=== PATIENT | female | born 1950 | race African-American/Black ===

== ENCOUNTER 2016-09-21 20:55 | Emergency (ER) | payer OTHER ==
[~2016-09-21] VITALS: Ht 177.8 cm; Wt 92.0 kg
[~2016-09-21 20:55] MED LIST: AMLO5TAB22 PO; ASPI81 PO; COZA100T PO; DETR4CAP OR; GLUCTAB PO; GLYB5TAB3 PO; METO100T PO; NAPR-503 PO; TRIA40P IA; Vit D3 PO
[2016-09-21 20:57] VITALS: BP 197/85; PULSE 91; RESP 16; TEMP 97.9; O2SAT 96
[2016-09-21] MEDS ORDERED: METF500T PO (21:40)
--- NOTE | 2016-09-21 22:03 | PD ---
HPI Chief Complaint: Fall Time Seen by Provider: 22:00 Travel History International Travel<30 days: No Contact w/Intl Traveler<30days: No Traveled to known affect area: No History of Present Illness HPI 65-year-old black female presents to emergency department for a chin laceration. She states that she tripped and fell striking her face. She denies any syncope. No neck or back pain. No numbness, tingling or weakness. No malocclusion. She is up-to-date with immunizations. She states the pain is mild. PFSH Past Medical History Hx Anticoagulant Therapy: Yes (ASA) Arthritis: Yes Blood Disorders: No Depression: Yes Cancer: No Cardiovascular Problems: Yes (HTN) Chest Pain: Yes Diabetes: Yes Patient Takes Glucophage: Yes Gastrointestinal Disorders: No Genitourinary: No Hypertension: Yes Immune Disorder: No Implanted Vascular Access Dvce: No Neurologic: No Reproductive: Yes (HYSTERECTOMY) Respiratory: No Thyroid Disease: No Tetanus Vaccination: < 5 Years Past Surgical History Gynecologic Surgery: Yes (HYSTERECTOMY) Hysterectomy: Yes (1984) Other Surgery: Yes (HYSTERECTOMY 1984) Social History Alcohol Use: Yes (SOCIAL) Tobacco Use: No Substance Use: No Allergies-Medications (Allergen,Severity, Reaction): Coded Allergies: Vasotec (Verified Adverse Reaction, Severe, Cough, 09/21/16) Reported Meds & Prescriptions Reported Meds & Active Scripts Active Reported Metformin (Metformin HCl) 500 Mg Tab 500 Mg PO DAILY With a meal Review of Systems Except as stated in HPI: all other systems reviewed are Neg Physical Exam Narrative GENERAL: Well-developed, well-nourished in no apparent distress. Nontoxic appearing. HEAD: Normocephalic, patient has some tenderness and swelling to the lower lip and chin. There is a 2 cm laceration over the mentum. EYES: Pupils equal round and reactive. Extraocular motions intact. No scleral icterus. No injection or drainage. ENT: Nose clear. Throat without erythema, tonsillar hypertrophy or exudate. Uvula midline. Airway patent. Patient has a tooth puncture to the inner wet vermilion of the lower lip. There is no dental injury. No malocclusion. NECK: Trachea midline. Supple, nontender, moves head freely. No central bony tenderness or spasm. CARDIOVASCULAR: Regular rate and rhythm without murmurs, gallops, or rubs. RESPIRATORY: Clear to auscultation. Breath sounds equal bilaterally. No wheezes , rales, or rhonchi. GASTROINTESTINAL: Abdomen soft, non-tender, nondistended. No hepato-splenomegaly , or palpable masses. No guarding. EXTREMITIES: No clubbing, cyanosis, or edema. No joint tenderness. BACK: Nontender without deformity. No flank tenderness. NEUROLOGICAL: Awake, alert and oriented x 3 .Cranial nerves grossly intact. Motor and sensory grossly within normal limits. Normal speech. Data Data Last Documented VS Vital Signs Date Time Temp Pulse Resp B/P Pulse Ox O2 Delivery O2 Flow Rate FiO2 09/21/16 20:57 97.9 91 16 197/85 96 Room Air MDM Medical Decision Making Medical Screen Exam Complete: Yes Emergency Medical Condition: Yes Medical Record Reviewed: Yes Differential Diagnosis MDM: High Differential diagnoses: Fracture, sprain, strain, dislocation, contusion, neurovascular injury Narrative Course Patient is given Amoxil 500 g by mouth. Her wounds are cleansed and closed with Dermabond. Procedures Procedure Narrative LACERATION LOCATION: [place] LENGTH: 2 cm NUMBER OF STITCHES/ANASTASIYA: Not applicable REPAIR: The area of the laceration was prepped with Betadine and sterilely draped. The wound was copiously irrigated and explored without evidence of foreign body, tendon injury or neurovascular injury. The wound was closed using Dermabond. This was a simple single layer repair. The patient was advised to keep the dressing clean and dry. Patient tolerated the procedure well. Diagnosis Primary Impression: Facial laceration Patient Instructions: General Instructions Additional Instructions: Rest. Ice pack tonight. Tylenol or Advil for pain. Dermabond instructions. Amoxicillin. Follow-up with a primary care doctor or a walk-in clinic in the next 2-3 days for recheck. Sunscreen and mederma for 6 months. Return to the ER for any problems. Med/Other Pt SpecificInfo: Prescription(s) given, Wound Care Disposition: 01 DISCHARGE HOME Condition: Stable Humberto Conrad Sep 21, 2016 22:03
[2016-09-21] MEDS ORDERED: AMOX500C PO (22:04)
[2016-09-21] MEDS ORDERED: AMOXICILLIN (TRIHYDRATE) 500 MG CAP PO ONE (22:15)
== END 2016-09-21 22:28 | disposition home or self-care (01) ==
LOC: NEPB 20:55
DX: S01.81XA Laceration without foreign body of other part of head, initial encounter (principal); W01.0XXA Fall on same level from slipping, tripping and stumbling without subsequent striking against object, initial encounter
CPT/HCPCS: 12011

== ENCOUNTER 2016-12-02 16:01 | Observation (INO) | payer OTHER ==
[2016-12-02] VITALS (8 sets, daily range): BP systolic 168–220; BP diastolic 75–134; PULSE 87–106; RESP 16–20; TEMP 98.3–100.8; O2SAT 95–98
[~2016-12-02] VITALS: Ht 177.8 cm; Wt 86.8 kg
[~2016-12-02 16:01] MED LIST changes: -AMLO5TAB22 PO; +AMOX500C PO; -ASPI81 PO; -COZA100T PO; -DETR4CAP OR; -GLUCTAB PO; -GLYB5TAB3 PO; +METF500T PO; -METO100T PO; -NAPR-503 PO; -TRIA40P IA; -Vit D3 PO
--- NOTE | 2016-12-02 17:05 | PD ---
HPI Chief Complaint: lethargy/history diabetes/hypertensive Time Seen by Provider: 17:05 Travel History International Travel<30 days: No Contact w/Intl Traveler<30days: No Traveled to known affect area: No History of Present Illness HPI 66-year-old Afro-Irish female is brought in by EMS with altered mental status. Patient is very lethargic and slow to answer questions. She denies any specific complaints of headache or pain or recent illness. Patient is supposed be taking losartan and metoprolol as well as metformin which she has not been taking for "many months". Today is the patient's birthday, and she was to meet a friend at the [employer], where she became faint and lowered herself to the ground. EMS was called and she was brought here for evaluation. Patient's blood pressures noted extremely high at 223/105. Patient is allergic to Vasotec. PFSH Past Medical History Hx Anticoagulant Therapy: Yes (ASA) Arthritis: Yes Blood Disorders: No Depression: Yes Cancer: No Cardiovascular Problems: Yes (HTN) Chest Pain: Yes Diabetes: Yes Gastrointestinal Disorders: No Genitourinary: No Hypertension: Yes Immune Disorder: No Implanted Vascular Access Dvce: No Neurologic: No Reproductive: Yes (HYSTERECTOMY) Respiratory: No Thyroid Disease: No Past Surgical History Gynecologic Surgery: Yes (HYSTERECTOMY) Hysterectomy: Yes (1984) Other Surgery: Yes (HYSTERECTOMY 1984) Social History Alcohol Use: Yes (SOCIAL) Tobacco Use: No Substance Use: No Allergies-Medications (Allergen,Severity, Reaction): Coded Allergies: Vasotec (Verified Adverse Reaction, Severe, Cough, 12/02/16) Reported Meds & Prescriptions Reported Meds & Active Scripts Active No Active Prescriptions or Reported Medications Review of Systems ROS Limitations: Clinical Condition, Altered Mental Status General / Constitutional: No: Fever Eyes: No: Visual changes HENT: No: Headaches Cardiovascular: No: Chest Pain or Discomfort Respiratory: No: Shortness of Breath Gastrointestinal: No: Abdominal Pain Genitourinary: No: Dysuria Musculoskeletal: No: Pain Skin: No Rash Neurologic: No: Weakness Psychiatric: No: Depression Endocrine: No: Polydipsia Hematologic/Lymphatic: No: Easy Bruising Physical Exam Exam Limitations: Clinical Condition, Altered Mental Status Narrative GENERAL: Patient is in no acute distress. SKIN: Warm and dry. Mild pallor. Mild decreased turgor. HEAD: Atraumatic. Normocephalic. EYES: Pupils equal and round. No scleral icterus. No injection or drainage. ENT: No nasal bleeding or discharge. Mucous membranes pink and somewhat dry. Pharynx appears normal. Airway is patent. NECK: Trachea midline. No JVD. Neck is supple and nontender. CARDIOVASCULAR: Regular rate and rhythm. No murmurs gallops or rubs. RESPIRATORY: No accessory muscle use. Clear to auscultation. Breath sounds equal bilaterally. GASTROINTESTINAL: Abdomen soft, non-tender, nondistended. MUSCULOSKELETAL: Extremities without clubbing, cyanosis, or edema. No obvious deformities. NEUROLOGICAL: Patient is somewhat lethargic and slow to answer questions. She is appropriate in her answers. No obvious cranial nerve deficits. Motor grossly within normal limits. Five out of 5 muscle strength in the arms and legs. Normal speech. PSYCHIATRIC: Appropriate mood and affect; insight and judgment normal. Data Data Last Documented VS Vital Signs Date Time Temp Pulse Resp B/P Pulse Ox O2 Delivery O2 Flow Rate FiO2 12/02/16 19:09 100.8 94 16 206/89 98 Room Air Orders Electrocardiogram (12/02/16 17:17) Ammonia (12/02/16 17:17) Complete Blood Count With Diff (12/02/16 17:17) Comprehensive Metabolic Panel (12/02/16 17:17) Creatine Kinase (Cpk) (12/02/16 17:17) Prothrombin Time / Inr (Pt) (12/02/16 17:17) Act Partial Throm Time (Ptt) (12/02/16 17:17) Troponin I (12/02/16 17:17) Urinalysis - C+S If Indicated (12/02/16 17:17) Chest, Single Ap (12/02/16 17:17) Ct Brain W/O Iv Contrast(Rout) (12/02/16 17:17) Blood Glucose (12/02/16 17:17) Ecg Monitoring (12/02/16 17:17) Iv Access Insert/Monitor (12/02/16 17:17) Cath For Specimen (12/02/16 17:17) Oximetry (12/02/16 17:17) Sodium Chloride 0.9% Flush (Ns Flush) (12/02/16 17:30) Sodium Chlor 0.9% 1000 Ml Inj (Ns 1000 M (12/02/16 17:17) Drug Screen, Random Urine (12/02/16 17:17) Alcohol (Ethanol) (12/02/16 17:17) Metoprolol Tartrate Inj (Lopressor Inj) (12/02/16 17:30) Urine Culture (12/02/16 17:35) Potassium Chlor 20 Meq Premix (Kcl 20 Me (12/02/16 18:45) Ceftriaxone Inj (Rocephin Inj) (12/02/16 18:45) Admit Order (Ed Use Only) (12/02/16 19:14) Labs Laboratory Tests Test 12/02/16 12/02/16 17:35 17:50 White Blood Count 6.4 TH/MM3 Red Blood Count 3.81 MIL/MM3 Hemoglobin 11.7 GM/DL Hematocrit 33.9 % Mean Corpuscular Volume 89.1 FL Mean Corpuscular Hemoglobin 30.6 PG Mean Corpuscular Hemoglobin 34.4 % Concent Red Cell Distribution Width 12.9 % Platelet Count 153 TH/MM3 Mean Platelet Volume 9.9 FL Neutrophils (%) (Auto) 76.0 % Lymphocytes (%) (Auto) 15.3 % Monocytes (%) (Auto) 8.2 % Eosinophils (%) (Auto) 0.1 % Basophils (%) (Auto) 0.4 % Neutrophils # (Auto) 4.9 TH/MM3 Lymphocytes # (Auto) 1.0 TH/MM3 Monocytes # (Auto) 0.5 TH/MM3 Eosinophils # (Auto) 0.0 TH/MM3 Basophils # (Auto) 0.0 TH/MM3 CBC Comment DIFF FINAL Differential Comment Prothrombin Time 10.9 SEC Prothromb Time International 1.0 RATIO Ratio Activated Partial 25.3 SEC Thromboplast Time Urine Color YELLOW Urine Turbidity CLOUDY Urine pH 5.5 Urine Specific [place] 1.013 Urine Protein 30 mg/dL Urine Glucose (UA) 1000 mg/dL Urine Ketones 10 mg/dL Urine Occult Blood SMALL Urine Nitrite NEG Urine Bilirubin NEG Urine Urobilinogen LESS THAN 2.0 MG/DL Urine Leukocyte Esterase LARGE Urine RBC 57 /hpf Urine WBC /hpf Urine WBC Clumps RARE Urine Squamous Epithelial 18 /hpf Cells Urine Bacteria MANY /hpf Urine Yeast (Budding) FEW Microscopic Urinalysis Comment CATH-CULTURE IND Ammonia 13 MCMOL/L Urine Opiates Screen NEG Urine Barbiturates Screen NEG Urine Amphetamines Screen NEG Urine Benzodiazepines Screen NEG Urine Cocaine Screen NEG Urine Cannabinoids Screen NEG Sodium Level 134 MEQ/L Potassium Level 2.9 MEQ/L Chloride Level 98 MEQ/L Carbon Dioxide Level 20.7 MEQ/L Anion Gap 15 MEQ/L Blood Urea Nitrogen 8 MG/DL Creatinine 1.11 MG/DL Estimat Glomerular Filtration 60 ML/MIN Rate Random Glucose 281 MG/DL Calcium Level 9.2 MG/DL Total Bilirubin 1.0 MG/DL Aspartate Amino Transf 57 U/L (AST/SGOT) Alanine Aminotransferase 54 U/L (ALT/SGPT) Alkaline Phosphatase 57 U/L Total Creatine Kinase 147 U/L Troponin I 0.04 NG/ML Total Protein 7.2 GM/DL Albumin 2.9 GM/DL Ethyl Alcohol Level 18 MG/DL [facility] Medical Decision Making Medical Screen Exam Complete: Yes Emergency Medical Condition: Yes Differential Diagnosis Altered mental status. Electrolyte imbalance. Substance abuse. Dehydration. Hypertension. Untreated type 2 diabetes. Noncompliance. Narrative Course Patient is apparently medically stable although lethargic during exam. Labs ordered including CBC, CMP, cardiac panel, and urinalysis. CT of the head and his chest x-ray is ordered. EKG is ordered. IV access is obtained patient is given 1000 mL normal saline bolus. Patient is discussed with Dr. Sofia, who examined the patient as well. CT scan of the head is negative for acute process per radiologist. Chest x-ray is unremarkable for acute process. CBC is unremarkable. CMP significant for sodium of 134, potassium of 2.9, anion of 1.11, glucose of 281, AST and ALTs slightly elevated at 57 and 54 respectively. Albumin slightly 2.9. Urinalysis shows probable urinary tract infection. Patient discussed with Dr. Sofia recommends admission due to altered mental status, low potassium, and urinary tract infection. Patient is given Rocephin 1000 mg IV, as well as 20 mEq potassium IV. Call was placed to the hospitalist for admission. Patient was discussed with Dr. Wynne, who agrees to admit the patient. Diagnosis Primary Impression: Urinary tract infection Qualified Code: N30.00 - Acute cystitis without hematuria Additional Impressions: Low serum potassium level Delirium due to another medical condition Admitting Information Admitting Physician Requests: Admit Scripts No Active Prescriptions or Reported Meds Condition: Stable Gurvinder Proctor Dec 02, 2016 17:05
[2016-12-02] MEDS ORDERED: SODIUM CHLOR 0.9% 1000 ML INJ 1,000 ML IV SCH (17:17)
[2016-12-02] MEDS ORDERED: SODIUM CHLORIDE 0.9% FLUSH 10 ML FLUSH IVF PRN (17:30)
--- NOTE | 2016-12-02 17:48 | RADRPT ---
EXAM DATE/TIME: 12/02/2016 17:35 [facility] COMPARISON: No previous studies available for comparison. INDICATIONS : Altered mental status with dizziness and weakness. RADIATION DOSE: 51.34 CTDIvol (mGy) MEDICAL HISTORY : Hypertension. Diabetes mellitus type 2. SURGICAL HISTORY : Hysterectomy. ENCOUNTER: Initial ACUITY: 1 day PAIN SCALE: 0/10 LOCATION: cranial TECHNIQUE: Multiple contiguous axial images were obtained of the head. Using automated exposure control and adj ustment of the mA and/or kV according to patient size, radiation dose was kept as low as reasonably a chievable to obtain optimal diagnostic quality images. FINDINGS: CEREBRUM: The ventricles are normal for age. No evidence of midline shift, mass lesion, hemorrhage or acute in farction. No extra-axial fluid collections are seen. POSTERIOR FOSSA: The cerebellum and brainstem are intact. The 4th ventricle is midline. The cerebellopontine angle i s unremarkable. EXTRACRANIAL: The visualized portion of the orbits is intact. SKULL: The calvaria is intact. No evidence of skull fracture. CONCLUSION: 1. No acute intracranial abnormality. Andrey Peters MD on December 02, 2016 at 17:45 Board Certified Radiologist. This report was verified electronically.
[2016-12-02 17:52] LABS: AUTOMATED NEUTROPHIL # 4.9 TH/MM3 (1.8-7.7); BASOPHIL % 0.4 % (0.0-2.0); EOSINOPHIL % 0.1 % (0.0-4.0); HEMATOCRIT 33.9 % (35.0-46.0); HEMO FLAGS DIFF FINAL; LYMPH % 15.3 % (9.0-44.0); MEAN CELL VOLUME 89.1 FL (80.0-100.0); MEAN CORPUSCULAR HEMOGLOBIN 30.6 PG (27.0-34.0); MEAN CORPUSCULAR HGB CONC 34.4 % (32.0-36.0); MONO % 8.2 % (0.0-8.0); PLATELET COUNT 153 TH/MM3 (150-450); RED BLOOD COUNT 3.81 MIL/MM3 (4.00-5.30); RED CELL DISTRIBUTION WIDTH 12.9 % (11.6-17.2); WHITE BLOOD COUNT 6.4 TH/MM3 (4.0-11.0)
[2016-12-02 17:58] LABS: APTT (PATIENT) 25.3 SEC (24.3-30.1); PROTHROMBIN TIME - PATIENT 10.9 SEC (9.8-11.6)
[2016-12-02 18:06] LABS: AMPHETAMINE, URINE NEG (NEG); BARBITURATES, URINE NEG (NEG); COCAINE, URINE NEG (NEG)
[2016-12-02] MEDS: METOPROLOL TARTRATE 5 MG/5 ML VIAL IVS SCH ×3 (18:07→19:14)
[2016-12-02 18:12] LABS: BACTERIA, URINE MANY /hpf; BLOOD, URINE SMALL (NEG); GLUCOSE,URINE 1000 mg/dL (NEG); KETONE, URINE 10 mg/dL (NEG); NITRITE,URINE NEG (NEG); PH, URINE 5.5 (5.0-8.5); SQUAMOUS EPITHELIAL CELL URINE 18 /hpf (0-5); URINE COLOR YELLOW (YELLW/STRAW)
[2016-12-02 18:14] LABS: COMMENT (UR) CATH-CULTURE IND; CULTURE IF INDICATED CATH CULTURE IND
[2016-12-02 18:26] LABS: ALKALINE PHOSPHATASE 57 U/L (45-117); ALT (GPT) 54 U/L (10-53); ANION GAP 15 MEQ/L (5-15); AST (GOT) 57 U/L (15-37); BICARBONATE 20.7 MEQ/L (21.0-32.0); BLOOD UREA NITROGEN 8 MG/DL (7-18); CHLORIDE 98 MEQ/L (98-107); CREATINE KINASE 147 U/L (26-192); GLOMERULAR FILTRATION RATE 60 ML/MIN (>89); SODIUM (NA) 134 MEQ/L (136-145)
--- NOTE | 2016-12-02 18:34 | RADRPT ---
EXAM DATE/TIME: 12/02/2016 18:23 [facility] COMPARISON: No previous studies available for comparison. INDICATIONS : Syncope MEDICAL HISTORY : None. SURGICAL HISTORY : None. ENCOUNTER: Initial ACUITY: 2 days PAIN SCORE: 0/10 LOCATION: chest FINDINGS: A single view of the chest demonstrates the lungs to be symmetrically aerated without evidence of mas s, infiltrate or effusion. The cardiomediastinal contours are unremarkable. Osseous structures are intact. CONCLUSION: 1. No acute findings. Humberto Jensen MD on December 02, 2016 at 18:30 Board Certified Radiologist. This report was verified electronically.
[2016-12-02 18:36] LABS: POTASSIUM 2.9 MEQ/L (3.5-5.1)
--- NOTE | 2016-12-02 18:42 | PD ---
Data Data Last Documented VS Vital Signs Date Time Temp Pulse Resp B/P Pulse Ox O2 Delivery O2 Flow Rate FiO2 12/02/16 18:35 89 20 208/88 95 Room Air 12/02/16 17:02 98.3 Orders Electrocardiogram (12/02/16 17:17) Ammonia (12/02/16 17:17) Complete Blood Count With Diff (12/02/16 17:17) Comprehensive Metabolic Panel (12/02/16 17:17) Creatine Kinase (Cpk) (12/02/16 17:17) Prothrombin Time / Inr (Pt) (12/02/16 17:17) Act Partial Throm Time (Ptt) (12/02/16 17:17) Troponin I (12/02/16 17:17) Urinalysis - C+S If Indicated (12/02/16 17:17) Chest, Single Ap (12/02/16 17:17) Ct Brain W/O Iv Contrast(Rout) (12/02/16 17:17) Blood Glucose (12/02/16 17:17) Ecg Monitoring (12/02/16 17:17) Iv Access Insert/Monitor (12/02/16 17:17) Cath For Specimen (12/02/16 17:17) Oximetry (12/02/16 17:17) Sodium Chloride 0.9% Flush (Ns Flush) (12/02/16 17:30) Sodium Chlor 0.9% 1000 Ml Inj (Ns 1000 M (12/02/16 17:17) Drug Screen, Random Urine (12/02/16 17:17) Alcohol (Ethanol) (12/02/16 17:17) Metoprolol Tartrate Inj (Lopressor Inj) (12/02/16 17:30) Urine Culture (12/02/16 17:35) Potassium Chlor 20 Meq Premix (Kcl 20 Me (12/02/16 18:45) Ceftriaxone Inj (Rocephin Inj) (12/02/16 18:45) Labs Laboratory Tests Test 12/02/16 12/02/16 17:35 17:50 White Blood Count 6.4 TH/MM3 Red Blood Count 3.81 MIL/MM3 Hemoglobin 11.7 GM/DL Hematocrit 33.9 % Mean Corpuscular Volume 89.1 FL Mean Corpuscular Hemoglobin 30.6 PG Mean Corpuscular Hemoglobin 34.4 % Concent Red Cell Distribution Width 12.9 % Platelet Count 153 TH/MM3 Mean Platelet Volume 9.9 FL Neutrophils (%) (Auto) 76.0 % Lymphocytes (%) (Auto) 15.3 % Monocytes (%) (Auto) 8.2 % Eosinophils (%) (Auto) 0.1 % Basophils (%) (Auto) 0.4 % Neutrophils # (Auto) 4.9 TH/MM3 Lymphocytes # (Auto) 1.0 TH/MM3 Monocytes # (Auto) 0.5 TH/MM3 Eosinophils # (Auto) 0.0 TH/MM3 Basophils # (Auto) 0.0 TH/MM3 CBC Comment DIFF FINAL Differential Comment Prothrombin Time 10.9 SEC Prothromb Time International 1.0 RATIO Ratio Activated Partial 25.3 SEC Thromboplast Time Urine Color YELLOW Urine Turbidity CLOUDY Urine pH 5.5 Urine Specific [place] 1.013 Urine Protein 30 mg/dL Urine Glucose (UA) 1000 mg/dL Urine Ketones 10 mg/dL Urine Occult Blood SMALL Urine Nitrite NEG Urine Bilirubin NEG Urine Urobilinogen LESS THAN 2.0 MG/DL Urine Leukocyte Esterase LARGE Urine RBC 57 /hpf Urine WBC /hpf Urine WBC Clumps RARE Urine Squamous Epithelial 18 /hpf Cells Urine Bacteria MANY /hpf Urine Yeast (Budding) FEW Microscopic Urinalysis Comment CATH-CULTURE IND Ammonia 13 MCMOL/L Urine Opiates Screen NEG Urine Barbiturates Screen NEG Urine Amphetamines Screen NEG Urine Benzodiazepines Screen NEG Urine Cocaine Screen NEG Urine Cannabinoids Screen NEG Sodium Level 134 MEQ/L Potassium Level 2.9 MEQ/L Chloride Level 98 MEQ/L Carbon Dioxide Level 20.7 MEQ/L Anion Gap 15 MEQ/L Blood Urea Nitrogen 8 MG/DL Creatinine 1.11 MG/DL Estimat Glomerular Filtration 60 ML/MIN Rate Random Glucose 281 MG/DL Calcium Level 9.2 MG/DL Total Bilirubin 1.0 MG/DL Aspartate Amino Transf 57 U/L (AST/SGOT) Alanine Aminotransferase 54 U/L (ALT/SGPT) Alkaline Phosphatase 57 U/L Total Creatine Kinase 147 U/L Troponin I 0.04 NG/ML Total Protein 7.2 GM/DL Albumin 2.9 GM/DL Ethyl Alcohol Level 18 MG/DL [facility] Supervised Visit with GARRY: Yes Narrative Course The history, exam, and medical decision-making in the associated mid-level provider note were completed with my assistance. I reviewed and agree with the findings presented. I attest that I had a [id number] encounter with the patient on the same day, and personally performed and documented my assessment and findings in the medical record. *My assessment and Findings: This 66-year-old woman who presents to the emergency department after she reports that she fell at her hospital hotel. Her getting conflicting reports from EMS said that she really just Got weak and lowered herself to the ground. Patient appears overtly confused and is unable to provide much additional history. Denies any recent illness or injury. Urinalysis shows significant pyuria. She also has marked hypokalemia. She likely has UTI and delirium. We will plan IV antibiotics and admission for further evaluation. Scripts No Active Prescriptions or Reported Meds Emeterio Sofia MD Dec 02, 2016 18:41
[2016-12-02] MEDS ORDERED: POTASSIUM CHLOR 20 MEQ PREMIX 100 ML IV ONE ×2 (18:45→20:00)
[2016-12-02] MEDS ORDERED: cefTRIAXone INJ 1,000 MG in SODIUM CHLORIDE 0.9% INJ 100 ML IV ONE (18:45)
[2016-12-02] MEDS ORDERED: NALOXONE HCL 0.4 MG/ML AMP IV PRN (20:00)
[2016-12-02] MEDS ORDERED: POTASSIUM CHLORIDE 25 MEQ EFFERVESCENT TAB PO ONE (20:00)
[2016-12-02] MEDS ORDERED: SODIUM CHLORIDE 0.9% FLUSH 10 ML FLUSH IV FLUSH PRN (20:00)
[2016-12-02] MEDS: SODIUM CHLORIDE 0.9% FLUSH 10 ML FLUSH IV FLUSH SCH (21:00)
[2016-12-02] MEDS ORDERED: GLUCAGON 1 MG/ML VIAL OTHER PRN (21:15)
[2016-12-02] MEDS ORDERED: DEXTROSE 50% IN WATER 50 ML VIAL(D50) IV PUSH PRN (21:15)
--- NOTE | 2016-12-02 21:27 | RADRPT ---
EXAM DATE/TIME: 12/02/2016 20:07 [facility] COMPARISON: No previous studies available for comparison. INDICATIONS : Syncope. MEDICAL HISTORY : . Hypertension. Anticoagulant therapy, Aspirin. Arthritis. Diabetes. Depression. Post trau matic stress disorder. Measles. SURGICAL HISTORY : Hysterectomy. ENCOUNTER: Initial ACUITY: 1 day PAIN SCORE: 0/10 LOCATION: Bilateral neck PEAK SYSTOLIC VELOCITIES (cm/sec): ICA/CCA RATIO: Right: 1.6 Left: 1.1 ICA: Right: 164 Left: 132 CCA: Right: 100 Left: 118 ECA: Right: 136 Left: 120 VERTEBRAL: Right: 72 antegrade Left: 72 antegrade Elevated flow velocities and ICA/CCA ratios have been found to correlate with increased degrees of vessel stenosis, calculated as percentage of diameter relative to a normal segment of distal ICA/CCA FINDINGS: Mild to moderate calcified and noncalcified plaque are present in the carotid arteries bilaterally. M ildly elevated velocities in the right ICA and mildly elevated right peak systolic velocity ratio. Ve rtebral artery flow antegrade. CONCLUSION: 1. Mild to moderate plaque formation in both carotid arteries without evidence for hemodynamically si gnificant stenosis. Vertebral artery flow antegrade. Humberto Jensen MD on December 02, 2016 at 21:24 Board Certified Radiologist. This report was verified electronically.
[2016-12-02] MEDS: hydrALAZINE HCL 20 MG/ML VIAL IV PUSH PRN (22:38)
--- NOTE | 2016-12-02 23:59 | HHI.HP ---
HPI Service [facility] Primary Care Physician Ayla Marshall MD Admission Diagnosis Syncope/UTI/Hypertension Diagnoses: (1) Syncope (2) Urinary tract infection (3) Hyperkalemia (4) Acute renal insufficiency (5) Diabetes mellitus type 2 (6) Transaminitis Chief Complaint: dizziness and syncope Travel History International Travel<30 Days: No Contact w/Intl Traveler <30 Da: No Traveled to Known Affected Are: No History of Present Illness Ms. Gallegos is a 66 year-old female with a history of hypertension, type 2 diabetes mellitus, gout, osteoarthritis, and hyperlipidemia who was brought to the emergency room on 12/02/2016 by EMS for altered mental status and syncopal episode. Patients blood pressure was noted to be 220/102 on arrival in the ER. Medication noncompliance as reported. Ethyl alcohol is 18 in ER and urine toxicology is negative. Urinalysis shows small occult blood, large leukocyte estrace, 57 RBCs, many bacteria, few yeast. Potassium is low at 2.9. Hyponatremia noted with sodium of 134. Acute renal insufficiency with BUN normal at 8, creatinine elevated at 1.11, and estimated GFR 60. Hyperglycemia is also noted with glucose 281. Transaminitis with AST elevated at 57 and ALT elevated at 54. States that "people at hotel" made her come to the hospital but she's not entirely sure why. She thinks she may not have answered their questions the way they thought she should. No cp, sob, dizziness, abdominal pain, syncope, no dysuria, hematuria, diarrhea. No CAD, CHF, atrial fibrillation, no COPD/asthma, no liver/kidney probs, clots, seizures,thyroid problems, cancer. Was going to stay at a hotel overnight for her birthday but lives in [place] since 2006 . Review of Systems Except as stated in HPI: all other systems reviewed are Neg Past Family Social History Past Medical History Hypertension Hyperlipidemia Type 2 diabetes mellitus Gout Osteoarthritis . Past Surgical History Hysterectomy Oophorectomy, unilateral Bilateral bunionectomies . Reported Medications Has been off of metformin x 1 month Glyburide 5 mg BID p.o. . Allergies: Coded Allergies: Vasotec (Verified Adverse Reaction, Severe, Cough, 12/02/16) Active Ordered Medications Current Medications Sodium Chloride 2 ml 2 ml UNSCH PRN IVF FLUSH AFTER USING IV ACCESS; Start at 17:30; Stop 12/02/16 at 20:02; Status DC Sodium Chloride (NS 1000 ml Inj) 1,000 ml @ 1,000 mls/hr Q1H IV Last administered on 12/02/16 18:07; Start 12/02/16 at 17:17; Stop 12/02/16 at 18:16 ; Status DC Metoprolol Tartrate 5 mg 5 mg Q5M IVS Last administered on 12/02/16 19:14; Start 12/02/16 at 17:30; Stop 12/02/16 at 17:41; Status DC Potassium Chloride 100 ml @ 50 mls/hr BOLUS ONCE IV Last administered on 12/02 18:45; Start 12/02/16 at 18:45; Stop 12/02/16 at 20:44; Status DC Ceftriaxone Sodium/Sodium Chloride (Rocephin Inj/NS Inj) 100 ml @ 200 mls/hr ONCE ONCE IV Last administered on 12/02/16 18:45; Start 12/02/16 at 18:45; Stop 12/02/16 at 19:14; Status DC Sodium Chloride (NS Flush) 2 ml UNSCH PRN IV FLUSH FLUSH AFTER USING IV ACCESS ; Start 12/02/16 at 20:00 Sodium Chloride (NS Flush) 2 ml BID IV FLUSH ; Start 12/02/16 at 21:00 Naloxone HCl (Narcan Inj) 0.4 mg UNSCH PRN IV SEE LABEL COMMENTS; Start at 20:00 Potassium Bicarb/ Potassium Chloride 50 meq 50 meq ONCE ONCE PO Last administered on 12/02/16 21:18; Start 12/02/16 at 20:00; Stop 12/02/16 at 20:02 ; Status DC Potassium Chloride 100 ml @ 50 mls/hr BOLUS ONCE IV Last administered on 12/02 21:22; Start 12/02/16 at 20:00; Stop 12/02/16 at 21:59; Status DC Ceftriaxone Sodium/Sodium Chloride (Rocephin Inj/NS Inj) 100 ml @ 200 mls/hr Q24H IV ; Start 12/03/16 at 18:00 Dextrose (D50w (Vial) Inj) 25 ml UNSCH PRN IV PUSH HYPOGLYCEMIA-SEE COMMENTS; Start 12/02/16 at 21:15 Glucagon (Glucagon Inj) 1 mg UNSCH PRN OTHER HYPOGLYCEMIA-SEE COMMENTS; Start 12/02/16 at 21:15 Insulin Aspart (NovoLOG SUPPLEMENTAL SCALE) 1 ACHS SLIDING SCALE SQ ; Start at 07:00 Hydralazine HCl (Apresoline Inj) 10 mg Q30M PRN IV PUSH bp>160/90 Last administered on 12/02/16t 22:38; Start 12/02/16 at 22:45 . Family History Family Father with and CVA Mother with cancer of the esophagus Oldest sister with breast cancer mets to liver Daughter with melanoma . Social History Tobacco: Smoked 3 packs per day until December 1991 when she quit Alcohol: Occasional - glasses of wine - two glasses daily Illicit Drugs: denies still drives . Physical Exam Vital Signs Vital Signs Date Time Temp Pulse Resp B/P Pulse Ox O2 Delivery O2 Flow Rate FiO2 12/02/16 23:06 104 18 168/75 97 Room Air 12/02/16 22:38 190/86 12/02/16 21:16 106 20 205/95 96 Room Air 12/02/16 19:30 103 18 180/134 98 Room Air 12/02/16 19:09 100.8 94 16 206/89 98 Room Air 12/02/16 18:48 87 20 189/83 97 Room Air 12/02/16 18:35 89 20 208/88 95 Room Air 12/02/16 17:02 98.3 98 20 220/102 98 Physical Exam GENERAL: This is a well-nourished, well-developed patient, in no apparent distress. She is very sleepy during visit and frequently had to be awakened to answer questions but, when awake, answers questions appropriately SKIN: No rashes, ecchymoses or lesions. Cool and dry. HEAD: Atraumatic. Normocephalic. EYES: No scleral icterus. No injection or drainage. ENT: Nose without bleeding, purulent drainage. NECK: Trachea midline. No JVD or lymphadenopathy. CARDIOVASCULAR: Regular rate and rhythm without murmurs, gallops, or rubs. RESPIRATORY: Clear to auscultation. Breath sounds equal bilaterally. No wheezes , rales, or rhonchi. GASTROINTESTINAL: Abdomen soft, non-tender, nondistended. No guarding. MUSCULOSKELETAL: Extremities without clubbing, cyanosis, or edema. No calf tenderness. NEUROLOGICAL: Awake and alert. Motor and sensory grossly within normal limits. Normal speech. . Laboratory Laboratory Tests Test 12/02/16 12/02/16 17:35 17:50 White Blood Count 6.4 Red Blood Count 3.81 Hemoglobin 11.7 Hematocrit 33.9 Mean Corpuscular Volume 89.1 Mean Corpuscular Hemoglobin 30.6 Mean Corpuscular Hemoglobin 34.4 Concent Red Cell Distribution Width 12.9 Platelet Count 153 Mean Platelet Volume 9.9 Neutrophils (%) (Auto) 76.0 Lymphocytes (%) (Auto) 15.3 Monocytes (%) (Auto) 8.2 Eosinophils (%) (Auto) 0.1 Basophils (%) (Auto) 0.4 Neutrophils # (Auto) 4.9 Lymphocytes # (Auto) 1.0 Monocytes # (Auto) 0.5 Eosinophils # (Auto) 0.0 Basophils # (Auto) 0.0 CBC Comment DIFF FINAL Differential Comment Prothrombin Time 10.9 Prothromb Time International 1.0 Ratio Activated Partial 25.3 Thromboplast Time Urine Color YELLOW Urine Turbidity CLOUDY Urine pH 5.5 Urine Specific Girard 1.013 Urine Protein 30 Urine Glucose (UA) 1000 Urine Ketones 10 Urine Occult Blood SMALL Urine Nitrite NEG Urine Bilirubin NEG Urine Urobilinogen LESS THAN 2.0 Urine Leukocyte Esterase LARGE Urine RBC 57 Urine WBC Urine WBC Clumps RARE Urine Squamous Epithelial 18 Cells Urine Bacteria MANY Urine Yeast (Budding) FEW Microscopic Urinalysis Comment CATH-CULTURE IND Ammonia 13 Urine Opiates Screen NEG Urine Barbiturates Screen NEG Urine Amphetamines Screen NEG Urine Benzodiazepines Screen NEG Urine Cocaine Screen NEG Urine Cannabinoids Screen NEG Sodium Level 134 Potassium Level 2.9 Chloride Level 98 Carbon Dioxide Level 20.7 Anion Gap 15 Blood Urea Nitrogen 8 Creatinine 1.11 Estimat Glomerular Filtration 60 Rate Random Glucose 281 Calcium Level 9.2 Total Bilirubin 1.0 Aspartate Amino Transf 57 (AST/SGOT) Alanine Aminotransferase 54 (ALT/SGPT) Alkaline Phosphatase 57 Total Creatine Kinase 147 Troponin I 0.04 Total Protein 7.2 Albumin 2.9 Ethyl Alcohol Level 18 Date/Time Procedure Status Source Growth 12/02/16 17:35 Urine Culture Received Urine Catheterized Urine Pending Result Diagram: 12/02/16 1735 12/02/16 1750 Imaging Last Impressions Head CT 12/02/161716 Signed Impressions: Service Date/Time: November 17:35 - CONCLUSION: 1. No acute intracranial abnormality. Andrey Peters MD Chest X-Ray 12/02/161716 Signed Impressions: Service Date/Time: November 18:23 - CONCLUSION: 1. No acute findings. Humberto Jensen MD Carotid Artery Ultrasound 12/02/16 0000 Signed Impressions: Service Date/Time: , December 02, 2016 20:07 - CONCLUSION: 1. Mild to moderate plaque formation in both carotid arteries without evidence for hemodynamically significant stenosis. Vertebral artery flow antegrade. Humberto Jensen MD . Assessment and Plan Problem List: (1) Syncope ICD Code: R55 Status: Acute (2) Urinary tract infection ICD Code: N39.0 Status: Acute (3) Encephalopathy ICD Code: G93.40 Status: Acute (4) Hyperkalemia ICD Code: E87.5 Status: Acute (5) Acute renal insufficiency ICD Code: N28.9 Status: Acute (6) Diabetes mellitus type 2 ICD Code: 250.00 Status: Chronic (7) Transaminitis ICD Code: R74.0 Status: Acute Assessment and Plan Ms. Gallegos is a 66 year-old female with a history of hypertension, type 2 diabetes mellitus, gout, osteoarthritis, and hyperlipidemia who was brought to the emergency room on 12/02/2016 by EMS for altered mental status and syncopal episode. In the emergency room, she is found to have a urinary tract infection, mild hyponatremia, hypokalemia, acute renal insufficiency, hyperglycemia, and transaminitis. Syncope - Serial cardiac enzymes and EKGs to rule out ACS - Continuous cardiac telemetry to monitor for arrhythmia - Vital signs and Neurochecks every 4 hours - Check carotid ultrasound to rule out carotid atherosclerosis - Echocardiogram to assess structure and function of heart Urinary tract infection - Urinalysis shows small occult blood, large leukocyte estrace, 57 RBCs, many bacteria, few yeast. - Ceftriaxone 1 g IV every 24 hours Encephalopathy; likely secondary to infection vs metabolic - ammonia level 13 - urine toxicology negative - ETOH 18 on admission but suspect delirium is more related to infection Hyperkalemia - Potassium 2.9 on admission - Potassium replaced - Recheck BMP in a.m. and follow results and potassium level Acute renal insufficiency - BUN normal at 8, creatinine elevated at 1.11, and estimated GFR 60. - Normal saline fluid bolus totaling 1 L in the ER - Recheck BMP in a.m. and follow trends in renal indices - Avoid nephrotoxins Type 2 diabetes mellitus, uncontrolled Hyperglycemia - glucose 281 on admission - check HgA1C - Accu-Cheks before meals and at bedtime with low-dose NovoLog sliding scale coverage - Hypoglycemia treatment protocol ordered - Consult clinical unit educator - restart home glyburide once encephalopathy improves Transaminitis - AST elevated at 57 and ALT elevated at 54. - Ethyl alcohol is 18 in ER - Recheck in a.m. anticipate improvement - if no improvement, consider hepatitis workup DVT prophylaxis - SCDs Written by Mitzy Gallo, acting as scribe for Dr. Wynne on 12/02/16 at 23:57 All or portions of this note were transcribed by scribe [Mitzy Gallo]. I, Dr. Shani Wynne personally performed the history, physical exam, and medical decision making; and confirmed the accuracy of the information in the transcribed note. Authenticated by Dr. Shani Wynne on 12/02/16 at 23:57 Discussed Condition With Patient, ER physician, RN . Problem Qualifiers (1) Urinary tract infection: Qualified Code: N30.00 - Acute cystitis without hematuria Mitzy Gallo Dec 02, 2016 23:59 Shani Wynne MD Dec 03, 2016 09:19
[2016-12-03] VITALS (13 sets, daily range): BP systolic 146–190; BP diastolic 66–86; PULSE 76–115; RESP 16–23; TEMP 97.6–99; O2SAT 97–100
[2016-12-03] MEDS: hydrALAZINE HCL 20 MG/ML VIAL IV PUSH PRN ×4 (01:21→16:44)
[2016-12-03] MEDS: INSULIN ASPART SUPPLEMENTAL SCALE SQ SCH ×5 (07:00→21:00)
[2016-12-03 07:09] LABS: BASOPHIL % 0.6 % (0.0-2.0); HEMATOCRIT 33.2 % (35.0-46.0); HEMO FLAGS DIFF FINAL; LYMPH % 19.8 % (9.0-44.0); LYMPHOCYTE # 1.2 TH/MM3 (1.0-4.8); MEAN CELL VOLUME 89.2 FL (80.0-100.0); MEAN CORPUSCULAR HGB CONC 33.6 % (32.0-36.0); MONO % 14.4 % (0.0-8.0); NEUT % 65.2 % (16.0-70.0); PLATELET COUNT 135 TH/MM3 (150-450); RED BLOOD COUNT 3.72 MIL/MM3 (4.00-5.30); RED CELL DISTRIBUTION WIDTH 13.3 % (11.6-17.2); WHITE BLOOD COUNT 6.2 TH/MM3 (4.0-11.0)
[2016-12-03 07:23] LABS: ALKALINE PHOSPHATASE 48 U/L (45-117); ALT (GPT) 46 U/L (10-53); ANION GAP 15 MEQ/L (5-15); AST (GOT) 59 U/L (15-37); BLOOD UREA NITROGEN 11 MG/DL (7-18); CHLORIDE 102 MEQ/L (98-107); CREATINE KINASE 206 U/L (26-192); GLOMERULAR FILTRATION RATE 71 ML/MIN (>89); SODIUM (NA) 135 MEQ/L (136-145); TOTAL BILIRUBIN ADULT 1.1 MG/DL (0.2-1.0)
[2016-12-03 07:33] LABS: POTASSIUM 4.3 MEQ/L (3.5-5.1)
[2016-12-03 07:58] LABS: CKMB 0.8 NG/ML (0.5-3.6)
[2016-12-03] MEDS ORDERED: METOPROLOL TARTRATE 50 MG TAB PO SCH ×2 (09:00→21:00)
[2016-12-03] MEDS ORDERED: LOSARTAN 25 MG TAB PO SCH (09:00)
[2016-12-03] MEDS: SODIUM CHLORIDE 0.9% FLUSH 10 ML FLUSH IV FLUSH SCH ×2 (10:28→21:00)
[2016-12-03 13:53] LABS: HEMOGLOBIN A1b 1.1 %; HEMOGLOBIN Ao 73.3 %; HEMOGLOBIN F 1.7 %; HEMOGLOBIN LA1C 3.6 %; HEMOGLOBIN P3 5.2 %
[2016-12-03] MEDS ORDERED: METO100T9 PO (16:33)
[2016-12-03] MEDS ORDERED: LOSA25TA PO (16:33)
--- NOTE | 2016-12-03 17:07 | HHI.PR ---
Subjective Remarks Patient in bed says she feels improved. Says she was able to walk to the bath today, no lightheadedness, still feels tired. Denies headache. No change in vision or motor deficit. Speech is normal. No fever or chills. No n/v/d/c. Denies fever or chills. No urinary changes. Objective Vitals Vital Signs Date Time Temp Pulse Resp B/P Pulse Ox O2 Delivery O2 Flow Rate FiO2 12/03/16 12:30 98.2 85 18 172/74 98 12/03/16 12:00 78 20 146/66 99 Room Air 12/03/16 11:00 94 16 151/70 98 Room Air 12/03/16 10:45 Room Air 12/03/16 10:35 99.0 95 23 153/70 98 Room Air 12/03/16 10:00 83 18 151/70 99 Room Air 12/03/16 09:00 86 20 153/68 98 Room Air 12/03/16 08:00 84 20 176/76 99 Room Air 12/03/16 07:00 102 23 177/77 99 Room Air 12/03/16 04:24 94 16 183/77 97 Room Air 12/03/16 01:15 98.9 92 18 187/86 97 Room Air 12/02/16 23:06 104 18 168/75 97 Room Air 12/02/16 22:38 190/86 12/02/16 21:16 106 20 205/95 96 Room Air 12/02/16 19:30 103 18 180/134 98 Room Air 12/02/16 19:09 100.8 94 16 206/89 98 Room Air 12/02/16 18:48 87 20 189/83 97 Room Air 12/02/16 18:35 89 20 208/88 95 Room Air 12/02/16 17:02 98.3 98 20 220/102 98 I/O 12/02/16 12/02/16 12/02/16 12/03/16 12/03/16 12/03/16 07:00 15:00 23:00 07:00 15:00 23:00 Intake Total 240 ml Balance 240 ml Intake Oral 240 ml # Voids 1 # Bowel Movements 1 Result Diagram: 12/03/16 0610 12/03/16 0610 Imaging Last Impressions Head CT 3/23/17 1717 Signed Impressions: Service Date/Time: November 17:35 - CONCLUSION: 1. No acute intracranial abnormality. Andrey Peters MD Chest X-Ray 12/02/161716 Signed Impressions: Service Date/Time: November 18:23 - CONCLUSION: 1. No acute findings. Humberto Jensen MD Carotid Artery Ultrasound 12/02/16 0000 Signed Impressions: Service Date/Time: November 20:07 - CONCLUSION: 1. Mild to moderate plaque formation in both carotid arteries without evidence for hemodynamically significant stenosis. Vertebral artery flow antegrade. Humberto Jensen MD Objective Remarks GENERAL: This is a pleasant 66 yo AA female, well-nourished, well-developed patient, in no apparent distress. SKIN: No rashes, ecchymoses or lesions. Cool and dry. HEAD: Atraumatic. Normocephalic. EYES: No scleral icterus. No injection or drainage. ENT: Nose without bleeding, purulent drainage. NECK: Trachea midline. No JVD or lymphadenopathy. CARDIOVASCULAR: Regular rate and rhythm without murmurs, gallops, or rubs. RESPIRATORY: Clear to auscultation. Breath sounds equal bilaterally. No wheezes , rales, or rhonchi. GASTROINTESTINAL: Abdomen soft, non-tender, nondistended. No guarding. MUSCULOSKELETAL: Extremities without clubbing, cyanosis, or edema. No calf tenderness. NEUROLOGICAL: Awake and alert. Motor and sensory grossly within normal limits. Normal speech. A/P Problem List: (1) Syncope ICD Code: R55 Status: Acute (2) Urinary tract infection ICD Code: N39.0 Status: Acute (3) Hyperkalemia ICD Code: E87.5 Status: Acute (4) Acute renal insufficiency ICD Code: N28.9 Status: Acute (5) Diabetes mellitus type 2 ICD Code: 250.00 Status: Chronic (6) Transaminitis ICD Code: R74.0 Status: Acute Assessment and Plan Ms. Gallegos is a 66 year-old female with a history of hypertension, type 2 diabetes mellitus, gout, osteoarthritis, and hyperlipidemia who was brought to the emergency room on 12/02/2016 by EMS for altered mental status and syncopal episode. In the emergency room, she is found to have a urinary tract infection, mild hyponatremia, hypokalemia, acute renal insufficiency, hyperglycemia, and transaminitis. Malignant HTN with RITA and demand ischemia - >slightly elevated troponin on admission -BM 220/102 on admission - Hydralazine q30 min goal to decrease BP 25% at a time. Goal SBP < 160. - Increase metoprolol to 50 mg po bid. - Cont losartan 50 mg po Patient says she did not get her BP med refilled because she change her PCP recently, she was out of meds for 3 weeks now. She doesn't remember the dosage she is taking but knows she takes metoprolol and losartan to control her BP. Syncope - Serial cardiac enzymes slightly elevated 0.04->0.07->0.0 likely demand ischemia from malignant HTN. EKGs no ischemic changes - Continuous cardiac telemetry to monitor for arrhythmia - Vital signs and Neurochecks every 4 hours - Carotid ultrasound to rule out carotid atherosclerosis reviewed, no significant stenosis - Echocardiogram to assess structure and function of heart , pending Urinary tract infection - Urinalysis shows small occult blood, large leukocyte estrace, 57 RBCs, many bacteria, few yeast. - Urine cultures pending - Cont. Ceftriaxone 1 g IV every 24 hours Encephalopathy; likely secondary to infection vs metabolic - ammonia level 13 - urine toxicology negative - ETOH 18 on admission but suspect delirium is more related to infection Hyperkalemia - Potassium 2.9 on admission - Potassium replaced and back to normal. Moniroe and replace as need. Acute renal insufficiency - BUN normal at 8, creatinine elevated at 1.11, and estimated GFR 60. Kidney indices improving - Normal saline fluid bolus totaling 1 L in the ER - Recheck BMP in a.m. and follow trends in renal indices - Avoid nephrotoxins Type 2 diabetes mellitus, uncontrolled Hyperglycemia - glucose 281 on admission - HgA1C pending - Accu-Cheks before meals and at bedtime with low-dose NovoLog sliding scale coverage - Hypoglycemia treatment protocol ordered - Consult liner replacer - restart home glyburide once encephalopathy improves - On HHD with ADA Transaminitis - AST elevated at 57 and ALT elevated at 54. - Ethyl alcohol is 18 in ER - Recheck in a.m. anticipate improvement - if no improvement, consider hepatitis workup DVT prophylaxis - SCDs Discussed Condition With Patient, nurse Problem Qualifiers (1) Urinary tract infection: Qualified Code: N30.00 - Acute cystitis without hematuria Florecita Calvin MD Dec 03, 2016 17:07
[2016-12-03] MEDS: cefTRIAXone INJ 1,000 MG in SODIUM CHLORIDE 0.9% INJ 100 ML IV SCH (17:35)
[2016-12-03] MEDS: INSULIN DETEMIR 100 UNITS/ML VIAL SQ SCH (21:37)
[2016-12-04] VITALS (7 sets, daily range): BP systolic 116–184; BP diastolic 74–86; PULSE 75–93; RESP 18; TEMP 98.3–99.2; O2SAT 97–98
--- NOTE | 2016-12-04 00:01 | EC ---
Study Study Date:12/03/2016 STUDY CONCLUSIONS SUMMARY - Left ventricle: The cavity size was normal. Wall thickness was increased increased in a pattern of mild to moderate LVH. Systolic function was normal. The estimated ejection fraction was 65%. Wall motion was normal; there were no regional wall motion abnormalities. - Mitral valve: Moderately thickened, mildly calcified leaflets, . - Pulmonary arteries: PA peak pressure: 34mm Hg (S). If LV function is below 40, please consider prescribing an ACEI or ARB or document rationale for non-use. PROCEDURE DATA STUDY STATUS: Elective. Procedure: Transthoracic echocardiography. Image quality was good. Scanning was performed from the parasternal, apical, and subcostal acoustic windows. Study completion: The patient tolerated the procedure well. Transthoracic echocardiography. M-mode, complete 2D, complete spectral Doppler, and color Doppler. Patient status: Inpatient. CARDIAC ANATOMY LEFT VENTRICLE: The cavity size was normal. Wall thickness was increased increased in a pattern of mild to moderate LVH. Systolic function was normal. The estimated ejection fraction was 65%. Wall motion was normal; there were no regional wall motion abnormalities. AORTIC VALVE: Trileaflet; normal thickness leaflets. Doppler: Transvalvular velocity was within the normal range. There was no stenosis. No regurgitation. Peak gradient: 13mm Hg (S). AORTA: Aortic root: The aortic root was normal in size. MITRAL VALVE: Moderately thickened, mildly calcified leaflets, . Doppler: Transvalvular velocity was within the normal range. There was no evidence for stenosis. Trace regurgitation. Peak gradient: 3mm Hg (D). LEFT ATRIUM: The atrium was normal in size. RIGHT VENTRICLE: The cavity size was normal. Wall thickness was normal. PULMONIC VALVE: Doppler: Transvalvular velocity was within the normal range. There was no evidence for stenosis. No regurgitation. TRICUSPID VALVE: Structurally normal valve. Doppler: Transvalvular velocity was within the normal range. Trace regurgitation. PULMONARY ARTERY: The main pulmonary artery was normal-sized. Systolic pressure was within the normal range. RIGHT ATRIUM: The atrium was normal in size. PERICARDIUM: There was no pericardial effusion. SYSTEMIC VEINS: Inferior vena cava: The vessel was normal in size. BASIC MEASUREMENTS ADULT Normal Left ventricle LV internal dimension, ED, chordal level, *40.8 mm 43-52 PLAX LV internal dimension, ES, chordal level, 28.5 mm 23-38 PLAX Fractional shortening, chordal level, PLAX 30 % >29 LV posterior wall thickness, ED 12.1 mm IVS/LVPW ratio, ED 1.15 <1.3 Ventricular septum Septal thickness, ED 13.9 mm Left atrium Anterior-posterior dimension 40 mm Right ventricle RV internal dimension, ED, PLAX 27 mm 19-38 DOPPLER MEASUREMENTS ADULT Normal Main pulmonary artery Pressure, S *34 mm Hg =30 Aortic valve Peak velocity, S 181 cm/s Peak gradient, S 13 mm Hg Mitral valve Peak E-wave velocity 81.6 cm/s Peak A-wave velocity 125 cm/s Peak gradient, D 3 mm Hg Peak E/A ratio 0.7 Tricuspid valve Regurgitant peak velocity 270 cm/s Peak RV-RA gradient, S 29 mm Hg Maximal regurgitant velocity 270 cm/s Systemic veins Estimated CVP 5 mm Hg Right ventricle RV pressure, S *34 mm Hg <30 LEGEND: Mean values are shown as u=mean value. Asterisk (*) whitmore values outside specified normal range. Amended Ines Savage [id number]
[2016-12-04 06:18] LABS: AUTOMATED NEUTROPHIL # 2.8 TH/MM3 (1.8-7.7); BASOPHIL % 0.6 % (0.0-2.0); EOSINOPHIL # 0.1 TH/MM3 (0-0.4); EOSINOPHIL % 1.4 % (0.0-4.0); HEMATOCRIT 29.9 % (35.0-46.0); HEMO FLAGS DIFF FINAL; LYMPH % 29.8 % (9.0-44.0); LYMPHOCYTE # 1.5 TH/MM3 (1.0-4.8); MEAN CELL VOLUME 86.7 FL (80.0-100.0); MEAN CORPUSCULAR HEMOGLOBIN 30.7 PG (27.0-34.0); MEAN CORPUSCULAR HGB CONC 35.4 % (32.0-36.0); MONO % 14.1 % (0.0-8.0); NEUT % 54.1 % (16.0-70.0); PLATELET COUNT 147 TH/MM3 (150-450); RED BLOOD COUNT 3.45 MIL/MM3 (4.00-5.30); RED CELL DISTRIBUTION WIDTH 12.8 % (11.6-17.2); WHITE BLOOD COUNT 5.1 TH/MM3 (4.0-11.0)
[2016-12-04 06:54] LABS: ALKALINE PHOSPHATASE 44 U/L (45-117); ALT (GPT) 48 U/L (10-53); ANION GAP 12 MEQ/L (5-15); AST (GOT) 48 U/L (15-37); BICARBONATE 23.2 MEQ/L (21.0-32.0); BLOOD UREA NITROGEN 10 MG/DL (7-18); CHLORIDE 102 MEQ/L (98-107); GLOMERULAR FILTRATION RATE 85 ML/MIN (>89); SODIUM (NA) 137 MEQ/L (136-145); TOTAL BILIRUBIN ADULT 0.6 MG/DL (0.2-1.0)
[2016-12-04] MEDS: INSULIN ASPART SUPPLEMENTAL SCALE SQ SCH ×4 (07:00→21:00)
[2016-12-04 07:09] LABS: POTASSIUM 2.8 MEQ/L (3.5-5.1)
--- NOTE | 2016-12-04 07:09 | HHI.PR ---
Subjective Remarks No change in vision, headache, n/v/d/c. Normal urination. Feels tired. Doesn't have much appetite and was not eating much , K noted low,. replace. BP into a higher side, increase BP meds . Monitor Objective Vitals Vital Signs Date Time Temp Pulse Resp B/P Pulse Ox O2 Delivery O2 Flow Rate FiO2 12/04/16 04:00 98.3 78 18 173/79 97 12/04/16 00:00 98.9 75 18 172/74 97 12/03/16 20:00 97.6 84 18 190/81 100 12/03/16 20:00 115 12/03/16 17:45 85 12/03/16 16:00 98.1 76 18 190/77 99 12/03/16 12:30 98.2 85 18 172/74 98 12/03/16 12:00 78 20 146/66 99 Room Air 12/03/16 11:00 94 16 151/70 98 Room Air 12/03/16 10:45 Room Air 12/03/16 10:35 99.0 95 23 153/70 98 Room Air 12/03/16 10:00 83 18 151/70 99 Room Air 12/03/16 09:00 86 20 153/68 98 Room Air 12/03/16 08:00 84 20 176/76 99 Room Air I/O 12/03/16 12/03/16 12/03/16 12/04/16 12/04/16 12/04/16 07:00 15:00 23:00 07:00 15:00 23:00 Intake Total 480 ml 480 ml 240 ml Balance 480 ml 480 ml 240 ml Intake Oral 480 ml 480 ml 240 ml # Voids 1 1 1 3 # Bowel Movements 1 0 0 0 Result Diagram: 12/04/16 0539 12/03/16 0610 Imaging Last Impressions Head CT 12/02/161716 Signed Impressions: Service Date/Time: November 17:35 - CONCLUSION: 1. No acute intracranial abnormality. Andrey Peters MD Chest X-Ray 12/02/161716 Signed Impressions: Service Date/Time: November 18:23 - CONCLUSION: 1. No acute findings. Humberto Jensen MD Carotid Artery Ultrasound 12/02/16 0000 Signed Impressions: Service Date/Time: November 20:07 - CONCLUSION: 1. Mild to moderate plaque formation in both carotid arteries without evidence for hemodynamically significant stenosis. Vertebral artery flow antegrade. Humberto Jensen MD Objective Remarks GENERAL: This is a pleasant 66 yo AA female, well-nourished, well-developed patient, in no apparent distress. SKIN: No rashes, ecchymoses or lesions. Cool and dry. HEAD: Atraumatic. Normocephalic. EYES: No scleral icterus. No injection or drainage. ENT: Nose without bleeding, purulent drainage. NECK: Trachea midline. No JVD or lymphadenopathy. CARDIOVASCULAR: Regular rate and rhythm without murmurs, gallops, or rubs. RESPIRATORY: Clear to auscultation. Breath sounds equal bilaterally. No wheezes , rales, or rhonchi. GASTROINTESTINAL: Abdomen soft, non-tender, nondistended. No guarding. MUSCULOSKELETAL: Extremities without clubbing, cyanosis, or edema. No calf tenderness. NEUROLOGICAL: Awake and alert. Motor and sensory grossly within normal limits. Normal speech. A/P Problem List: (1) Syncope ICD Code: R55 Status: Acute (2) Urinary tract infection ICD Code: N39.0 Status: Acute (3) Hyperkalemia ICD Code: E87.5 Status: Acute (4) Acute renal insufficiency ICD Code: N28.9 Status: Acute (5) Diabetes mellitus type 2 ICD Code: 250.00 Status: Chronic (6) Transaminitis ICD Code: R74.0 Status: Acute Assessment and Plan Ms. Gallegos is a 66 year-old female with a history of hypertension, type 2 diabetes mellitus, gout, osteoarthritis, and hyperlipidemia who was brought to the emergency room on 12/02/2016 by EMS for altered mental status and syncopal episode. In the emergency room, she is found to have a urinary tract infection, mild hyponatremia, hypokalemia, acute renal insufficiency, hyperglycemia, and transaminitis. Malignant HTN with RITA and demand ischemia - >slightly elevated troponin on admission -BM 220/102 on admission - Hydralazine q4 min goal to decrease BP 25% at a time. Goal SBP < 160. - Increase metoprolol to 100 mg po bid. Patient thinks she takes 100 mg po bid - Cont losartan 50 mg po Patient says she did not get her BP med refilled because she change her PCP recently, she was out of meds for 3 weeks now. She doesn't remember the dosage she is taking but knows she takes metoprolol and losartan to control her BP. Syncope - Serial cardiac enzymes slightly elevated 0.04->0.07->0.0 likely demand ischemia from malignant HTN. EKGs no ischemic changes - Continuous cardiac telemetry to monitor for arrhythmia - Vital signs and Neurochecks every 4 hours - Carotid ultrasound to rule out carotid atherosclerosis reviewed, no significant stenosis - Echocardiogram to assess structure and function of heart , pending Urinary tract infection - Urinalysis shows small occult blood, large leukocyte estrace, 57 RBCs, many bacteria, few yeast. - Urine cultures pending - Cont. Ceftriaxone 1 g IV every 24 hours Encephalopathy; likely secondary to infection vs metabolic - ammonia level 13 - urine toxicology negative - ETOH 18 on admission but suspect delirium is more related to infection Hypokalemia - Monitor and replace as need. Noted low K today replaced, encourage PO intake Acute renal insufficiency - BUN normal at 8, creatinine elevated at 1.11, and estimated GFR 60. Kidney indices improving - Normal saline fluid bolus totaling 1 L in the ER - Recheck BMP in a.m. and follow trends in renal indices - Avoid nephrotoxins Type 2 diabetes mellitus, uncontrolled Hyperglycemia - glucose 281 on admission - HgA1C elevated at 12.7 - Accu-Cheks before meals and at bedtime with low-dose NovoLog sliding scale coverage - Hypoglycemia treatment protocol ordered - Consult environmental educator - start levemir 5 U BID - On HHD with ADA Transaminitis, improved - AST elevated at 57 and ALT elevated at 54 on admission - Ethyl alcohol is 18 in ER - Monitor DVT prophylaxis - SCDs Discussed Condition With Patient, nurse DC when improved poss tomorrow Problem Qualifiers (1) Urinary tract infection: Qualified Code: N30.00 - Acute cystitis without hematuria Florecita Calvin MD Dec 04, 2016 07:09
[2016-12-04] MEDS ORDERED: POTASSIUM BICARBONATE 25 MEQ EFFERVESCENT TAB PO ONE (07:45)
[2016-12-04] MEDS ORDERED: POTASSIUM CHLORIDE 10 MEQ CONTROLLED RELEASE TAB PO ONE (07:45)
[2016-12-04] MEDS: METOPROLOL TARTRATE 100 MG TAB PO SCH ×2 (08:33→21:42)
[2016-12-04] MEDS: INSULIN DETEMIR 100 UNITS/ML VIAL SQ SCH ×2 (08:33→21:00)
[2016-12-04] MEDS: LOSARTAN 50 MG TAB PO SCH (08:33)
[2016-12-04] MEDS: SODIUM CHLORIDE 0.9% FLUSH 10 ML FLUSH IV FLUSH SCH ×2 (08:40→21:44)
--- NOTE | 2016-12-04 11:01 | EKG ---
Date Performed: 12/03/2016 Time Performed: 06:24:20 PTAGE: 66 years EKG: Sinus rhythm POSSIBLE LEFT ATRIAL ENLARGEMENT POSSIBLE LEFT VENTRICULAR HYPERTROPHY Electrical interferences ABNO RMAL ECG NO PREVIOUS TRACING DOCTOR: Walter Pan Interpretating Date/Time 12/04/2016 10:58:13
--- NOTE | 2016-12-04 11:07 | EKG ---
Date Performed: 12/02/2016 Time Performed: 23:28:56 PTAGE: 66 years EKG: SINUS TACHYCARDIA POSSIBLE LEFT ATRIAL ENLARGEMENT SEPTAL MYOCARDIAL INFARCTION ABNORMAL EC G PREVIOUS TRACING : 12/02/2016 18.02 DOCTOR: Walter Pan Interpretating Date/Time 12/04/2016 11:03:51
--- NOTE | 2016-12-04 11:14 | EKG ---
Date Performed: 12/02/2016 Time Performed: 18:02:07 PTAGE: 66 years EKG: Sinus rhythm POSSIBLE LEFT ATRIAL ENLARGEMENT POSSIBLE LEFT VENTRICULAR HYPERTROPHY ABNORMAL ECG PREVIOUS TRACING : 01/20/2008 22.30 DOCTOR: Walter Pan Interpretating Date/Time 12/04/2016 11:10:16
[2016-12-04] MEDS: cefTRIAXone INJ 1,000 MG in SODIUM CHLORIDE 0.9% INJ 100 ML IV SCH (17:24)
[2016-12-05] VITALS: BP 173/82; PULSE 87; RESP 18; TEMP 97.8; O2SAT 92
[2016-12-05 04:51] VITALS: BP 175/77; PULSE 81; RESP 18; TEMP 98.4; O2SAT 97
[2016-12-05 05:12] LABS: AUTOMATED NEUTROPHIL # 2.2 TH/MM3 (1.8-7.7); BASOPHIL % 0.6 % (0.0-2.0); EOSINOPHIL # 0.1 TH/MM3 (0-0.4); EOSINOPHIL % 2.2 % (0.0-4.0); HEMATOCRIT 29.7 % (35.0-46.0); HEMO FLAGS DIFF FINAL; LYMPHOCYTE # 1.9 TH/MM3 (1.0-4.8); MEAN CELL VOLUME 87.7 FL (80.0-100.0); MEAN CORPUSCULAR HEMOGLOBIN 30.4 PG (27.0-34.0); MEAN CORPUSCULAR HGB CONC 34.7 % (32.0-36.0); MONO % 18.4 % (0.0-8.0); NEUT % 41.8 % (16.0-70.0); PLATELET COUNT 161 TH/MM3 (150-450); RED BLOOD COUNT 3.38 MIL/MM3 (4.00-5.30); RED CELL DISTRIBUTION WIDTH 12.8 % (11.6-17.2); WHITE BLOOD COUNT 5.2 TH/MM3 (4.0-11.0)
[2016-12-05 05:20] LABS: POTASSIUM 3.1 MEQ/L (3.5-5.1)
[2016-12-05] MEDS: INSULIN ASPART SUPPLEMENTAL SCALE SQ SCH ×4 (06:25→21:00)
[2016-12-05 08:00] VITALS: BP 175/81; PULSE 82; PULSE 94; RESP 16; TEMP 98.7; O2SAT 98
[2016-12-05] MEDS: METOPROLOL TARTRATE 100 MG TAB PO SCH ×2 (09:32→21:16)
[2016-12-05] MEDS: LOSARTAN 50 MG TAB PO SCH (09:32)
[2016-12-05] MEDS: INSULIN DETEMIR 100 UNITS/ML VIAL SQ SCH ×2 (09:32→21:16)
[2016-12-05] MEDS: hydrALAZINE HCL 20 MG/ML VIAL IV PUSH PRN ×3 (09:32→17:45)
[2016-12-05] MEDS: SODIUM CHLORIDE 0.9% FLUSH 10 ML FLUSH IV FLUSH SCH ×2 (09:33→21:17)
[2016-12-05] MEDS ORDERED: POTASSIUM CHLORIDE 10 MEQ CONTROLLED RELEASE TAB PO ONE (11:45)
[2016-12-05 12:00] VITALS: BP 164/74; PULSE 76; RESP 16; TEMP 98.5; O2SAT 97
--- NOTE | 2016-12-05 13:25 | HHI.PR ---
Subjective Remarks Patient in nad. Her prior PCP is visiting her. Patient denies having any cp, sob , n/v/d/c. Denies headache. Objective Vitals Vital Signs Date Time Temp Pulse Resp B/P Pulse Ox O2 Delivery O2 Flow Rate FiO2 12/05/16 12:00 97 Room Air 12/05/16 12:00 98.5 76 16 164/74 97 12/05/16 09:05 Room Air 12/05/16 08:00 94 12/05/16 08:00 98 Room Air 12/05/16 08:00 98.7 82 16 175/81 98 12/05/16 04:51 98.4 81 18 175/77 97 12/05/16 00:00 97.8 87 18 173/82 92 12/04/16 21:00 Room Air 12/04/16 20:00 87 12/04/16 20:00 99.2 88 18 184/86 97 12/04/16 16:09 98.7 80 18 120/78 98 I/O 12/04/16 12/04/16 12/04/16 12/05/16 12/05/16 12/05/16 07:00 15:00 23:00 07:00 15:00 23:00 Intake Total 240 ml 482 ml 360 ml 480 ml Balance 240 ml 482 ml 360 ml 480 ml Intake Oral 240 ml 480 ml 360 ml 480 ml IV Total 2 ml # Voids 3 4 2 1 # Bowel Movements 0 2 1 0 Result Diagram: 12/05/16 04212/05/16 0421 Imaging Last Impressions Head CT 12/02/161716 Signed Impressions: Service Date/Time: November 17:35 - CONCLUSION: 1. No acute intracranial abnormality. Andrey Peters MD Chest X-Ray 12/02/161716 Signed Impressions: Service Date/Time: November 18:23 - CONCLUSION: 1. No acute findings. Humberto Jensen MD Carotid Artery Ultrasound 12/02/16 0000 Signed Impressions: Service Date/Time: November 20:07 - CONCLUSION: 1. Mild to moderate plaque formation in both carotid arteries without evidence for hemodynamically significant stenosis. Vertebral artery flow antegrade. Humberto Jensen MD Objective Remarks GENERAL: This is a pleasant 66 yo AA female, well-nourished, well-developed patient, in no apparent distress. SKIN: No rashes, ecchymoses or lesions. Cool and dry. HEAD: Atraumatic. Normocephalic. EYES: No scleral icterus. No injection or drainage. ENT: Nose without bleeding, purulent drainage. NECK: Trachea midline. No JVD or lymphadenopathy. CARDIOVASCULAR: Regular rate and rhythm without murmurs, gallops, or rubs. RESPIRATORY: Clear to auscultation. Breath sounds equal bilaterally. No wheezes , rales, or rhonchi. GASTROINTESTINAL: Abdomen soft, non-tender, nondistended. No guarding. MUSCULOSKELETAL: Extremities without clubbing, cyanosis, or edema. No calf tenderness. NEUROLOGICAL: Awake and alert. Motor and sensory grossly within normal limits. Normal speech. A/P Problem List: (1) Syncope ICD Code: R55 Status: Acute (2) Urinary tract infection ICD Code: N39.0 Status: Acute (3) Hyperkalemia ICD Code: E87.5 Status: Acute (4) Acute renal insufficiency ICD Code: N28.9 Status: Acute (5) Diabetes mellitus type 2 ICD Code: 250.00 Status: Chronic (6) Transaminitis ICD Code: R74.0 Status: Acute Assessment and Plan Ms. Gallegos is a 66 year-old female with a history of hypertension, type 2 diabetes mellitus, gout, osteoarthritis, and hyperlipidemia who was brought to the emergency room on 12/02/2016 by EMS for altered mental status and syncopal episode. In the emergency room, she is found to have a urinary tract infection, mild hyponatremia, hypokalemia, acute renal insufficiency, hyperglycemia, and transaminitis. Malignant HTN with RITA and demand ischemia - >slightly elevated troponin on admission -BM 220/102 on admission - Hydralazine q4 min goal to decrease BP 25% at a time. Goal SBP < 160. - Increase metoprolol to 100 mg po bid. Patient thinks she takes 100 mg po bid - Increase losartan to 100 mg po - Add amlodipine 5 mg po daily. Discussed with the patient's prior PCP Dr Miramontes and reviewed meds Patient says she did not get her BP med refilled because she change her PCP recently, she was out of meds for 3 weeks now. She doesn't remember the dosage she is taking but knows she takes metoprolol and losartan to control her BP. Syncope - Serial cardiac enzymes slightly elevated 0.04->0.07->0.0 likely demand ischemia from malignant HTN. EKGs no ischemic changes - Continuous cardiac telemetry to monitor for arrhythmia - Vital signs and Neurochecks every 4 hours - Carotid ultrasound to rule out carotid atherosclerosis reviewed, no significant stenosis - Echocardiogram to assess structure and function of heart , pending Urinary tract infection - Urinalysis shows small occult blood, large leukocyte estrace, 57 RBCs, many bacteria, few yeast. - Urine cultures pending - Cont. Ceftriaxone 1 g IV every 24 hours Encephalopathy; likely secondary to infection vs metabolic - ammonia level 13 - urine toxicology negative - ETOH 18 on admission but suspect delirium is more related to infection Hypokalemia - Monitor and replace as need. Noted low K today replaced, encourage PO intake Acute renal insufficiency - BUN normal at 8, creatinine elevated at 1.11, and estimated GFR 60. Kidney indices improving - Normal saline fluid bolus totaling 1 L in the ER - Recheck BMP in a.m. and follow trends in renal indices - Avoid nephrotoxins Type 2 diabetes mellitus, uncontrolled Hyperglycemia - glucose 281 on admission - HgA1C elevated at 12.7 - Accu-Cheks before meals and at bedtime with low-dose NovoLog sliding scale coverage - Hypoglycemia treatment protocol ordered - Consult development educator - Increase levemir to 7 U BID - On HHD with ADA - Patient will have insulin at home until A1c improved, she agrees with the plan. Transaminitis, improved - AST elevated at 57 and ALT elevated at 54 on admission - Ethyl alcohol is 18 in ER - Monitor DVT prophylaxis - SCDs Discussed Condition With Patient, nurse, prior PCP Dr Kulwinder LAZO today if SBP< 160 Problem Qualifiers (1) Urinary tract infection: Qualified Code: N30.00 - Acute cystitis without hematuria Florecita Calvin MD Dec 05, 2016 13:25
[2016-12-05] MEDS ORDERED: HYDR25TA35 PO (13:27)
[2016-12-05] MEDS ORDERED: METO-338 PO (13:33)
[2016-12-05] MEDS ORDERED: LOSA100T PO (13:33)
[2016-12-05] MEDS ORDERED: CIPR250T2 PO (13:34)
[2016-12-05] MEDS ORDERED: METF1000 PO (13:35)
--- NOTE | 2016-12-05 13:37 | HHI.DS ---
Discharge Summary Admission Date Dec 02, 2016 at 19:16 Discharge Date: Dec 05, 2016 Admitting Diagnosis Syncope/UTI/Hypertension (1) Syncope ICD Code: R55 Diagnosis: Principal (2) Urinary tract infection ICD Code: N39.0 Diagnosis: Principal (3) Hyperkalemia ICD Code: E87.5 Diagnosis: Secondary (4) Acute renal insufficiency ICD Code: N28.9 Diagnosis: Secondary (5) Diabetes mellitus type 2 ICD Code: 250.00 Diagnosis: Secondary (6) Transaminitis ICD Code: R74.0 Diagnosis: Secondary Procedures none Brief History - From Admission Ms. Gallegos is a 66 year-old female with a history of hypertension, type 2 diabetes mellitus, gout, osteoarthritis, and hyperlipidemia who was brought to the emergency room on 12/02/2016 by EMS for altered mental status and syncopal episode. Patients blood pressure was noted to be 220/102 on arrival in the ER. Medication noncompliance as reported. Ethyl alcohol is 18 in ER and urine toxicology is negative. Urinalysis shows small occult blood, large leukocyte estrace, 57 RBCs, many bacteria, few yeast. Potassium is low at 2.9. Hyponatremia noted with sodium of 134. Acute renal insufficiency with BUN normal at 8, creatinine elevated at 1.11, and estimated GFR 60. Hyperglycemia is also noted with glucose 281. Transaminitis with AST elevated at 57 and ALT elevated at 54. States that "people at hotel" made her come to the hospital but she's not entirely sure why. She thinks she may not have answered their questions the way they thought she should. No cp, sob, dizziness, abdominal pain, syncope, no dysuria, hematuria, diarrhea. No CAD, CHF, atrial fibrillation, no COPD/asthma, no liver/kidney probs, clots, seizures,thyroid problems, cancer. Was going to stay at a hotel overnight for her birthday but lives in [place] since 2006 . CBC/BMP: 12/05/16 0421 12/05/16 0421 Significant Findings Laboratory Tests Test 12/02/16 12/02/16 12/02/16 12/03/16 17:35 17:50 23:20 06:10 Red Blood Count 3.81 MIL/MM3 3.72 MIL/MM3 (4.00-5.30) (4.00-5.30) Hematocrit 33.9 % 33.2 % (35.0-46.0) (35.0-46.0) Neutrophils (%) (Auto) 76.0 % (16.0-70.0) Monocytes (%) (Auto) 8.2 % (0.0-8.0) 14.4 % (0.0-8.0) Urine Turbidity CLOUDY (CLEAR) Urine Protein 30 mg/dL (NEG-TRACE) Urine Glucose (UA) 1000 mg/dL (NEG) Urine Ketones 10 mg/dL (NEG) Urine Occult Blood SMALL (NEG) Urine Leukocyte Esterase LARGE (NEG) Urine RBC 57 /hpf (0-3) Urine WBC Clumps RARE (NONE) Urine Bacteria MANY /hpf (NONE) Urine Yeast (Budding) FEW (NONE) Sodium Level 134 MEQ/L 135 MEQ/L (136-145) (136-145) Potassium Level 2.9 MEQ/L (3.5-5.1) Carbon Dioxide Level 20.7 MEQ/L 18.0 MEQ/L (21.0-32.0) (21.0-32.0) Creatinine 1.11 MG/DL (0.50-1.00) Estimat Glomerular Filtration 60 ML/MIN (>89) 71 ML/MIN (>89) Rate Random Glucose 281 MG/DL 308 MG/DL (74-106) (74-106) Aspartate Amino Transf 57 U/L (15-37) 59 U/L (15-37) (AST/SGOT) Alanine Aminotransferase 54 U/L (10-53) (ALT/SGPT) Albumin 2.9 GM/DL 2.4 GM/DL (3.4-5.0) (3.4-5.0) Ethyl Alcohol Level 18 MG/DL (0-5) Troponin I 0.07 NG/ML (0.02-0.05) Hemoglobin 11.2 GM/DL (11.6-15.3) Platelet Count 135 TH/MM3 (150-450) Hemoglobin A1c 12.7 % (4.3-6.0) Total Bilirubin 1.1 MG/DL (0.2-1.0) Total Creatine Kinase 206 U/L (26-192) Test 12/04/16 12/05/16 05:39 04:21 Red Blood Count 3.45 MIL/MM3 3.38 MIL/MM3 (4.00-5.30) (4.00-5.30) Hemoglobin 10.6 GM/DL 10.3 GM/DL (11.6-15.3) (11.6-15.3) Hematocrit 29.9 % 29.7 % (35.0-46.0) (35.0-46.0) Platelet Count 147 TH/MM3 (150-450) Monocytes (%) (Auto) 14.1 % 18.4 % (0.0-8.0) (0.0-8.0) Potassium Level 2.8 MEQ/L 3.1 MEQ/L (3.5-5.1) (3.5-5.1) Estimat Glomerular Filtration 85 ML/MIN (>89) 77 ML/MIN (>89) Rate Random Glucose 168 MG/DL 228 MG/DL (74-106) (74-106) Aspartate Amino Transf 48 U/L (15-37) (AST/SGOT) Alkaline Phosphatase 44 U/L (45-117) Total Protein 6.0 GM/DL (6.4-8.2) Albumin 2.2 GM/DL (3.4-5.0) Imaging Last Impressions Head CT 12/02/161716 Signed Impressions: Service Date/Time: November 17:35 - CONCLUSION: 1. No acute intracranial abnormality. Andrey Peters MD Chest X-Ray 12/02/161716 Signed Impressions: Service Date/Time: November 18:23 - CONCLUSION: 1. No acute findings. Humberto Jensen MD Carotid Artery Ultrasound 12/02/16 0000 Signed Impressions: Service Date/Time: November 20:07 - CONCLUSION: 1. Mild to moderate plaque formation in both carotid arteries without evidence for hemodynamically significant stenosis. Vertebral artery flow antegrade. Humberto Jensen MD PE at Discharge GENERAL: This is a pleasant 66 yo AA female, well-nourished, well-developed patient, in no apparent distress. SKIN: No rashes, ecchymoses or lesions. Cool and dry. HEAD: Atraumatic. Normocephalic. EYES: No scleral icterus. No injection or drainage. ENT: Nose without bleeding, purulent drainage. NECK: Trachea midline. No JVD or lymphadenopathy. CARDIOVASCULAR: Regular rate and rhythm without murmurs, gallops, or rubs. RESPIRATORY: Clear to auscultation. Breath sounds equal bilaterally. No wheezes , rales, or rhonchi. GASTROINTESTINAL: Abdomen soft, non-tender, nondistended. No guarding. MUSCULOSKELETAL: Extremities without clubbing, cyanosis, or edema. No calf tenderness. NEUROLOGICAL: Awake and alert. Motor and sensory grossly within normal limits. Normal speech. Hospital Course Ms. Gallegos is a 66 year-old female with a history of hypertension, type 2 diabetes mellitus, gout, osteoarthritis, and hyperlipidemia who was brought to the emergency room on 12/02/2016 by EMS for altered mental status and syncopal episode. In the emergency room, she is found to have a urinary tract infection, mild hyponatremia, hypokalemia, acute renal insufficiency, hyperglycemia, and transaminitis. Malignant HTN with RITA and demand ischemia - >slightly elevated troponin on admission -BM 220/102 on admission - Hydralazine q4 min goal to decrease BP 25% at a time. Goal SBP < 160. - Increase metoprolol to 100 mg po bid. Patient thinks she takes 100 mg po bid - Increase losartan to 100 mg po - Add amlodipine 5 mg po daily. Discussed with the patient's prior PCP Dr Miramontes and reviewed meds Patient says she did not get her BP med refilled because she change her PCP recently, she was out of meds for 3 weeks now. She doesn't remember the dosage she is taking but knows she takes metoprolol and losartan to control her BP. Syncope - Serial cardiac enzymes slightly elevated 0.04->0.07->0.0 likely demand ischemia from malignant HTN. EKGs no ischemic changes - Continuous cardiac telemetry to monitor for arrhythmia - Vital signs and Neurochecks every 4 hours - Carotid ultrasound to rule out carotid atherosclerosis reviewed, no significant stenosis - Echocardiogram to assess structure and function of heart , pending Urinary tract infection - Urinalysis shows small occult blood, large leukocyte estrace, 57 RBCs, many bacteria, few yeast. - Urine cultures pending - Cont. Ceftriaxone 1 g IV every 24 hours Encephalopathy; likely secondary to infection vs metabolic - ammonia level 13 - urine toxicology negative - ETOH 18 on admission but suspect delirium is more related to infection Hypokalemia - Monitor and replace as need. Noted low K today replaced, encourage PO intake Acute renal insufficiency - BUN normal at 8, creatinine elevated at 1.11, and estimated GFR 60. Kidney indices improving - Normal saline fluid bolus totaling 1 L in the ER - Recheck BMP in a.m. and follow trends in renal indices - Avoid nephrotoxins Type 2 diabetes mellitus, uncontrolled Hyperglycemia - glucose 281 on admission - HgA1C elevated at 12.7 - Accu-Cheks before meals and at bedtime with low-dose NovoLog sliding scale coverage - Hypoglycemia treatment protocol ordered - Consult senior health educator - Increase levemir to 7 U BID - On HHD with ADA - Patient will have insulin at home until A1c improved, she agrees with the plan. Transaminitis, improved - AST elevated at 57 and ALT elevated at 54 on admission - Ethyl alcohol is 18 in ER - Monitor DVT prophylaxis - SCDs Discussed Condition With Patient, nurse, prior PCP Dr Miramontes Discharged home in good condition , to follow up as OP with PCP . Pt Condition on Discharge: Stable Discharge Disposition: Discharge Home Discharge Time: <= 30 minutes Discharge Instructions DIET: Follow Instructions for: Heart Healthy Diet, Diabetic Diet Activities you can perform: Regular-No Restrictions Follow up Referrals: PCP Follow-up - 3-5 Days New Medications: Amlodipine (Amlodipine) 5 Mg Tab 5 MG PO DAILY Blood Pressure Management #30 Ref 0 TAB Atorvastatin (Atorvastatin) 40 Mg Tab 40 MG PO HS Cholesterol Management #30 Ref 0 TAB Blood Glucose Monitoring W/Device (Glucocom Blood Glucose Mo W/Device) 1 Kit Kit 1 KIT .ROUTE DIRECTED Blood Sugar Management #1 KIT Ciprofloxacin (Ciprofloxacin) 250 Mg Tab 250 MG PO BID Infection #10 Ref 0 TAB Folic Acid (Folate) 1 Mg Tab 1 MG PO DAILY Nutritional Supplement #30 Ref 0 TAB Glucocom Test Strips (Glucocom Test Strips) 1 Demetra Demetra 1 EA .ROUTE DIRECTED Blood Sugar Management #50 BOX Insulin Aspart Inj (Novolog Inj) 1,000 Unit/10 Ml Vial 1-9 UNITS SQ ACHS Max dose at bedtime:( )units; sugars less than 70,(0)units; sugars 150-199,(1) unit; sugars 200-249,(3) units; sugars 250-299,(5) units; sugars 300-349,(7) units; sugars greater than 349,(9) units Blood Sugar Management #10 Ref 0 ML Insulin Detemir Inj (Levemir Inj) 1,000 unit/ 10 ML Vial 7 UNITS SQ BID Do not mix with any other Insulin. Blood Sugar Management #60 Ref 0 VIAL Lancets (Lancets) 1 Mis Mis 1 EA .ROUTE DIRECTED Blood Sugar Management #1 Ref 0 BOX Losartan (Losartan) 100 Mg Tab 100 MG PO DAILY Blood Pressure Management #30 Ref 0 TAB Parenteral Therapy Supplies (Sharpsafety Sharps Contai) 1 Mis Mis 1 EA .ROUTE DIRECTED #1 Ref 0 EA Thiamine (Thiamine) 100 Mg Tab 100 MG PO DAILY Nutritional Supplement #30 Ref 0 TAB Metoprolol Tartrate (Lopressor) 100 Mg Tab 100 MG PO Q12HR Blood Pressure Management #60 TAB Discontinued Medications: Losartan (Losartan) 25 Mg Tab 0 PO DAILY Blood Pressure Management #30 Ref 0 TAB Metoprolol Succinate ER 24 HR (Metoprolol Succinate ER 24 HR) 100 Mg Tab 100 MG PO DAILY #30 Ref 0 TAB Florecita Calvin MD Dec 05, 2016 13:37
[2016-12-05] MEDS ORDERED: ATOR40TA16 PO (13:38)
[2016-12-05] MEDS ORDERED: FOLI1TAB4 PO (13:41)
[2016-12-05] MEDS ORDERED: THIA100T PO (13:41)
[2016-12-05] MEDS ORDERED: LOSARTAN 50 MG TAB PO ONE (13:45)
[2016-12-05] MEDS ORDERED: AMLO5TAB2 PO (15:04)
[2016-12-05] MEDS ORDERED: GLUCKIT15 (15:10)
[2016-12-05] MEDS ORDERED: LEVEMIR SQ (15:10)
[2016-12-05] MEDS ORDERED: BIOM30MI (15:10)
[2016-12-05] MEDS ORDERED: LANCETS1 MI1 (15:10)
[2016-12-05] MEDS ORDERED: NOVOLOGP2 SQ (15:10)
[2016-12-05] MEDS ORDERED: GLUCTES12 (15:10)
[2016-12-05] MEDS ORDERED: amLODIPine BESYLATE 5 MG TAB PO ONE (15:30)
[2016-12-05 17:00] VITALS: BP 191/90; PULSE 85; RESP 18; TEMP 98.5; O2SAT 99
[2016-12-05] MEDS: cefTRIAXone INJ 1,000 MG in SODIUM CHLORIDE 0.9% INJ 100 ML IV SCH (17:45)
[2016-12-05 20:00] VITALS: BP 167/81; PULSE 104; RESP 18; TEMP 98.3; O2SAT 95
[2016-12-05] MEDS: hydrALAZINE HCL 25 MG TAB PO SCH (21:16)
[2016-12-06] VITALS: BP 167/73; PULSE 76; RESP 18; TEMP 99; O2SAT 95
[2016-12-06 04:00] VITALS: BP 154/72; PULSE 83; RESP 18; TEMP 97.9; O2SAT 96
[2016-12-06] MEDS: INSULIN ASPART SUPPLEMENTAL SCALE SQ SCH ×2 (06:14→11:00)
[2016-12-06 08:00] VITALS: BP 158/95; PULSE 84; RESP 20; TEMP 98.3; O2SAT 99
[2016-12-06] MEDS: INSULIN DETEMIR 100 UNITS/ML VIAL SQ SCH (09:00)
[2016-12-06] MEDS ORDERED: amLODIPine BESYLATE 5 MG TAB PO SCH (09:00)
[2016-12-06] MEDS ORDERED: FOLIC ACID 1 MG TAB PO SCH (09:00)
[2016-12-06] MEDS ORDERED: THIAMINE HCL 100 MG TAB PO SCH (09:00)
[2016-12-06] MEDS ORDERED: LOSARTAN 50 MG TAB PO SCH (09:00)
[2016-12-06] MEDS: SODIUM CHLORIDE 0.9% FLUSH 10 ML FLUSH IV FLUSH SCH (09:00)
[2016-12-06] MEDS: METOPROLOL TARTRATE 100 MG TAB PO SCH (09:41)
[2016-12-06] MEDS: hydrALAZINE HCL 25 MG TAB PO SCH (09:42)
[2016-12-06] MEDS ORDERED: HYDR25TA35 PO (10:21)
[2016-12-06] MEDS ORDERED: AMLO10TA2 PO (10:21)
[2016-12-06 12:00] VITALS: BP 172/82; PULSE 76; RESP 20; TEMP 98; O2SAT 97
--- NOTE | 2016-12-06 14:02 | HHI.PR ---
Subjective Remarks In nad. Feels much better today. No n/v/d/c. No change in vision. Denies weakness, lightheadedness. She is self administering insulin. Objective Vitals Vital Signs Date Time Temp Pulse Resp B/P Pulse Ox O2 Delivery O2 Flow Rate FiO2 12/06/16 12:00 98.0 76 20 172/82 97 12/06/16 09:00 96 Room Air 12/06/16 08:00 98.3 84 20 158/95 99 12/06/16 04:00 97.9 83 18 154/72 96 12/06/16 00:00 99.0 76 18 167/73 95 12/06/16 00:00 Room Air 12/05/16 20:00 98.3 104 18 167/81 95 12/05/16 20:00 Room Air 12/05/16 17:00 99 Room Air 12/05/16 17:00 98.5 85 18 191/90 99 I/O 12/05/16 12/05/16 12/05/16 12/06/16 12/06/16 12/06/16 07:00 15:00 23:00 07:00 15:00 23:00 Intake Total 480 ml 244 ml 480 ml 100 ml Output Total 1 ml Balance 480 ml 243 ml 480 ml 100 ml Intake Oral 480 ml 240 ml 480 ml 100 ml IV Total 4 ml Output Urine Total 1 ml # Voids 1 5 2 1 # Bowel Movements 0 0 0 Result Diagram: 12/05/1642012/05/16 0421 Imaging Last Impressions Head CT 12/02/161716 Signed Impressions: Service Date/Time: November 17:35 - CONCLUSION: 1. No acute intracranial abnormality. Andrey Peters MD Chest X-Ray 12/02/161716 Signed Impressions: Service Date/Time: November 18:23 - CONCLUSION: 1. No acute findings. Humberto Jensen MD Carotid Artery Ultrasound 12/02/16 0000 Signed Impressions: Service Date/Time: November 20:07 - CONCLUSION: 1. Mild to moderate plaque formation in both carotid arteries without evidence for hemodynamically significant stenosis. Vertebral artery flow antegrade. Humberto Jensen MD Objective Remarks GENERAL: This is a pleasant 66 yo AA female, well-nourished, well-developed patient, in no apparent distress. SKIN: No rashes, ecchymoses or lesions. Cool and dry. HEAD: Atraumatic. Normocephalic. EYES: No scleral icterus. No injection or drainage. ENT: Nose without bleeding, purulent drainage. NECK: Trachea midline. No JVD or lymphadenopathy. CARDIOVASCULAR: Regular rate and rhythm without murmurs, gallops, or rubs. RESPIRATORY: Clear to auscultation. Breath sounds equal bilaterally. No wheezes , rales, or rhonchi. GASTROINTESTINAL: Abdomen soft, non-tender, nondistended. No guarding. MUSCULOSKELETAL: Extremities without clubbing, cyanosis, or edema. No calf tenderness. NEUROLOGICAL: Awake and alert. Motor and sensory grossly within normal limits. Normal speech. Procedures none A/P Problem List: (1) Syncope ICD Code: R55 Status: Acute (2) Urinary tract infection ICD Code: N39.0 Status: Acute (3) Hyperkalemia ICD Code: E87.5 Status: Acute (4) Acute renal insufficiency ICD Code: N28.9 Status: Acute (5) Diabetes mellitus type 2 ICD Code: 250.00 Status: Chronic (6) Transaminitis ICD Code: R74.0 Status: Acute Assessment and Plan Ms. Gallegos is a 66 year-old female with a history of hypertension, type 2 diabetes mellitus, gout, osteoarthritis, and hyperlipidemia who was brought to the emergency room on 12/02/2016 by EMS for altered mental status and syncopal episode. In the emergency room, she is found to have a urinary tract infection, mild hyponatremia, hypokalemia, acute renal insufficiency, hyperglycemia, and transaminitis. Malignant HTN with RIAT and demand ischemia - >slightly elevated troponin on admission -BM 220/102 on admission - Hydralazine q4 min goal to decrease BP 25% at a time. Goal SBP < 160. - Increase metoprolol to 100 mg po bid. Patient thinks she takes 100 mg po bid - Increase losartan to 100 mg po - Increased amlodipine to 10 mg po daily. - Added hydralazine 25 mg po BID. - BP better controlled. Discussed with the patient's prior PCP Dr Miramontes and reviewed meds Patient says she did not get her BP med refilled because she change her PCP recently, she was out of meds for 3 weeks now. She doesn't remember the dosage she is taking but knows she takes metoprolol and losartan to control her BP. Syncope - Serial cardiac enzymes slightly elevated 0.04->0.07->0.0 likely demand ischemia from malignant HTN. EKGs no ischemic changes - Continuous cardiac telemetry to monitor for arrhythmia - Vital signs and Neurochecks every 4 hours - Carotid ultrasound to rule out carotid atherosclerosis reviewed, no significant stenosis - Echocardiogram to assess structure and function of heart , pending Urinary tract infection - Urinalysis shows small occult blood, large leukocyte estrace, 57 RBCs, many bacteria, few yeast. - Urine cultures pending - Cont. Ceftriaxone 1 g IV every 24 hours Encephalopathy; likely secondary to infection vs metabolic - ammonia level 13 - urine toxicology negative - ETOH 18 on admission but suspect delirium is more related to infection Hypokalemia - Monitor and replace as need. Noted low K today replaced, encourage PO intake Acute renal insufficiency - BUN normal at 8, creatinine elevated at 1.11, and estimated GFR 60. Kidney indices improving - Normal saline fluid bolus totaling 1 L in the ER - Recheck BMP in a.m. 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 Transaminitis, improved - AST elevated at 57 and ALT elevated at 54 on admission - Ethyl alcohol is 18 in ER - Monitor DVT prophylaxis - SCDs Discussed Condition With Patient, nurse, prior PCP Dr Miramontes Plan to DC today Problem Qualifiers (1) Urinary tract infection: Qualified Code: N30.00 - Acute cystitis without hematuria Florecita Calvin MD Dec 06, 2016 14:02
== END 2016-12-06 13:29 | disposition home or self-care (01) ==
LOC: NEPE 16:01 → NEDH 19:16 → N04A 12-03 12:31
PROVIDERS: ADMIT Hospitalist; ATTEND Hospitalist
DX: R55 Syncope and collapse (principal); N39.0 Urinary tract infection, site not specified; N17.9 Acute kidney failure, unspecified; E11.65 Type 2 diabetes mellitus with hyperglycemia; R74.0 Nonspecific elevation of levels of transaminase and lactic acid dehydrogenase [LDH]; E78.5 Hyperlipidemia, unspecified; E87.1 Hypo-osmolality and hyponatremia; G93.40 Encephalopathy, unspecified; F17.200 Nicotine dependence, unspecified, uncomplicated; F32.9 Major depressive disorder, single episode, unspecified; F43.10 Post-traumatic stress disorder, unspecified; I24.8 Other forms of acute ischemic heart disease; E87.6 Hypokalemia; M10.9 Gout, unspecified; M19.90 Unspecified osteoarthritis, unspecified site; I10 Essential (primary) hypertension; Z79.84 Long term (current) use of oral hypoglycemic drugs; Z88.8 Allergy status to other drugs, medicaments and biological substances
CPT/HCPCS: 70450; 71010; 80048; 80053; 80307; 81001; 82140; 82550; 82552; 82948; 83036; 84484; 85025; 85610; 85730; 87077; 87086; 87186; 93005; 93306; 93880; 96361; 96365; 96368; 96375; 96376; 97163; 99285; G0378; G8987; G8988; J0360; J0696; J1815; J3480; J7030

== ENCOUNTER 2017-05-19 23:40 | Inpatient (IN) | payer OTHER, MEDICARE ==
[~2017-05-19] VITALS: Ht 175.3 cm; Wt 86.0 kg
[~2017-05-19 23:40] MED LIST changes: +AMLO10TA2 PO; -AMOX500C PO; +ATOR40TA16 PO; +BIOM30MI; +CIPR250T2 PO; +FOLI1TAB4 PO; +GLUCKIT15; +GLUCTES12; +HYDR25TA35 PO; +LANCETS1 MI1; +LEVEMIR SQ; +LOSA100T PO; -METF500T PO; +METO-338 PO; +NOVOLOGP2 SQ; +THIA100T PO
[2017-05-19 23:53] VITALS: BP 185/87; PULSE 101; RESP 16; TEMP 98.9; O2SAT 96
[2017-05-19] MEDS ORDERED: SODIUM CHLOR 0.9% 1000 ML INJ 1,000 ML IV SCH (23:53)
[2017-05-19] MEDS ORDERED: FOLI400T PO (23:59)
[2017-05-19] MEDS ORDERED: METF500T PO (23:59)
[2017-05-19] MEDS ORDERED: HYDR-3801 PO (23:59)
[2017-05-20] VITALS (10 sets, daily range): BP systolic 173–233; BP diastolic 75–101; PULSE 76–102; RESP 18–20; TEMP 98.5–99.7; O2SAT 93–99
[2017-05-20 00:30] LABS: AUTOMATED NEUTROPHIL # 8.9 TH/MM3 (1.8-7.7); BASOPHIL % 0.4 % (0.0-2.0); EOSINOPHIL % 0.1 % (0.0-4.0); HEMO FLAGS DIFF FINAL; LYMPH % 10.7 % (9.0-44.0); LYMPHOCYTE # 1.2 TH/MM3 (1.0-4.8); MEAN CELL VOLUME 94.3 FL (80.0-100.0); MEAN CORPUSCULAR HEMOGLOBIN 31.7 PG (27.0-34.0); MEAN CORPUSCULAR HGB CONC 33.6 % (32.0-36.0); NEUT % 80.8 % (16.0-70.0); PLATELET COUNT 206 TH/MM3 (150-450); RED BLOOD COUNT 4.03 MIL/MM3 (4.00-5.30); RED CELL DISTRIBUTION WIDTH 13.3 % (11.6-17.2); WHITE BLOOD COUNT 11.1 TH/MM3 (4.0-11.0)
[2017-05-20 00:31] LABS: BACTERIA, URINE RARE /hpf; BLOOD, URINE NEG (NEG); COMMENT (UR) CATH-CULTURE IND; CULTURE IF INDICATED CATH CULTURE IND; GLUCOSE,URINE NEG (NEG); HYALINE CAST, URINE 1 /lpf (RARE); KETONE, URINE 10 mg/dL (NEG); NITRITE,URINE NEG (NEG); PH, URINE 5.5 (5.0-8.5); SQUAMOUS EPITHELIAL CELL URINE <1 /hpf (0-5); URINE COLOR YELLOW (YELLW/STRAW)
--- NOTE | 2017-05-20 00:34 | RADRPT ---
EXAM DATE/TIME: 05/20/2017 00:20 [facility] COMPARISON: CHEST SINGLE AP, December 02, 2016, 18:23. INDICATIONS : Patient found on floor after 2 days possibly from fall. MEDICAL HISTORY : Unobtainable. SURGICAL HISTORY : Unobtainable. ENCOUNTER: Initial ACUITY: 1 day PAIN SCORE: Non-responsive. LOCATION: chest FINDINGS: A single view of the chest demonstrates the lungs to be symmetrically aerated without evidence of mas s, infiltrate or effusion. The cardiomediastinal contours are unremarkable. Osseous structures are intact. CONCLUSION: 1. No acute cardiopulmonary disease. Nolan Krishna MD on May 20, 2017 at 0:32 Board Certified Radiologist. This report was verified electronically.
[2017-05-20 00:35] LABS: PROTHROMBIN TIME - PATIENT 10.7 SEC (9.8-11.6)
[2017-05-20 00:47] LABS: ALT (GPT) 23 U/L (10-53); ANION GAP 14 MEQ/L (5-15); AST (GOT) 19 U/L (15-37); BICARBONATE 22.6 MEQ/L (21.0-32.0); BLOOD UREA NITROGEN 10 MG/DL (7-18); CHLORIDE 90 MEQ/L (98-107); GLOMERULAR FILTRATION RATE 65 ML/MIN (>89); POTASSIUM 3.8 MEQ/L (3.5-5.1); SODIUM (NA) 127 MEQ/L (136-145)
[2017-05-20 00:56] LABS: ALCOHOL LESS THAN 3 MG/DL (0-5)
[2017-05-20 00:57] LABS: ALKALINE PHOSPHATASE 52 U/L (45-117); CREATINE KINASE 154 U/L (26-192)
[2017-05-20 01:00] LABS: ACETAMINOPHEN LESS THAN 2.0 MCG/ML (10.0-30.0)
[2017-05-20] MEDS ORDERED: cefTRIAXone INJ 1,000 MG in SODIUM CHLORIDE 0.9% INJ 100 ML IV ONE (01:00)
--- NOTE | 2017-05-20 01:04 | RADRPT ---
EXAM DATE/TIME: 05/20/2017 00:41 [facility] COMPARISON: CT BRAIN W/O CONTRAST, December 02, 2016, 17:35. INDICATIONS : Trauma, fall. Swelling to left eyebrow. RADIATION DOSE: 38.96 CTDIvol (mGy) MEDICAL HISTORY : None SURGICAL HISTORY : None. ENCOUNTER: Initial ACUITY: 3 days PAIN SCALE: 6/10 LOCATION: cranial TECHNIQUE: Multiple contiguous axial images were obtained of the head. Using automated exposure control and adj ustment of the mA and/or kV according to patient size, radiation dose was kept as low as reasonably a chievable to obtain optimal diagnostic quality images. DICOM format image data is available electro nically for review and comparison. FINDINGS: CEREBRUM: The ventricles are normal for age. No evidence of midline shift, mass lesion, hemorrhage or acute in farction. No extra-axial fluid collections are seen. POSTERIOR FOSSA: The cerebellum and brainstem are intact. The 4th ventricle is midline. The cerebellopontine angle i s unremarkable. EXTRACRANIAL: Small left frontal scalp hematoma extending to the superior periorbital region. The visualized portio n of the orbits is intact. Small amount of fluid in the maxillary sinuses bilaterally. Visualized fac ial bones are grossly intact. SKULL: The calvaria is intact. No evidence of skull fracture. CONCLUSION: 1. Left frontal scalp hematoma extending to the superior periorbital region without evidence for unde rlying calvarial fracture or acute intracranial abnormality. 2. Small amount of fluid in the maxillary sinuses bilaterally without definitive evidence for facial bone fracture in the visualized osseous structures. Nolan Krishna MD on May 20, 2017 at 0:59 Board Certified Radiologist. This report was verified electronically.
--- NOTE | 2017-05-20 01:06 | PD ---
HPI Chief Complaint: Fall Time Seen by Provider: 23:53 Travel History International Travel<30 days: No Contact w/Intl Traveler<30days: No Traveled to known affect area: No History of Present Illness HPI 66-year-old female came to the emergency room brought by EMS after being found down in her house. Patient was on the floor and unable to get out. She had left sided upper and lower extremity weakness. Patient is communicating and said that she fell on Tuesday. The weakness is new for her. She had some facial swelling however patient said that she was not laying on her face the entire time. She did struggle to get up but was unable to. She lives by herself and was unable to get any help either. Vital signs were within acceptable limits. [facility] Past Medical History Narrative Medical List of her past medical, surgical, social and family history is reviewed from the nursing note. Hx Anticoagulant Therapy: Yes (ASA) Arthritis: Yes (knees) Blood Disorders: No Anxiety: No Depression: Yes Cancer: No Cardiovascular Problems: Yes (HTN) Chest Pain: Yes Diabetes: Yes Patient Takes Glucophage: Yes Diminished Hearing: No Gastrointestinal Disorders: Yes Genitourinary: Yes (incontinence) Hypertension: Yes Immune Disorder: No Implanted Vascular Access Dvce: No Musculoskeletal: Yes Neurologic: Yes Reproductive: Yes (HYSTERECTOMY) Respiratory: No Thyroid Disease: No : 3 Para: 3 Miscarriage: 0 : 0 Past Surgical History Gynecologic Surgery: Yes (HYSTERECTOMY) Hysterectomy: Yes (1984) Other Surgery: Yes (HYSTERECTOMY 1984) Social History Alcohol Use: Yes (SOCIAL) Tobacco Use: No Substance Use: No Allergies-Medications (Allergen,Severity, Reaction): Coded Allergies: No Known Allergies (Verified Allergy, Unknown, 05/21/17) Comments List of her allergies reviewed from the nursing note. Reported Meds & Prescriptions Reported Meds & Active Scripts Active Amlodipine (Amlodipine Besylate) 10 Mg Tab 10 Mg PO DAILY Sharpsafety Sharps Contai (Parenteral Therapy Supplies) 1 Mis Mis 1 Ea .ROUTE DIRECTED Glucocom Test Strips (Blood Glucose Test Strips) 1 Demetra Demetra 1 Ea .ROUTE DIRECTED Lancets 1 Mis Mis 1 Ea .ROUTE DIRECTED Glucocom Blood Glucose Mo W/Device (Device) 1 Kit Kit 1 Kit .ROUTE DIRECTED Atorvastatin (Atorvastatin Calcium) 40 Mg Tab 40 Mg PO HS Lopressor (Metoprolol Tartrate) 100 Mg Tab 100 Mg PO Q12HR Reported Metformin (Metformin HCl) 500 Mg Tab 100 Mg PO DAILY With meals Hydralazine (Hydralazine HCl) 100 Mg Tab 25 Mg PO BID Take with meals Folic Acid 0.4 Mg Tab 1 Mg PO DAILY Narrative Medication List of her home medications reviewed from the nursing note. Review of Systems Except as stated in HPI: all other systems reviewed are Neg Physical Exam Narrative GENERAL: Awake, alert, slurred speech, disheveled, poor hygiene with strong urine odor, moderate distress SKIN: Focused skin assessment warm/dry. Facial swelling mostly left periorbital and lower lip HEAD: Atraumatic. Normocephalic. EYES: Pupils equal and round. No scleral icterus. No injection or drainage. ENT: No nasal bleeding or discharge. Mucous membranes pink and moist. NECK: Trachea midline. No JVD. CARDIOVASCULAR: Regular rate and rhythm. No murmur appreciated. RESPIRATORY: No accessory muscle use. Clear to auscultation. Breath sounds equal bilaterally. GASTROINTESTINAL: Abdomen soft, non-tender, nondistended. Hepatic and splenic margins not palpable. MUSCULOSKELETAL: No obvious deformities. No clubbing. No cyanosis. No edema. NEUROLOGICAL: Awake and alert. No obvious cranial nerve deficits. No movement in the left upper extremity and slight movement of the left lower extremity. Motor strength left upper extremity 0 out of 5 and left lower extremity of 1 out of 5. Right upper extremity strand 5 out of 5 in the right lower extremity is 5 out of 5. Slurred speech. PSYCHIATRIC: Appropriate mood and affect; insight and judgment normal. Data Data Last Documented VS Orders Orders Electrocardiogram (05/19/17 23:53) Ammonia (05/19/17 23:53) Complete Blood Count With Diff (05/19/17 23:53) Comprehensive Metabolic Panel (05/19/17 23:53) Creatine Kinase (Cpk) (05/19/17 23:53) Prothrombin Time / Inr (Pt) (05/19/17 23:53) Troponin I (05/19/17 23:53) Thyroid Stimulating Hormone (05/19/17 23:53) Urinalysis - C+S If Indicated (05/19/17 23:53) Lactic Acid Sepsis Protocol (05/19/17 23:53) Arterial Blood Gas (Abg) (05/19/17 23:53) Blood Culture (05/19/17 23:53) Chest, Single Ap (05/19/17 23:53) Ct Brain W/O Iv Contrast(Rout) (05/19/17 23:53) Blood Glucose (05/19/17 23:53) Ecg Monitoring (05/19/17 23:53) Iv Access Insert/Monitor (05/19/17 23:53) Oximetry (05/19/17 23:53) Sodium Chloride 0.9% Flush (Ns Flush) (05/20/17 00:00) Sodium Chlor 0.9% 1000 Ml Inj (Ns 1000 M (05/19/17 23:53) Drug Screen, Random Urine (05/19/17 23:53) Alcohol (Ethanol) (05/19/17 23:53) Tylenol (Acetaminophen) (05/19/17 23:53) Salicylates (Aspirin) (05/19/17 23:53) Urinary Catheter Insert/Apply (05/19/17 23:53) Urine Culture (05/20/17 00:10) Ct Cerv Spine W/O Contrast (05/20/17 ) Ceftriaxone Inj (Rocephin Inj) (05/20/17 01:00) Mri Brain W/O Contrast (05/20/17 ) Mra Brain W/O Contrast (Cow) (05/20/17 ) Admit Order (Ed Use Only) (05/20/17 01:32) Labs Laboratory Tests Test 05/20/17 00:10 05/20/17 00:20 White Blood Count 11.1 TH/MM3 Red Blood Count 4.03 MIL/MM3 Hemoglobin 12.8 GM/DL Hematocrit 38.0 % Mean Corpuscular Volume 94.3 FL Mean Corpuscular Hemoglobin 31.7 PG Mean Corpuscular Hemoglobin Concent 33.6 % Red Cell Distribution Width 13.3 % Platelet Count 206 TH/MM3 Mean Platelet Volume 8.9 FL Neutrophils (%) (Auto) 80.8 % Lymphocytes (%) (Auto) 10.7 % Monocytes (%) (Auto) 8.0 % Eosinophils (%) (Auto) 0.1 % Basophils (%) (Auto) 0.4 % Neutrophils # (Auto) 8.9 TH/MM3 Lymphocytes # (Auto) 1.2 TH/MM3 Monocytes # (Auto) 0.9 TH/MM3 Eosinophils # (Auto) 0.0 TH/MM3 Basophils # (Auto) 0.0 TH/MM3 CBC Comment DIFF FINAL Differential Comment Prothrombin Time 10.7 SEC Prothromb Time International Ratio 1.0 RATIO Urine Color YELLOW Urine Turbidity HAZY Urine pH 5.5 Urine Specific [place] 1.015 Urine Protein TRACE mg/dL Urine Glucose (UA) NEG mg/dL Urine Ketones 10 mg/dL Urine Occult Blood NEG Urine Nitrite NEG Urine Bilirubin SMALL Urine Urobilinogen 2.0 MG/DL Urine Leukocyte Esterase MOD Urine RBC 5 /hpf Urine WBC 12 /hpf Urine Squamous Epithelial Cells <1 /hpf Urine Bacteria RARE /hpf Urine Hyaline Casts 1 /lpf Microscopic Urinalysis Comment CATH-CULTURE IND Blood Urea Nitrogen 10 MG/DL Creatinine 1.03 MG/DL Random Glucose 129 MG/DL Total Protein 6.8 GM/DL Albumin 3.0 GM/DL Calcium Level 9.8 MG/DL Alkaline Phosphatase 52 U/L Aspartate Amino Transf (AST/SGOT) 19 U/L Alanine Aminotransferase (ALT/SGPT) 23 U/L Total Bilirubin 2.0 MG/DL Sodium Level 127 MEQ/L Potassium Level 3.8 MEQ/L Chloride Level 90 MEQ/L Carbon Dioxide Level 22.6 MEQ/L Anion Gap 14 MEQ/L Estimat Glomerular Filtration Rate 65 ML/MIN Hemoglobin A1c 4.8 % Lactic Acid Level 1.3 mmol/L Ammonia 13 MCMOL/L Total Creatine Kinase 154 U/L Troponin I LESS THAN 0.02 NG/ML Thyroid Stimulating Hormone 3rd Gen 3.180 uIU/ML Salicylates Level LESS THAN 1.7 MG/DL Urine Opiates Screen NEG Acetaminophen Level LESS THAN 2.0 MCG/ML Urine Barbiturates Screen NEG Urine Amphetamines Screen NEG Urine Benzodiazepines Screen NEG Urine Cocaine Screen NEG Urine Cannabinoids Screen NEG Ethyl Alcohol Level LESS THAN 3 MG/DL Blood Gas Puncture Site RT RADIAL Blood Gas Patient Temperature 98.6 Blood Gas HCO3 21 mmol/L Blood Gas Base Excess -2.9 mmol/L Blood Gas Oxygen Saturation 95 % Arterial Blood pH 7.45 Arterial Blood Partial Pressure CO2 30 mmHg Arterial Blood Partial Pressure O2 84 mmHG Arterial Blood Oxygen Content 15.8 Vol % Arterial Blood Carboxyhemoglobin 1.4 % Arterial Blood Methemoglobin 0.6 % Blood Gas Hemoglobin 11.7 G/DL Oxygen Delivery Device ROOM AIR Blood Gas Inspired Oxygen 21 % MDM Medical Decision Making Medical Screen Exam Complete: Yes Emergency Medical Condition: Yes Medical Record Reviewed: Yes Interpretation(s) Twelve-lead EKG was reviewed by me. Normal sinus rhythm, normal axis, nonspecific ST-T wave changes, tachycardia. Heart rate of 102 bpm. Differential Diagnosis CVA, intracranial bleed, Nico's paralysis Narrative Course 1:05 AM blood test results of back and within acceptable limit. UA suggestive of UTI. I've ordered 1 g of Rocephin IV. Patient was given 1 L of IV fluid bolus initially. CT scan appears to be negative for any bleed. Awaiting for the official read by the radiologist. Chest x-rays within normal limits. Patient will need to be admitted. Awaiting for the hospitalist to call back. She is out of the window for TPA. I have ordered an MRI and an MRA as well. Procedures EKG Prior to Arrival: No Diagnosis Primary Impression: CVA (cerebral vascular accident) Qualified Codes: I63.9 - Cerebral infarction, unspecified Additional Impressions: Left hemiparesis Facial swelling Fall Qualified Codes: W19.XXXA - Unspecified fall, initial encounter UTI (urinary tract infection) Qualified Codes: N39.0 - Urinary tract infection, site not specified Admitting Information Admitting Physician Requests: it Breanna Rebollar MD May 20, 2017 01:06
--- NOTE | 2017-05-20 01:06 | RADRPT ---
EXAM DATE/TIME: 05/20/2017 00:41 [facility] COMPARISON: No previous studies available for comparison. INDICATIONS : Trauma, fall. RADIATION DOSE: 19.04 CTDIvol (mGy) MEDICAL HISTORY : None SURGICAL HISTORY : None. ENCOUNTER: Initial ACUITY: 3 days PAIN SCALE: 3/10 LOCATION: neck TECHNIQUE: Volumetric scanning of the cervical spine was performed. Multiplanar reconstructions in the sagittal, coronal and oblique axial planes were performed. Using automated exposure control and adjustment o f the mA and/or kV according to patient size, radiation dose was kept as low as reasonably achievable to obtain optimal diagnostic quality images. DICOM format image data is available electronically f or review and comparison. : FINDINGS: Vertebral body heights are maintained. Osseous structures are intact without evidence for acute bony fracture. Dens is intact. Sagittal alignment is maintained. There is a normal C1-2 relationship. Face ts are normally aligned. There is no significant prevertebral soft tissue hematoma. Multilevel degene rative spondylosis of the cervical spine most prominently sprung C3-C6 with disc bulge and primarily anterior osteophyte formation. No significant cervical adenopathy or gross mass. The thyroid appears unremarkable. Visualized lung apices are clear without pneumothorax. CONCLUSION: 1. No acute fracture or dislocation. 2. Multilevel degenerative spondylosis of the cervical spine. Nolan Krishna MD on May 20, 2017 at 1:02 Board Certified Radiologist. This report was verified electronically.
[2017-05-20 01:09] LABS: BLOOD GAS BASE EXCESS -2.9 mmol/L (-2-2); BLOOD GAS CARBOXYHEMOGLOBIN 1.4 % (0-4); BLOOD GAS HCO3 21 mmol/L (22-26); BLOOD GAS METHEMOGLOBIN 0.6 % (0-2); BLOOD GAS O2 HGB SATURATION 95 % (90-100); BLOOD GAS OXYGEN CONTENT 15.8 Vol % (12.0-20.0); BLOOD GAS PCO2 30 mmHg (38-42); BLOOD GAS PO2 84 mmHG (61-120); BLOOD GAS TOTAL HGB 11.7 G/DL (12.0-16.0); CRITICAL VALUE NO; FIO2 21 %; OXYGEN DEVICE ROOM AIR; TEMP CORR TO 98.6
[2017-05-20 01:10] LABS: DRAW SITE RT RADIAL; NUMBER OF ARTERIAL PUNCTURES 1; STAT YES; ULNAR PULSE PRESENT
[2017-05-20] MEDS ORDERED: SODIUM CHLORIDE 0.9% FLUSH 5 ML FLUSH IV FLUSH PRN ×2 (01:45)
--- NOTE | 2017-05-20 03:11 | RADRPT ---
EXAM DATE/TIME: 05/20/2017 02:09 [facility] COMPARISON: No previous studies available for comparison. INDICATIONS : CVA. Facial swelling after fall. Left side weakness. MEDICAL HISTORY : Hypertension. Diabetes. SURGICAL HISTORY : Hysterectomy. ENCOUNTER: Subsequent ACUITY: 1 day PAIN SCORE: 5/10 LOCATION: facial Please note a normal MRA of the brain does not entirely exclude the possibility of a small aneurysm, nor the possibility of distal intracranial vessel disease. TECHNIQUE: 3D time of flight MRA was performed. Source images, multiplanar STS MIP, and 3D volume MIP reconstru ctions were reviewed. FINDINGS: Anterior circulation: Intracranial internal carotid arteries are patent with flow extending to the middle and anterior cere bral arteries. There is no evidence for aneurysm, vessel truncation or stenosis, and no evidence for vascular malformation. Posterior circulation: Codominant patent distal vertebral arteries. Flow extends to the basilar and posterior cerebral arter ies. There is no evidence for aneurysm, vessel truncation or stenosis, and no evidence for vascular m alformation. CONCLUSION: 1. Unremarkable MRA examination of the brain. No evidence for large vessel occlusion or stenosis, as questioned. Nolan Krishna MD on May 20, 2017 at 3:06 Board Certified Radiologist. This report was verified electronically.
--- NOTE | 2017-05-20 03:14 | RADRPT ---
EXAM DATE/TIME: 05/20/2017 02:09 [facility] COMPARISON: No previous studies available for comparison. INDICATIONS : CVA. Facial swelling after fall. Left side weakness. MEDICAL HISTORY : Hypertension. Diabetes. SURGICAL HISTORY : Hysterectomy. ENCOUNTER: Subsequent ACUITY: 1 day PAIN SCORE: 5/10 LOCATION: facial TECHNIQUE: Multiplanar, multisequence MRI of the brain was performed without contrast. FINDINGS: CEREBRUM: Mild diffuse cerebral atrophy. The ventricles are normal for age. No evidence of midline shift, mass lesion, hemorrhage or acute infarction. No extraaxial fluid collections are seen. The pituitary gl and and suprasellar cistern are normal in configuration. WHITE MATTER: Mild periventricular and scattered deep white matter T2 prolongation. POSTERIOR FOSSA: The cerebellum and brainstem are intact. The 4th ventricle is midline. The cerebellopontine angle is unremarkable. The cerebellar tonsils are normal in position. DIFFUSION IMAGING: No focal areas of restricted diffusion are seen. No evidence of acute infarction. EXTRACRANIAL: Orbits are unremarkable. Small amount of fluid in the maxillary sinuses bilaterally. CONCLUSION: 1. Senescent changes with mild small vessel ischemic white matter demyelination. 2. No acute ischemia or acute intracranial abnormality. 3. Bilateral maxillary sinus fluid. Nolan Krishna MD on May 20, 2017 at 3:10 Board Certified Radiologist. This report was verified electronically.
[2017-05-20] MEDS ORDERED: cloNIDine HCL 0.1 MG TAB PO ONE (03:15)
--- NOTE | 2017-05-20 03:32 | HHI.HP ---
[facility] Ayla Marshall MD Admission Diagnosis CVA, UTI Diagnoses: (1) Atypical syncope Chief Complaint: Recurrent falls with suspected recurrent syncopal episode Travel History International Travel<30 Days: No Contact w/Intl Traveler <30 Da: No Traveled to Known Affected Are: No History of Present Illness Written by Mitzy Gallo, acting as scribe for Dr. Wynne on 05/20/17 at 03:28. The patient states that her knees gave out on her and she fell on her face on Tuesday morning - 05/18/17 She was able to get up and go to the bathroom following fall Second fall occurred Tuesday evening. Denies any associated chest pain, dizziness, shortness of breath, or syncope. She denies her legs giving out on her. The patient reports that no one had seen the patient in a couple of days and a wellness check was requested by neighbors and was carried out by the police. The patient was unable to get up following the fall because she could not move her right side due to pain. She also had severe back pain. EMS was able to get her up and walking with her walker. Takes a baby aspirin at home. Past week, denies chest pain, shortness of breath, dizziness, syncope, nausea, vomiting, diarrhea, black or red stool, hematuria, pain or burning with urination, or abdominal pain. Attended a family reunion in [place] in March EF 65% during November 2016 admission for syncope - no significant valve problems noted. Left ventricular hypertrophy was noted. Carotid ultrasound during same admission with mild to moderate plaque formation. . Review of Systems Except as stated in HPI: all other systems reviewed are Neg Past Family Social History Past Medical History Hypertension Hyperlipidemia Type 2 diabetes mellitus Gout Osteoarthritis . Past Surgical History Hysterectomy Oophorectomy, unilateral Bilateral bunionectomies . Reported Medications . Reported Meds & Active Scripts Active Amlodipine (Amlodipine Besylate) 10 Mg Tab 10 Mg PO DAILY Sharpsafety Sharps Contai (Parenteral Therapy Supplies) 1 Mis Mis 1 Ea .ROUTE DIRECTED Glucocom Test Strips (Blood Glucose Test Strips) 1 Demetra Demetra 1 Ea .ROUTE DIRECTED Lancets 1 Mis Mis 1 Ea .ROUTE DIRECTED Glucocom Blood Glucose Mo W/Device (Device) 1 Kit Kit 1 Kit .ROUTE DIRECTED Atorvastatin (Atorvastatin Calcium) 40 Mg Tab 40 Mg PO HS Lopressor (Metoprolol Tartrate) 100 Mg Tab 100 Mg PO Q12HR Reported Metformin (Metformin HCl) 500 Mg Tab 100 Mg PO DAILY With meals Hydralazine (Hydralazine HCl) 100 Mg Tab 25 Mg PO BID Take with meals Folic Acid 0.4 Mg Tab 1 Mg PO DAILY Allergies: Coded Allergies: No Known Allergies (Verified Allergy, Unknown, 05/21/17) Active Ordered Medications Current Medications IV Flush (NS Flush) 2 ml UNSCH PRN IV FLUSH FLUSH AFTER USING IV ACCESS; Start 05/20/17 at 00:00; Stop 05/20/17 at 01:36; Status DC Sodium Chloride 1,000 ml @ 1,000 mls/hr Q1H IV Last administered on 05/20/17 00:17; Start 05/19/17 at 23:53; Stop 05/20/17 at 00:52; Status DC Ceftriaxone Sodium 1000 mg/ Sodium Chloride 100 ml @ 200 mls/hr ONCE ONCE IV Last administered on 05/20/17 01:34; Start 05/20/17 at 01:00; Stop 05/20/17 at 01: 29; Status DC IV Flush (NS Flush) 2 ml BID IV FLUSH ; Start 05/20/17 at 09:00 IV Flush (NS Flush) 2 ml UNSCH PRN IV FLUSH FLUSH AFTER USING IV ACCESS; Start 05/20/17 at 01:45 Clonidine (Catapres) 0.1 mg ONCE ONCE PO ; Start 05/20/17 at 03:15; Stop at 03:17; Status DC . Family History Father with and CVA Mother with cancer of the esophagus Oldest sister with breast cancer mets to liver Daughter with melanoma . Social History Tobacco: Smoked 3 packs per day until December 13, 1991 when she quit Alcohol: Occasional - glasses of wine - two glasses daily Illicit Drugs: denies still drives . Physical Exam Vital Signs Vital Signs Date Time Temp Pulse Resp B/P (MAP) Pulse Ox O2 Delivery O2 Flow Rate FiO2 05/20/17 03:04 98.6 102 18 227/101 (143) 98 9/8/17 03:04 233/97 (142) 05/20/17 02:24 05/20/17 01:45 97 05/20/17 00:12 99 Room Air 05/19/17 23:53 98.9 101 16 185/87 (119) 96 Room Air Physical Exam GENERAL: This is a female patient, in no apparent distress. SKIN: No rashes.. Cool and dry. Left eyelid with significant swelling. Lower lip with laceration and edema. HEAD: Atraumatic. Normocephalic. No temporal or scalp tenderness. EYES: No scleral icterus. No injection or drainage. ENT: Nose without bleeding, purulent drainage or septal hematoma. NECK: Trachea midline. No JVD. CARDIOVASCULAR: Regular rate and rhythm without murmurs, gallops, or rubs. RESPIRATORY: Clear to auscultation. Breath sounds equal bilaterally. No wheezes , rales, or rhonchi. GASTROINTESTINAL: Abdomen soft, non-tender, nondistended. MUSCULOSKELETAL: Extremities without clubbing, cyanosis, or edema. No calf tenderness. NEUROLOGICAL: Awake and alert. Motor and sensory grossly within normal limits. Laboratory Laboratory Tests Test 05/20/17 00:10 05/20/17 00:20 White Blood Count 11.1 Red Blood Count 4.03 Hemoglobin 12.8 Hematocrit 38.0 Mean Corpuscular Volume 94.3 Mean Corpuscular Hemoglobin 31.7 Mean Corpuscular Hemoglobin Concent 33.6 Red Cell Distribution Width 13.3 Platelet Count 206 Mean Platelet Volume 8.9 Neutrophils (%) (Auto) 80.8 Lymphocytes (%) (Auto) 10.7 Monocytes (%) (Auto) 8.0 Eosinophils (%) (Auto) 0.1 Basophils (%) (Auto) 0.4 Neutrophils # (Auto) 8.9 Lymphocytes # (Auto) 1.2 Monocytes # (Auto) 0.9 Eosinophils # (Auto) 0.0 Basophils # (Auto) 0.0 CBC Comment DIFF FINAL Differential Comment Prothrombin Time 10.7 Prothromb Time International Ratio 1.0 Urine Color YELLOW Urine Turbidity HAZY Urine pH 5.5 Urine Specific [place] 1.015 Urine Protein TRACE Urine Glucose (UA) NEG Urine Ketones 10 Urine Occult Blood NEG Urine Nitrite NEG Urine Bilirubin SMALL Urine Urobilinogen 2.0 Urine Leukocyte Esterase MOD Urine RBC 5 Urine WBC 12 Urine Squamous Epithelial Cells <1 Urine Bacteria RARE Urine Hyaline Casts 1 Microscopic Urinalysis Comment CATH-CULTURE IND Blood Urea Nitrogen 10 Creatinine 1.03 Random Glucose 129 Total Protein 6.8 Albumin 3.0 Calcium Level 9.8 Alkaline Phosphatase 52 Aspartate Amino Transf (AST/SGOT) 19 Alanine Aminotransferase (ALT/SGPT) 23 Total Bilirubin 2.0 Sodium Level 127 Potassium Level 3.8 Chloride Level 90 Carbon Dioxide Level 22.6 Anion Gap 14 Estimat Glomerular Filtration Rate 65 Lactic Acid Level 1.3 Ammonia 13 Total Creatine Kinase 154 Troponin I LESS THAN 0.02 Thyroid Stimulating Hormone 3rd Gen 3.180 Salicylates Level LESS THAN 1.7 Urine Opiates Screen NEG Acetaminophen Level LESS THAN 2.0 Urine Barbiturates Screen NEG Urine Amphetamines Screen NEG Urine Benzodiazepines Screen NEG Urine Cocaine Screen NEG Urine Cannabinoids Screen NEG Ethyl Alcohol Level LESS THAN 3 Blood Gas Puncture Site RT RADIAL Blood Gas Patient Temperature 98.6 Blood Gas HCO3 21 Blood Gas Base Excess -2.9 Blood Gas Oxygen Saturation 95 Arterial Blood pH 7.45 Arterial Blood Partial Pressure CO2 30 Arterial Blood Partial Pressure O2 84 Arterial Blood Oxygen Content 15.8 Arterial Blood Carboxyhemoglobin 1.4 Arterial Blood Methemoglobin 0.6 Blood Gas Hemoglobin 11.7 Oxygen Delivery Device ROOM AIR Blood Gas Inspired Oxygen 21 Date/Time Source Procedure Growth Status 05/20/17 00:10 Blood Peripheral Aerobic Blood Culture Pending Received 05/20/17 00:10 Blood Peripheral Anaerobic Blood Culture Pending Received 05/20/17 00:10 Urine Catheterized Urine Urine Culture Pending Received Result Diagram: 05/20/17 0010 05/20/17 0010 Imaging Last Impressions Head Magnetic Resonance Angiography 05/20/17 0000 Signed Impressions: Service Date/Time: Saturday, May 20, 2017 02:09 - CONCLUSION: 1. Unremarkable MRA examination of the brain. No evidence for large vessel occlusion or stenosis, as questioned. Nolan Krishna MD Cervical Spine CT 05/20/17 0000 Signed Impressions: Service Date/Time: Saturday, May 20, 2017 00:41 - CONCLUSION: 1. No acute fracture or dislocation. 2. Multilevel degenerative spondylosis of the cervical spine. Nolan Krishna MD Head CT 05/19/17 [id number] Signed Impressions: Service Date/Time: Saturday, May 20, 2017 00:41 - CONCLUSION: 1. Left frontal scalp hematoma extending to the superior periorbital region without evidence for underlying calvarial fracture or acute intracranial abnormality. 2. Small amount of fluid in the maxillary sinuses bilaterally without definitive evidence for facial bone fracture in the visualized osseous structures. Nolan Krishna MD Chest X-Ray 05/19/17 1600 Signed Impressions: Service Date/Time: Saturday, May 20, 2017 00:20 - CONCLUSION: 1. No acute cardiopulmonary disease. Nolan Krishna MD . Caprini VTE Risk Assessment Caprini VTE Risk Assessment: Mod/High Risk (score >= 2) Caprini Risk Assessment Model Point Value = 1 Point Value = 2 Point Value = 3 Point Value = 5 Age 41-60 Minor surgery BMI > 25 kg/m2 Swollen legs Varicose veins or History of unexplained or recurrent spontaneous Oral contraceptives or hormone replacement Sepsis (< 1 month) Serious lung disease, including pneumonia (< 1 month) Abnormal pulmonary function Acute myocardial infarction Congestive heart failure (< 1 month) History of inflammatory bowel disease Medical patient at bed rest Age 61-74 Arthroscopic surgery Major open surgery (> 45 min) Laparoscopic surgery (> 45 min) Malignancy Confined to bed (> 72 hours) Immobilizing plaster cast Central venous access Age >= 75 History of VTE Family history of VTE Factor V Leiden Prothrombin [id number] Lupus anticoagulant Anticardiolipin antibodies Elevated serum homocysteine Heparin-induced thrombocytopenia Other congenital or acquired thrombophilia Stroke (< 1 month) Elective arthroplasty Hip, pelvis, or leg fracture Acute spinal cord injury (< 1 month) Prophylaxis Regimen Total Risk Factor Score Risk Level Prophylaxis Regimen 0-1 Low Early ambulation 2 Moderate Order ONE of the following: *Sequential Compression Device (SCD) *Heparin 5000 units SQ BID 3-4 Higher Order ONE of the following medications: *Heparin 5000 units SQ TID *Enoxaparin/Lovenox 40 mg SQ daily (WT < 150 kg, CrCl > 30 mL/min) *Enoxaparin/Lovenox 30 mg SQ daily (WT < 150 kg, CrCl > 10-29 mL/min) *Enoxaparin/Lovenox 30 mg SQ BID (WT < 150 kg, CrCl > 30 mL/min) AND/OR *Sequential Compression Device (SCD) 5 or more Highest Order ONE of the following medications: *Heparin 5000 units SQ TID (Preferred with Epidurals) *Enoxaparin/Lovenox 40 mg SQ daily (WT < 150 kg, CrCl > 30 mL/min) *Enoxaparin/Lovenox 30 mg SQ daily (WT < 150 kg, CrCl > 10-29 mL/min) *Enoxaparin/Lovenox 30 mg SQ BID (WT < 150 kg, CrCl > 30 mL/min) AND *Sequential Compression Device (SCD) Assessment and Plan Problem List: (1) Atypical syncope ICD Code: R55 - Syncope and collapse (2) Urinary tract infection ICD Code: N39.0 - Urinary tract infection, site not specified Status: Acute (3) Diabetes mellitus type 2 Status: Chronic (4) Hyponatremia ICD Code: E87.1 - Hypo-osmolality and hyponatremia Assessment and Plan 66 y/o female with recurrent falls (4 over the past year; 3 resulting in ED visits and one prior admission) and suspected recurrent syncope: Suspected recurrent syncopal episode Fall at home x 2 - Senescent changes with mild small vessel ischemic white matter demyelination; no acute ischemia or acute intracranial abnormality. Bilateral maxillary sinus fluid. - Cervical spine CT with no fracture or dislocation. - MRA unremarkable - Head CT shows left frontal scalp hematoma extending to the superior periorbital region without evidence for underlying calvarial Aero fracture or acute intracranial abnormality. - Previous echocardiogram from November 2016 admission were unremarkable; and carotid ultrasound with mild to moderate plaque - repeat studies - Check orthostatic blood pressure readings - Consult cardiology - may need loop recorder - Consult neurology - EEG to evaluate for possible seizure activity UTI - Ceftriaxone 1 gram IV q12 h - u/a c/w infection - follow culture results and adjust therapy as needed Type 2 Diabetes Mellitus - Accu-Cheks before meals and at bedtime with low-dose NovoLog sliding scale coverage - Hypoglycemia protocol - Monitor trends and blood glucose readings and adjust treatments as indicated - 1800 ADA diet Hyponatremia - NS bolus x 1 liter in ED - recheck BMP in a.m. and follow results in Na++ and replace as needed DVT prophylaxis - Lovenox 40 mg subq q24h This note was transcribed by tushar [Mitzy Gallo]. I, Dr. Shani Wynne personally performed the history, physical exam, and medical decision making; and confirmed the accuracy of the information in the transcribed note. Authenticated by Dr. Shani Wynne on 05/20/17 at 03:28. Discussed Condition With ER physician and patient . Physician Certification 2 Midnight Certification Type: Admission for Inpatient Services Order for Inpatient Services The services are ordered in accordance with Medicare regulations or non- Medicare payer requirements, as applicable. In the case of services not specified as inpatient-only, they are appropriately provided as inpatient services in accordance with the 2-midnight benchmark. Estimated LOS (days): 3 days is the estimated time the patient will need to remain in the hospital, assuming treatment plan goals are met and no additional complications. Post-Hospital Plan: Not yet determined Mitzy Gallo May 20, 2017 03:31 Shani Wynne MD May 22, 2017 23:56
[2017-05-20] MEDS ORDERED: GLUCAGON 1 MG/ML VIAL OTHER PRN (04:15)
[2017-05-20] MEDS ORDERED: DEXTROSE 50% IN WATER 50 ML VIAL(D50) IV PRN (04:15)
--- NOTE | 2017-05-20 08:30 | PD.CONS ---
History of Present Illness Service Neurology Consult Requested By medical Reason for Consult stroke Primary Care Physician Ayla Marshall MD History of Present Illness 66 y/o admitted for fall. unable to get up x 2 days. she admits to left sided weakness but unable to give time of onset. takes aspirin 81mg qdaily. bp 185/[address] brain naicp. frontal hematoma. mri brain no acute stroke. c/o mild headache, no cp, no dyspnea. no vision loss. no hx of tia/stroke. EF 65% during November 2016 admission for syncope - no significant valve problems noted. did have severe htn and encephalopathy then. Left ventricular hypertrophy was noted. Carotid ultrasound during same admission with mild to moderate plaque formation. . Review of Systems Except as stated in HPI: all other systems reviewed are Neg Past Family Social History Past Medical History Hypertension Hyperlipidemia Type 2 diabetes mellitus Gout Osteoarthritis . Past Surgical History Hysterectomy Oophorectomy, unilateral Bilateral bunionectomies . Reported Medications . Reported Meds & Active Scripts Active Amlodipine (Amlodipine Besylate) 10 Mg Tab 10 Mg PO DAILY Sharpsafety Sharps Contai (Parenteral Therapy Supplies) 1 Mis Mis 1 Ea .ROUTE DIRECTED Glucocom Test Strips (Blood Glucose Test Strips) 1 Demetra Demetra 1 Ea .ROUTE DIRECTED Lancets 1 Mis Mis 1 Ea .ROUTE DIRECTED Glucocom Blood Glucose Mo W/Device (Device) 1 Kit Kit 1 Kit .ROUTE DIRECTED Atorvastatin (Atorvastatin Calcium) 40 Mg Tab 40 Mg PO HS Lopressor (Metoprolol Tartrate) 100 Mg Tab 100 Mg PO Q12HR Reported Metformin (Metformin HCl) 500 Mg Tab 100 Mg PO DAILY With meals Hydralazine (Hydralazine HCl) 100 Mg Tab 25 Mg PO BID Take with meals Folic Acid 0.4 Mg Tab 1 Mg PO DAILY Allergies: Coded Allergies: enalaprilat (Unverified Adverse Reaction, Severe, Cough, 05/19/17) Active Ordered Medications Current Medications IV Flush (NS Flush) 2 ml UNSCH PRN IV FLUSH FLUSH AFTER USING IV ACCESS; Start 05/20/17 at 00:00; Stop 05/20/17 at 01:36; Status DC Sodium Chloride 1,000 ml @ 1,000 mls/hr Q1H IV Last administered on 05/20/17t 00:17; Start 05/19/17 at 23:53; Stop 05/20/17 at 00:52; Status DC Ceftriaxone Sodium 1000 mg/ Sodium Chloride 100 ml @ 200 mls/hr ONCE ONCE IV Last administered on 05/20/17t 01:34; Start 05/20/17 at 01:00; Stop 05/20/17 at 01: 29; Status DC IV Flush (NS Flush) 2 ml BID IV FLUSH ; Start 05/20/17 at 09:00 IV Flush (NS Flush) 2 ml UNSCH PRN IV FLUSH FLUSH AFTER USING IV ACCESS; Start 05/20/17 at 01:45 Clonidine (Catapres) 0.1 mg ONCE ONCE PO ; Start 05/20/17 at 03:15; Stop at 03:17; Status DC . Family History Father with stroke +cancer in mother,siblings . Social History Tobacco: quit Alcohol: Occasional Illicit Drugs: denies Review of Systems All other ROS: ROS reviewed as documented in chart Past Family Social History Allergies: Coded Allergies: enalaprilat (Unverified Adverse Reaction, Severe, Cough, 05/19/17) Active Ordered Medications Current Medications Medications (Trade) Dose Ordered Sig/Tereza Route Start Time Stop Time Status Last Admin (NS Flush) 2 ml BID IV FLUSH 05/20/17 09:00 (NS Flush) 2 ml UNSCH PRN IV FLUSH 05/20/17 01:45 Ceftriaxone Sodium 1000 mg/ Sodium Chloride 100 ml @ 200 mls/hr Q12H IV 05/20/17 13:00 (Lovenox Inj) 40 mg Q24H SQ 05/20/17 09:00 (D50w (Vial) Inj) 50 ml UNSCH PRN IV 05/20/17 04:15 (Glucagon Inj) 1 mg UNSCH PRN OTHER 05/20/17 04:15 Exam I&O / VS Vital Signs Date Time Temp Pulse Resp B/P (MAP) Pulse Ox O2 Delivery O2 Flow Rate FiO2 05/20/17 05:55 76 05/20/17 04:00 98.5 78 18 173/79 (110) 95 05/20/17 03:04 98.6 102 18 227/101 (143) 98 05/20/17 03:04 233/97 (142) 05/20/17 02:24 05/20/17 01:45 97 05/20/17 00:12 99 Room Air 05/19/17 23:53 98.9 101 16 185/87 (119) 96 Room Air General: Alert and Oriented, No acute distress Neurologic: Alert Psychiatric: Cooperative Exam Comments ox 3, slow speech, follows, left mild orbital swelling, eomi, vff, face sym, left ue 0/5, left le 1-2/5, pin grossly nml yohana, no neglect, msr sym, no clonus , planterflexor Review/Management Diagnosis/Plan: (1) Weakness ICD Codes: R53.1 - Weakness Status: Acute Plan: subacute left hemiparesis with negative mr brain etiology: cervical cord stroke/lesion vs infarct not picked up by mr slower mental processing- check eeg recs check mri cspine/left shoulder ok for therapy eeg follow exam (2) HTN (hypertension) ICD Codes: I10 - Hypertension Status: Acute (3) Hyperlipidemia ICD Codes: E78.5 - Hyperlipidemia Status: Acute (4) Diabetes ICD Codes: E11.9 - Diabetes mellitus Status: Chronic Problem Qualifiers (1) HTN (hypertension): Qualified Codes: I10 - Essential (primary) hypertension (2) Hyperlipidemia: Qualified Codes: E78.5 - Hyperlipidemia, unspecified Jasen Gómez MD May 20, 2017 08:30
[2017-05-20] MEDS: SODIUM CHLORIDE 0.9% FLUSH 5 ML FLUSH IV FLUSH SCH ×2 (09:00→22:31)
[2017-05-20] MEDS ORDERED: ENOXAPARIN SODIUM 40 MG/0.4 ML SYRINGE SQ SCH (09:00)
--- NOTE | 2017-05-20 10:03 | RADRPT ---
EXAM DATE/TIME: 05/20/2017 08:19 [facility] COMPARISON: US CAROTID ARTERIES, December 02, 2016, 20:07. INDICATIONS : Cerebrovascular accident. MEDICAL HISTORY : Hypertension. Arthritis. Incontinence. Diabetes. Anticoagulant therapy, Aspir in. SURGICAL HISTORY : Hysterectomy. ENCOUNTER: Subsequent ACUITY: 1 day PAIN SCORE: 7/10 LOCATION: Bilateral neck PEAK SYSTOLIC VELOCITIES (cm/sec): ICA/CCA RATIO: Right: 0.6 Left: 0.5 ICA: Right: 111 Left: 86 CCA: Right: 183 Left: 159 ECA: Right: 140 Left: 136 VERTEBRAL: Right: 62 antegrade Left: 75 antegrade Elevated flow velocities and ICA/CCA ratios have been found to correlate with increased degrees of vessel stenosis, calculated as percentage of diameter relative to a normal segment of distal ICA/CCA FINDINGS: RIGHT CAROTID: There is mild elevation of velocity and ratios on the right that has progressed minim ally in the interval.. LEFT CAROTID: There is no evidence for a hemodynamically significant carotid stenosis. Minimal inti mal hyperplasia is present with scattered calcific plaque. VERTEBRAL ARTERIES: Flow is antegrade in both vertebral arteries. MISCELLANEOUS: There are no ancillary masses or adenopathy. CONCLUSION: Borderline significant findings on the right. Confirmatory CT angiogram or MR angiogram would be of benefit. Board Certified Radiologist. This report was verified electronically.
--- NOTE | 2017-05-20 11:34 | EKG ---
Date Performed: 05/19/2017 Time Performed: 23:57:35 PTAGE: 66 years EKG: SINUS TACHYCARDIA POSSIBLE LEFT ATRIAL ENLARGEMENT NONSPECIFIC T-WAVE ABNORMALITY ABNORMAL RHYTHM ECG PREVIOUS TRACING : 12/03/2016 06.24 No significant change from previous tracing noted. DOCTOR: Calos Diaz Interpretating Date/Time 05/20/2017 11:32:26
--- NOTE | 2017-05-20 12:31 | RADRPT ---
EXAM DATE/TIME: 05/20/2017 10:30 [facility] COMPARISON: No previous studies available for comparison. INDICATIONS : Pain. Left siede weakness. MEDICAL HISTORY : Diabetes mellitus type 2. Hypertension. SURGICAL HISTORY : Hysterectomy. ENCOUNTER: Initial ACUITY: 2 day PAIN SCORE: 5/10 LOCATION: neck TECHNIQUE: Multiplanar, multisequence MRI examination of the cervical spine was performed. FINDINGS: VERTEBRAE: Marrow signal is very inhomogeneous in nonspecific fashion. ALIGNMENT: No evidence of subluxation. CORD: Minimal abnormal signal is seen in the cervical cord from mid C3 to mid C5 patchy in distribution as sociated with significant cervical spinal stenosis. POST FOSSA: The cerebellar tonsils are normal in position. C2-C3: The thecal sac has a normal configuration. There is no evidence of disc herniation or spinal canal s tenosis. The neural foramina are patent bilaterally. C3-C4: Osteophyte disc complex is present causing significant cord impingement central to right side with mo derate right-sided neuroforaminal encroachment. The cord is deformed at this level with minimal incr eased signal in the cord. C4-C5: Uncinate ridging is present obliterating the anterior thecal space and touching the cord. There is m oderate bilateral neural foramina encroachment worse on the right than the left. Very minimal cord s ignal is evident. C5-C6: Uncinate ridging is present with mild cord impingement and bilateral neural foramen encroachment much worse on the right than the left. C6-C7: Minimal uncinate ridging is present without significant spinal stenosis. There is mild right-sided n eural foramen encroachment. C7-T1: The thecal sac has a normal configuration. There is no evidence of disc herniation or spinal canal s tenosis. The neural foramina are patent bilaterally. CONCLUSION: 1. Significant cord impingement at C3-C4 focal signal in the cord. 2. Moderate cord impingement at C4-C5 and C5-C6. Chidi Peters MD FACR on May 20, 2017 at 12:25 Board Certified Radiologist. This report was verified electronically.
[2017-05-20] MEDS: cefTRIAXone INJ 1,000 MG in SODIUM CHLORIDE 0.9% INJ 100 ML IV SCH (13:00)
--- NOTE | 2017-05-20 13:16 | PD.CONS ---
HPI Consult Requested By Primary Care Physician Ayla Marshall MD History of Present Illness 66 y/o F admitted for s/p fall associated with weakness frontal hematoma, unable to get up x [address] and MRI no acute stroke. Denies chest pain, SOB, palpitations, PND, fever or chills. No previous cardiac history. Unremarkable ECHO on 11/2016 EF 65% with left ventricular hypertrophy. EKG and CE unremarkable. Review of Systems Consitutional: DENIES: Fatigue, Fever, Chills, Weight gain, Weight loss Eyes: DENIES: Amaurosis Fugax, Change in vision HEENT: DENIES: Lightheadedness, Change in hearing Respiratory: DENIES: See HPI, Cough, Snoring, Shortness of breath, Wheezing, Sputum production Cardiovascular: DENIES: See HPI, Chest pain, Palpitations, Syncope, Tachycardia Gastrointestinal: DENIES: Nausea, Vomiting, Change in bowel habits, Reflux, Bloody stools, Melena Genitourinary: DENIES: Urinary incontinence, Difficulty voiding Integumentary: DENIES: Rash Neurologic: DENIES: Tingling or numbness, Memory problems, Poor Balance, Stroke symptoms Musculoskeletal: DENIES: Joint pain, Muscle pain, Limited range of motion, Back pain Psychiatric: DENIES: Anxiety, Depression, Sleep disturbances Hematologic: DENIES: Bruising tendencies, Bleeding tendencies Endocrine: DENIES: Weight gain, Weight loss, Thyroid disease Past Family Social History Allergies: Coded Allergies: No Known Allergies (Verified Allergy, Unknown, 05/21/17) Past Medical History Hypertension Hyperlipidemia Type 2 diabetes mellitus Gout Osteoarthritis Past Surgical History Hysterectomy Oophorectomy, unilateral Bilateral bunionectomies Reported Medications Reported Meds & Active Scripts Active Amlodipine (Amlodipine Besylate) 10 Mg Tab 10 Mg PO DAILY Sharpsafety Sharps Contai (Parenteral Therapy Supplies) 1 Mis Mis 1 Ea .ROUTE DIRECTED Glucocom Test Strips (Blood Glucose Test Strips) 1 Demetra Demetra 1 Ea .ROUTE DIRECTED Lancets 1 Mis Mis 1 Ea .ROUTE DIRECTED Glucocom Blood Glucose Mo W/Device (Device) 1 Kit Kit 1 Kit .ROUTE DIRECTED Atorvastatin (Atorvastatin Calcium) 40 Mg Tab 40 Mg PO HS Lopressor (Metoprolol Tartrate) 100 Mg Tab 100 Mg PO Q12HR Reported Metformin (Metformin HCl) 500 Mg Tab 100 Mg PO DAILY With meals Hydralazine (Hydralazine HCl) 100 Mg Tab 25 Mg PO BID Take with meals Folic Acid 0.4 Mg Tab 1 Mg PO DAILY Active Ordered Medications Current Medications Medications (Trade) Dose Ordered Sig/Tereza Route Start Time Stop Time Status Last Admin (NS Flush) 2 ml BID IV FLUSH 05/20/17 09:00 05/20/17 09:00 (NS Flush) 2 ml UNSCH PRN IV FLUSH 05/20/17 01:45 Ceftriaxone Sodium 1000 mg/ Sodium Chloride 100 ml @ 200 mls/hr Q12H IV 05/20/17 13:00 (Lovenox Inj) 40 mg Q24H SQ 05/20/17 09:00 05/20/17 09:00 (D50w (Vial) Inj) 50 ml UNSCH PRN IV 05/20/17 04:15 (Glucagon Inj) 1 mg UNSCH PRN OTHER 05/20/17 04:15 Family History Father with stroke +cancer in mother,siblings Social History Tobacco: quit Alcohol: Occasional Illicit Drugs: denies Physical Exam Vital Signs Vital Signs Date Time Temp Pulse Resp B/P (MAP) Pulse Ox O2 Delivery O2 Flow Rate FiO2 05/20/17 08:45 99.1 79 18 193/75 (114) 97 05/20/17 05:55 76 05/20/17 04:00 98.5 78 18 173/79 (110) 95 05/20/17 03:04 98.6 102 18 227/101 (143) 98 05/20/17 03:04 233/97 (142) 05/20/17 02:24 05/20/17 01:45 97 05/20/17 00:12 99 Room Air 05/19/17 23:53 98.9 101 16 185/87 (119) 96 Room Air Physical Exam GENERAL: Well-nourished, well-developed patient. SKIN: Warm and dry. HEAD: Normocephalic. EYES: No scleral icterus. No injection or drainage. NECK: Supple, trachea midline. No JVD or lymphadenopathy. CARDIOVASCULAR: Regular rate and rhythm without murmurs, gallops, or rubs. RESPIRATORY: Breath sounds equal bilaterally. No accessory muscle use. GASTROINTESTINAL: Abdomen soft, non-tender, nondistended. EXTREMITIES: No cyanosis, or edema. NEUROLOGICAL: Awake, alert, and oriented x 3. Non-focal. Laboratory Laboratory Tests Test 05/20/17 00:10 05/20/17 00:20 White Blood Count 11.1 Red Blood Count 4.03 Hemoglobin 12.8 Hematocrit 38.0 Mean Corpuscular Volume 94.3 Mean Corpuscular Hemoglobin 31.7 Mean Corpuscular Hemoglobin Concent 33.6 Red Cell Distribution Width 13.3 Platelet Count 206 Mean Platelet Volume 8.9 Neutrophils (%) (Auto) 80.8 Lymphocytes (%) (Auto) 10.7 Monocytes (%) (Auto) 8.0 Eosinophils (%) (Auto) 0.1 Basophils (%) (Auto) 0.4 Neutrophils # (Auto) 8.9 Lymphocytes # (Auto) 1.2 Monocytes # (Auto) 0.9 Eosinophils # (Auto) 0.0 Basophils # (Auto) 0.0 CBC Comment DIFF FINAL Differential Comment Prothrombin Time 10.7 Prothromb Time International Ratio 1.0 Urine Color YELLOW Urine Turbidity HAZY Urine pH 5.5 Urine Specific Wister 1.015 Urine Protein TRACE Urine Glucose (UA) NEG Urine Ketones 10 Urine Occult Blood NEG Urine Nitrite NEG Urine Bilirubin SMALL Urine Urobilinogen 2.0 Urine Leukocyte Esterase MOD Urine RBC 5 Urine WBC 12 Urine Squamous Epithelial Cells <1 Urine Bacteria RARE Urine Hyaline Casts 1 Microscopic Urinalysis Comment CATH-CULTURE IND Blood Urea Nitrogen 10 Creatinine 1.03 Random Glucose 129 Total Protein 6.8 Albumin 3.0 Calcium Level 9.8 Alkaline Phosphatase 52 Aspartate Amino Transf (AST/SGOT) 19 Alanine Aminotransferase (ALT/SGPT) 23 Total Bilirubin 2.0 Sodium Level 127 Potassium Level 3.8 Chloride Level 90 Carbon Dioxide Level 22.6 Anion Gap 14 Estimat Glomerular Filtration Rate 65 Lactic Acid Level 1.3 Ammonia 13 Total Creatine Kinase 154 Troponin I LESS THAN 0.02 Thyroid Stimulating Hormone 3rd Gen 3.180 Salicylates Level LESS THAN 1.7 Urine Opiates Screen NEG Acetaminophen Level LESS THAN 2.0 Urine Barbiturates Screen NEG Urine Amphetamines Screen NEG Urine Benzodiazepines Screen NEG Urine Cocaine Screen NEG Urine Cannabinoids Screen NEG Ethyl Alcohol Level LESS THAN 3 Blood Gas Puncture Site RT RADIAL Blood Gas Patient Temperature 98.6 Blood Gas HCO3 21 Blood Gas Base Excess -2.9 Blood Gas Oxygen Saturation 95 Arterial Blood pH 7.45 Arterial Blood Partial Pressure CO2 30 Arterial Blood Partial Pressure O2 84 Arterial Blood Oxygen Content 15.8 Arterial Blood Carboxyhemoglobin 1.4 Arterial Blood Methemoglobin 0.6 Blood Gas Hemoglobin 11.7 Oxygen Delivery Device ROOM AIR Blood Gas Inspired Oxygen 21 Date/Time Source Procedure Growth Status 05/20/17 00:10 Blood Peripheral Aerobic Blood Culture Pending Received 05/20/17 00:10 Blood Peripheral Anaerobic Blood Culture Pending Received 05/20/17 00:10 Urine Catheterized Urine Urine Culture Pending Received Result Diagram: 05/20/17 0010 05/20/17 0010 Imaging Last Impressions Head Magnetic Resonance Angiography 05/20/17 0000 Signed Impressions: Service Date/Time: Saturday, May 20, 2017 02:09 - CONCLUSION: 1. Unremarkable MRA examination of the brain. No evidence for large vessel occlusion or stenosis, as questioned. Nolan Krishna MD Cervical Spine MRI 05/20/17 0000 Signed Impressions: Service Date/Time: Saturday, May 20, 2017 10:30 - CONCLUSION: 1. Significant cord impingement at C3-C4 focal signal in the cord. 2. Moderate cord impingement at C4-C5 and C5-C6. Chidi Peters MD FACR Cervical Spine CT 05/20/17 0000 Signed Impressions: Service Date/Time: Saturday, May 20, 2017 00:41 - CONCLUSION: 1. No acute fracture or dislocation. 2. Multilevel degenerative spondylosis of the cervical spine. Nolan Krishna MD Carotid Artery Ultrasound 05/20/17 0000 Signed Impressions: Service Date/Time: Saturday, May 20, 2017 08:19 - CONCLUSION: Borderline significant findings on the right. Confirmatory CT angiogram or MR angiogram would be of benefit. Board Certified Radiologist. This report was verified electronically. Brain MRI 05/20/17 Signed Impressions: Service Date/Time: Saturday, May 20, 2017 02:09 - CONCLUSION: 1. Senescent changes with mild small vessel ischemic white matter demyelination. 2. No acute ischemia or acute intracranial abnormality. 3. Bilateral maxillary sinus fluid. Nolan Krishna MD Head CT 05/19/17 [id number] Signed Impressions: Service Date/Time: Saturday, May 20, 2017 00:41 - CONCLUSION: 1. Left frontal scalp hematoma extending to the superior periorbital region without evidence for underlying calvarial fracture or acute intracranial abnormality. 2. Small amount of fluid in the maxillary sinuses bilaterally without definitive evidence for facial bone fracture in the visualized osseous structures. Nolan Krishna MD Chest X-Ray 05/19/17 [id number] Signed Impressions: Service Date/Time: Saturday, May 20, 2017 00:20 - CONCLUSION: 1. No acute cardiopulmonary disease. Nolan Krishna MD Assessment and Plan Problem List: (1) Atypical syncope ICD Codes: R55 - Syncope and collapse Plan: 66 y/o F with syncope of unknown etiology. No CV complaints. No events on telemetry. +UTI being treated. Neurology following. EEG pending. If Neurology work unremarkable then we can pursue cardiac evaluation with MPI/ Lexiscan Stress Test and Holter Recommendations: 1. Cont Neurology evaluation if unremarkable will consider cardiac risk stratification 2. Avoid electrolytes abnormalities Thank you for the opportunity to participate in the care of this patient Will be available on a PRN basis for any questions or concerns. (2) Alcohol abuse, daily use ICD Codes: F10.10 - Nondependent alcohol abuse, continuous drinking behavior Status: Acute (3) Hepatomegaly ICD Codes: R16.0 - Large liver Status: Acute (4) CVA (cerebral vascular accident) ICD Codes: I63.9 - Cerebral infarction, unspecified Status: Acute (5) Hyperlipidemia ICD Codes: E78.5 - Hyperlipidemia Status: Acute (6) Diabetes ICD Codes: E11.9 - Diabetes mellitus Status: Chronic (7) HTN (hypertension) ICD Codes: I10 - Hypertension Status: Acute (8) HISTORY OF TOBACCO USE Status: Resolved Problem Qualifiers (1) CVA (cerebral vascular accident): Qualified Codes: I63.9 - Cerebral infarction, unspecified (2) Hyperlipidemia: Qualified Codes: E78.5 - Hyperlipidemia, unspecified (3) HTN (hypertension): Qualified Codes: I10 - Essential (primary) hypertension Gm Cruz MD May 20, 2017 13:16
--- NOTE | 2017-05-20 14:33 | RADRPT ---
EXAM DATE/TIME: 05/20/2017 10:30 [facility] COMPARISON: No previous studies available for comparison. INDICATIONS : Pain. Weakness left side. MEDICAL HISTORY : Diabetes mellitus type 2. Hypertension. SURGICAL HISTORY : Hysterectomy. ENCOUNTER: Initial ACUITY: 1 day PAIN SCORE: 4/10 LOCATION: Left shoulder TECHNIQUE: Multiplanar, multisequence MRI examination was performed without contrast. FINDINGS: ROTATOR CUFF: The supraspinatus, infraspinatus, subscapularis, and teres minor tendons are intact. LABRUM: Labrum is within normal limits. MARROW/CARTILAGE: Bone marrow signal is homogeneous. Glenohumeral joint articular cartilage is within normal limits. OTHER: Trace fluid is present within the joint. There is no subacromial or subdeltoid fluid. There are mod erate degenerative changes at the AC joint. There is no significant acromial impingement despite the minimal osteophytosis. Minimal nonspecific axillary adenopathy is present. CONCLUSION: Negative for rotator cuff tear. I don't see an etiology for weakness by MRI. Substa ntial cervical spinal stenosis is present. There is significant neuroforaminal encroachment as well. Chidi Peters MD FACR on May 20, 2017 at 14:30 Board Certified Radiologist. This report was verified electronically.
--- NOTE | 2017-05-20 14:47 | MG ---
cc: JIHAN DE LEÓN MD Lab No: [id number] Date: 05/20/17 Age: 66 Sex: F Race: DATE OF 1950 A 66-year-old female with history hypertension, arthritis. 6-8 Hz alpha activity, 20-50 microvolts low amplitude greater in the frontal channels, good anterior to posterior gradient overall. Intermittent continuous myogenic artifact frontal channels left frontal temporal greater than right. Single lead EKG showing sinus rhythm. Reasonable driving with photic stimulation. INTERPRETATION Slow alpha variant. Clinical correlation. Jihan De León MD MG/EO /2:33 PM /2:43 PM MTDD
--- NOTE | 2017-05-20 15:15 | ECHRPT ---
Indication: CVA/TIA CONCLUSIONS Normal left ventricular size. Mild concentric left ventricular hypertrophy. The left ventricular systolic function is low normal with an estimated ejection fraction in the rang e of 50- 55%. The left atrial size is iohm-bu-paxbsjhdfj dilated. The right atrial size is capr-ju-kkoucpijee dilated. No atrial level shunt is demonstrated by color flow Doppler interrogation. Mild thickening of the mitral valve leaflets. Trace mitral valve regurgitation. Aortic valve sclerosis is present. No aortic valve regurgitation. No aortic valve stenosis. There is mild tricuspid valve regurgitation. There is estimated moderate pulmonary hypertension present (range 50-60 mmHg). The pulmonary valve is not well visualized. There is greater than 50% respiratory change in dimension of the inferior vena cava (normal). BP: 137 / 65 HR: 71 Rhythm: Sinus MEASUREMENTS (Male / Female) Normal Values Technical Quality:Fair 2D ECHO LV Diastolic Diameter PLAX 4.3 cm 4.2 - 5.9 / 3.9 - 5.3 cm LV Systolic Diameter PLAX 3.3 cm IVS Diastolic Thickness 1.3 cm 0.6 - 1.0 / 0.6 - 0.9 cm LVPW Diastolic Thickness 1.3 cm 0.6 - 1.0 / 0.6 - 0.9 cm LV Relative Wall Thickness 0.6 LVOT Diameter 2.2 cm Aortic Root Diameter 2.9 cm LA Systolic Diameter LX 2.2 cm 3.0 - 4.0 / 2.7 - 3.8 cm M-MODE AV Cusp Separation MM 2.0 cm DOPPLER AV Peak Velocity 175.0 cm/s AV Peak Gradient 12.3 mmHg AV Mean Gradient 6.0 mmHg AV Velocity Time Integral 31.2 cm LVOT Peak Velocity 84.6 cm/s LVOT Peak Gradient 2.9 mmHg LVOT Velocity Time Integral 15.3 cm LVOT Cardiac Index 2082.2 cm/minm AV Area Cont Eq vti 1.9 cm AV Area Cont Eq pk 1.8 cm LV E' Lateral Velocity 4.2 cm/s LV E' Septal Velocity 3.9 cm/s TR Peak Velocity 334.0 cm/s TR Peak Gradient 44.6 mmHg PV Peak Velocity 79.7 cm/s PV Peak Gradient 2.5 mmHg FINDINGS LEFT VENTRICLE Normal left ventricular size. Mild concentric left ventricular hypertrophy. The left ventricular systolic function is low normal with an estimated ejection fraction in the rang e of 50- 55%. RIGHT VENTRICLE Normal right ventricular size and systolic function. LEFT ATRIUM The left atrial size is rfar-vg-bhrodlylqd dilated. RIGHT ATRIUM The right atrial size is ocvo-mz-ynnpgamngg dilated. ATRIAL SEPTUM No atrial level shunt is demonstrated by color flow Doppler interrogation. AORTA The aortic root and proximal ascending aorta are normal in size on limited imaging. MITRAL VALVE Mild thickening of the mitral valve leaflets. Trace mitral valve regurgitation. AORTIC VALVE Trileaflet aortic valve. Aortic valve sclerosis is present. No aortic valve regurgitation. No aortic valve stenosis. TRICUSPID VALVE Structurally normal tricuspid valve. There is mild tricuspid valve regurgitation. There is estimated moderate pulmonary hypertension present (range 50-60 mmHg). PULMONARY VALVE The pulmonary valve is not well visualized. VESSELS The inferior vena cava is normal in size. There is greater than 50% respiratory change in dimension of the inferior vena cava (normal). PERICARDIUM No pericardial effusion. Gm Cruz MD (Electronically Signed) Final Date:20 May 2017 15:14
[2017-05-20 17:11] LABS: HEMOGLOBIN A1a 1.8 %; HEMOGLOBIN A1b 1.3 %; HEMOGLOBIN Ao 85.7 %; HEMOGLOBIN LA1C 1.9 %; HEMOGLOBIN P3 3.3 %
--- NOTE | 2017-05-20 17:22 | HHI.PR ---
Addendum to Inpatient Note Additional Information Patient seen and examined, she denied headache or blurry vision or chest pain, she had neck pain He has been seen by surgery for evaluation Physical exam: Lungs fair air entry no wheezing Heart sinus regular, positive 3/6 systolic murmur in the left lower sternal border GI abdomen soft nontender nondistended positive bowel sounds Extremity: No cyanosis clubbing or edema Uncontrolled blood pressure: Resume home med, give a dose of Vasotec, discussed with the nurse Jannet Lemos MD May 20, 2017 17:22
[2017-05-20] MEDS ORDERED: hydrALAZINE HCL 25 MG TAB PO ONE (18:00)
[2017-05-20] MEDS: FOLIC ACID 1 MG TAB PO SCH (18:08)
--- NOTE | 2017-05-20 18:41 | PD.CONS ---
History of Present Illness Service Neurosurgery Consult Requested By Dr. Lemos Primary Care Physician Ayla Marshall MD Diagnoses: History of Present Illness 66-year-old female gives a history of progressive gait difficulty for the past year. She states that she was in the hospital in November 2016 and fell at that time. Her medical records indicate an admission for syncope and cardiac evaluation revealed 65% ejection fraction. She indicates that she has been using a cane to ambulate for the past few months. She states that she has fallen a couple of times in the past 2 weeks, the last time on 05/18/2017. Since these falls, she has had significant increased weakness in the left arm and leg. She denies any significant sensory changes. No definite bowel or bladder dysfunction. She has mild to moderate neck pain which is a little worse since her most recent fall. She has no complaint of significant joint pain. She states that when she ambulates, she has poor balance and loss of control of her legs. Since the fall, she has had much more left extremity weakness. Review of Systems Constitutional: DENIES: Weight loss, Dizziness Eyes: DENIES: Blurred vision, Diplopia Respiratory: COMPLAINS OF: Cough, Shortness of breath Cardiovascular: DENIES: Chest pain, Palpitations Gastrointestinal: DENIES: Abdominal pain, Nausea, Vomiting Genitourinary: DENIES: Urinary incontinence Musculoskeletal: COMPLAINS OF: Neck pain, DENIES: Joint pain, Muscle aches, Joint Swelling Hematologic/lymphatic: DENIES: Bruising Neurologic: COMPLAINS OF: Abnormal gait, Localized weakness, Poor Balance, DENIES: Headache Psychiatric: DENIES: Anxiety Past Family Social History Allergies: Coded Allergies: enalaprilat (Unverified Adverse Reaction, Severe, Cough, 05/19/17) Past Medical History Diabetes Hypertension Hyperlipidemia Osteoarthritis Gout Past Surgical History Hysterectomy Bunion removal Oophorectomy Reported Medications Reported Meds & Active Scripts Active Amlodipine (Amlodipine Besylate) 10 Mg Tab 10 Mg PO DAILY Sharpsafety Sharps Contai (Parenteral Therapy Supplies) 1 Mis Mis 1 Ea .ROUTE DIRECTED Glucocom Test Strips (Blood Glucose Test Strips) 1 Demetra Demetra 1 Ea .ROUTE DIRECTED Lancets 1 Mis Mis 1 Ea .ROUTE DIRECTED Glucocom Blood Glucose Mo W/Device (Device) 1 Kit Kit 1 Kit .ROUTE DIRECTED Atorvastatin (Atorvastatin Calcium) 40 Mg Tab 40 Mg PO HS Lopressor (Metoprolol Tartrate) 100 Mg Tab 100 Mg PO Q12HR Reported Metformin (Metformin HCl) 500 Mg Tab 100 Mg PO DAILY With meals Hydralazine (Hydralazine HCl) 100 Mg Tab 25 Mg PO BID Take with meals Folic Acid 0.4 Mg Tab 1 Mg PO DAILY Family History Positive for breast cancer in her sister. Esophageal cancer in her mother. Social History Does not smoke cigarettes. Drinks wine occasionally with meals Physical Exam Vital Signs Vital Signs Date Time Temp Pulse Resp B/P (MAP) Pulse Ox O2 Delivery O2 Flow Rate FiO2 05/20/17 16:42 99.1 80 20 194/84 (120) 98 05/20/17 14:58 93 21 05/20/17 08:45 99.1 79 18 193/75 (114) 97 05/20/17 05:55 76 05/20/17 04:00 98.5 78 18 173/79 (110) 95 05/20/17 03:04 98.6 102 18 227/101 (143) 98 05/20/17 03:04 233/97 (142) 05/20/17 02:24 05/20/17 01:45 97 05/20/17 00:12 99 Room Air 05/19/17 23:53 98.9 101 16 185/87 (119) 96 Room Air Physical Exam GENERAL: This is a well-nourished, well-developed patient, no apparent distress. SKIN: No abrasions, contusion, rash noted. Skin warm and dry. HEAD: Atraumatic. Normocephalic. No temporal or scalp tenderness. EYES: Sclerae are clear and nonicteric ENT: No facial edema or ecchymosis. No periorbital edema. No CSF otorrhea or rhinorrhea. No palpable facial fracture or deformity. NECK: Trachea midline. No cervical spine tenderness. She is wearing a cervical collar CARDIOVASCULAR: Regular rate and rhythm without murmurs, gallops, or rubs. RESPIRATORY: Clear to auscultation. Breath sounds equal bilaterally. No wheezes , rales, or rhonchi. GASTROINTESTINAL: Abdomen soft, non-tender, nondistended. No hepato-splenomegaly , or palpable masses. No guarding. MUSCULOSKELETAL: Extremities without cyanosis, or edema. No joint tenderness, or edema noted. No calf tenderness. Dorsalis pedis pulses 2+ bilateral NEUROLOGICAL: Awake, mildly lethargic Oriented X 3 Speech is slow but clear Moderate slowing of speech and thought processes Conversant and appropriate Follow simple commands well Answers questions appropriately Reasonable judgment and insight Recent and remote memory are intact No evidence of anxiety or depression Pupils are equal and reactive to accommodation. Extra-ocular movements, visual bautista to confrontation, facial sensorimotor, tongue, palate, sternocleidomastoid testing, hearing to finger rub testing, and bilateral shoulder shrug are all intact. Sensation is intact to light touch in all extremities Strength is diminished to mostly 3-4/5 right upper and 4/5 right lower extremity major flexion and extension groups except 3/5 right tibialis anterior , with mostly 1-2 /5 left upper and lower extremity major flexion and extension groups. Haven's absent bilaterally No ankle clonus Plantar responses absent bilateral Fine motor movements markedly impaired in the upper extremities Laboratory Laboratory Tests Test 05/20/17 00:10 05/20/17 00:20 White Blood Count 11.1 Red Blood Count 4.03 Hemoglobin 12.8 Hematocrit 38.0 Mean Corpuscular Volume 94.3 Mean Corpuscular Hemoglobin 31.7 Mean Corpuscular Hemoglobin Concent 33.6 Red Cell Distribution Width 13.3 Platelet Count 206 Mean Platelet Volume 8.9 Neutrophils (%) (Auto) 80.8 Lymphocytes (%) (Auto) 10.7 Monocytes (%) (Auto) 8.0 Eosinophils (%) (Auto) 0.1 Basophils (%) (Auto) 0.4 Neutrophils # (Auto) 8.9 Lymphocytes # (Auto) 1.2 Monocytes # (Auto) 0.9 Eosinophils # (Auto) 0.0 Basophils # (Auto) 0.0 CBC Comment DIFF FINAL Differential Comment Prothrombin Time 10.7 Prothromb Time International Ratio 1.0 Urine Color YELLOW Urine Turbidity HAZY Urine pH 5.5 Urine Specific [place] 1.015 Urine Protein TRACE Urine Glucose (UA) NEG Urine Ketones 10 Urine Occult Blood NEG Urine Nitrite NEG Urine Bilirubin SMALL Urine Urobilinogen 2.0 Urine Leukocyte Esterase MOD Urine RBC 5 Urine WBC 12 Urine Squamous Epithelial Cells <1 Urine Bacteria RARE Urine Hyaline Casts 1 Microscopic Urinalysis Comment CATH-CULTURE IND Blood Urea Nitrogen 10 Creatinine 1.03 Random Glucose 129 Total Protein 6.8 Albumin 3.0 Calcium Level 9.8 Alkaline Phosphatase 52 Aspartate Amino Transf (AST/SGOT) 19 Alanine Aminotransferase (ALT/SGPT) 23 Total Bilirubin 2.0 Sodium Level 127 Potassium Level 3.8 Chloride Level 90 Carbon Dioxide Level 22.6 Anion Gap 14 Estimat Glomerular Filtration Rate 65 Hemoglobin A1c 4.8 Lactic Acid Level 1.3 Ammonia 13 Total Creatine Kinase 154 Troponin I LESS THAN 0.02 Thyroid Stimulating Hormone 3rd Gen 3.180 Salicylates Level LESS THAN 1.7 Urine Opiates Screen NEG Acetaminophen Level LESS THAN 2.0 Urine Barbiturates Screen NEG Urine Amphetamines Screen NEG Urine Benzodiazepines Screen NEG Urine Cocaine Screen NEG Urine Cannabinoids Screen NEG Ethyl Alcohol Level LESS THAN 3 Blood Gas Puncture Site RT RADIAL Blood Gas Patient Temperature 98.6 Blood Gas HCO3 21 Blood Gas Base Excess -2.9 Blood Gas Oxygen Saturation 95 Arterial Blood pH 7.45 Arterial Blood Partial Pressure CO2 30 Arterial Blood Partial Pressure O2 84 Arterial Blood Oxygen Content 15.8 Arterial Blood Carboxyhemoglobin 1.4 Arterial Blood Methemoglobin 0.6 Blood Gas Hemoglobin 11.7 Oxygen Delivery Device ROOM AIR Blood Gas Inspired Oxygen 21 Date/Time Source Procedure Growth Status 05/20/17 00:10 Blood Peripheral Aerobic Blood Culture Pending Received 05/20/17 00:10 Blood Peripheral Anaerobic Blood Culture Pending Received 05/20/17 00:10 Urine Catheterized Urine Urine Culture Pending Received Result Diagram: 05/20/17 0010 05/20/17 0010 Imaging 05/20/17 MRI of the brain and cervical spine images have been reviewed by the undersigned. I reviewed with findings as noted below: Shoulder MRI 05/20/17 0000 Signed Impressions: Service Date/Time: Saturday, May 20, 2017 10:30 - CONCLUSION: Negative for rotator cuff tear. I don't see an etiology for weakness by MRI. Substantial cervical spinal stenosis is present. There is significant neuroforaminal encroachment as well. Chidi Peters MD FACR Head Magnetic Resonance Angiography 05/20/17 0000 Signed Impressions: Service Date/Time: Saturday, May 20, 2017 02:09 - CONCLUSION: 1. Unremarkable MRA examination of the brain. No evidence for large vessel occlusion or stenosis, as questioned. Nolan Krishna MD Cervical Spine MRI 05/20/17 0000 Signed Impressions: Service Date/Time: Saturday, May 20, 2017 10:30 - CONCLUSION: 1. Significant cord impingement at C3-C4 focal signal in the cord. 2. Moderate cord impingement at C4-C5 and C5-C6. Chidi Peters MD FACR Cervical Spine CT 05/20/17 Signed Impressions: Service Date/Time: Saturday, May 20, 2017 00:41 - CONCLUSION: 1. No acute fracture or dislocation. 2. Multilevel degenerative spondylosis of the cervical spine. Nolan Krishna MD Carotid Artery Ultrasound 05/20/17 Signed Impressions: Service Date/Time: Saturday, May 20, 2017 08:19 - CONCLUSION: Borderline significant findings on the right. Confirmatory CT angiogram or MR angiogram would be of benefit. Board Certified Radiologist. This report was verified electronically. Brain MRI 05/20/17 Signed Impressions: Service Date/Time: Saturday, May 20, 2017 02:09 - CONCLUSION: 1. Senescent changes with mild small vessel ischemic white matter demyelination. 2. No acute ischemia or acute intracranial abnormality. 3. Bilateral maxillary sinus fluid. Nolan Krishna MD Head CT 05/19/17 445 Signed Impressions: Service Date/Time: Saturday, May 20, 2017 00:41 - CONCLUSION: 1. Left frontal scalp hematoma extending to the superior periorbital region without evidence for underlying calvarial fracture or acute intracranial abnormality. 2. Small amount of fluid in the maxillary sinuses bilaterally without definitive evidence for facial bone fracture in the visualized osseous structures. Nolan Krishna MD Chest X-Ray 05/19/17 3043 Signed Impressions: Service Date/Time: Saturday, May 20, 2017 00:20 - CONCLUSION: 1. No acute cardiopulmonary disease. Nolan Krishna MD Assessment and Plan Assessment and Plan Impression: 1. 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 2. Diabetes 3. Hypertension 4. Dyslipidemia Recommendations: Findings were discussed at length with the patient. Options of conservative treatment versus surgical intervention for the C3 4 stenosis have been fully discussed along with pros and cons and prognosis of each. I advised her that due to the severity of the spinal cord compression, there may be a better chance of improvement with spinal cord decompression, as well as a decreased chance of recurrent spinal cord contusion or progressive myelopathy in the future. The surgical procedure of C3 4 anterior cervical discectomy interbody fusion, allograft bone, anterior instrumentation has been fully discussed along with risks and possible complications. The patient appears to understand the above. She does not seem committed to make a decision regarding treatment at this time. I encouraged her that possibly she may have her family become involved with the decision making, and advised her that I would be pleased to speak with other family members if she desires. She seems to have moderate slowing of her speech and thought processes at this time . I will discuss the treatment options further with her tomorrow and through the weekend so that she may come to some decision regarding treatment. Ricci Duval MD May 20, 2017 18:41
[2017-05-20] MEDS ORDERED: ATORVASTATIN 40 MG TAB PO SCH (21:00)
[2017-05-20] MEDS: METOPROLOL TARTRATE 100 MG TAB PO SCH (22:30)
[2017-05-20] MEDS: hydrALAZINE HCL 25 MG TAB PO SCH (22:31)
[2017-05-20] MEDS: ENALAPRILAT 1.25 MG/ML VIAL IV PUSH PRN (22:32)
[2017-05-21] VITALS (7 sets, daily range): BP systolic 113–194; BP diastolic 63–91; PULSE 72–90; RESP 15–20; TEMP 96.5–98.5; O2SAT 94–98
[2017-05-21] MEDS: cefTRIAXone INJ 1,000 MG in SODIUM CHLORIDE 0.9% INJ 100 ML IV SCH ×2 (00:12→12:37)
[2017-05-21] MEDS: ENALAPRILAT 1.25 MG/ML VIAL IV PUSH PRN (06:50)
[2017-05-21] MEDS: FOLIC ACID 1 MG TAB PO SCH (09:00)
[2017-05-21] MEDS: SODIUM CHLORIDE 0.9% FLUSH 5 ML FLUSH IV FLUSH SCH ×2 (09:00→21:00)
[2017-05-21] MEDS: hydrALAZINE HCL 25 MG TAB PO SCH ×2 (09:00→21:09)
[2017-05-21] MEDS: METOPROLOL TARTRATE 100 MG TAB PO SCH ×2 (09:00→21:09)
[2017-05-21] MEDS ORDERED: MORPHINE SULFATE 4 MG/ML INJ IV ONE (11:15)
[2017-05-21 11:51] LABS: HDL CHOLESTEROL 98.7 MG/DL (40.0-60.0)
--- NOTE | 2017-05-21 11:52 | HHI.PR ---
Review/Management Diagnosis/Plan: (1) Contusion of cervical cord ICD Codes: S14.109A - Unspecified injury at unspecified level of cervical spinal cord, initial encounter Status: Acute Plan: +left c4 level increased signal suggestive of contusion/infarct advanced cervical stenosis c3,4 recs hard collar decompression per nsx. appreciate Dr. Duval pain control follow exam (2) HTN (hypertension) ICD Codes: I10 - Hypertension Status: Acute (3) Hyperlipidemia ICD Codes: E78.5 - Hyperlipidemia Status: Acute (4) Diabetes ICD Codes: E11.9 - Diabetes mellitus Status: Chronic Subjective Subjective Comments No acute events reported mild headache No chest pain No dyspnea Active Medications Current Medications Medications (Trade) Dose Ordered Sig/Tereza Route Start Time Stop Time Status Last Admin (NS Flush) 2 ml BID IV FLUSH 05/20/17 09:00 05/21/17 09:00 (NS Flush) 2 ml UNSCH PRN IV FLUSH 05/20/17 01:45 Ceftriaxone Sodium 1000 mg/ Sodium Chloride 100 ml @ 200 mls/hr Q12H IV 05/20/17 13:00 05/21/17 00:12 (D50w (Vial) Inj) 50 ml UNSCH PRN IV 05/20/17 04:15 (Glucagon Inj) 1 mg UNSCH PRN OTHER 05/20/17 04:15 (Norvasc) 10 mg DAILY PO 05/20/17 17:15 05/21/17 09:00 (Folate) 1 mg DAILY PO 05/20/17 17:15 05/21/17 09:00 (Apresoline) 25 mg BID PO 05/20/17 21:00 05/21/17 09:00 (Lopressor) 100 mg Q12HR PO 05/20/17 21:00 05/21/17 09:00 (Vasotec Inj) 1.25 mg Q6H PRN IV PUSH 05/20/17 17:30 05/21/17 06:50 Allergies Allergies Coded Allergies No Known Allergies (Verified Allergy, Unknown, 05/21/17) Review of Systems All other ROS: ROS reviewed as documented in chart Exam I&O / VS Vital Signs Date Time Temp Pulse Resp B/P (MAP) Pulse Ox O2 Delivery O2 Flow Rate FiO2 05/21/17 11:14 17 05/21/17 08:00 96.5 78 15 193/84 (120) 95 05/21/17 05:52 90 05/21/17 04:00 188/82 (117) 05/21/17 04:00 97.5 76 18 187/81 (116) 97 05/21/17 00:00 98.4 72 18 181/75 (110) 98 05/20/17 20:00 99.7 96 18 182/79 (113) 95 05/20/17 18:08 98 21 05/20/17 16:42 99.1 80 20 194/84 (120) 98 05/20/17 14:58 93 21 General: Alert and Oriented, No acute distress Neurologic: Alert Psychiatric: Cooperative Exam Comments ox 3, recognizes me from yesterday, follows, left mild orbital swelling, eomi, vff, face sym, left ue 0/5, left le 1-2/5, pin grossly nml yohana, no neglect, msr sym, no clonus, planterflexor Objective Micro and Labs Laboratory Tests Test 05/20/17 19:33 05/21/17 10:11 Erythrocyte Sedimentation Rate 45 Ammonia 22 Total Creatine Kinase 75 C-Reactive Protein 5.90 Vitamin B12 Level 258 Triglycerides Level 81 Cholesterol Level 171 Date/Time Source Procedure Growth Status 05/20/17 00:10 Blood Peripheral Aerobic Blood Culture - Preliminary NO GROWTH IN 1 DAY Resulted 05/20/17 00:10 Blood Peripheral Anaerobic Blood Culture - Preliminary NO GROWTH IN 1 DAY Resulted 05/20/17 00:10 Urine Catheterized Urine Urine Culture - Preliminary Gram Negative [place] Resulted Problem Qualifiers (1) HTN (hypertension): Qualified Codes: I10 - Essential (primary) hypertension (2) Hyperlipidemia: Qualified Codes: E78.5 - Hyperlipidemia, unspecified Jasen Gómez MD May 21, 2017 11:52
--- NOTE | 2017-05-21 16:53 | HHI.PR ---
Subjective Remarks Written by Mimi Echols, acting as scribe for Dr. Lemos on 05/21/17 at 16:10. Follow up C3-4 stenosis, HTN. Patient seen and examined today. Lying in bed comfortably. Pain well controlled, denies at this time. Continued neck collar. Denies recent fever, chills. Denies headache, blurry vision, dizziness, lightheadedness, nausea or vomiting. Elevated BPs. Objective Vitals Vital Signs Date Time Temp Pulse Resp B/P (MAP) Pulse Ox O2 Delivery O2 Flow Rate FiO2 05/21/17 12:00 98.1 86 19 186/91 (122) 95 05/21/17 11:14 17 05/21/17 08:00 96.5 78 15 193/84 (120) 95 05/21/17 05:52 90 05/21/17 04:00 188/82 (117) 05/21/17 04:00 97.5 76 18 187/81 (116) 97 05/21/17 00:00 98.4 72 18 181/75 (110) 98 05/20/17 20:00 99.7 96 18 182/79 (113) 95 05/20/17 18:08 98 21 05/20/17 16:42 99.1 80 20 194/84 (120) 98 I/O 05/20/17 05/20/17 05/20/17 05/21/17 05/21/17 05/21/17 07:00 15:00 23:00 07:00 15:00 23:00 Intake Total 1100 ml Output Total 600 ml 625 ml 1000 ml Balance 500 ml -625 ml -1000 ml Intake IV Total 1100 ml Output Urine Total 600 ml 625 ml 1000 ml Result Diagram: 05/20/17 0010 05/20/17 0010 Imaging Last Impressions Shoulder MRI 05/20/17 0000 Signed Impressions: Service Date/Time: Saturday, May 20, 2017 10:30 - CONCLUSION: Negative for rotator cuff tear. I don't see an etiology for weakness by MRI. Substantial cervical spinal stenosis is present. There is significant neuroforaminal encroachment as well. Chidi Peters MD FACR Head Magnetic Resonance Angiography 05/20/17 0000 Signed Impressions: Service Date/Time: Saturday, May 20, 2017 02:09 - CONCLUSION: 1. Unremarkable MRA examination of the brain. No evidence for large vessel occlusion or stenosis, as questioned. Nolan Krishna MD Cervical Spine MRI 05/20/17 Signed Impressions: Service Date/Time: Saturday, May 20, 2017 10:30 - CONCLUSION: 1. Significant cord impingement at C3-C4 focal signal in the cord. 2. Moderate cord impingement at C4-C5 and C5-C6. Chidi Peters MD FACR Cervical Spine CT 05/20/17 Signed Impressions: Service Date/Time: Saturday, May 20, 2017 00:41 - CONCLUSION: 1. No acute fracture or dislocation. 2. Multilevel degenerative spondylosis of the cervical spine. Nolan Krishna MD Carotid Artery Ultrasound 05/20/17 Signed Impressions: Service Date/Time: Saturday, May 20, 2017 08:19 - CONCLUSION: Borderline significant findings on the right. Confirmatory CT angiogram or MR angiogram would be of benefit. Board Certified Radiologist. This report was verified electronically. Brain MRI 05/20/17 Signed Impressions: Service Date/Time: Saturday, May 20, 2017 02:09 - CONCLUSION: 1. Senescent changes with mild small vessel ischemic white matter demyelination. 2. No acute ischemia or acute intracranial abnormality. 3. Bilateral maxillary sinus fluid. Nolan Krishna MD Head CT 05/19/172 Signed Impressions: Service Date/Time: Saturday, May 20, 2017 00:41 - CONCLUSION: 1. Left frontal scalp hematoma extending to the superior periorbital region without evidence for underlying calvarial fracture or acute intracranial abnormality. 2. Small amount of fluid in the maxillary sinuses bilaterally without definitive evidence for facial bone fracture in the visualized osseous structures. Nolan Krishna MD Chest X-Ray 05/19/17 [id number] Signed Impressions: Service Date/Time: Saturday, May 20, 2017 00:20 - CONCLUSION: 1. No acute cardiopulmonary disease. Nolan Krishna MD Objective Remarks GENERAL: This is a well-nourished, well-developed female patient, sitting up in chair in no apparent distress. Awake and alert, oriented. SKIN: No rashes. Warm and dry. Lower lip abrasions, dry lips. HEAD: Atraumatic. Normocephalic. EYES: No scleral icterus. No injection or drainage. PERRL. EOMS intact. ENT: Nose without bleeding, purulent drainage or septal hematoma. NECK: Trachea midline. No JVD. Neck collar in place. CARDIOVASCULAR: Regular rate and rhythm without murmurs, gallops, or rubs. S1 and S2 present. RESPIRATORY: Clear to auscultation. Breath sounds equal bilaterally. No wheezes , rales, or rhonchi. GASTROINTESTINAL: Abdomen soft, non-tender, nondistended. MUSCULOSKELETAL: Extremities without clubbing, cyanosis, or edema. NEUROLOGICAL: Awake and alert. Sensation intact in all extremities. Right upper and lower extremity 4/5 muscle strength. Left upper and lower 1/5 muscle strength. A/P Problem List: (1) Atypical syncope ICD Code: R55 - Syncope and collapse (2) Urinary tract infection ICD Code: N39.0 - Urinary tract infection, site not specified Status: Acute (3) Diabetes mellitus type 2 Status: Chronic (4) Hyponatremia ICD Code: E87.1 - Hypo-osmolality and hyponatremia Assessment and Plan 66 y/o female with recurrent falls (4 over the past year; 3 resulting in ED visits and one prior admission) and suspected recurrent syncope: Severe C3 4 stenosis Recurrent syncopal episodes - MRI findings suggestive of myelopathy was signal intensity changes, possible acute cord contusion. - Senescent changes with mild small vessel ischemic white matter demyelination; no acute ischemia or acute intracranial abnormality. Bilateral maxillary sinus fluid. - Cervical spine CT with no fracture or dislocation. - MRA unremarkable. - EEG reviewed showing slow alpha variant. -Orthostatic blood pressures checked, no significance. - Previous echocardiogram from November 2016 admission were unremarkable. - Carotid ultrasound reviewed showing borderline significant changes on the right, defer to neurology if follow up needed. - Neurology following patient, recommendations to continue hard collar, pain control and monitor clinically. - Neurosurgery following patient, appreciate input. Dr. Duval - Cardiology following patient, recommendations for MPI/Lexiscan stress test , implantable recorder. UTI - Culture growing gram - remedios, pending micro. Follow. - Continue Ceftriaxone 1 gram IV q12 h Hyponatremia suspect secondary to cerebral salt wasting vs SIADH - Urine os, uric acid and sodium ordered, follow. Depending on results, will restrict fluid intake vs isotonic replacement. - Consulted Nephrology, appreciate input. - Follow BMP in am. Hypertension, chronic: Systolic 180's today. Continue Hydralazine, Amlodipine and Lopressor. Will start Lisinopril 20 mg PO q12hr. DVT prophylaxis: Lovenox Attending Statement This note was transcribed by scribe [Mimi Echols]. I, Dr. Jannet Lemos personally performed the history, physical exam, and medical decision making; and confirmed the accuracy of the information in the transcribed note. Authenticated by Dr. Jannet Lemos on 05/21/17 at 16:24. Mimi Echols May 21, 2017 16:53 Jannet Lemos MD May 21, 2017 17:10
--- NOTE | 2017-05-21 17:47 | PD.CONS ---
HPI Service Nephrology Consult Requested By Dr. Buckner Reason for Consult Hyponatremia Primary Care Physician Ayla Marshall MD History of Present Illness Patient is a 66-year-old female with history of diabetes who states that her legs were weak and she fell on her face on 05/18/17, patient is now having trouble with the left leg she is on neck brace now because of contusion and her sodium was 127 at midnight on 05/20/17 however there is no further testing She has no knowledge of low sodium prior to this admission Review of Systems Constitutional: COMPLAINS OF: Fatigue Neurologic: COMPLAINS OF: Abnormal gait, Poor Balance Psychiatric: COMPLAINS OF: Anxiety Past Family Social History Allergies: Coded Allergies: No Known Allergies (Verified Allergy, Unknown, 05/21/17) Past Medical History Hypertension Hyperlipidemia Type 2 diabetes mellitus Gout Osteoarthritis . Past Surgical History Hysterectomy Oophorectomy, unilateral Bilateral bunionectomies Reported Medications Reported Meds & Active Scripts Active Amlodipine (Amlodipine Besylate) 10 Mg Tab 10 Mg PO DAILY Sharpsafety Sharps Contai (Parenteral Therapy Supplies) 1 Mis Mis 1 Ea .ROUTE DIRECTED Glucocom Test Strips (Blood Glucose Test Strips) 1 Demetra Demetra 1 Ea .ROUTE DIRECTED Lancets 1 Mis Mis 1 Ea .ROUTE DIRECTED Glucocom Blood Glucose Mo W/Device (Device) 1 Kit Kit 1 Kit .ROUTE DIRECTED Atorvastatin (Atorvastatin Calcium) 40 Mg Tab 40 Mg PO HS Lopressor (Metoprolol Tartrate) 100 Mg Tab 100 Mg PO Q12HR Reported Metformin (Metformin HCl) 500 Mg Tab 100 Mg PO DAILY With meals Hydralazine (Hydralazine HCl) 100 Mg Tab 25 Mg PO BID Take with meals Folic Acid 0.4 Mg Tab 1 Mg PO DAILY Active Ordered Medications Current Medications Medications (Trade) Dose Ordered Sig/Tereza Route Start Time Stop Time Status Last Admin (NS Flush) 2 ml BID IV FLUSH 05/20/17 09:00 05/21/17 09:00 (NS Flush) 2 ml UNSCH PRN IV FLUSH 05/20/17 01:45 Ceftriaxone Sodium 1000 mg/ Sodium Chloride 100 ml @ 200 mls/hr Q12H IV 05/20/17 13:00 05/21/17 12:37 (D50w (Vial) Inj) 50 ml UNSCH PRN IV 05/20/17 04:15 (Glucagon Inj) 1 mg UNSCH PRN OTHER 05/20/17 04:15 (Norvasc) 10 mg DAILY PO 05/20/17 17:15 05/21/17 09:00 (Folate) 1 mg DAILY PO 05/20/17 17:15 05/21/17 09:00 (Apresoline) 25 mg BID PO 05/20/17 21:00 05/21/17 09:00 (Lopressor) 100 mg Q12HR PO 05/20/17 21:00 05/21/17 09:00 (Vasotec Inj) 1.25 mg Q6H PRN IV PUSH 05/20/17 17:30 05/21/17 06:50 (Prinivil) 20 mg Q12HR PO 05/21/17 21:00 Family History Noncontributory Social History Denies smoking drinks occasional wine Physical Exam Vital Signs Vital Signs Date Time Temp Pulse Resp B/P (MAP) Pulse Ox O2 Delivery O2 Flow Rate FiO2 05/21/17 16:00 97.7 74 18 170/68 (102) 94 05/21/17 12:00 98.1 86 19 186/91 (122) 95 05/21/17 11:14 17 05/21/17 08:00 96.5 78 15 193/84 (120) 95 05/21/17 05:52 90 05/21/17 04:00 188/82 (117) 05/21/17 04:00 97.5 76 18 187/81 (116) 97 05/21/17 00:00 98.4 72 18 181/75 (110) 98 05/20/17 20:00 99.7 96 18 182/79 (113) 95 05/20/17 18:08 98 21 Physical Exam GENERAL: Well-nourished, well-developed patient. SKIN: Warm and dry. HEAD: Normocephalic. EYES: No scleral icterus. No injection or drainage. NECK: Supple, trachea midline. No JVD or lymphadenopathy. CARDIOVASCULAR: Regular rate and rhythm without murmurs, gallops, or rubs. RESPIRATORY: Breath sounds equal bilaterally. No accessory muscle use. GASTROINTESTINAL: Abdomen soft, non-tender, nondistended. EXTREMITIES: No cyanosis, or edema. NEUROLOGICAL: Awake, alert, and oriented x 3 left leg is weak Laboratory Laboratory Tests Test 05/20/17 19:33 05/21/17 10:11 Erythrocyte Sedimentation Rate 45 Ammonia 22 Total Creatine Kinase 75 C-Reactive Protein 5.90 Vitamin B12 Level 258 Serum Osmolality 279 Uric Acid 9.2 Triglycerides Level 81 Cholesterol Level 171 LDL Cholesterol 56 HDL Cholesterol 98.7 Cholesterol/HDL Ratio 1.73 Date/Time Source Procedure Growth Status 05/20/17 00:10 Blood Peripheral Aerobic Blood Culture - Preliminary NO GROWTH IN 1 DAY Resulted 05/20/17 00:10 Blood Peripheral Anaerobic Blood Culture - Preliminary NO GROWTH IN 1 DAY Resulted 05/20/17 00:10 Urine Catheterized Urine Urine Culture - Preliminary Gram Negative [place] Resulted Result Diagram: 05/20/17 0010 05/20/17 0010 Imaging Last Impressions Shoulder MRI 05/20/17 0000 Signed Impressions: Service Date/Time: Saturday, May 20, 2017 10:30 - CONCLUSION: Negative for rotator cuff tear. I don't see an etiology for weakness by MRI. Substantial cervical spinal stenosis is present. There is significant neuroforaminal encroachment as well. Chidi Peters MD FACR Head Magnetic Resonance Angiography 05/20/17 0000 Signed Impressions: Service Date/Time: Saturday, May 20, 2017 02:09 - CONCLUSION: 1. Unremarkable MRA examination of the brain. No evidence for large vessel occlusion or stenosis, as questioned. Nolan Krishna MD Cervical Spine MRI 05/20/17 0000 Signed Impressions: Service Date/Time: Saturday, May 20, 2017 10:30 - CONCLUSION: 1. Significant cord impingement at C3-C4 focal signal in the cord. 2. Moderate cord impingement at C4-C5 and C5-C6. Chidi Peters MD FACR Cervical Spine CT 05/20/17 0000 Signed Impressions: Service Date/Time: Saturday, May 20, 2017 00:41 - CONCLUSION: 1. No acute fracture or dislocation. 2. Multilevel degenerative spondylosis of the cervical spine. Nolan Krishna MD Carotid Artery Ultrasound 05/20/17 0000 Signed Impressions: Service Date/Time: Saturday, May 20, 2017 08:19 - CONCLUSION: Borderline significant findings on the right. Confirmatory CT angiogram or MR angiogram would be of benefit. Board Certified Radiologist. This report was verified electronically. Brain MRI 05/20/17 0000 Signed Impressions: Service Date/Time: Saturday, May 20, 2017 02:09 - CONCLUSION: 1. Senescent changes with mild small vessel ischemic white matter demyelination. 2. No acute ischemia or acute intracranial abnormality. 3. Bilateral maxillary sinus fluid. Nolan Krishna MD Head CT 05/19/17 [id number] Signed Impressions: Service Date/Time: Saturday, May 20, 2017 00:41 - CONCLUSION: 1. Left frontal scalp hematoma extending to the superior periorbital region without evidence for underlying calvarial fracture or acute intracranial abnormality. 2. Small amount of fluid in the maxillary sinuses bilaterally without definitive evidence for facial bone fracture in the visualized osseous structures. Nolan Krishna MD Chest X-Ray 05/19/17 [id number] Signed Impressions: Service Date/Time: Saturday, May 20, 2017 00:20 - CONCLUSION: 1. No acute cardiopulmonary disease. Nolan Krishna MD Assessment and Plan Problem List: (1) Hyponatremia ICD Codes: E87.1 - Hypo-osmolality and hyponatremia Plan: Going through the records she has enlarged liver and fatty infiltration of normal liver functions this may contribute to hyponatremia I agree with checking urine sodium and osmolality I do not believe is a central nervous system issue like cerebral salt wasting Monitor BMP She may remain chronically hyponatremic due to liver dysfunction as long as her sodium is above 128 to 132 range she may not feel any symptom I will follow periodically (2) Diabetes ICD Codes: E11.9 - Diabetes mellitus Status: Chronic Plan: Continue to monitor (3) Hepatomegaly ICD Codes: R16.0 - Large liver Status: Acute Plan: Ultrasound of abdomen revealed in 2014 Skye Quigley MD May 21, 2017 17:46
[2017-05-21 17:52] LABS: BICARBONATE 22.3 MEQ/L (21.0-32.0); POTASSIUM 3.7 MEQ/L (3.5-5.1)
--- NOTE | 2017-05-21 18:14 | HHI.NSPN ---
History Chief Complaint: neck pain. Left side weak Interval History 66-year-old female gives a history of progressive gait difficulty for the past year. She states that she was in the hospital in November 2016 and fell at that time. Her medical records indicate an admission for syncope and cardiac evaluation revealed 65% ejection fraction. She indicates that she has been using a cane to ambulate for the past few months. She states that she has fallen a couple of times in the past 2 weeks, the last time on 05/18/2017. Since these falls, she has had significant increased weakness in the left arm and leg. She denies any significant sensory changes. No definite bowel or bladder dysfunction. She has mild to moderate neck pain which is a little worse since her most recent fall. She has no complaint of significant joint pain. She states that when she ambulates, she has poor balance and loss of control of her legs. Since the fall, she has had much more left extremity weakness. 05/21/2017: Persistent neck pain. Some discomfort left foot. No change in neurologic exam versus 05/20/17 Exam Results Vital Signs Date Time Temp Pulse Resp B/P (MAP) Pulse Ox O2 Delivery O2 Flow Rate FiO2 05/21/17 16:00 97.7 74 18 170/68 (102) 94 05/20/17 18:08 21 05/20/17 00:12 Room Air Intake and Output 05/21/17 05/21/17 05/21/17 07:59 15:59 23:59 Intake Total 240 ml Output Total 1000 ml 750 ml Balance -1000 ml -510 ml Physical Examination Mild edema and mild to moderate tenderness left knee. Some pain with range of motion. Awake, mildly lethargic Oriented X 3 Speech is slow but clear Moderate slowing of speech and thought processes Conversant and appropriate Follow simple commands well Answers questions appropriately Reasonable judgment and insight Recent and remote memory are intact No evidence of anxiety or depression Pupils are equal and reactive to accommodation. Extra-ocular movements, visual bautista to confrontation, facial sensorimotor, tongue, palate, sternocleidomastoid testing, hearing to finger rub testing, and bilateral shoulder shrug are all intact. Sensation is intact to light touch in all extremities Strength is diminished to mostly 3-4/5 right upper and 4/5 right lower extremity major flexion and extension groups except 3/5 right tibialis anterior , with mostly 1-2 /5 left upper and lower extremity major flexion and extension groups. Haven's absent bilaterally No ankle clonus Plantar responses absent bilateral Fine motor movements markedly impaired in the upper extremities Lab, Micro, Other Results Laboratory Tests Test 05/20/17 19:33 05/21/17 10:11 Erythrocyte Sedimentation Rate 45 mm/hr Ammonia 22 MCMOL/L Total Creatine Kinase 75 U/L C-Reactive Protein 5.90 MG/DL Vitamin B12 Level 258 PG/ML Blood Urea Nitrogen 10 MG/DL Creatinine 0.79 MG/DL Random Glucose 126 MG/DL Calcium Level 9.1 MG/DL Sodium Level 133 MEQ/L Potassium Level 3.7 MEQ/L Chloride Level 97 MEQ/L Carbon Dioxide Level 22.3 MEQ/L Anion Gap 14 MEQ/L Estimat Glomerular Filtration Rate 88 ML/MIN Serum Osmolality 279 MOSM/KG Uric Acid 9.2 MG/DL Triglycerides Level 81 MG/DL Cholesterol Level 171 MG/DL LDL Cholesterol 56 MG/DL HDL Cholesterol 98.7 MG/DL Cholesterol/HDL Ratio 1.73 RATIO Medical Decision Making Impression and Plan Impression: 1. Cervical stenosis 2. Cervical myelopathy 3. Probable cervical spinal cord contusion 4. Hyponatremia 5. Hepatomegaly Plan: Funds discussed with medicine service. Discussed with patient today Continue therapy, mobilized out of bed as tolerated. Cervical collar as necessary for comfort measures only at this point. Discussed treatment options again with the patient. She has significant stenosis and cord compression. It is felt that her harness as her recovery would be improved with surgical decompression of the cervical cord. The procedure was discussed with the patient. She appears in agreement with surgery which is tentatively scheduled for 05/24/2017 pending medical clearance. Ricci Duval MD May 21, 2017 18:14
[2017-05-21] MEDS: LISINOPRIL 20 MG TAB PO SCH (21:09)
[2017-05-22] VITALS (8 sets, daily range): BP systolic 131–197; BP diastolic 70–86; PULSE 69–87; RESP 18–20; TEMP 97.5–99; O2SAT 96–98
[2017-05-22] MEDS: cefTRIAXone INJ 1,000 MG in SODIUM CHLORIDE 0.9% INJ 100 ML IV SCH ×2 (01:50→12:36)
[2017-05-22] MEDS: ENALAPRILAT 1.25 MG/ML VIAL IV PUSH PRN ×2 (06:26→21:22)
[2017-05-22] MEDS: hydrALAZINE HCL 25 MG TAB PO SCH ×4 (08:06→21:38)
[2017-05-22] MEDS: METOPROLOL TARTRATE 100 MG TAB PO SCH ×2 (08:06→21:23)
[2017-05-22] MEDS: LISINOPRIL 20 MG TAB PO SCH (08:06)
[2017-05-22] MEDS: FOLIC ACID 1 MG TAB PO SCH (08:06)
--- NOTE | 2017-05-22 08:41 | RADRPT ---
EXAM DATE/TIME: 05/22/2017 08:25 [facility] COMPARISON: MRI BRAIN W/O CONTRAST, May 20, 2017, 2:09. CT BRAIN W/O CONTRAST, May 20, 2017, 0:41. INDICATIONS : Left upper and lower extremity weakness. RADIATION DOSE: 51.00 CTDIvol (mGy) MEDICAL HISTORY : Hypertension. Diabetes. SURGICAL HISTORY : Hysterectomy. ENCOUNTER: Initial ACUITY: 1 day PAIN SCALE: 8/10 LOCATION: cranial TECHNIQUE: Multiple contiguous axial images were obtained of the head. Using automated exposure control and adj ustment of the mA and/or kV according to patient size, radiation dose was kept as low as reasonably a chievable to obtain optimal diagnostic quality images. DICOM format image data is available electro nically for review and comparison. FINDINGS: CEREBRUM: The ventricles are normal. No evidence of midline shift, mass lesion, hemorrhage or acute infarction . No extra-axial fluid collections are seen. POSTERIOR FOSSA: The cerebellum and brainstem demonstrate no acute finding. The 4th ventricle is midline. The cerebe llopontine angle is unremarkable. EXTRACRANIAL: The visualized portion of the orbits is intact. SKULL: The calvaria is intact. No evidence of skull fracture. CONCLUSION: Stable noncontrast head CT. No acute intracranial abnormality is identified. Jorge Arellano MD on May 22, 2017 at 8:37 Board Certified Radiologist. This report was verified electronically.
[2017-05-22] MEDS: SODIUM CHLORIDE 0.9% FLUSH 5 ML FLUSH IV FLUSH SCH ×2 (09:00→21:26)
[2017-05-22] MEDS ORDERED: MORPHINE SULFATE 4 MG/ML INJ IV PRN (09:15)
--- NOTE | 2017-05-22 09:46 | HHI.PR ---
Review/Management Diagnosis/Plan: (1) Contusion of cervical cord ICD Codes: S14.109A - Unspecified injury at unspecified level of cervical spinal cord, initial encounter Status: Acute Plan: +left c4 level increased signal suggestive of contusion/infarct advanced cervical stenosis c3,4 recs neuro stable. hard collar decompression per nsx. appreciate Dr. Duval pain control- will order norco for moderate pain and mso4 for severe pain follow exam (2) HTN (hypertension) ICD Codes: I10 - Hypertension Status: Acute (3) Hyperlipidemia ICD Codes: E78.5 - Hyperlipidemia Status: Acute (4) Diabetes ICD Codes: E11.9 - Diabetes mellitus Status: Chronic Subjective Subjective Comments No acute events reported +pain, needing pain meds more regularly No headache No chest pain No dyspnea Active Medications Current Medications Medications (Trade) Dose Ordered Sig/Tereza Route Start Time Stop Time Status Last Admin (NS Flush) 2 ml BID IV FLUSH 05/20/17 09:00 05/22/17 09:00 (NS Flush) 2 ml UNSCH PRN IV FLUSH 05/20/17 01:45 Ceftriaxone Sodium 1000 mg/ Sodium Chloride 100 ml @ 200 mls/hr Q12H IV 05/20/17 13:00 05/22/17 01:50 (D50w (Vial) Inj) 50 ml UNSCH PRN IV 05/20/17 04:15 (Glucagon Inj) 1 mg UNSCH PRN OTHER 05/20/17 04:15 (Norvasc) 10 mg DAILY PO 05/20/17 17:15 05/22/17 08:06 (Folate) 1 mg DAILY PO 05/20/17 17:15 05/22/17 08:06 (Apresoline) 25 mg BID PO 05/20/17 21:00 05/22/17 08:06 (Lopressor) 100 mg Q12HR PO 05/20/17 21:00 05/22/17 08:06 (Vasotec Inj) 1.25 mg Q6H PRN IV PUSH 05/20/17 17:30 05/22/17 06:26 (Prinivil) 20 mg Q12HR PO 05/21/17 21:00 05/22/17 08:06 ([place] 7.5-325 Mg) 1 tab Q6H PRN PO 05/22/17 09:15 (Morphine Inj) 3 mg Q6H PRN IV 05/22/17 09:15 05/22/17 09:16 Allergies Allergies Coded Allergies No Known Allergies (Verified Allergy, Unknown, 05/21/17) Review of Systems All other ROS: ROS reviewed as documented in chart Exam I&O / VS Vital Signs Date Time Temp Pulse Resp B/P (MAP) Pulse Ox O2 Delivery O2 Flow Rate FiO2 05/22/17 08:00 98.9 79 20 177/78 (111) 97 05/22/17 05:00 77 05/22/17 04:00 98.2 81 20 194/86 (122) 96 05/22/17 02:22 162/70 (100) 05/22/17 00:00 98.0 75 20 197/79 (118) 96 05/21/17 20:00 98.5 77 20 194/81 (118) 96 05/21/17 16:00 97.7 74 18 170/68 (102) 94 05/21/17 12:00 98.1 86 19 186/91 (122) 95 05/21/17 11:14 17 General: Alert and Oriented, No acute distress Neurologic: Alert Psychiatric: Cooperative Exam Comments ox 3, follows, left mild orbital swelling, eomi, vff, face sym, left ue 0/5, left le 1-2/5, pin grossly nml yohana, no neglect, msr sym, no clonus, planterflexor Objective Micro and Labs Laboratory Tests Test 05/21/17 10:11 05/21/17 20:56 Blood Urea Nitrogen 10 Creatinine 0.79 Random Glucose 126 Calcium Level 9.1 Sodium Level 133 Potassium Level 3.7 Chloride Level 97 Carbon Dioxide Level 22.3 Anion Gap 14 Estimat Glomerular Filtration Rate 88 Serum Osmolality 279 Uric Acid 9.2 Triglycerides Level 81 Cholesterol Level 171 LDL Cholesterol 56 HDL Cholesterol 98.7 Cholesterol/HDL Ratio 1.73 Urine Osmolality 66 Urine Random Sodium 11 Urine Random Uric Acid 7.3 Date/Time Source Procedure Growth Status 05/20/17 00:10 Blood Peripheral Aerobic Blood Culture - Preliminary NO GROWTH IN 1 DAY Resulted 05/20/17 00:10 Blood Peripheral Anaerobic Blood Culture - Preliminary NO GROWTH IN 1 DAY Resulted 05/20/17 00:10 Urine Catheterized Urine Urine Culture - Final Escherichia Coli Complete Problem Qualifiers (1) HTN (hypertension): Qualified Codes: I10 - Essential (primary) hypertension (2) Hyperlipidemia: Qualified Codes: E78.5 - Hyperlipidemia, unspecified Jasen Gómez MD May 22, 2017 09:46
--- NOTE | 2017-05-22 11:38 | HHI.PR ---
Subjective Remarks Written by Mimi Echols, acting as scribe for Dr. Lemos on 05/22/17 at 11:31. Follow up C3-4 stenosis, HTN. Patient seen and examined today. Lying in bed comfortably. Pain is well controlled. Slept well. Denies any new complaints overnight. Afebrile. Tentative plan for surgery 05/24/17 per neurosurgery. Objective Vitals Vital Signs Date Time Temp Pulse Resp B/P (MAP) Pulse Ox O2 Delivery O2 Flow Rate FiO2 05/22/17 08:00 98.9 79 20 177/78 (111) 97 05/22/17 05:00 77 05/22/17 04:00 98.2 81 20 194/86 (122) 96 05/22/17 02:22 162/70 (100) 05/22/17 00:00 98.0 75 20 197/79 (118) 96 05/21/17 20:00 98.5 77 20 194/81 (118) 96 05/21/17 16:00 97.7 74 18 170/68 (102) 94 05/21/17 12:00 98.1 86 19 186/91 (122) 95 I/O 05/21/17 05/21/17 05/21/17 05/22/17 05/22/17 05/22/17 07:00 15:00 23:00 07:00 15:00 23:00 Intake Total 100 ml 240 ml 100 ml Output Total 1000 ml 750 ml Balance -900 ml -510 ml 100 ml Intake Oral 240 ml IV Total 100 ml 100 ml Output Urine Total 1000 ml 750 ml # Bowel Movements 0 Result Diagram: 05/20/17 0010 05/21/17 1011 Imaging Last Impressions Head CT 05/22/17 0600 Signed Impressions: Service Date/Time: Monday, May 22, 2017 08:25 - CONCLUSION: Stable noncontrast head CT. No acute intracranial abnormality is identified. Jorge Arellano MD Shoulder MRI 05/20/17 0000 Signed Impressions: Service Date/Time: Saturday, May 20, 2017 10:30 - CONCLUSION: Negative for rotator cuff tear. I don't see an etiology for weakness by MRI. Substantial cervical spinal stenosis is present. There is significant neuroforaminal encroachment as well. Chidi Peters MD FACR Head Magnetic Resonance Angiography 05/20/17 0000 Signed Impressions: Service Date/Time: Saturday, May 20, 2017 02:09 - CONCLUSION: 1. Unremarkable MRA examination of the brain. No evidence for large vessel occlusion or stenosis, as questioned. Nolan Krishna MD Cervical Spine MRI 05/20/17 0000 Signed Impressions: Service Date/Time: Saturday, May 20, 2017 10:30 - CONCLUSION: 1. Significant cord impingement at C3-C4 focal signal in the cord. 2. Moderate cord impingement at C4-C5 and C5-C6. Chidi Peters MD FACR Cervical Spine CT 05/20/17 0000 Signed Impressions: Service Date/Time: Saturday, May 20, 2017 00:41 - CONCLUSION: 1. No acute fracture or dislocation. 2. Multilevel degenerative spondylosis of the cervical spine. Nolan Krishna MD Carotid Artery Ultrasound 05/20/17 0000 Signed Impressions: Service Date/Time: Saturday, May 20, 2017 08:19 - CONCLUSION: Borderline significant findings on the right. Confirmatory CT angiogram or MR angiogram would be of benefit. Board Certified Radiologist. This report was verified electronically. Brain MRI 05/20/17 0000 Signed Impressions: Service Date/Time: Saturday, May 20, 2017 02:09 - CONCLUSION: 1. Senescent changes with mild small vessel ischemic white matter demyelination. 2. No acute ischemia or acute intracranial abnormality. 3. Bilateral maxillary sinus fluid. Nolan Krishna MD Chest X-Ray 05/19/17 [id number] Signed Impressions: Service Date/Time: Saturday, May 20, 2017 00:20 - CONCLUSION: 1. No acute cardiopulmonary disease. Nolan Krishna MD Objective Remarks GENERAL: This is a well-nourished, well-developed female patient, sitting up in chair in no apparent distress. Awake and alert, oriented. SKIN: No rashes. Warm and dry. Lower lip abrasions, dry lips. HEAD: Atraumatic. Normocephalic. EYES: No scleral icterus. No injection or drainage. PERRL. EOMS intact. ENT: Nose without bleeding, purulent drainage or septal hematoma. NECK: Trachea midline. No JVD. Neck collar in place. CARDIOVASCULAR: Regular rate and rhythm without murmurs, gallops, or rubs. S1 and S2 present. RESPIRATORY: Clear to auscultation. Breath sounds equal bilaterally. No wheezes , rales, or rhonchi. GASTROINTESTINAL: Abdomen soft, non-tender, nondistended. MUSCULOSKELETAL: Extremities without clubbing, cyanosis, or edema. NEUROLOGICAL: Awake and alert. Sensation intact in all extremities. Right upper and lower extremity 4/5 muscle strength. Left upper and lower 1/5 muscle strength. A/P Problem List: (1) Atypical syncope ICD Code: R55 - Syncope and collapse (2) Urinary tract infection ICD Code: N39.0 - Urinary tract infection, site not specified Status: Acute (3) Diabetes mellitus type 2 Status: Chronic (4) Hyponatremia ICD Code: E87.1 - Hypo-osmolality and hyponatremia Assessment and Plan 05/22: Pain is controlled, blood pressure still not optimized, will increase hydralazine, and monitor blood pressure, further control pain A/P: 66 y/o female with recurrent falls (4 over the past year; 3 resulting in ED visits and one prior admission) and suspected recurrent syncope: Severe C3 4 stenosis Recurrent syncopal episodes - MRI findings suggestive of myelopathy was signal intensity changes, possible acute cord contusion. - Senescent changes with mild small vessel ischemic white matter demyelination; no acute ischemia or acute intracranial abnormality. Bilateral maxillary sinus fluid. - Cervical spine CT with no fracture or dislocation. - MRA unremarkable. - EEG reviewed showing slow alpha variant. -Orthostatic blood pressures checked, no significance. - Previous echocardiogram from November 2016 admission were unremarkable. - Carotid ultrasound reviewed showing borderline significant changes on the right, defer to neurology if follow up needed. - Neurology following patient, recommendations to continue hard collar, pain control and monitor clinically. - Neurosurgery following patient, appreciate input. Dr. Duval - Cardiology following patient, recommendations for MPI/Lexiscan stress test , implantable recorder. UTI - Culture growing gram - remedios, E coli present. - Continue Ceftriaxone 1 gram IV q12 h. Hyponatremia suspect secondary to cerebral salt wasting vs SIADH - Urine os, uric acid and sodium ordered, follow. Depending on results, will restrict fluid intake vs isotonic replacement. - Consulted Nephrology, appreciate input. - Awaiting labs this am, pending. Hypertension, chronic: Systolic 170;s today. Continue Hydralazine, Amlodipine and Lopressor. Continue Lisinopril 20 mg PO q12hr. Vasotec IV PRN available. DVT prophylaxis: Lovenox Attending Statement This note was transcribed by scribe [Mimi Echols]. I, Dr. Jannet Lemos personally performed the history, physical exam, and medical decision making; and confirmed the accuracy of the information in the transcribed note. Authenticated by Dr. Jannet Lemos on 05/22/17 at 12:25. Mimi Echols May 22, 2017 11:38 Jannet Lemos MD May 22, 2017 12:21
[2017-05-22 11:47] LABS: BICARBONATE 25.3 MEQ/L (21.0-32.0); POTASSIUM 3.8 MEQ/L (3.5-5.1)
[2017-05-22] MEDS ORDERED: LISINOPRIL 20 MG TAB PO ONE (12:30)
--- NOTE | 2017-05-22 16:16 | HHI.NSPN ---
History Chief Complaint: moderate pain and left upper and lower extremity-chronic Interval History 66-year-old female gives a history of progressive gait difficulty for the past year. She states that she was in the hospital in November 2016 and fell at that time. Her medical records indicate an admission for syncope and cardiac evaluation revealed 65% ejection fraction. She indicates that she has been using a cane to ambulate for the past few months. She states that she has fallen a couple of times in the past 2 weeks, the last time on 05/18/2017. Since these falls, she has had significant increased weakness in the left arm and leg. She denies any significant sensory changes. No definite bowel or bladder dysfunction. She has mild to moderate neck pain which is a little worse since her most recent fall. She has no complaint of significant joint pain. She states that when she ambulates, she has poor balance and loss of control of her legs. Since the fall, she has had much more left extremity weakness. 05/21/2017: Persistent neck pain. Some discomfort left foot. No change in neurologic exam versus 05/20/17 Exam Results Vital Signs Date Time Temp Pulse Resp B/P (MAP) Pulse Ox O2 Delivery O2 Flow Rate FiO2 05/22/17 16:00 99.0 78 18 131/86 (101) 98 05/20/17 18:08 21 05/20/17 00:12 Room Air Intake and Output 05/22/17 05/22/17 05/22/17 07:59 15:59 23:59 Intake Total 100 ml 480 ml Output Total 700 ml Balance 100 ml -220 ml Physical Examination Mild edema and mild to moderate tenderness left knee. Some pain with range of motion. Awake, mildly lethargic Oriented X 3 Speech is slow but clear Moderate slowing of speech and thought processes Conversant and appropriate Follow simple commands well Answers questions appropriately Reasonable judgment and insight Recent and remote memory are intact No evidence of anxiety or depression Pupils are equal and reactive to accommodation. Extra-ocular movements, visual bautista to confrontation, facial sensorimotor, tongue, palate, sternocleidomastoid testing, hearing to finger rub testing, and bilateral shoulder shrug are all intact. Sensation is intact to light touch in all extremities Strength is diminished to mostly 3-4/5 right upper and 4/5 right lower extremity major flexion and extension groups except 3/5 right tibialis anterior , with mostly 1-2 /5 left upper and lower extremity major flexion and extension groups. Haven's absent bilaterally No ankle clonus Plantar responses absent bilateral Fine motor movements markedly impaired in the upper extremities Lab, Micro, Other Results Laboratory Tests Test 05/21/17 20:56 05/22/17 10:40 Urine Osmolality 66 MOSM/KG Urine Random Sodium 11 MEQ/L Urine Random Uric Acid 7.3 MG/DL Blood Urea Nitrogen 10 MG/DL Creatinine 0.69 MG/DL Random Glucose 131 MG/DL Calcium Level 9.8 MG/DL Sodium Level 131 MEQ/L Potassium Level 3.8 MEQ/L Chloride Level 94 MEQ/L Carbon Dioxide Level 25.3 MEQ/L Anion Gap 12 MEQ/L Estimat Glomerular Filtration Rate 103 ML/MIN Medical Decision Making Impression and Plan Impression: 1. Cervical stenosis 2. Cervical myelopathy 3. Probable cervical spinal cord contusion 4. Hyponatremia 5. Hepatomegaly Plan: Continue therapy, mobilized out of bed as tolerated. Cervical collar as necessary for comfort measures only at this point. Discussed treatment options again with the patient today. She has significant stenosis and cord compression. It is felt that her harness as her recovery would be improved with surgical decompression of the cervical cord. The procedure was discussed with the patient. She remains in agreement with surgery which is tentatively scheduled for 05/24/2017 . Lovenox okay for DVT prophylaxis until surgical procedure. Ricci Duval MD May 22, 2017 16:16
[2017-05-23] VITALS (7 sets, daily range): BP systolic 130–171; BP diastolic 64–78; PULSE 66–98; RESP 20; TEMP 95.3–98.8; O2SAT 94–99
[2017-05-23] MEDS: cefTRIAXone INJ 1,000 MG in SODIUM CHLORIDE 0.9% INJ 100 ML IV SCH ×2 (01:23→13:51)
[2017-05-23] MEDS: ACETAMINOPHEN/HYDROcodone 325 MG/7.5 MG TAB PO PRN ×2 (03:28→08:52)
[2017-05-23] MEDS: hydrALAZINE HCL 25 MG TAB PO SCH ×3 (05:54→22:16)
[2017-05-23] MEDS: FOLIC ACID 1 MG TAB PO SCH (08:51)
[2017-05-23] MEDS: METOPROLOL TARTRATE 100 MG TAB PO SCH ×2 (08:51→22:16)
[2017-05-23] MEDS: LISINOPRIL 20 MG TAB PO SCH (08:52)
[2017-05-23] MEDS: SODIUM CHLORIDE 0.9% FLUSH 5 ML FLUSH IV FLUSH SCH ×2 (08:57→21:00)
--- NOTE | 2017-05-23 09:35 | HHI.PR ---
Subjective Remarks Written by Mimi Echols, acting as scribe for Dr. Lemos on 05/23/17 at 09:35. Follow up C3-4 stenosis, HTN. Patient seen and examined today. Patient seen and examined today, sitting up in chair comfortably, cervical collar continued. Pain controlled. Denies any new acute complaints overnight. Denies any recent fever, chills, cough, shortness of breath, ab pain, n/v/d or dysuria. Objective Vitals Vital Signs Date Time Temp Pulse Resp B/P (MAP) Pulse Ox O2 Delivery O2 Flow Rate FiO2 05/23/17 08:08 96.7 98 20 98 154/65 (94) 05/23/17 05:54 14 05/23/17 04:00 98.7 66 20 130/64 (86) 94 05/23/17 00:00 98.8 69 20 160/68 (98) 98 05/22/17 20:00 98.4 87 20 172/76 (108) 98 05/22/17 16:00 99.0 78 18 131/86 (101) 98 05/22/17 12:14 97.5 69 20 170/72 (104) 96 I/O 05/22/17 05/22/17 05/22/17 05/23/17 05/23/17 05/23/17 07:00 15:00 23:00 07:00 15:00 23:00 Intake Total 100 ml 480 ml 100 ml Output Total 700 ml 825 ml 475 ml Balance 100 ml -220 ml -825 ml -375 ml Intake Oral 480 ml IV Total 100 ml 100 ml Output Urine Total 700 ml 825 ml 475 ml Result Diagram: 05/20/17 0010 05/22/17 1040 Imaging Last Impressions Head CT 05/22/17 0600 Signed Impressions: Service Date/Time: Monday, May 22, 2017 08:25 - CONCLUSION: Stable noncontrast head CT. No acute intracranial abnormality is identified. Jorge Arellano MD Shoulder MRI 05/20/17 0000 Signed Impressions: Service Date/Time: Saturday, May 20, 2017 10:30 - CONCLUSION: Negative for rotator cuff tear. I don't see an etiology for weakness by MRI. Substantial cervical spinal stenosis is present. There is significant neuroforaminal encroachment as well. Chidi Peters MD FACR Head Magnetic Resonance Angiography 05/20/17 0000 Signed Impressions: Service Date/Time: Saturday, May 20, 2017 02:09 - CONCLUSION: 1. Unremarkable MRA examination of the brain. No evidence for large vessel occlusion or stenosis, as questioned. Nolan Krishna MD Cervical Spine MRI 05/20/17 0000 Signed Impressions: Service Date/Time: Saturday, May 20, 2017 10:30 - CONCLUSION: 1. Significant cord impingement at C3-C4 focal signal in the cord. 2. Moderate cord impingement at C4-C5 and C5-C6. Chidi Peters MD FACR Cervical Spine CT 05/20/17 Signed Impressions: Service Date/Time: Saturday, May 20, 2017 00:41 - CONCLUSION: 1. No acute fracture or dislocation. 2. Multilevel degenerative spondylosis of the cervical spine. Nolan Krishna MD Carotid Artery Ultrasound 05/20/17 Signed Impressions: Service Date/Time: Saturday, May 20, 2017 08:19 - CONCLUSION: Borderline significant findings on the right. Confirmatory CT angiogram or MR angiogram would be of benefit. Board Certified Radiologist. This report was verified electronically. Brain MRI 05/20/17 0000 Signed Impressions: Service Date/Time: Saturday, May 20, 2017 02:09 - CONCLUSION: 1. Senescent changes with mild small vessel ischemic white matter demyelination. 2. No acute ischemia or acute intracranial abnormality. 3. Bilateral maxillary sinus fluid. Nolan Krishna MD Chest X-Ray 05/19/17 1683 Signed Impressions: Service Date/Time: Saturday, May 20, 2017 00:20 - CONCLUSION: 1. No acute cardiopulmonary disease. Nolan Krishna MD Objective Remarks GENERAL: This is a well-nourished, well-developed female patient, sitting up in chair in no apparent distress. Awake and alert, oriented. SKIN: No rashes. Warm and dry. Lower lip abrasions, dry lips. HEAD: Atraumatic. Normocephalic. EYES: No scleral icterus. No injection or drainage. PERRL. EOMS intact. ENT: Nose without bleeding, purulent drainage or septal hematoma. NECK: Trachea midline. No JVD. Neck collar in place. CARDIOVASCULAR: Regular rate and rhythm without murmurs, gallops, or rubs. S1 and S2 present. RESPIRATORY: Clear to auscultation. Breath sounds equal bilaterally. No wheezes , rales, or rhonchi. GASTROINTESTINAL: Abdomen soft, non-tender, nondistended. MUSCULOSKELETAL: Extremities without clubbing, cyanosis, or edema. NEUROLOGICAL: Awake and alert. Sensation intact in all extremities. Right upper and lower extremity 4/5 muscle strength. Left upper and lower 1/5 muscle strength. A/P Problem List: (1) Atypical syncope ICD Code: R55 - Syncope and collapse (2) Urinary tract infection ICD Code: N39.0 - Urinary tract infection, site not specified Status: Acute (3) Diabetes mellitus type 2 Status: Chronic (4) Hyponatremia ICD Code: E87.1 - Hypo-osmolality and hyponatremia Assessment and Plan 66 y/o female with recurrent falls (4 over the past year; 3 resulting in ED visits and one prior admission) and suspected recurrent syncope: 05/22: Pain is controlled, blood pressure still not optimized, will increase hydralazine, and monitor blood pressure, further control pain 05/23: Spoke to Dr. Duval who has surgery planned for tomorrow 05/24/17. Called Dr. Jensen, cardiology, regarding need for stress test before undergoing surgery. He believes stress test is not necessary prior to surgery and has cleared her for surgery . Patient's pain well-controlled. BP is stable today. Tolerating PO intake. Denies any acute events or complaints. bmp today is P , but pt medically clear for surgery Severe C3 4 stenosis Recurrent syncopal episodes - MRI findings suggestive of myelopathy was signal intensity changes, possible acute cord contusion. - Senescent changes with mild small vessel ischemic white matter demyelination; no acute ischemia or acute intracranial abnormality. Bilateral maxillary sinus fluid. - Cervical spine CT with no fracture or dislocation. - MRA unremarkable. - EEG reviewed showing slow alpha variant. -Orthostatic blood pressures checked, no significance. - Previous echocardiogram from November 2016 admission were unremarkable. - Carotid ultrasound reviewed showing borderline significant changes on the right, defer to neurology if follow up needed. - Neurology following patient, recommendations to continue hard collar, pain control and monitor clinically. - Neurosurgery following patient, appreciate input. Dr. Duval - Cardiology has seen patient with recommendations for implantable loop recorder. Has cleared patient for surgery with no further need for lexiscan. UTI - Culture growing gram - remedios, E coli present. - Continue Ceftriaxone 1 gram IV q12 h. Hyponatremia - Nephrology following patient, appreciate input. Per nephrology, hyponatremia not believed to be a [employer] issue but rather her history of enlarged liver and fatty infiltration of normal liver functions may contribute to her hyponatremia, which will remain a chronic problem for patient with levels between 128-132 being normal for her. Monitor for symptoms. - Na 133-->131--awaiting labs this am. Hypertension, chronic: More controlled overnight. Continue Hydralazine, Amlodipine and Lopressor. Continue Lisinopril 20 mg PO q12hr. Vasotec IV PRN available. DVT prophylaxis: Lovenox Attending Statement This note was transcribed by scribe [Mimi Echols]. I, Dr. Jannet Lemos personally performed the history, physical exam, and medical decision making; and confirmed the accuracy of the information in the transcribed note. Authenticated by Dr. Jannet Lemos on 05/23/17 at 9:47. Mimi Echols May 23, 2017 09:35 Jannet Lemos MD May 23, 2017 10:00
[2017-05-23] MEDS ORDERED: PADIMATE (CHAPSTICK) 4.5 GM TUBE TOPICAL PRN (09:45)
--- NOTE | 2017-05-23 09:59 | HHI.NSPN ---
History Chief Complaint: moderate pain and left upper and lower extremity-chronic Interval History 66-year-old female gives a history of progressive gait difficulty for the past year. She states that she was in the hospital in November 2016 and fell at that time. Her medical records indicate an admission for syncope and cardiac evaluation revealed 65% ejection fraction. She indicates that she has been using a cane to ambulate for the past few months. She states that she has fallen a couple of times in the past 2 weeks, the last time on 05/18/2017. Since these falls, she has had significant increased weakness in the left arm and leg. She denies any significant sensory changes. No definite bowel or bladder dysfunction. She has mild to moderate neck pain which is a little worse since her most recent fall. She has no complaint of significant joint pain. She states that when she ambulates, she has poor balance and loss of control of her legs. Since the fall, she has had much more left extremity weakness. 05/21/2017: Persistent neck pain. Some discomfort left foot. No change in neurologic exam versus 05/20/17 Exam Results Vital Signs Date Time Temp Pulse Resp B/P (MAP) Pulse Ox O2 Delivery O2 Flow Rate FiO2 05/23/17 08:08 96.7 98 20 98 154/65 (94) 05/20/17 18:08 21 05/20/17 00:12 Room Air Intake and Output 05/23/17 05/23/17 05/24/17 08:00 16:00 00:00 Intake Total 100 ml Output Total 475 ml Balance -375 ml Physical Examination Mild edema and mild to moderate tenderness left knee. Some pain with range of motion. Awake, mildly lethargic Oriented X 3 Speech is slow but clear Moderate slowing of speech and thought processes Conversant and appropriate Follow simple commands well Answers questions appropriately Reasonable judgment and insight Recent and remote memory are intact No evidence of anxiety or depression Pupils are equal and reactive to accommodation. Extra-ocular movements, visual bautista to confrontation, facial sensorimotor, tongue, palate, sternocleidomastoid testing, hearing to finger rub testing, and bilateral shoulder shrug are all intact. Sensation is intact to light touch in all extremities Strength is diminished to mostly 3-4/5 right upper and 4/5 right lower extremity major flexion and extension groups except 3/5 right tibialis anterior , with mostly 1-2 /5 left upper and lower extremity major flexion and extension groups. Haven's absent bilaterally No ankle clonus Plantar responses absent bilateral Fine motor movements markedly impaired in the upper extremities Lab, Micro, Other Results Laboratory Tests Test 05/22/17 10:40 Blood Urea Nitrogen 10 MG/DL Creatinine 0.69 MG/DL Random Glucose 131 MG/DL Calcium Level 9.8 MG/DL Sodium Level 131 MEQ/L Potassium Level 3.8 MEQ/L Chloride Level 94 MEQ/L Carbon Dioxide Level 25.3 MEQ/L Anion Gap 12 MEQ/L Estimat Glomerular Filtration Rate 103 ML/MIN Medical Decision Making Impression and Plan Impression: 1. Cervical stenosis severe at C 3-4 level 2. Cervical myelopathy 3. Probable cervical spinal cord contusion 4. Hyponatremia 5. Hepatomegaly Plan: Continue therapy, mobilized out of bed as tolerated. Cervical collar as necessary for comfort measures only at this point. Discussed treatment options again with the patient today. She has significant stenosis and cord compression. It is felt that her prognosis for recovery would be improved with surgical decompression of the cervical cord. The procedure of C3 4 anterior cervical discectomy and interbody fusion with allograft bone and anterior instrumentation was discussed with the patient. Risk and possible complications have been discussed including the risk of anesthesia, organ failure, stroke, , bleeding, infection, nerve damage, pain, weakness, numbness, paralysis, loss of bowel, bladder or sexual function, spinal fluid leak, failure of instrumentation or fusion. All questions have been answered. She appears to understand the above and wishes to proceed with surgery. I called the patients daughter Julia at her request and discussed the patient' s findings and treatment options at length. She appears to understand and appears also in agreement with proceeding with surgery and we will discuss this further with her mother. The plan has been discussed with medicine service today. Cardiac workup remains an progress with chemical stress test pending. She remains in agreement with surgery which is tentatively scheduled for 2016 . Lovenox okay for DVT prophylaxis until surgical procedure. Ricci Duval MD May 23, 2017 09:59
--- NOTE | 2017-05-23 11:38 | PD.CARD.PN ---
Subjective Subjective Remarks no CV complaints Objective Medications Current Medications Medications (Trade) Dose Ordered Sig/Tereza Route Start Time Stop Time Status Last Admin (NS Flush) 2 ml BID IV FLUSH 05/20/17 09:00 05/23/17 08:57 (NS Flush) 2 ml UNSCH PRN IV FLUSH 05/20/17 01:45 Ceftriaxone Sodium 1000 mg/ Sodium Chloride 100 ml @ 200 mls/hr Q12H IV 05/20/17 13:00 05/23/17 01:23 (D50w (Vial) Inj) 50 ml UNSCH PRN IV 05/20/17 04:15 (Glucagon Inj) 1 mg UNSCH PRN OTHER 05/20/17 04:15 (Norvasc) 10 mg DAILY PO 05/20/17 17:15 05/23/17 08:51 (Folate) 1 mg DAILY PO 05/20/17 17:15 05/23/17 08:51 (Lopressor) 100 mg Q12HR PO 05/20/17 21:00 05/23/17 08:51 (Vasotec Inj) 1.25 mg Q6H PRN IV PUSH 05/20/17 17:30 05/22/17 21:22 ([place] 7.5-325 Mg) 1 tab Q6H PRN PO 05/22/17 09:15 05/23/17 08:52 (Morphine Inj) 3 mg Q12HR PRN IV 05/22/17 10:00 (Prinivil) 40 mg DAILY PO 05/23/17 09:00 05/23/17 08:52 (Apresoline) 25 mg Q8H PO 05/22/17 22:00 05/23/17 05:54 (Chapstick) 1 applic UNSCH PRN TOPICAL 05/23/17 09:45 Vital Signs / I&O Vital Signs Date Time Temp Pulse Resp B/P (MAP) Pulse Ox O2 Delivery O2 Flow Rate FiO2 05/23/17 08:08 96.7 98 20 98 154/65 (94) 05/23/17 05:54 14 05/23/17 04:00 98.7 66 20 130/64 (86) 94 05/23/17 00:00 98.8 69 20 160/68 (98) 98 05/22/17 20:00 98.4 87 20 172/76 (108) 98 05/22/17 16:00 99.0 78 18 131/86 (101) 98 05/22/17 12:14 97.5 69 20 170/72 (104) 96 I/O 05/22/17 05/22/17 05/22/17 05/23/17 05/23/17 05/23/17 07:00 15:00 23:00 07:00 15:00 23:00 Intake Total 100 ml 480 ml 100 ml Output Total 700 ml 825 ml 475 ml Balance 100 ml -220 ml -825 ml -375 ml Intake Oral 480 ml IV Total 100 ml 100 ml Output Urine Total 700 ml 825 ml 475 ml Physical Exam GENERAL: Well-nourished, well-developed patient. SKIN: Warm and dry. HEAD: Normocephalic. EYES: No scleral icterus. No injection or drainage. NECK: Supple, trachea midline. No JVD or lymphadenopathy. CARDIOVASCULAR: Regular rate and rhythm without murmurs, gallops, or rubs. RESPIRATORY: Breath sounds equal bilaterally. No accessory muscle use. GASTROINTESTINAL: Abdomen soft, non-tender, nondistended. EXTREMITIES: No cyanosis, or edema. Imaging Last Impressions Head CT 05/22/17 0600 Signed Impressions: Service Date/Time: Monday, May 22, 2017 08:25 - CONCLUSION: Stable noncontrast head CT. No acute intracranial abnormality is identified. Jorge Arellano MD Shoulder MRI 05/20/17 0000 Signed Impressions: Service Date/Time: Saturday, May 20, 2017 10:30 - CONCLUSION: Negative for rotator cuff tear. I don't see an etiology for weakness by MRI. Substantial cervical spinal stenosis is present. There is significant neuroforaminal encroachment as well. Chidi Peters MD FACR Head Magnetic Resonance Angiography 05/20/17 0000 Signed Impressions: Service Date/Time: Saturday, May 20, 2017 02:09 - CONCLUSION: 1. Unremarkable MRA examination of the brain. No evidence for large vessel occlusion or stenosis, as questioned. Nolan Krishna MD Cervical Spine MRI 05/20/17 0000 Signed Impressions: Service Date/Time: Saturday, May 20, 2017 10:30 - CONCLUSION: 1. Significant cord impingement at C3-C4 focal signal in the cord. 2. Moderate cord impingement at C4-C5 and C5-C6. Chidi Peters MD FACR Cervical Spine CT 05/20/17 0000 Signed Impressions: Service Date/Time: Saturday, May 20, 2017 00:41 - CONCLUSION: 1. No acute fracture or dislocation. 2. Multilevel degenerative spondylosis of the cervical spine. Nolan Krishna MD Carotid Artery Ultrasound 05/20/17 0000 Signed Impressions: Service Date/Time: Saturday, May 20, 2017 08:19 - CONCLUSION: Borderline significant findings on the right. Confirmatory CT angiogram or MR angiogram would be of benefit. Board Certified Radiologist. This report was verified electronically. Brain MRI 05/20/17 0000 Signed Impressions: Service Date/Time: Saturday, May 20, 2017 02:09 - CONCLUSION: 1. Senescent changes with mild small vessel ischemic white matter demyelination. 2. No acute ischemia or acute intracranial abnormality. 3. Bilateral maxillary sinus fluid. Nolan Krishna MD Chest X-Ray 05/19/17 1383 Signed Impressions: Service Date/Time: Saturday, May 20, 2017 00:20 - CONCLUSION: 1. No acute cardiopulmonary disease. Nolan Krishna MD Assessment and Plan Problem List: (1) Atypical syncope ICD Codes: R55 - Syncope and collapse Plan: No CV complaints. Significant cord impingement in C3-4. Schedule for surgery this week. No need for further cardiac work up. Continue supportive care. Sign off (2) Alcohol abuse, daily use ICD Codes: F10.10 - Nondependent alcohol abuse, continuous drinking behavior Status: Acute (3) Hepatomegaly ICD Codes: R16.0 - Large liver Status: Acute (4) CVA (cerebral vascular accident) ICD Codes: I63.9 - Cerebral infarction, unspecified Status: Acute (5) Hyperlipidemia ICD Codes: E78.5 - Hyperlipidemia Status: Acute (6) Diabetes ICD Codes: E11.9 - Diabetes mellitus Status: Chronic (7) HTN (hypertension) ICD Codes: I10 - Hypertension Status: Acute (8) HISTORY OF TOBACCO USE Status: Resolved Problem Qualifiers (1) CVA (cerebral vascular accident): Qualified Codes: I63.9 - Cerebral infarction, unspecified (2) Hyperlipidemia: Qualified Codes: E78.5 - Hyperlipidemia, unspecified (3) HTN (hypertension): Qualified Codes: I10 - Essential (primary) hypertension Gm Cruz MD May 23, 2017 11:38
[2017-05-23] MEDS: MORPHINE SULFATE 4 MG/ML INJ IV PRN (13:51)
--- NOTE | 2017-05-23 14:05 | HHI.PR ---
Review/Management Diagnosis/Plan: (1) Contusion of cervical cord ICD Codes: S14.109A - Unspecified injury at unspecified level of cervical spinal cord, initial encounter Status: Acute Plan: +left c4 level increased signal suggestive of contusion/infarct advanced cervical stenosis c3,4 recs some improvement in distal left hand movement hard collar decompression possibly in am pain controlled follow exam (2) HTN (hypertension) ICD Codes: I10 - Hypertension Status: Acute (3) Hyperlipidemia ICD Codes: E78.5 - Hyperlipidemia Status: Acute (4) Diabetes ICD Codes: E11.9 - Diabetes mellitus Status: Chronic Subjective Subjective Comments No acute events reported No headache No chest pain No dyspnea Active Medications Current Medications Medications (Trade) Dose Ordered Sig/Tereza Route Start Time Stop Time Status Last Admin (NS Flush) 2 ml BID IV FLUSH 05/20/17 09:00 05/23/17 08:57 (NS Flush) 2 ml UNSCH PRN IV FLUSH 05/20/17 01:45 Ceftriaxone Sodium 1000 mg/ Sodium Chloride 100 ml @ 200 mls/hr Q12H IV 05/20/17 13:00 05/23/17 13:51 (D50w (Vial) Inj) 50 ml UNSCH PRN IV 05/20/17 04:15 (Glucagon Inj) 1 mg UNSCH PRN OTHER 05/20/17 04:15 (Norvasc) 10 mg DAILY PO 05/20/17 17:15 05/23/17 08:51 (Folate) 1 mg DAILY PO 05/20/17 17:15 05/23/17 08:51 (Lopressor) 100 mg Q12HR PO 05/20/17 21:00 05/23/17 08:51 (Vasotec Inj) 1.25 mg Q6H PRN IV PUSH 05/20/17 17:30 05/22/17 21:22 ([place] 7.5-325 Mg) 1 tab Q6H PRN PO 05/22/17 09:15 05/23/17 08:52 (Morphine Inj) 3 mg Q12HR PRN IV 05/22/17 10:00 05/23/17 13:51 (Prinivil) 40 mg DAILY PO 05/23/17 09:00 05/23/17 08:52 (Apresoline) 25 mg Q8H PO 05/22/17 22:00 05/23/17 13:50 (Chapstick) 1 applic UNSCH PRN TOPICAL 05/23/17 09:45 Allergies Allergies Coded Allergies No Known Allergies (Verified Allergy, Unknown, 05/21/17) Review of Systems All other ROS: ROS reviewed as documented in chart Exam I&O / VS Vital Signs Date Time Temp Pulse Resp B/P (MAP) Pulse Ox O2 Delivery O2 Flow Rate FiO2 05/23/17 12:11 96.1 70 20 153/68 (96) 99 05/23/17 08:08 96.7 98 20 98 154/65 (94) 05/23/17 05:54 14 05/23/17 04:00 98.7 66 20 130/64 (86) 94 05/23/17 00:00 98.8 69 20 160/68 (98) 98 05/22/17 20:00 98.4 87 20 172/76 (108) 98 05/22/17 16:00 99.0 78 18 131/86 (101) 98 General: Alert and Oriented, No acute distress Neurologic: Alert Psychiatric: Cooperative Exam Comments ox 3, follows, left mild orbital swelling, eomi, vff, face sym, left ue 1/5 some distal finger movement, left le 1-2/5 some distal toe movement, pin grossly nml yohana, no neglect, msr sym, no clonus, planterflexor Objective Micro and Labs Date/Time Source Procedure Growth Status 05/20/17 00:10 Blood Peripheral Aerobic Blood Culture - Preliminary NO GROWTH IN 3 DAYS Resulted 05/20/17 00:10 Blood Peripheral Anaerobic Blood Culture - Preliminary NO GROWTH IN 3 DAYS Resulted 05/20/17 00:10 Urine Catheterized Urine Urine Culture - Final Escherichia Coli Complete Problem Qualifiers (1) HTN (hypertension): Qualified Codes: I10 - Essential (primary) hypertension (2) Hyperlipidemia: Qualified Codes: E78.5 - Hyperlipidemia, unspecified Jasen Gómez MD May 23, 2017 14:04
[2017-05-23 14:15] LABS: HEMATOCRIT 35.8 % (35.0-46.0); MEAN CELL VOLUME 93.8 FL (80.0-100.0); MEAN CORPUSCULAR HEMOGLOBIN 32.5 PG (27.0-34.0); MEAN CORPUSCULAR HGB CONC 34.6 % (32.0-36.0); PLATELET COUNT 228 TH/MM3 (150-450); RED BLOOD COUNT 3.82 MIL/MM3 (4.00-5.30); RED CELL DISTRIBUTION WIDTH 12.9 % (11.6-17.2); REVIEW FLAG FINAL; WHITE BLOOD COUNT 11.2 TH/MM3 (4.0-11.0)
[2017-05-23 14:23] LABS: INTERNATIONAL NORMALIZED RATIO 0.9 RATIO; PROTHROMBIN TIME - PATIENT 10.1 SEC (9.8-11.6)
[2017-05-23 14:41] LABS: BICARBONATE 26.5 MEQ/L (21.0-32.0); POTASSIUM 3.6 MEQ/L (3.5-5.1)
[2017-05-24] VITALS (8 sets, daily range): BP systolic 145–186; BP diastolic 67–77; PULSE 70–80; RESP 20; TEMP 98.2–98.5; O2SAT 93–100
[2017-05-24] MEDS: cefTRIAXone INJ 1,000 MG in SODIUM CHLORIDE 0.9% INJ 100 ML IV SCH ×2 (02:40→12:52)
[2017-05-24] MEDS: ACETAMINOPHEN/HYDROcodone 325 MG/7.5 MG TAB PO PRN (03:28)
[2017-05-24] MEDS ORDERED: CHLORHEXIDINE GLUCONATE 2 % 1 PACK (2 CLOTHS) TOPICAL PRN (03:45)
[2017-05-24] MEDS ORDERED: POVIDONE IODINE 5% (ANTISEPSIS KIT) 4 APPLICATIONS EACH NARE PRN (03:45)
[2017-05-24] MEDS ORDERED: INSULIN HUMAN REGULAR 1,000 UNITS/10 ML VIAL SQ PRN (03:45)
[2017-05-24] MEDS ORDERED: LACTATED RINGER'S 1000 ML IV PRN (03:45)
[2017-05-24] MEDS ORDERED: SODIUM CHLORID 0.9% 500 ML IV PRN (03:45)
[2017-05-24] MEDS: hydrALAZINE HCL 25 MG TAB PO SCH ×2 (06:51→12:52)
[2017-05-24] MEDS: METOPROLOL TARTRATE 100 MG TAB PO SCH (08:33)
[2017-05-24] MEDS: FOLIC ACID 1 MG TAB PO SCH (08:33)
[2017-05-24] MEDS: SODIUM CHLORIDE 0.9% FLUSH 5 ML FLUSH IV FLUSH SCH (08:33)
[2017-05-24] MEDS: LISINOPRIL 20 MG TAB PO SCH (08:33)
[2017-05-24] MEDS ORDERED: SUCCINYLCHOLINE CHLORIDE 100 MG/5 ML SYRINGE IV PUSH ONE (10:43)
[2017-05-24] MEDS ORDERED: METOPROLOL TARTRATE 5 MG/5 ML VIAL IV PUSH ONE (10:43)
[2017-05-24] MEDS ORDERED: PROPOFOL 200 MG/20 ML AMP IV ONE (10:43)
[2017-05-24] MEDS ORDERED: ROCURONIUM INJ 50 MG/5 ML SYRINGE IV PUSH ONE (10:43)
--- NOTE | 2017-05-24 12:28 | PD.CONS ---
[facility] Service Rehabilitation Medicine Consult Requested By Dr. Wynne Reason for Consult Comprehensive rehabilitation evaluation. Primary Care Physician Ayla Marshall MD History of Present Illness Jaylene Gallegos is a 66-year-old right-hand dominant female admitted [facility] 05/20/17 with history of fall/syncope 2 who was subsequently unable to stand after the second fall and was noted to have severe right sided and back pain. Head CT showed left frontal scalp hematoma. No acute intracranial abnormality was noted. Patient denies loss of consciousness. CT the cervical spine showed no fracture or dislocation. She was noted to have multilevel degenerative spondylolisthesis. She was treated for urinary tract infection. On 05/20/17 MRI the cervical spine showed significant cord impingement C3-C4 with focal signal in the cord and moderate impingement at C4-C5 and C5-C6. Patient has been evaluated by neurosurgery and C3-C4 ACDF is pending. Review of Systems Constitutional: COMPLAINS OF: Fatigue Eyes: DENIES: Diplopia Ears, nose, mouth, throat: DENIES: Hearing loss Respiratory: DENIES: Shortness of breath Cardiovascular: DENIES: Chest pain Gastrointestinal: DENIES: Abdominal pain, Constipation Genitourinary: COMPLAINS OF: Urinary incontinence Musculoskeletal: COMPLAINS OF: Neck pain (Yung in place cervical collar in place) Integumentary: DENIES: Pruritus Hematologic/lymphatic: DENIES: Bruising Immunologic/allergic: DENIES: Urticaria Neurologic: COMPLAINS OF: Localized weakness, Paresthesias, DENIES: Headache, Speech Problems Psychiatric: DENIES: Confusion Past Family Social History Allergies: Coded Allergies: No Known Allergies (Verified Allergy, Unknown, 05/21/17) Past Medical History Hypertension Hyperlipidemia Type 2 diabetes mellitus Gout Osteoarthritis Past Surgical History Hysterectomy Oophorectomy, unilateral Bilateral bunionectomies Current Medications Current Medications Medications (Trade) Dose Ordered Sig/Tereza Route Start Time Stop Time Status Last Admin (NS Flush) 2 ml BID IV FLUSH 05/20/17 09:00 05/24/17 08:33 (NS Flush) 2 ml UNSCH PRN IV FLUSH 05/20/17 01:45 Ceftriaxone Sodium 1000 mg/ Sodium Chloride 100 ml @ 200 mls/hr Q12H IV 05/20/17 13:00 05/24/17 02:40 (D50w (Vial) Inj) 50 ml UNSCH PRN IV 05/20/17 04:15 (Glucagon Inj) 1 mg UNSCH PRN OTHER 05/20/17 04:15 (Norvasc) 10 mg DAILY PO 05/20/17 17:15 05/24/17 08:33 (Folate) 1 mg DAILY PO 05/20/17 17:15 05/24/17 08:33 (Lopressor) 100 mg Q12HR PO 05/20/17 21:00 05/24/17 08:33 (Vasotec Inj) 1.25 mg Q6H PRN IV PUSH 05/20/17 17:30 05/22/17 21:22 ([place] 7.5-325 Mg) 1 tab Q6H PRN PO 05/22/17 09:15 05/24/17 03:28 (Morphine Inj) 3 mg Q12HR PRN IV 05/22/17 10:00 05/23/17 13:51 (Prinivil) 40 mg DAILY PO 05/23/17 09:00 05/24/17 08:33 (Apresoline) 25 mg Q8H PO 05/22/17 22:00 05/24/17 06:51 (Chapstick) 1 applic UNSCH PRN TOPICAL 05/23/17 09:45 Lactated Ringer's 1,000 ml @ 30 mls/hr Q24H PRN IV 05/24/17 03:45 05/27/17 03:44 Sodium Chloride 500 ml @ 30 mls/hr [id number] PRN IV 05/24/17 03:45 05/27/17 03:44 (Betadine 5% Antisepsis Kit) 1 applic SUSTAINABLE SYSTEMS ANALYST PRN EACH NARE 05/24/17 03:45 05/27/17 03:44 (Chlorhexidine 2% Cloth) 3 pack SUSTAINABLE SYSTEMS ANALYST PRN TOPICAL 05/24/17 03:45 05/27/17 03:44 (NovoLIN R INJ) See Protocol Table ... SUSTAINABLE SYSTEMS ANALYST PRN SQ 05/24/17 03:45 05/27/17 03:44 Family History Mother: , esophageal cancer Father: , stroke Social History Prior to admission patient lived in [place], [place] in a 1 level home with 4 steps to enter. Her sister lives locally. She was ambulating with a cane prior to admission but was independent with all ADLs Exam I&O / VS Vital Signs Date Time Temp Pulse Resp B/P (MAP) Pulse Ox O2 Delivery O2 Flow Rate FiO2 05/24/17 08:00 71 05/24/17 08:00 98.5 76 20 156/70 (98) 97 05/24/17 07:54 93 21 05/24/17 06:51 80 05/24/17 06:00 14 05/24/17 04:00 98.4 74 20 145/67 (93) 97 05/24/17 00:00 98.2 70 20 170/74 (106) 98 05/23/17 22:20 14 05/23/17 20:00 98.1 82 20 171/74 (106) 98 05/23/17 16:17 95.3 73 20 153/78 (103) 97 General: No acute distress, Other (Cervical collar is in place) Respiratory: Lungs CTA, Non-labored respirations, BS equal Gastrointestinal: Positive Bowel Sounds, Non-Distended, Non-Tender Cardiovascular: Normal rate, Normal peripheral perfusion, Regular Rhythm Musculoskeletal: Tenderness (No calf tenderness) Psychiatric: Cooperative, Appropriate mood & affect Orientation: oriented to Self, oriented to Place, oriented to Time, oriented to Situation Neurologic: Cranial Nerves (Intact 2 through 12), Speech (Clear with no word finding difficulties or dysarthria) Motor: Right Upper Extremity (4+/5), Left Upper Extremity (trace finger flexion and elbow flexion; remainder 0), Right Lower Extremity (4+/5), Left Lower Extremity (testing limited due to pain; hip extension 1/5; knee extension 0/5; ankle 0/5) Spasticity None noted Sensory Grossly intact to light touch in both upper and lower extremities DTRs: Normal (1+ throughout) Babinski: Negative Clonus: Negative Assessment and Plan Diagnosis: (1) Contusion of cervical cord ICD Codes: S14.109A - Unspecified injury at unspecified level of cervical spinal cord, initial encounter Status: Acute Qualifiers: Encounter type: initial encounter Qualified Codes: S14.109A - Unspecified injury at unspecified level of cervical spinal cord, initial encounter Assessment 1. Fall/syncope with C3-C4 spinal cord contusion for C3-C4 ACDF per Dr. Duval 2. Left hemiparesis 3. Hypertension 4. Hyperlipidemia 5. Diabetes mellitus type 2 6. Gout 7. Osteoarthritis 8. Urinary tract infection Plan 1. Patient has been receiving physical therapy and is now maximal assistance for bed mobility and supine to sit. Surgical intervention anticipated for today and would restart physical therapy when cleared by neurosurgery 2. Occupational therapy after surgical intervention as cleared by neurosurgery to address independence with ADLs 3. Reposition every 2 hours and monitor skin carefully for pressure areas 4. Postoperative DVT prophylaxis per neurosurgery 5. Anticipate patient will need ongoing inpatient rehabilitation at discharge. Case management assessment is in process. 6. Will follow while hospitalized and at discharge Thank you for this consult Qing Gastelum MD May 24, 2017 12:27
[2017-05-24] MEDS: ENALAPRILAT 1.25 MG/ML VIAL IV PUSH PRN (12:55)
--- NOTE | 2017-05-24 13:00 | HHI.PR ---
Subjective Remarks Patient resting comfortably in bed No chest pain fever or chills or short of breath today Seen by neurology and cardiology she is cleared for cervical decompression today Discussed with neurosurgery Objective Vitals Vital Signs Date Time Temp Pulse Resp B/P (MAP) Pulse Ox O2 Delivery O2 Flow Rate FiO2 05/24/17 12:00 98.2 70 20 186/77 (113) 96 05/24/17 08:00 71 05/24/17 08:00 98.5 76 20 156/70 (98) 97 05/24/17 07:54 93 21 05/24/17 06:51 80 05/24/17 06:00 14 05/24/17 04:00 98.4 74 20 145/67 (93) 97 05/24/17 00:00 98.2 70 20 170/74 (106) 98 05/23/17 22:20 14 05/23/17 20:00 98.1 82 20 171/74 (106) 98 05/23/17 16:17 95.3 73 20 153/78 (103) 97 I/O 05/23/17 05/23/17 05/23/17 05/24/17 05/24/17 05/24/17 07:00 15:00 23:00 07:00 15:00 23:00 Intake Total 100 ml 480 ml 240 ml 100 ml Output Total 475 ml 350 ml 475 ml 300 ml Balance -375 ml 130 ml -235 ml -200 ml Intake Oral 480 ml 240 ml IV Total 100 ml 100 ml Output Urine Total 475 ml 350 ml 475 ml 300 ml Result Diagram: 05/23/17 1351 05/23/17 1351 Objective Remarks - GENERAL: This is a well-nourished, well-developed patient, in no apparent distress. SKIN: No rashes, warm and dry HEAD: Atraumatic. Normocephalic. EYES: Pupils equal round and reactive. Extraocular motions intact. No scleral icterus. ENT: Nose without bleeding, or drainage, Airway patent. NECK: in cervical collar CARDIOVASCULAR: Regular rate and rhythm without murmurs, gallops, or rubs. RESPIRATORY: Fair air entry bilaterally. No wheezes, rales, or rhonchi. GASTROINTESTINAL: Abdomen soft, non-tender, nondistended. Positive bowel sounds MUSCULOSKELETAL: Extremities without clubbing, cyanosis, or edema. Pedal pulses appreciated NEUROLOGICAL: Awake and alert. Moves all extremity. Normal speech.no focal neurological deficit A/P Problem List: (1) Atypical syncope ICD Code: R55 - Syncope and collapse (2) Urinary tract infection ICD Code: N39.0 - Urinary tract infection, site not specified Status: Acute (3) Diabetes mellitus type 2 Status: Chronic (4) Hyponatremia ICD Code: E87.1 - Hypo-osmolality and hyponatremia Assessment and Plan 66 y/o female with recurrent falls (4 over the past year; 3 resulting in ED visits and one prior admission) and suspected recurrent syncope: 05/22: Pain is controlled, blood pressure still not optimized, will increase hydralazine, and monitor blood pressure, further control pain 05/23: Spoke to Dr. Duval who has surgery planned for tomorrow 05/24/17. Called Dr. Jensen, cardiology, regarding need for stress test before undergoing surgery. He believes stress test is not necessary prior to surgery and has cleared her for surgery . Patient's pain well-controlled. BP is stable today. Tolerating PO intake. Denies any acute events or complaints. bmp today is P , but pt medically clear for surgery 05/24: Patient cleared by cardiology, and seen by neurology, medically clear for cervical decompression today Severe C3 4 stenosis Recurrent syncopal episodes - MRI findings suggestive of myelopathy was signal intensity changes, possible acute cord contusion. - Senescent changes with mild small vessel ischemic white matter demyelination; no acute ischemia or acute intracranial abnormality. Bilateral maxillary sinus fluid. - Cervical spine CT with no fracture or dislocation. - MRA unremarkable. - EEG reviewed showing slow alpha variant. -Orthostatic blood pressures checked, no significance. - Previous echocardiogram from November 2016 admission were unremarkable. - Carotid ultrasound reviewed showing borderline significant changes on the right, defer to neurology if follow up needed. - Neurology following patient, recommendations to continue hard collar, pain control and monitor clinically. - Neurosurgery following patient, appreciate input. Dr. Duval - Cardiology has seen patient with recommendations for implantable loop recorder. Has cleared patient for surgery with no further need for lexiscan. UTI - Culture growing gram - remedios, E coli present. - Continue Ceftriaxone 1 gram IV q12 h. Hyponatremia - Nephrology following patient, appreciate input. 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 Monitor for symptoms. - Na 133-->131--awaiting labs this am. Hypertension, chronic: More controlled overnight. Continue Hydralazine, Amlodipine and Lopressor. Continue Lisinopril 20 mg PO q12hr. Vasotec IV PRN available. DVT prophylaxis: Jannet Santiago MD May 24, 2017 13:00
--- NOTE | 2017-05-24 13:46 | HHI.NSPN ---
(Jc Farris) History Chief Complaint: moderate pain and left upper and lower extremity-chronic (Jc Farris) Interval History 05/20: 66-year-old female gives a history of progressive gait difficulty for the past year. She states that she was in the hospital in November 2016 and fell at that time. Her medical records indicate an admission for syncope and cardiac evaluation revealed 65% ejection fraction. She indicates that she has been using a cane to ambulate for the past few months. She states that she has fallen a couple of times in the past 2 weeks, the last time on 05/18/2017. Since these falls, she has had significant increased weakness in the left arm and leg. She denies any significant sensory changes. No definite bowel or bladder dysfunction. She has mild to moderate neck pain which is a little worse since her most recent fall. She has no complaint of significant joint pain. She states that when she ambulates, she has poor balance and loss of control of her legs. Since the fall, she has had much more left extremity weakness. 05/21/2017: Persistent neck pain. Some discomfort left foot. No change in neurologic exam versus 05/20/1705/24: The patient is awake and alert when seen this afternoon. She states that she is doing good. She does have pain to the posterior neck and the weakness to the left side extremities. She has been cleared by Cardiology and Medicine for surgery later this afternoon. (Jc Farris) System Review Comments Constitutional: Patient denies any fever or chills. HEENT: Patient denies any visual or hearing problems. Respiratory: Patient denies any shortness of breath or productive cough. Cardiovascular: Patient denies any chest pain, palpitations or irregular heartbeat. Gastrointestinal: Patient denies any abdominal pain, nausea, vomiting or incontinence of stool. Genitourinary: Patient denies any incontinence of urine. Musculoskeletal: Patient complains of neck pain. She denies any back or extremity pain. Neurologic: Patient complains of left-sided extremity weakness. She denies any headache, dizziness, numbness or tingling. (Jc Farris) Exam Results 05/22/17 05/22/17 05/23/17 05/23/17 05/24/17 05/24/17 06:00 18:00 06:00 18:00 06:00 18:00 Intake Total 100 ml 480 ml 100 ml 480 ml 340 ml Output Total 700 ml 1300 ml 350 ml 675 ml 100 ml Balance 100 ml -220 ml -1200 ml 130 ml -335 ml -100 ml Intake Oral 480 ml 480 ml 240 ml IV Total 100 ml 100 ml 100 ml Output Urine Total 700 ml 1300 ml 350 ml 675 ml 100 ml Vital Signs Date Time Temp Pulse Resp B/P (MAP) Pulse Ox O2 Delivery O2 Flow Rate FiO2 05/24/17 12:00 98.2 70 20 186/77 (113) 96 05/24/17 08:00 71 05/24/17 08:00 98.5 76 20 156/70 (98) 97 05/24/17 07:54 93 21 05/24/17 06:51 80 05/24/17 06:00 14 05/24/17 04:00 98.4 74 20 145/67 (93) 97 05/24/17 00:00 98.2 70 20 170/74 (106) 98 05/23/17 22:20 14 05/23/17 20:00 98.1 82 20 171/74 (106) 98 05/23/17 16:17 95.3 73 20 153/78 (103) 97 05/23/17 12:11 96.1 70 20 153/68 (96) 99 05/23/17 08:08 96.7 98 20 98 154/65 (94) 05/23/17 08:00 69 05/23/17 04:00 98.7 66 20 130/64 (86) 94 05/23/17 00:00 98.8 69 20 160/68 (98) 98 05/22/17 20:00 98.4 87 20 172/76 (108) 98 05/22/17 20:00 75 05/22/17 16:00 99.0 78 18 131/86 (101) 98 05/22/17 12:14 97.5 69 20 170/72 (104) 96 05/22/17 08:00 98.9 79 20 177/78 (111) 97 05/22/17 08:00 84 05/22/17 05:00 77 05/22/17 04:00 98.2 81 20 194/86 (122) 96 05/22/17 02:22 162/70 (100) 05/22/17 00:00 98.0 75 20 197/79 (118) 96 05/21/17 20:00 98.5 77 20 194/81 (118) 96 05/21/17 16:00 97.7 74 18 170/68 (102) 94 (Jc Farris) Physical Examination GENERAL: Patient awake & alert, readily interacts, affect normal, NAD. SKIN: Warm, dry & intact except for lip abrasions. HEENT: Normocephalic, lip abrasions healing w/o evident complication. NECK: [place] cervical collar in place, no JVD, trachea midline. CARDIOVASCULAR: S1S2 w/RRR w/o M/G/R, radial & pedal pulses 2+ cap refill < 2 sec, no pedal edema. RESPIRATORY: CTAB w/o W/R/R, equal excursion, nonlaboured, on RA. GASTROINTESTINAL: Abdomen soft, nontender, bowel sounds not appreciate. MUSCULOSKELETAL: Move right extremities w/o difficulty, decreased movement of left, left knee mildly TTP, no evident deformity or clubbing. NEUROLOGICAL: AAOx3. Speech clear but slow, appropriate. Follows simple command w/o difficulty. Sensation to light touch to all extremities. Strength 3+ to 4/5 RUE and 4/5 RLE except tibialis anterior 3/5, LUE & LLE 1 to 2. (Jc Farris) Medical Decision Making Impression and Plan Impression: 1. Cervical stenosis severe at C 3-4 level 2. Cervical myelopathy 3. Probable cervical spinal cord contusion 4. Hyponatremia 5. Hepatomegaly Patient doing well and is neurologically stable. Cleared by Cardiology and Medicine for surgery today. Plan: Plan to take to the OR this afternoon. Cervical collar as necessary for comfort measures only at this point. (Jc Farris) Attending Statement The exam, history, and the medical decision-making described in the above note were completed with the assistance of the mid-level provider. I reviewed and agree with the findings presented. I attest that I had a [id number] encounter with the patient on the same day, and personally performed and documented my assessment and findings in the medical record. Patient remains awake, mild slowing of speech and thought processes. Upper and lower extremity motor function slowly improving postoperative, now mostly 3-4/5 upper extremities with 2/5 left and 3/5 right lower extremity major flexion and extension groups. Incisions healing well. Continuing therapy Stable for discharge to inpatient rehabilitation-group home from neurosurgery standpoint (Ricci Duval MD) Jc Farris May 24, 2017 13:46 Ricci Duval MD Jun 06, 2017 08:43
[2017-05-24] MEDS ORDERED: THROMBIN (TOPICAL) 5,000 UNIT VIAL ONE (15:44)
[2017-05-24] MEDS ORDERED: LIDOCAINE 0.5%/EPINEPHrine 1:200,000 SOLN 50 ML VIAL ONE (15:44)
[2017-05-24] MEDS ORDERED: GELFOAM SIZE 100 ONE (15:45)
[2017-05-24] MEDS ORDERED: GENTAMICIN SULFATE 80 MG/2 ML VIAL ONE (15:45)
[2017-05-24] MEDS ORDERED: MIDAZOLAM HCL 2 MG/2 ML VIAL ONE (16:29)
[2017-05-24] MEDS ORDERED: FAMOTIDINE 20 MG/2 ML VIAL ONE (16:29)
[2017-05-24] MEDS ORDERED: LIDOCAINE 2%/EPINEPHrine PF 1:200,000 20ML SDV ONE (16:47)
[2017-05-24] MEDS ORDERED: PROPOFOL 500 MG/50 ML INJ 150 ML ONE (17:03)
[2017-05-24] MEDS ORDERED: HYDROmorphone HCL PF 2 MG/ML VIAL ONE (17:03)
[2017-05-24] MEDS ORDERED: ACETAMINOPHEN 1000 MG/100 ML 100 ML IV ONE (17:03)
[2017-05-24] MEDS ORDERED: ceFAZolin 2 GM PREMIX 50 ML ONE (17:31)
--- NOTE | 2017-05-24 19:10 | HHI.PR ---
Review/Management Diagnosis/Plan: (1) Contusion of cervical cord ICD Codes: S14.109A - Unspecified injury at unspecified level of cervical spinal cord, initial encounter Status: Acute Plan: +left c4 level increased signal suggestive of contusion/infarct advanced cervical stenosis c3,4 recs decompression today clearance from cardiology pain controlled follow exam (2) HTN (hypertension) ICD Codes: I10 - Hypertension Status: Acute (3) Hyperlipidemia ICD Codes: E78.5 - Hyperlipidemia Status: Acute (4) Diabetes ICD Codes: E11.9 - Diabetes mellitus Status: Chronic Subjective Subjective Comments No acute events reported No headache No chest pain No dyspnea late entry Active Medications Current Medications Medications (Trade) Dose Ordered Sig/Tereza Route Start Time Stop Time Status Last Admin (NS Flush) 2 ml BID IV FLUSH 05/20/17 09:00 05/24/17 08:33 (NS Flush) 2 ml UNSCH PRN IV FLUSH 05/20/17 01:45 Ceftriaxone Sodium 1000 mg/ Sodium Chloride 100 ml @ 200 mls/hr Q12H IV 05/20/17 13:00 05/24/17 12:52 (D50w (Vial) Inj) 50 ml UNSCH PRN IV 05/20/17 04:15 (Glucagon Inj) 1 mg UNSCH PRN OTHER 05/20/17 04:15 (Norvasc) 10 mg DAILY PO 05/20/17 17:15 05/24/17 08:33 (Folate) 1 mg DAILY PO 05/20/17 17:15 05/24/17 08:33 (Lopressor) 100 mg Q12HR PO 05/20/17 21:00 05/24/17 08:33 (Vasotec Inj) 1.25 mg Q6H PRN IV PUSH 05/20/17 17:30 05/24/17 12:55 ([place] 7.5-325 Mg) 1 tab Q6H PRN PO 05/22/17 09:15 05/24/17 03:28 (Morphine Inj) 3 mg Q12HR PRN IV 05/22/17 10:00 05/23/17 13:51 (Prinivil) 40 mg DAILY PO 05/23/17 09:00 05/24/17 08:33 (Apresoline) 25 mg Q8H PO 05/22/17 22:00 05/24/17 12:52 (Chapstick) 1 applic UNSCH PRN TOPICAL 05/23/17 09:45 Lactated Ringer's 1,000 ml @ 30 mls/hr Q24H PRN IV 05/24/17 03:45 05/27/17 03:44 Sodium Chloride 500 ml @ 30 mls/hr [id number] PRN IV 05/24/17 03:45 05/27/17 03:44 (Betadine 5% Antisepsis Kit) 1 applic STAFF NURSE MIDWIFE PRN EACH NARE 05/24/17 03:45 05/27/17 03:44 (Chlorhexidine 2% Cloth) 3 pack STAFF NURSE MIDWIFE PRN TOPICAL 05/24/17 03:45 05/27/17 03:44 (NovoLIN R INJ) See Protocol Table ... STAFF NURSE MIDWIFE PRN SQ 05/24/17 03:45 05/27/17 03:44 Allergies Allergies Coded Allergies No Known Allergies (Verified Allergy, Unknown, 05/21/17) Review of Systems All other ROS: ROS reviewed as documented in chart Exam I&O / VS Vital Signs Date Time Temp Pulse Resp B/P (MAP) Pulse Ox O2 Delivery O2 Flow Rate FiO2 05/24/17 18:14 96 21 05/24/17 12:00 98.2 70 20 186/77 (113) 96 05/24/17 08:00 71 05/24/17 08:00 98.5 76 20 156/70 (98) 97 05/24/17 07:54 93 21 05/24/17 06:51 80 05/24/17 06:00 14 05/24/17 04:00 98.4 74 20 145/67 (93) 97 05/24/17 00:00 98.2 70 20 170/74 (106) 98 05/23/17 22:20 14 05/23/17 20:00 98.1 82 20 171/74 (106) 98 General: Alert and Oriented, No acute distress Respiratory: Lungs CTA, Non-labored respirations, BS equal Cardiology: Normal rate, Normal peripheral perfusion, Regular Rhythm Musculoskeletal: Tenderness (No calf tenderness) Neurologic: Alert Psychiatric: Cooperative Exam Comments ox 3, follows, eomi, vff, face sym, left ue 1/5 some distal finger movement, left le 1-2/5 some distal toe movement, pin grossly nml yohana, no neglect, msr sym , no clonus, planterflexor Objective Micro and Labs Date/Time Source Procedure Growth Status 05/20/17 00:10 Blood Peripheral Aerobic Blood Culture - Preliminary NO GROWTH IN 4 DAYS Resulted 05/20/17 00:10 Blood Peripheral Anaerobic Blood Culture - Preliminary NO GROWTH IN 4 DAYS Resulted 05/20/17 00:10 Urine Catheterized Urine Urine Culture - Final Escherichia Coli Complete Problem Qualifiers (1) Contusion of cervical cord: Qualified Codes: S14.109A - Unspecified injury at unspecified level of cervical spinal cord, initial encounter (2) HTN (hypertension): Qualified Codes: I10 - Essential (primary) hypertension (3) Hyperlipidemia: Qualified Codes: E78.5 - Hyperlipidemia, unspecified Jasen Gómez MD May 24, 2017 19:10
[2017-05-24] MEDS ORDERED: CHLORHEXIDINE GLUCONATE 0.12% 15 ML CUP ONE (20:15)
[2017-05-24] MEDS ORDERED: DO NOT ADM ANY ANTICOAGULANT DRUGS PRN (20:40)
--- NOTE | 2017-05-24 21:13 | RADRPT ---
EXAM DATE/TIME: 05/24/2017 17:42 [facility] COMPARISON: No previous studies available for comparison. INDICATIONS : Fusion MEDICAL HISTORY : Hypertension. Diabetes mellitus type II. Arthritis. SURGICAL HISTORY : Hysterectomy. ENCOUNTER: Subsequent ACUITY: 4 - 6 days PAIN SCORE: Non-responsive. LOCATION: Cervical spine. FINDINGS: Anterior and lateral views obtained of the cervical spine in the operating room are submitted. There is discectomy and fusion procedure with anterior and interbody instrumentation noted at C3/C4. Alignm ent appears normal. CONCLUSION: Fusion at C3/C4. No acute complication demonstrated. Jorge Carvalho MD on May 24, 2017 at 21:10 Board Certified Radiologist. This report was verified electronically.
[2017-05-24] MEDS: 1/2 NS + KCL 20 MEQ INJ 1,000 ML IV SCH (21:24)
--- NOTE | 2017-05-24 21:24 | PD.OP ---
Operative Report Date of Surgery: May 24, 2017 Preoperative Diagnosis: (1) Cervical disc disease with myelopathy (2) Contusion of cervical cord 1. C3 4 herniated nucleus pulposus 2. Severe cervical stenosis 3. Cervical spinal cord contusion 4. Cervical myelopathy Postoperative Diagnosis: (1) Cervical disc disease with myelopathy (2) Contusion of cervical cord 1. C3 4 herniated nucleus pulposus 2. Severe cervical stenosis 3. Cervical spinal cord contusion 4. Cervical myelopathy Procedure: C 3-4 Anterior cervical discectomy C3-4 Anterior interbody fusion, allograft bone C3-4 Anterior cervical instrumentation Anesthesia: General Surgeon: Ricci Duval Relay Checker(s): Ankush Vogt Operation and Findings: Procedure in detail: The patient was brought into the operating room and positioned in supine position on the 3080 table with the head and neck in neutral position. Yung catheter was placed. Lines were established by Anesthesia. Gen. endotracheal anesthesia was induced without difficulty, taking care not to significantly flex or extend the patient's neck during intubation and positioning. Leads for intraoperative neuro monitoring were placed and a baseline study obtained. All extremities were appropriately padded. The neck and upper chest were shaved with clippers and sterilely prepped and draped. Appropriate timeout procedure was performed with all personnel present and in agreement 1% Xylocaine with epinephrine was used for local infiltration over the incision site which was made transversely at the left C3-4 level and carried sharply down through the platysma muscle. The exposure was continued medial to the sternocleidomastoid muscle and carotid artery, and lateral to the trachea and esophagus. The prevertebral fascia was elevated away from the anterior longitudinal ligament with a Kitner sponge. The longus coli muscle on each side was elevated with the Meeks elevator. The self-retaining retractor was placed with the blades beneath the longus coli muscle on each side. The appropriate levels were confirmed with intraoperative C-arm and preoperative imaging studies. The microscope was brought into place and used for the remainder of the procedure including the closure. The 14 mm distraction pins were used as needed for gentle distraction during the procedure. The procedure was performed at the C3-4 level The anterior osteophyte was resected with the Leksell rongeur. The disc and annulus was incised with a 15 blade knife and discectomy performed with pituitary biopsy forceps and straight and angled curettes. The TPS drill with the 5 mm barrel bur was used to decorticate the endplates and removed the majority of the osteophyte along the anterior spinal canal as well as the right and left uncovertebral joint. The thin ligament dissector was used to free up the posterior annulus and ligament from the vertebral body margin. The remainder of the resection of the posterior annulus and ligament as well as the posterior osteophyte and bilateral uncovertebral joint was performed with the 2 and 3 mm thin footplate Kerrison rongeurs. A component of herniated nucleus pulposus was encountered posterior to the annulus and was lifted away from the thecal sac with the thickened ligament dissector and removed. Significant posterior osteophyte was encountered and extensively removed. The posterior vertebral bodies were undercut with the Kerrison rongeur and the TPS drill with the 4 mm amaury bur as needed to fully decompress the anterior spinal canal. The appropriate size V G2 bone graft was then placed at each level with a good fit of the graft. The blunt nerve hook was used to probe beneath the bone graft to ensure that there was no impingement on the thecal sac or exiting nerve roots. The appropriate size Precision anterior cervical plate was then chosen and the bone screws were placed with the 14 mm fixed screws at the caudal most level and the 14 mm variable screws at the cephalad level of the decompression. The screws were firmly secured and the locking cams engaged. The entire construct was checked with intraoperative C-arm and felt to be satisfactory. The 10 Andorran drain was brought out through a small incision in the left lower neck and secured to the skin with nylon suture and attached to sterile suction. The closure was performed with 3-0 Vicryl running for the platysma and interrupted for the subcutaneous closure, with 4-0 Vicryl running for the subcuticular closure. A dressing of sterile Mastisol, Steri-Strips, and Primapore dressing was placed. The patient was placed into a cervical collar, and taken to recovery room in stable condition. All counts were correct at the end of the case. Estimated blood loss was 50 cc No specimen was sent to pathology. Intraoperative neuro monitoring remained stable during the procedure. Ricci Duval MD May 24, 2017 21:24
[2017-05-24] MEDS ORDERED: SODIUM CHLORIDE 0.9% FLUSH 5 ML FLUSH IVF PRN (21:30)
[2017-05-25] VITALS (14 sets, daily range): BP systolic 161–179; BP diastolic 72–86; PULSE 93–117; RESP 12–22; TEMP 98–98.8; O2SAT 94–100
[2017-05-25] MEDS: cefTRIAXone INJ 1,000 MG in SODIUM CHLORIDE 0.9% INJ 100 ML IV SCH ×2 (01:46→14:10)
[2017-05-25 05:45] LABS: AUTOMATED NEUTROPHIL # 4.9 TH/MM3 (1.8-7.7); BASOPHIL % 0.3 % (0.0-2.0); EOSINOPHIL % 0.3 % (0.0-4.0); HEMATOCRIT 29.7 % (35.0-46.0); HEMO FLAGS DIFF FINAL; LYMPH % 17.1 % (9.0-44.0); LYMPHOCYTE # 1.2 TH/MM3 (1.0-4.8); MEAN CELL VOLUME 93.7 FL (80.0-100.0); MEAN CORPUSCULAR HEMOGLOBIN 32.2 PG (27.0-34.0); MEAN CORPUSCULAR HGB CONC 34.4 % (32.0-36.0); MONO % 11.9 % (0.0-8.0); NEUT % 70.4 % (16.0-70.0); PLATELET COUNT 238 TH/MM3 (150-450); RED BLOOD COUNT 3.17 MIL/MM3 (4.00-5.30); RED CELL DISTRIBUTION WIDTH 12.8 % (11.6-17.2); WHITE BLOOD COUNT 6.9 TH/MM3 (4.0-11.0)
[2017-05-25] MEDS: hydrALAZINE HCL 25 MG TAB PO SCH ×2 (06:08→21:55)
[2017-05-25 06:37] LABS: BICARBONATE 25.4 MEQ/L (21.0-32.0); POTASSIUM 3.3 MEQ/L (3.5-5.1)
--- NOTE | 2017-05-25 08:04 | HHI.PR ---
Review/Management Diagnosis/Plan: (1) Contusion of cervical cord ICD Codes: S14.109A - Unspecified injury at unspecified level of cervical spinal cord, initial encounter Status: Acute Plan: +left c4 level increased signal suggestive of contusion/infarct advanced cervical stenosis c3,4 05/24 s/p cervical decompression recs alittle groggy this am- likely post anesthesia d/w rn follow exam (2) HTN (hypertension) ICD Codes: I10 - Hypertension Status: Acute (3) Hyperlipidemia ICD Codes: E78.5 - Hyperlipidemia Status: Acute (4) Diabetes ICD Codes: E11.9 - Diabetes mellitus Status: Chronic Subjective Subjective Comments No acute events reported No headache No chest pain No dyspnea Active Medications Current Medications Medications (Trade) Dose Ordered Sig/Tereza Route Start Time Stop Time Status Last Admin Ceftriaxone Sodium 1000 mg/ Sodium Chloride 100 ml @ 200 mls/hr Q12H IV 05/20/17 13:00 05/25/17 01:46 (D50w (Vial) Inj) 50 ml UNSCH PRN IV 05/20/17 04:15 (Glucagon Inj) 1 mg UNSCH PRN OTHER 05/20/17 04:15 (Norvasc) 10 mg DAILY PO 05/20/17 17:15 05/24/17 08:33 (Folate) 1 mg DAILY PO 05/20/17 17:15 05/24/17 08:33 (Lopressor) 100 mg Q12HR PO 05/20/17 21:00 05/24/17 08:33 (Vasotec Inj) 1.25 mg Q6H PRN IV PUSH 05/20/17 17:30 05/24/17 12:55 ([place] 7.5-325 Mg) 1 tab Q6H PRN PO 05/22/17 09:15 05/24/17 03:28 (Morphine Inj) 3 mg Q12HR PRN IV 05/22/17 10:00 05/23/17 13:51 (Prinivil) 40 mg DAILY PO 05/23/17 09:00 05/24/17 08:33 (Chapstick) 1 applic UNSCH PRN TOPICAL 05/23/17 09:45 Lactated Ringer's 1,000 ml @ 30 mls/hr Q24H PRN IV 05/24/17 03:45 05/27/17 03:44 Sodium Chloride 500 ml @ 30 mls/hr [id number] PRN IV 05/24/17 03:45 05/27/17 03:44 (Betadine 5% Antisepsis Kit) 1 applic TOUCH UP EDGER PRN EACH NARE 05/24/17 03:45 05/27/17 03:44 (Chlorhexidine 2% Cloth) 3 pack TOUCH UP EDGER PRN TOPICAL 05/24/17 03:45 05/27/17 03:44 (NovoLIN R INJ) See Protocol Table ... TOUCH UP EDGER PRN SQ 05/24/17 03:45 05/27/17 03:44 Miscellaneous Information ALL NURSING DEPARTME... UNSCH PRN .XX 05/24/17 20:40 05/25/17 20:39 (NS Flush) 2 ml UNSCH PRN IVF 05/24/17 21:30 (NS Flush) 2 ml BID IVF 05/25/17 09:00 Potassium Chloride/Sodium Chloride 1,000 ml @ 100 mls/hr Q10H IV 05/24/17 21:24 05/24/17 21:24 (Apresoline) 25 mg Q6HR PO 05/25/17 12:00 Allergies Allergies Coded Allergies No Known Allergies (Verified Allergy, Unknown, 05/21/17) Review of Systems All other ROS: ROS reviewed as documented in chart Exam I&O / VS Vital Signs Date Time Temp Pulse Resp B/P (MAP) Pulse Ox O2 Delivery O2 Flow Rate FiO2 05/25/17 07:42 96 21 05/25/17 06:00 106 05/25/17 04:00 98.4 114 16 176/86 (116) 96 05/25/17 04:00 114 05/25/17 02:00 114 05/25/17 00:00 104 05/25/17 00:00 98.6 104 12 161/72 (101) 100 05/24/17 23:51 100 Nasal Cannula 3.00 05/24/17 23:30 98.7 102 16 147/66 (93) 100 05/24/17 23:15 99 14 160/70 (100) 100 05/24/17 23:00 95 20 139/63 (88) 99 05/24/17 22:45 100 19 144/67 (92) 100 05/24/17 22:30 97 12 152/67 (95) 98 05/24/17 22:15 95 12 152/65 (94) 98 05/24/17 22:00 95 12 153/67 (95) 98 05/24/17 21:45 93 12 144/64 (90) 100 05/24/17 21:30 96 10 142/56 (84) 100 05/24/17 21:15 95 10 131/62 (85) 100 05/24/17 21:00 95 11 133/59 (83) 99 05/24/17 20:45 95 11 138/62 (87) 97 05/24/17 20:41 99.6 96 11 138/62 (87) 97 05/24/17 18:14 96 21 05/24/17 12:00 98.2 70 20 186/77 (113) 96 General: Alert and Oriented, No acute distress Respiratory: Lungs CTA, Non-labored respirations, BS equal Cardiology: Normal rate, Normal peripheral perfusion, Regular Rhythm Musculoskeletal: Tenderness (No calf tenderness) Neurologic: Alert Psychiatric: Cooperative Exam Comments groggy but arousable, follows, dysphonic speech, hard collar in place, eomi, vff, face sym, left 0/5, no neglect, msr sym, no clonus, planterflexor Objective Micro and Labs Laboratory Tests Test 05/25/17 04:45 White Blood Count 6.9 Red Blood Count 3.17 Hemoglobin 10.2 Hematocrit 29.7 Mean Corpuscular Volume 93.7 Mean Corpuscular Hemoglobin 32.2 Mean Corpuscular Hemoglobin Concent 34.4 Red Cell Distribution Width 12.8 Platelet Count 238 Mean Platelet Volume 8.8 Neutrophils (%) (Auto) 70.4 Lymphocytes (%) (Auto) 17.1 Monocytes (%) (Auto) 11.9 Eosinophils (%) (Auto) 0.3 Basophils (%) (Auto) 0.3 Neutrophils # (Auto) 4.9 Lymphocytes # (Auto) 1.2 Monocytes # (Auto) 0.8 Eosinophils # (Auto) 0.0 Basophils # (Auto) 0.0 CBC Comment DIFF FINAL Differential Comment Blood Urea Nitrogen 10 Creatinine 0.63 Random Glucose 148 Calcium Level 9.2 Sodium Level 133 Potassium Level 3.3 Chloride Level 95 Carbon Dioxide Level 25.4 Anion Gap 13 Estimat Glomerular Filtration Rate 115 Date/Time Source Procedure Growth Status 05/20/17 00:10 Blood Peripheral Aerobic Blood Culture - Preliminary NO GROWTH IN 4 DAYS Resulted 05/20/17 00:10 Blood Peripheral Anaerobic Blood Culture - Preliminary NO GROWTH IN 4 DAYS Resulted 05/20/17 00:10 Urine Catheterized Urine Urine Culture - Final Escherichia Coli Complete Problem Qualifiers (1) Contusion of cervical cord: Qualified Codes: S14.109A - Unspecified injury at unspecified level of cervical spinal cord, initial encounter (2) HTN (hypertension): Qualified Codes: I10 - Essential (primary) hypertension (3) Hyperlipidemia: Qualified Codes: E78.5 - Hyperlipidemia, unspecified Jasen Gómez MD May 25, 2017 08:04
[2017-05-25] MEDS: MORPHINE SULFATE 4 MG/ML INJ IV PRN ×2 (08:15→14:17)
[2017-05-25] MEDS: 1/2 NS + KCL 20 MEQ INJ 1,000 ML IV SCH ×2 (08:40→21:36)
--- NOTE | 2017-05-25 08:58 | HHI.NSPN ---
(Jc Farris) History Chief Complaint: No complaints. (Jc Farris) Interval History 05/20: 66-year-old female gives a history of progressive gait difficulty for the past year. She states that she was in the hospital in November 2016 and fell at that time. Her medical records indicate an admission for syncope and cardiac evaluation revealed 65% ejection fraction. She indicates that she has been using a cane to ambulate for the past few months. She states that she has fallen a couple of times in the past 2 weeks, the last time on 05/18/2017. Since these falls, she has had significant increased weakness in the left arm and leg. She denies any significant sensory changes. No definite bowel or bladder dysfunction. She has mild to moderate neck pain which is a little worse since her most recent fall. She has no complaint of significant joint pain. She states that when she ambulates, she has poor balance and loss of control of her legs. Since the fall, she has had much more left extremity weakness. 05/21/2017: Persistent neck pain. Some discomfort left foot. No change in neurologic exam versus 05/20/1705/24: The patient is awake and alert when seen this afternoon. She states that she is doing good. She does have pain to the posterior neck and the weakness to the left side extremities. She has been cleared by Cardiology and Medicine for surgery later this afternoon. 05/25: The patient went for a discectomy with interbody fusion and instrumentation at the C3-4 level yesterday. Post-operatively she was transferred to [facility]. This morning the patient is awake but lethargic. When asked how she is doing she states she is doing good. She had no complaints during the review of systems. Nursing reported that the patient did have difficulty taking oral medication even when crushed and given in applesauce. The patient has also been hypertensive and Nursing reports that the family has previously told them the patient is allergic to Vasotec but it is not recorded as an allergy. Therefore it was not given. She did receive morphine prior to being seen for pain per Nursing. (Jc Farris) System Review Comments Constitutional: Patient denies any fever or chills. HEENT: Patient denies any sore throat, difficulty swallowing or any visual or hearing problems. Respiratory: Patient denies any shortness of breath or productive cough. Cardiovascular: Patient denies any chest pain, palpitations or irregular heartbeat. Gastrointestinal: Patient denies any abdominal pain, nausea, vomiting or incontinence of stool. Genitourinary: Patient denies any incontinence of urine. Musculoskeletal: Patient denies any neck, back or extremity pain. Neurologic: Patient denies any headache, dizziness, numbness, tingling or local weakness. (Jc Farris) Exam Results 05/23/17 05/23/17 05/24/17 05/24/17 05/25/17 05/25/17 06:00 18:00 06:00 18:00 06:00 18:00 Intake Total 100 ml 480 ml 340 ml 2848 ml 950 ml Output Total 1300 ml 350 ml 675 ml 100 ml 1120 ml Balance -1200 ml 130 ml -335 ml -100 ml 1728 ml 950 ml Intake Oral 480 ml 240 ml 30 ml IV Total 100 ml 100 ml 1018 ml 950 ml Other 1800 ml Output Urine Total 1300 ml 350 ml 675 ml 100 ml 1050 ml Stool Total 0 ml Drainage Total 20 ml Estimated Blood Loss 50 ml Vital Signs Date Time Temp Pulse Resp B/P (MAP) Pulse Ox O2 Delivery O2 Flow Rate FiO2 05/25/17 07:42 96 21 05/25/17 06:00 106 05/25/17 04:00 98.4 114 16 176/86 (116) 96 05/25/17 04:00 114 05/25/17 02:00 114 05/25/17 00:00 104 05/25/17 00:00 98.6 104 12 161/72 (101) 100 05/24/17 23:51 100 Nasal Cannula 3.00 05/24/17 23:30 98.7 102 16 147/66 (93) 100 05/24/17 23:15 99 14 160/70 (100) 100 05/24/17 23:00 95 20 139/63 (88) 99 05/24/17 22:45 100 19 144/67 (92) 100 05/24/17 22:30 97 12 152/67 (95) 98 05/24/17 22:15 95 12 152/65 (94) 98 05/24/17 22:00 95 12 153/67 (95) 98 05/24/17 21:45 93 12 144/64 (90) 100 05/24/17 21:30 96 10 142/56 (84) 100 05/24/17 21:15 95 10 131/62 (85) 100 05/24/17 21:00 95 11 133/59 (83) 99 05/24/17 20:45 95 11 138/62 (87) 97 05/24/17 20:41 99.6 96 11 138/62 (87) 97 05/24/17 18:14 96 21 05/24/17 12:00 98.2 70 20 186/77 (113) 96 05/24/17 08:00 71 05/24/17 08:00 98.5 76 20 156/70 (98) 97 05/24/17 07:54 93 21 05/24/17 06:51 80 05/24/17 06:00 14 05/24/17 04:00 98.4 74 20 145/67 (93) 97 05/24/17 00:00 98.2 70 20 170/74 (106) 98 05/23/17 22:20 14 05/23/17 20:00 98.1 82 20 171/74 (106) 98 05/23/17 16:17 95.3 73 20 153/78 (103) 97 05/23/17 12:11 96.1 70 20 153/68 (96) 99 05/23/17 08:08 96.7 98 20 98 154/65 (94) 05/23/17 08:00 69 05/23/17 04:00 98.7 66 20 130/64 (86) 94 05/23/17 00:00 98.8 69 20 160/68 (98) 98 05/22/17 20:00 98.4 87 20 172/76 (108) 98 05/22/17 20:00 75 05/22/17 16:00 99.0 78 18 131/86 (101) 98 05/22/17 12:14 97.5 69 20 170/72 (104) 96 (Jc Farris) Physical Examination GENERAL: Patient lethargic but does interacts, affect flat, NAD. SKIN: Warm, dry & intact except for lip abrasions & left anterior neck surgical incision w/intact dressing. HEENT: Normocephalic, lip abrasions healing w/o evident complication. NECK: Barrow J cervical collar in place, left anterior neck surgical incision w/ intact dressing moderately TTP, midline cervical spine mildly TTP, no JVD, trachea midline. CARDIOVASCULAR: S1S2 w/regular but rapid w/o M/G/R, radial & pedal pulses 2+ cap refill < 2 sec, no pedal edema. SBP noted to be 187 mm Hg when seen. Monitor is sinus tachycardia w/o any evident ectopy. RESPIRATORY: CTAB w/o W/R/R, equal excursion, nonlaboured, on RA. GASTROINTESTINAL: Abdomen soft, nontender, bowel sounds not appreciate. MUSCULOSKELETAL: Move right extremities w/o difficulty, decreased movement of left, left knee mildly TTP, no evident deformity or clubbing. NEUROLOGICAL: AAOx3. Speech clear and slower than yesterday. Follows simple command w/o difficulty. Sensation appears intact to light touch to all extremities. Strength 3 to 3+/5 RUE and 4/5 RLE except tibialis anterior 3/5, LUE & LLE 1 to 1+/5. (Jc Farris) Lab, Micro, Other Results Recent Impressions Cervical Spine X-Ray 05/24/17 0000 Signed Impressions: Service Date/Time: Wednesday, May 24, 2017 17:42 - CONCLUSION: Fusion at C3/C4. No acute complication demonstrated. Jorge Carvahlo MD Laboratory Tests Test 05/22/17 10:40 05/23/17 13:51 05/25/17 04:45 Blood Urea Nitrogen 10 MG/DL 12 MG/DL 10 MG/DL Creatinine 0.69 MG/DL 0.66 MG/DL 0.63 MG/DL Random Glucose 131 MG/DL 160 MG/DL 148 MG/DL Calcium Level 9.8 MG/DL 10.2 MG/DL 9.2 MG/DL Sodium Level 131 MEQ/L 130 MEQ/L 133 MEQ/L Potassium Level 3.8 MEQ/L 3.6 MEQ/L 3.3 MEQ/L Chloride Level 94 MEQ/L 93 MEQ/L 95 MEQ/L Carbon Dioxide Level 25.3 MEQ/L 26.5 MEQ/L 25.4 MEQ/L Anion Gap 12 MEQ/L 11 MEQ/L 13 MEQ/L Estimat Glomerular Filtration Rate 103 ML/MIN 109 ML/MIN 115 ML/MIN White Blood Count 11.2 TH/MM3 6.9 TH/MM3 Red Blood Count 3.82 MIL/MM3 3.17 MIL/MM3 Hemoglobin 12.4 GM/DL 10.2 GM/DL Hematocrit 35.8 % 29.7 % Mean Corpuscular Volume 93.8 FL 93.7 FL Mean Corpuscular Hemoglobin 32.5 PG 32.2 PG Mean Corpuscular Hemoglobin Concent 34.6 % 34.4 % Red Cell Distribution Width 12.9 % 12.8 % Platelet Count 228 TH/MM3 238 TH/MM3 Mean Platelet Volume 9.6 FL 8.8 FL Prothrombin Time 10.1 SEC Prothromb Time International Ratio 0.9 RATIO Neutrophils (%) (Auto) 70.4 % Lymphocytes (%) (Auto) 17.1 % Monocytes (%) (Auto) 11.9 % Eosinophils (%) (Auto) 0.3 % Basophils (%) (Auto) 0.3 % Neutrophils # (Auto) 4.9 TH/MM3 Lymphocytes # (Auto) 1.2 TH/MM3 Monocytes # (Auto) 0.8 TH/MM3 Eosinophils # (Auto) 0.0 TH/MM3 Basophils # (Auto) 0.0 TH/MM3 CBC Comment DIFF FINAL Differential Comment (Jc Farris) Medical Decision Making Impression and Plan Impression: 1. Cervical stenosis severe at C 3-4 level 2. Cervical myelopathy 3. Probable cervical spinal cord contusion 4. Hyponatremia 5. Hepatomegaly Postoperative Diagnosis: (1) Cervical disc disease with myelopathy (2) Contusion of cervical cord Patient doing fair, more lethargic, appears to be slightly weaker post- operatively. Hypertensive. POD #1 () s/p: C 3-4 Anterior cervical discectomy C3-4 Anterior interbody fusion, allograft bone C3-4 Anterior cervical instrumentation Plan: Critical care management per Physician Coding Specialist. Primary management per Hospitalist. Frequent neuro checks. Maintain cervical collar at all times. Hydralazine 20 mg IV q4h PRN SBP > 160 mm Hg. Bedside swallow evaluation. (Jc Farris) Attending Statement I have personally seen and examined the patient on the date of this note. Pertinent documentation and study results have been reviewed by the undersigned. I have personally developed the treatment plan and performed medical decision making. Agree with findings, exam, and treatment plan as noted above. Patient little more lethargic, seems a little weaker in general. Continue therapy Follow-up scans if persistent change in neurologic status. (Ricci Duval MD) Jc Farris May 25, 2017 08:58 Ricci Duval MD Jun 06, 2017 08:44
[2017-05-25] MEDS: SODIUM CHLORIDE 0.9% FLUSH 5 ML FLUSH IVF SCH ×2 (09:00→21:00)
[2017-05-25] MEDS: LISINOPRIL 20 MG TAB PO SCH (09:00)
[2017-05-25] MEDS: FOLIC ACID 1 MG TAB PO SCH (09:00)
[2017-05-25] MEDS: hydrALAZINE HCL 20 MG/ML VIAL IV PUSH PRN ×3 (10:28→18:53)
[2017-05-25] MEDS ORDERED: hydrALAZINE HCL 25 MG TAB PO SCH (12:00)
--- NOTE | 2017-05-25 13:41 | HHI.PR ---
Subjective Subjective Comments Patient resting comfortably in bed. Reports the pain is adequately controlled. Cervical collar in place. Allergies: Coded Allergies: No Known Allergies (Verified Allergy, Unknown, 05/21/17) Review of Systems All other ROS: ROS reviewed as documented in chart Exam I&O / VS 05/25/17 05/25/17 05/26/17 15:00 23:00 07:00 Intake Total 950 ml Balance 950 ml IV Total 950 ml Vital Signs Date Time Temp Pulse Resp B/P (MAP) Pulse Ox O2 Delivery O2 Flow Rate FiO2 05/25/17 12:00 115 05/25/17 12:00 98.8 114 16 174/74 (107) 94 05/25/17 10:00 117 05/25/17 08:00 98.0 108 14 179/77 (111) 95 Manual Cuff/Auscultation 05/25/17 08:00 109 05/25/17 07:42 96 21 05/25/17 07:00 Room Air 05/25/17 06:00 106 05/25/17 04:00 98.4 114 16 176/86 (116) 96 05/25/17 04:00 114 05/25/17 02:00 114 05/25/17 00:00 104 05/25/17 00:00 98.6 104 12 161/72 (101) 100 05/24/17 23:51 100 Nasal Cannula 3.00 05/24/17 23:30 98.7 102 16 147/66 (93) 100 05/24/17 23:15 99 14 160/70 (100) 100 05/24/17 23:00 95 20 139/63 (88) 99 05/24/17 22:45 100 19 144/67 (92) 100 05/24/17 22:30 97 12 152/67 (95) 98 05/24/17 22:15 95 12 152/65 (94) 98 05/24/17 22:00 95 12 153/67 (95) 98 05/24/17 21:45 93 12 144/64 (90) 100 05/24/17 21:30 96 10 142/56 (84) 100 05/24/17 21:15 95 10 131/62 (85) 100 05/24/17 21:00 95 11 133/59 (83) 99 05/24/17 20:45 95 11 138/62 (87) 97 9/12/17 20:41 99.6 96 11 138/62 (87) 97 05/24/17 18:14 96 21 General: No acute distress, Other (Cervical collar in place) Cardiovascular: Normal rate (Tachycardic), Normal peripheral perfusion, Regular Rhythm Musculoskeletal: Swelling (None in distal lower extremities) Psychiatric: Cooperative (Patient appears to be somewhat drowsy but awake) Orientation: oriented to Self, oriented to Situation Motor: Right Upper Extremity (grossly 4/5), Left Upper Extremity (0/5 except for trace laborer wrecking and salvaging), Right Lower Extremity (grossly 4/5), Left Lower Extremity (0/5) Clonus: Negative Objective Micro and Labs Laboratory Tests Test 05/25/17 04:45 White Blood Count 6.9 Red Blood Count 3.17 Hemoglobin 10.2 Hematocrit 29.7 Mean Corpuscular Volume 93.7 Mean Corpuscular Hemoglobin 32.2 Mean Corpuscular Hemoglobin Concent 34.4 Red Cell Distribution Width 12.8 Platelet Count 238 Mean Platelet Volume 8.8 Neutrophils (%) (Auto) 70.4 Lymphocytes (%) (Auto) 17.1 Monocytes (%) (Auto) 11.9 Eosinophils (%) (Auto) 0.3 Basophils (%) (Auto) 0.3 Neutrophils # (Auto) 4.9 Lymphocytes # (Auto) 1.2 Monocytes # (Auto) 0.8 Eosinophils # (Auto) 0.0 Basophils # (Auto) 0.0 CBC Comment DIFF FINAL Differential Comment Blood Urea Nitrogen 10 Creatinine 0.63 Random Glucose 148 Calcium Level 9.2 Sodium Level 133 Potassium Level 3.3 Chloride Level 95 Carbon Dioxide Level 25.4 Anion Gap 13 Estimat Glomerular Filtration Rate 115 Date/Time Source Procedure Growth Status 05/20/17 00:10 Blood Peripheral Aerobic Blood Culture - Final NO GROWTH IN 5 DAYS Complete 05/20/17 00:10 Blood Peripheral Anaerobic Blood Culture - Final NO GROWTH IN 5 DAYS Complete 05/20/17 00:10 Urine Catheterized Urine Urine Culture - Final Escherichia Coli Complete Assessment and Plan Diagnosis: (1) Contusion of cervical cord ICD Codes: S14.109A - Unspecified injury at unspecified level of cervical spinal cord, initial encounter Status: Acute Qualifiers: Encounter type: initial encounter Qualified Codes: S14.109A - Unspecified injury at unspecified level of cervical spinal cord, initial encounter Assessment 1. Fall/syncope with C3-C4 spinal cord contusion for C3-C4 ACDF per Dr. Duval 2. Incomplete quadriparesis 3. Hypertension 4. Hyperlipidemia 5. Diabetes mellitus type 2 6. Gout 7. Osteoarthritis 8. Urinary tract infection Plan 1. PT evaluation is in process. Mobilize as cleared by neurosurgery 2. Occupational therapy following for ADLs and currently dependent 3. Speech therapy swallow evaluation in process and patient currently nothing by mouth 4. Reposition every 2 hours and monitor skin carefully for pressure areas 5. SCDs in place for DVT prophylaxis 6. Anticipate patient will need ongoing inpatient rehabilitation at discharge. Case management assessment is in process. 7. Will follow while hospitalized and at discharge Qing Gastelum MD May 25, 2017 13:41
[2017-05-25] MEDS ORDERED: Vancomycin Consult Pharmacy 1 EA OTHER SCH (18:15)
--- NOTE | 2017-05-25 18:45 | HHI.PR ---
Subjective Remarks Patient resting in bed, she is awake alert, she answer my question with nodding with her face She denied being in pain having, nausea vomiting or short of breath Patient is tachycardic with blood pressures will not control on multiple agent Her blood culture today show 1 tube positive for staph Wereni which was verified yesterday Objective Vitals Vital Signs Date Time Temp Pulse Resp B/P (MAP) Pulse Ox O2 Delivery O2 Flow Rate FiO2 05/25/17 16:00 110 05/25/17 16:00 98.0 112 17 166/72 (103) 95 05/25/17 14:00 113 05/25/17 12:00 115 05/25/17 12:00 98.8 114 16 174/74 (107) 94 05/25/17 10:00 117 05/25/17 08:00 98.0 108 14 179/77 (111) 95 Manual Cuff/Auscultation 05/25/17 08:00 109 05/25/17 07:42 96 21 05/25/17 07:00 Room Air 05/25/17 06:00 106 05/25/17 04:00 98.4 114 16 176/86 (116) 96 05/25/17 04:00 114 05/25/17 02:00 114 05/25/17 00:00 104 05/25/17 00:00 98.6 104 12 161/72 (101) 100 05/24/17 23:51 100 Nasal Cannula 3.00 05/24/17 23:30 98.7 102 16 147/66 (93) 100 05/24/17 23:15 99 14 160/70 (100) 100 05/24/17 23:00 95 20 139/63 (88) 99 05/24/17 22:45 100 19 144/67 (92) 100 05/24/17 22:30 97 12 152/67 (95) 98 05/24/17 22:15 95 12 152/65 (94) 98 05/24/17 22:00 95 12 153/67 (95) 98 05/24/17 21:45 93 12 144/64 (90) 100 05/24/17 21:30 96 10 142/56 (84) 100 05/24/17 21:15 95 10 131/62 (85) 100 05/24/17 21:00 95 11 133/59 (83) 99 05/24/17 20:45 95 11 138/62 (87) 97 05/24/17 20:41 99.6 96 11 138/62 (87) 97 I/O 05/24/17 05/24/17 05/24/17 05/25/17 05/25/17 05/25/17 07:00 15:00 23:00 07:00 15:00 23:00 Intake Total 100 ml 1800 ml 1048 ml 950 ml Output Total 300 ml 400 ml 720 ml Balance -200 ml 1400 ml 328 ml 950 ml Intake Oral 30 ml IV Total 100 ml 1018 ml 950 ml Other 1800 ml Output Urine Total 300 ml 350 ml 700 ml Stool Total 0 ml Drainage Total 20 ml Estimated Blood Loss 50 ml Result Diagram: 05/25/1744405/25/17444 Objective Remarks - GENERAL: This is a well-nourished, well-developed patient, in no apparent distress. SKIN: No rashes, warm and dry HEAD: Atraumatic. Normocephalic. EYES: Pupils equal round and reactive. Extraocular motions intact. No scleral icterus. ENT: Nose without bleeding, or drainage, Airway patent. NECK: in cervical collar CARDIOVASCULAR: Regular rate and rhythm without murmurs, gallops, or rubs. RESPIRATORY: Fair air entry bilaterally. No wheezes, rales, or rhonchi. GASTROINTESTINAL: Abdomen soft, non-tender, nondistended. Positive bowel sounds MUSCULOSKELETAL: Extremities without clubbing, cyanosis, or edema. Pedal pulses appreciated NEUROLOGICAL: Awake and alert. Moves all extremity. Normal speech.no focal neurological deficit A/P Problem List: (1) Atypical syncope ICD Code: R55 - Syncope and collapse (2) Urinary tract infection ICD Code: N39.0 - Urinary tract infection, site not specified Status: Acute (3) Diabetes mellitus type 2 Status: Chronic (4) Hyponatremia ICD Code: E87.1 - Hypo-osmolality and hyponatremia Assessment and Plan 66 y/o female with recurrent falls (4 over the past year; 3 resulting in ED visits and one prior admission) and suspected recurrent syncope: 05/22: Pain is controlled, blood pressure still not optimized, will increase hydralazine, and monitor blood pressure, further control pain 05/23: Spoke to Dr. Duval who has surgery planned for tomorrow 05/24/17. Called Dr. Jensen, cardiology, regarding need for stress test before undergoing surgery. He believes stress test is not necessary prior to surgery and has cleared her for surgery . Patient's pain well-controlled. BP is stable today. Tolerating PO intake. Denies any acute events or complaints. bmp today is P , but pt medically clear for surgery 05/24: Patient cleared by cardiology, and seen by neurology, medically clear for cervical decompression today 05/25: Patient resting in bed status post cervical decompression on 05/24, all pressure still not well controlled, with tachycardia Increase Lopressor 200 mg every 8 hours Increase hydralazine to 50 mg every 8 hours, apply hydralazine iv when necessary +1 tube positive blood culture of Staphy wereni: Result was verified sometime during yesterday> I called ID and discussed the case with , she suggested contamination if no leukocytosis or worsening clinical symptoms including fever, if any of this happen she recommend to start vancomycin, I ordered to repeat blood culture, and placed consult for ID, Dr. Hernandez to see the patient and I placed a call for her through the call center on on her cell phone to further discuss the case. Time spent 60 minutes A/P: Severe C3 4 stenosis Recurrent syncopal episodes Status post cervical decompression on 05/[address] Duval - MRI findings suggestive of myelopathy was signal intensity changes, possible acute cord contusion. - Senescent changes with mild small vessel ischemic white matter demyelination; no acute ischemia or acute intracranial abnormality. Bilateral maxillary sinus fluid. - Cervical spine CT with no fracture or dislocation. - MRA unremarkable. - EEG reviewed showing slow alpha variant. -Orthostatic blood pressures checked, no significance. - Previous echocardiogram from November 2016 admission were unremarkable. - Carotid ultrasound reviewed showing borderline significant changes on the right, defer to neurology if follow up needed. - Neurology following patient, recommendations to continue hard collar, pain control and monitor clinically. - Cardiology has seen patient with recommendations for implantable loop recorder. Has cleared patient for surgery with no further need for lexiscan. UTI - Culture growing gram - remedios, E coli present. - Continue Ceftriaxone 1 gram IV q12 h. Hyponatremia - Nephrology following patient, appreciate input. Per nephrology, hyponatremia not believed to be a [employer] issue but rather her history of enlarged liver and fatty infiltration of normal liver functions may contribute to her hyponatremia, which will remain a chronic problem for patient with levels between 128-132 being normal for her. Monitor for symptoms. -Monitor BMP Hypertension, chronic: More controlled overnight. Continue Hydralazine, Amlodipine and Lopressor. Continue Lisinopril 20 mg PO q12hr. Vasotec IV PRN available. DVT prophylaxis: Jannet Santiago MD May 25, 2017 18:45
[2017-05-25] MEDS ORDERED: VANCOMYCIN INJ 1,500 MG in SODIUM CHLORID 0.9% 500 ML INJ 500 ML IV SCH (20:00)
[2017-05-25] MEDS: ACETAMINOPHEN/HYDROcodone 325 MG/7.5 MG TAB PO PRN (20:36)
[2017-05-25] MEDS: LABETALOL HCL 100 MG/20 ML VIAL IV PUSH PRN (20:37)
--- NOTE | 2017-05-25 20:45 | RADRPT ---
EXAM DATE/TIME: 05/25/2017 19:46 [facility] COMPARISON: MRI CERVICAL SPINE W/O CONTRAST, May 20, 2017, 10:30. INDICATIONS : Myelopathy. Left sided weakness; post fusion yesterday. MEDICAL HISTORY : Hypertension. Diabetes mellitus type 2. SURGICAL HISTORY : Fusion, cervical. Hysterectomy. ENCOUNTER: Subsequent ACUITY: 2 day PAIN SCORE: 5/10 LOCATION: neck. TECHNIQUE: Multiplanar, multisequence MRI examination of the cervical spine was performed. FINDINGS: Since the prior MRI, changes of discectomy and fusion procedure with interbody and anterior instrumen tation noted at C3/C4. There is increased T2 signal material within the posterior aspect of the C3/C4 intervertebral disc space level and effacing the anterior margin of the thecal sac. There is a 17 mm thick prevertebral fluid collection that extends from the tip of the odontoid to the C5/C6 level. Th e prevertebral fluid collection is thickest at the C3/C4 level. There is T2 signal abnormality within the cord at at C3/C4 but I believe not new. Other levels are unchanged CONCLUSION: Interim discectomy and fusion procedure with anterior and interbody instrumentation at C3/C4. Prevert ebral fluid collection extending from the skull base to the level of C5/C6, epicenter at C3/C4. Also an apparent fluid collection within the posterior C3/C4 intervertebral disc space and effacing the an terior margin of the thecal sac. The fluid collections could represent developing abscesses or subacu te hematomas. Findings were discussed with Dr. Duval by phone. Jorge Carvalho MD on May 25, 2017 at 20:33 Board Certified Radiologist. This report was verified electronically.
[2017-05-25] MEDS: METOPROLOL TARTRATE 100 MG TAB PO SCH (21:55)
[2017-05-26] VITALS (16 sets, daily range): BP systolic 163–200; BP diastolic 70–93; PULSE 86–93; RESP 15–24; TEMP 98.6–98.8; O2SAT 94–98
[2017-05-26] MEDS: cefTRIAXone INJ 1,000 MG in SODIUM CHLORIDE 0.9% INJ 100 ML IV SCH ×2 (00:41→13:00)
[2017-05-26 01:52] LABS: AUTOMATED NEUTROPHIL # 5.2 TH/MM3 (1.8-7.7); BASOPHIL % 0.5 % (0.0-2.0); EOSINOPHIL % 0.1 % (0.0-4.0); HEMATOCRIT 28.9 % (35.0-46.0); HEMO FLAGS DIFF FINAL; LYMPH % 15.6 % (9.0-44.0); LYMPHOCYTE # 1.1 TH/MM3 (1.0-4.8); MEAN CELL VOLUME 93.6 FL (80.0-100.0); MEAN CORPUSCULAR HEMOGLOBIN 31.6 PG (27.0-34.0); MEAN CORPUSCULAR HGB CONC 33.7 % (32.0-36.0); MONO % 11.8 % (0.0-8.0); PLATELET COUNT 262 TH/MM3 (150-450); RED BLOOD COUNT 3.09 MIL/MM3 (4.00-5.30); RED CELL DISTRIBUTION WIDTH 13.3 % (11.6-17.2); WHITE BLOOD COUNT 7.2 TH/MM3 (4.0-11.0)
[2017-05-26] MEDS: hydrALAZINE HCL 20 MG/ML VIAL IV PUSH PRN ×3 (02:44→21:27)
[2017-05-26] MEDS: 1/2 NS + KCL 20 MEQ INJ 1,000 ML IV SCH ×3 (02:48→21:28)
[2017-05-26] MEDS: hydrALAZINE HCL 25 MG TAB PO SCH ×3 (05:05→20:05)
[2017-05-26] MEDS: METOPROLOL TARTRATE 100 MG TAB PO SCH (05:05)
[2017-05-26] MEDS: LABETALOL HCL 100 MG/20 ML VIAL IV PUSH PRN ×5 (05:06→22:56)
[2017-05-26] MEDS: LISINOPRIL 20 MG TAB PO SCH (08:52)
[2017-05-26] MEDS: FOLIC ACID 1 MG TAB PO SCH (08:52)
[2017-05-26] MEDS: ACETAMINOPHEN/HYDROcodone 325 MG/7.5 MG TAB PO PRN ×2 (08:53→15:00)
[2017-05-26] MEDS: SODIUM CHLORIDE 0.9% FLUSH 5 ML FLUSH IVF SCH ×2 (08:54→20:06)
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
--- NOTE | 2017-05-26 09:56 | HHI.PR ---
Subjective Remarks No fever overnight Patient answering questions by nodding with her face Denied pain, she was able to move her upper and lower right extremity No short of breath, no signs of systemic infection or bacteremia Objective Vitals Vital Signs Date Time Temp Pulse Resp B/P (MAP) Pulse Ox O2 Delivery O2 Flow Rate FiO2 05/26/17 06:00 90 05/26/17 04:00 98.7 91 15 178/74 (108) 96 05/26/17 04:00 93 05/26/17 02:00 91 05/26/17 00:00 92 05/26/17 00:00 98.8 92 16 163/70 (101) 94 05/25/17 22:00 93 05/25/17 21:36 23 05/25/17 21:06 97 21 05/25/17 20:00 99 05/25/17 20:00 98.7 99 22 178/76 (110) 96 05/25/17 18:00 110 05/25/17 16:00 110 05/25/17 16:00 98.0 112 17 166/72 (103) 95 05/25/17 14:00 113 05/25/17 12:00 115 05/25/17 12:00 98.8 114 16 174/74 (107) 94 05/25/17 10:00 117 I/O 05/25/17 05/25/17 05/25/17 05/26/17 05/26/17 05/26/17 07:00 15:00 23:00 07:00 15:00 23:00 Intake Total 1048 ml 950 ml 60 ml Output Total 720 ml 1410 ml 1235 ml Balance 328 ml 950 ml -1410 ml -1175 ml Intake Oral 30 ml 60 ml IV Total 1018 ml 950 ml Output Urine Total 700 ml 1400 ml 1225 ml Stool Total 0 ml Drainage Total 20 ml 10 ml 10 ml Result Diagram: 05/26/17 0131 05/25/17 0445 Objective Remarks - GENERAL: This is a well-nourished, well-developed patient, in no apparent distress. SKIN: No rashes, warm and dry HEAD: Atraumatic. Normocephalic. EYES: Pupils equal round and reactive. Extraocular motions intact. No scleral icterus. ENT: Nose without bleeding, or drainage, Airway patent. NECK: in cervical collar CARDIOVASCULAR: Regular rate and rhythm without murmurs, gallops, or rubs. RESPIRATORY: Fair air entry bilaterally. No wheezes, rales, or rhonchi. GASTROINTESTINAL: Abdomen soft, non-tender, nondistended. Positive bowel sounds MUSCULOSKELETAL: Extremities without clubbing, cyanosis, or edema. Pedal pulses appreciated NEUROLOGICAL: Awake and alert. Able to move right upper and lower extremity. Normal speech.no focal neurological deficit A/P Problem List: (1) Atypical syncope ICD Code: R55 - Syncope and collapse (2) Urinary tract infection ICD Code: N39.0 - Urinary tract infection, site not specified Status: Acute (3) Diabetes mellitus type 2 Status: Chronic (4) Hyponatremia ICD Code: E87.1 - Hypo-osmolality and hyponatremia Assessment and Plan 66 y/o female with recurrent falls (4 over the past year; 3 resulting in ED visits and one prior admission) and suspected recurrent syncope: 05/22: Pain is controlled, blood pressure still not optimized, will increase hydralazine, and monitor blood pressure, further control pain 05/23: Spoke to Dr. Duval who has surgery planned for tomorrow 05/24/17. Called Dr. Jensen, cardiology, regarding need for stress test before undergoing surgery. He believes stress test is not necessary prior to surgery and has cleared her for surgery . Patient's pain well-controlled. BP is stable today. Tolerating PO intake. Denies any acute events or complaints. bmp today is P , but pt medically clear for surgery 05/24: Patient cleared by cardiology, and seen by neurology, medically clear for cervical decompression today 05/25: Patient resting in bed status post cervical decompression on 05/24, all pressure still not well controlled, with tachycardia Increase Lopressor 200 mg every 8 hours Increase hydralazine to 50 mg every 8 hours, apply hydralazine iv when necessary +1 tube positive blood culture of Staphy wereni: Result was verified sometime during yesterday> I called ID and discussed the case with , she suggested contamination if no leukocytosis or worsening clinical symptoms including fever, if any of this happen she recommend to start vancomycin, I ordered to repeat blood culture, and placed consult for ID, Dr. Hernandez to see the patient and I placed a call for her through the call center on on her cell phone to further discuss the case. Time spent 60 minutes 05/26: Afebrile signs of bacteremia, no WBC, repeated blood culture pending, still only 1 tube for positive staph, this result of blood culture has not been posted prior to clearance of the patient for surgery, and never being called to us. 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 ID consult pending, we held on vancomycin unless signs of bacteremia or infection developed Hypertension still uncontrolled, however patient is not able to take her pills, she was placed on labetalol and hydralazine iv alternate, considering her tachycardia as well I discussed with the nurse extensively A/P: Severe C3 4 stenosis Recurrent syncopal episodes Status post cervical decompression on 05/[address] Duval - MRI findings suggestive of myelopathy was signal intensity changes, possible acute cord contusion. - Senescent changes with mild small vessel ischemic white matter demyelination; no acute ischemia or acute intracranial abnormality. Bilateral maxillary sinus fluid. - Cervical spine CT with no fracture or dislocation. - MRA unremarkable. - EEG reviewed showing slow alpha variant. -Orthostatic blood pressures checked, no significance. - Previous echocardiogram from November 2016 admission were unremarkable. - Carotid ultrasound reviewed showing borderline significant changes on the right, defer to neurology if follow up needed. - Neurology following patient, recommendations to continue hard collar, pain control and monitor clinically. - Cardiology has seen patient with recommendations for implantable loop recorder. Has cleared patient for surgery with no further need for lexiscan. UTI - Culture growing gram - remedios, E coli present. - Continue Ceftriaxone 1 gram IV q12 h. Hyponatremia - Nephrology following patient, appreciate input. 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 Monitor for symptoms. -Monitor BMP Hypertension, chronic: More controlled overnight. Continue Hydralazine, Amlodipine and Lopressor. Continue Lisinopril 20 mg PO q12hr. Vasotec IV PRN available. DVT prophylaxis: Jannet Santiago MD May 26, 2017 09:56
--- NOTE | 2017-05-26 13:47 | PD.ID.CON ---
History of Present Illness Service ID Consult Requested By Dr Lemos Reason for Consult positive blood clx, brenda arriagai Primary Care Physician Ayla Marshall MD Diagnoses: History of Present Illness 66-year-old female with a history of progressive gait difficulty for the past year, poor balance and loss of control of her legs admitted s/p fall Her w/u revealed cervical disc disease with myelopathy, contusion of cervical cord C3 4 herniated nucleus pulposus and severe cervical stenosis On May 24, 2017 she underwent C 3-4 Anterior cervical discectomy, C3-4 Anterior interbody fusion, allograft bone and C3-4 Anterior cervical instrumentation by Dr Duval Pt was afebrile the whole time SHe had blood clx done on admission and one of 4 bottles grew out Staph warneri Urine clx growin E.coli UA was abnormal with pyurina Review of Systems Genitourinary: COMPLAINS OF: Urinary frequency, Urinary incontinence Musculoskeletal: COMPLAINS OF: Muscle aches, Neck pain Neurologic: COMPLAINS OF: Abnormal gait, Localized weakness, Poor Balance Except as stated in HPI: all other systems reviewed are Neg Past Family Social History Allergies: Coded Allergies: No Known Allergies (Verified Allergy, Unknown, 05/21/17) Past Medical History Hypertension Hyperlipidemia Type 2 diabetes mellitus Gout Osteoarthritis Past Surgical History Hysterectomy Oophorectomy, unilateral Bilateral bunionectomies Active Ordered Medications Medications where reviewed in EMR Antibiotics Include: CFTX, vancomycin Family History Mother: , esophageal cancer Father: , stroke Social History No Tobacco. social ETOH. No Illicit Drugs. Physical Exam Vital Signs Vital Signs Date Time Temp Pulse Resp B/P (MAP) Pulse Ox O2 Delivery O2 Flow Rate FiO2 05/26/17 06:00 90 05/26/17 04:00 98.7 91 15 178/74 (108) 96 05/26/17 04:00 93 05/26/17 02:00 91 05/26/17 00:00 92 05/26/17 00:00 98.8 92 16 163/70 (101) 94 05/25/17 22:00 93 05/25/17 21:36 23 05/25/17 21:06 97 21 05/25/17 20:00 99 05/25/17 20:00 98.7 99 22 178/76 (110) 96 05/25/17 18:00 110 05/25/17 16:00 110 05/25/17 16:00 98.0 112 17 166/72 (103) 95 05/25/17 14:00 113 Physical Exam CONSTITUTIONAL/GENERAL: This is an adequately nourished frail elderly patient, in no apparent distress. TUBES/LINES/DRAINS: SKIN: No jaundice, rashes, or lesions. . Skin temperature appropriate. Not diaphoretic. HEAD: Atraumatic. Normocephalic. EYES: Pupils equal and round and reactive. Extraocular motions intact. No scleral icterus. No injection or drainage. Fundi not examined. ENT: Hearing grossly normal. Nose without bleeding or purulent drainage. Throat without visible erythema, exudates, masses, or lesions. NECK: C collar in place NELLI in place with serosang d/c CARDIOVASCULAR: Regular rate and rhythm without murmurs, gallops, or rubs. No JVD. Peripheral pulses symmetric. RESPIRATORY/CHEST: Symmetric, unlabored respirations. Clear to auscultation. Breath sounds equal bilaterally. No wheezes, rales, or rhonchi. GASTROINTESTINAL: Abdomen soft, non-tender, nondistended. No hepato-splenomegaly , or palpable masses. No guarding. Bowel sounds present. GENITOURINARY: Without palpable bladder distension. Yung catheter in place with clear yellow urine MUSCULOSKELETAL: Extremities without clubbing, cyanosis, or edema. No joint tenderness or effusion noted. No calf tenderness. No mottling or clubbing. LYMPHATICS: No palpable cervical or supraclavicular adenopathy. NEUROLOGICAL: Awake and alert. Motor decreased on L UE and LLE . Follows commands. Clear speech . Moves all extremities. PSYCHIATRIC: No obvious anxiety/depression. flat affect Laboratory Laboratory Tests Test 05/26/17 01:31 White Blood Count 7.2 Red Blood Count 3.09 Hemoglobin 9.7 Hematocrit 28.9 Mean Corpuscular Volume 93.6 Mean Corpuscular Hemoglobin 31.6 Mean Corpuscular Hemoglobin Concent 33.7 Red Cell Distribution Width 13.3 Platelet Count 262 Mean Platelet Volume 7.7 Neutrophils (%) (Auto) 72.0 Lymphocytes (%) (Auto) 15.6 Monocytes (%) (Auto) 11.8 Eosinophils (%) (Auto) 0.1 Basophils (%) (Auto) 0.5 Neutrophils # (Auto) 5.2 Lymphocytes # (Auto) 1.1 Monocytes # (Auto) 0.9 Eosinophils # (Auto) 0.0 Basophils # (Auto) 0.0 CBC Comment DIFF FINAL Differential Comment Date/Time Source Procedure Growth Status 05/26/17 01:31 Blood Peripheral Aerobic Blood Culture Pending Received 05/26/17 01:31 Blood Peripheral Anaerobic Blood Culture Pending Received 05/20/17 00:10 Urine Catheterized Urine Urine Culture - Final Escherichia Coli Complete Result Diagram: 05/26/17 0131 05/25/17 0445 Imaging Last Impressions Cervical Spine MRI 05/25/17 0800 Signed Impressions: Service Date/Time: Thursday, May 25, 2017 19:46 - CONCLUSION: Interim discectomy and fusion procedure with anterior and interbody instrumentation at C3/C4. Prevertebral fluid collection extending from the skull base to the level of C5/C6, epicenter at C3/C4. Also an apparent fluid collection within the posterior C3/C4 intervertebral disc space and effacing the anterior margin of the thecal sac. The fluid collections could represent developing abscesses or subacute hematomas. Findings were discussed with Dr. Duval by phone. Jorge Carvalho MD Cervical Spine X-Ray 05/24/17 0000 Signed Impressions: Service Date/Time: Wednesday, May 24, 2017 17:42 - CONCLUSION: Fusion at C3/C4. No acute complication demonstrated. Jorge Carvalho MD Head CT 05/22/17 0600 Signed Impressions: Service Date/Time: Monday, May 22, 2017 08:25 - CONCLUSION: Stable noncontrast head CT. No acute intracranial abnormality is identified. Jorge Arellano MD Shoulder MRI 05/20/17 0000 Signed Impressions: Service Date/Time: Saturday, May 20, 2017 10:30 - CONCLUSION: Negative for rotator cuff tear. I don't see an etiology for weakness by MRI. Substantial cervical spinal stenosis is present. There is significant neuroforaminal encroachment as well. Chidi Peters MD FACR Head Magnetic Resonance Angiography 05/20/17 0000 Signed Impressions: Service Date/Time: Saturday, May 20, 2017 02:09 - CONCLUSION: 1. Unremarkable MRA examination of the brain. No evidence for large vessel occlusion or stenosis, as questioned. Nolan Krishna MD Cervical Spine CT 05/20/17 0000 Signed Impressions: Service Date/Time: Saturday, May 20, 2017 00:41 - CONCLUSION: 1. No acute fracture or dislocation. 2. Multilevel degenerative spondylosis of the cervical spine. Nolan Krishna MD Carotid Artery Ultrasound 05/20/17 0000 Signed Impressions: Service Date/Time: Saturday, May 20, 2017 08:19 - CONCLUSION: Borderline significant findings on the right. Confirmatory CT angiogram or MR angiogram would be of benefit. Board Certified Radiologist. This report was verified electronically. Brain MRI 05/20/17 0000 Signed Impressions: Service Date/Time: Saturday, May 20, 2017 02:09 - CONCLUSION: 1. Senescent changes with mild small vessel ischemic white matter demyelination. 2. No acute ischemia or acute intracranial abnormality. 3. Bilateral maxillary sinus fluid. Nolan Krishna MD Chest X-Ray 05/19/17 2353 Signed Impressions: Service Date/Time: Saturday, May 20, 2017 00:20 - CONCLUSION: 1. No acute cardiopulmonary disease. Nolan Krishna MD Assessment and Plan Assessment and Plan E.coli UTI Low grade Staph warneri bactermia, doubt clinical significance Cervical disc disease with myelopathy, contusion of cervical cord C3 4 herniated nucleus pulposus and severe cervical stenosis sp surgery dc vancomycin fu repeat blood clx untill final If repeat blood clx Positive will need additional w/u to establish source of her bacteremia complete Rocephine 7 days for UTI Sushma Hernandez MD May 26, 2017 13:47
[2017-05-26] MEDS: METOPROLOL TARTRATE 5 MG/5 ML VIAL IV PUSH SCH ×2 (14:00→20:05)
[2017-05-27] VITALS (14 sets, daily range): BP systolic 157–191; BP diastolic 71–84; PULSE 14–93; RESP 13–21; TEMP 97.7–98.5; O2SAT 98–99
[2017-05-27] MEDS: hydrALAZINE HCL 20 MG/ML VIAL IV PUSH PRN ×5 (01:05→21:28)
[2017-05-27] MEDS: METOPROLOL TARTRATE 5 MG/5 ML VIAL IV PUSH SCH ×3 (01:35→13:42)
[2017-05-27] MEDS: LABETALOL HCL 100 MG/20 ML VIAL IV PUSH PRN ×3 (02:14→20:01)
[2017-05-27] MEDS: hydrALAZINE HCL 25 MG TAB PO SCH ×3 (04:38→23:25)
[2017-05-27] MEDS: 1/2 NS + KCL 20 MEQ INJ 1,000 ML IV SCH ×2 (06:51→17:59)
--- NOTE | 2017-05-27 07:47 | HHI.PR ---
Review/Management Diagnosis/Plan: (1) Contusion of cervical cord ICD Codes: S14.109A - Unspecified injury at unspecified level of cervical spinal cord, initial encounter Status: Acute Plan: +left c4 level increased signal suggestive of contusion/infarct advanced cervical stenosis c3,4 05/24 s/p cervical decompression recs doing really well improvement in left sided strength ok for floor and rehab planning from neurology d/w rn (2) HTN (hypertension) ICD Codes: I10 - Hypertension Status: Acute (3) Hyperlipidemia ICD Codes: E78.5 - Hyperlipidemia Status: Acute (4) Diabetes ICD Codes: E11.9 - Diabetes mellitus Status: Chronic Subjective Subjective Comments No acute events reported No headache pain controlled No chest pain No dyspnea Active Medications Current Medications Medications (Trade) Dose Ordered Sig/Tereza Route Start Time Stop Time Status Last Admin (D50w (Vial) Inj) 50 ml UNSCH PRN IV 05/20/17 04:15 (Glucagon Inj) 1 mg UNSCH PRN OTHER 05/20/17 04:15 (Norvasc) 10 mg DAILY PO 05/20/17 17:15 05/26/17 08:52 (Folate) 1 mg DAILY PO 05/20/17 17:15 05/26/17 08:52 (Vasotec Inj) 1.25 mg Q6H PRN IV PUSH 05/20/17 17:30 05/24/17 12:55 (A[place]on 7.5-325 Mg) 1 tab Q6H PRN PO 05/22/17 09:15 05/26/17 15:00 (Morphine Inj) 3 mg Q12HR PRN IV 05/22/17 10:00 05/25/17 14:17 (Prinivil) 40 mg DAILY PO 05/23/17 09:00 05/26/17 08:52 (Chapstick) 1 applic UNSCH PRN TOPICAL 05/23/17 09:45 (NS Flush) 2 ml UNSCH PRN IVF 05/24/17 21:30 (NS Flush) 2 ml BID IVF 05/25/17 09:00 05/26/17 08:54 Potassium Chloride/Sodium Chloride 1,000 ml @ 100 mls/hr Q10H IV 05/24/17 21:24 05/27/17 06:51 (Apresoline Inj) 20 mg Q4H PRN IV PUSH 05/25/17 09:00 05/27/17 04:44 (Apresoline) 50 mg Q8HR PO 05/25/17 22:00 05/26/17 05:05 (Trandate Inj) 10 mg Q4H PRN IV PUSH 05/25/17 19:00 05/27/17 02:14 (Lopressor Inj) 10 mg Q6H IV PUSH 05/26/17 14:00 05/27/17 01:35 Ceftriaxone Sodium 1000 mg/ Sodium Chloride 100 ml @ 200 mls/hr Q24H IV 05/27/17 13:00 Allergies Allergies Coded Allergies No Known Allergies (Verified Allergy, Unknown, 05/21/17) Review of Systems All other ROS: ROS reviewed as documented in chart Exam I&O / VS Vital Signs Date Time Temp Pulse Resp B/P (MAP) Pulse Ox O2 Delivery O2 Flow Rate FiO2 05/27/17 04:00 81 05/27/17 04:00 97.7 81 13 177/76 (109) 98 05/27/17 02:00 80 05/27/17 00:00 84 05/27/17 00:00 98.4 84 17 185/80 (115) 98 05/26/17 23:00 166/74 (104) 05/26/17 22:00 86 05/26/17 21:30 177/79 (111) 05/26/17 21:00 191/81 (117) 05/26/17 20:46 98 21 05/26/17 20:00 92 05/26/17 20:00 98.6 92 24 200/81 (120) 98 05/26/17 18:00 90 05/26/17 16:00 98.7 91 15 165/93 (117) 96 05/26/17 16:00 90 05/26/17 16:00 18 05/26/17 14:00 90 05/26/17 12:00 92 05/26/17 12:00 98.7 91 15 165/93 (117) 96 05/26/17 10:00 90 05/26/17 08:00 92 05/26/17 08:00 98.7 91 15 165/93 (117) 96 General: Alert and Oriented, No acute distress Cardiology: Normal rate (Tachycardic), Normal peripheral perfusion, Regular Rhythm Musculoskeletal: Swelling (None in distal lower extremities) Neurologic: Alert Psychiatric: Cooperative Exam Comments alert, ox 3, calm, pleasant, hard collar in place, eomi, vff, face sym, left hand bus cleaner 3/5, able to slightly raise left ue to gravity, left le 1-2/5, msr sym , no clonus, planterflexor Objective Micro and Labs Date/Time Source Procedure Growth Status 05/26/17 01:31 Blood Peripheral Aerobic Blood Culture Pending Received 05/26/17 01:31 Blood Peripheral Anaerobic Blood Culture Pending Received 05/20/17 00:10 Urine Catheterized Urine Urine Culture - Final Escherichia Coli Complete Problem Qualifiers (1) Contusion of cervical cord: Qualified Codes: S14.109A - Unspecified injury at unspecified level of cervical spinal cord, initial encounter (2) HTN (hypertension): Qualified Codes: I10 - Essential (primary) hypertension (3) Hyperlipidemia: Qualified Codes: E78.5 - Hyperlipidemia, unspecified Jasen Gómez MD May 27, 2017 07:47
[2017-05-27] MEDS: SODIUM CHLORIDE 0.9% FLUSH 5 ML FLUSH IVF SCH ×2 (08:55→20:01)
[2017-05-27] MEDS: LISINOPRIL 20 MG TAB PO SCH (10:07)
[2017-05-27] MEDS: FOLIC ACID 1 MG TAB PO SCH (10:07)
[2017-05-27] MEDS: ACETAMINOPHEN/HYDROcodone 325 MG/7.5 MG TAB PO PRN ×2 (10:55→22:55)
--- NOTE | 2017-05-27 12:23 | HHI.NSPN ---
(Jc Farris) History Chief Complaint: No complaints. (Jc Farris) Interval History 05/20: 66-year-old female gives a history of progressive gait difficulty for the past year. She states that she was in the hospital in November 2016 and fell at that time. Her medical records indicate an admission for syncope and cardiac evaluation revealed 65% ejection fraction. She indicates that she has been using a cane to ambulate for the past few months. She states that she has fallen a couple of times in the past 2 weeks, the last time on 05/18/2017. Since these falls, she has had significant increased weakness in the left arm and leg. She denies any significant sensory changes. No definite bowel or bladder dysfunction. She has mild to moderate neck pain which is a little worse since her most recent fall. She has no complaint of significant joint pain. She states that when she ambulates, she has poor balance and loss of control of her legs. Since the fall, she has had much more left extremity weakness. 05/21/2017: Persistent neck pain. Some discomfort left foot. No change in neurologic exam versus 05/20/1705/24: The patient is awake and alert when seen this afternoon. She states that she is doing good. She does have pain to the posterior neck and the weakness to the left side extremities. She has been cleared by Cardiology and Medicine for surgery later this afternoon. 05/25: The patient went for a discectomy with interbody fusion and instrumentation at the C3-4 level yesterday. Post-operatively she was transferred to [facility]. This morning the patient is awake but lethargic. When asked how she is doing she states she is doing good. She had no complaints during the review of systems. Nursing reported that the patient did have difficulty taking oral medication even when crushed and given in applesauce. The patient has also been hypertensive and Nursing reports that the family has previously told them the patient is allergic to Vasotec but it is not recorded as an allergy. Therefore it was not given. She did receive morphine prior to being seen for pain per Nursing. 05/26: The patient is awake this morning when seen. She is lethargic and does interact. She briefly verbalises and does follow commands. She is hypertensive when seen. Nursing reports that the patient did have difficulty taking her meds crushed in applesauce this morning and had to suction it back out of the patient 's mouth. Speech Therapy did do a swallow eval yesterday and recommended NPO. 05/27: The patient is more awake and interactive this morning. She states that her neck feels "Okay" when asked. She denies any sore throat or difficulty swallowing. (Jc Farris) System Review Comments Constitutional: Patient denies any fever or chills. HEENT: Patient denies any sore throat, difficulty swallowing or any visual or hearing problems. Respiratory: Patient denies any shortness of breath or productive cough. Cardiovascular: Patient denies any chest pain, palpitations or irregular heartbeat. Gastrointestinal: Patient denies any abdominal pain, nausea, vomiting or incontinence of stool. Genitourinary: Patient has Yung catheter in place.. Musculoskeletal: Patient states that her neck feels okay. She denies any back or extremity pain. Neurologic: Patient denies any headache, dizziness, numbness, tingling or local weakness. (Jc Farris) Exam Results 05/25/17 05/25/17 05/26/17 05/26/17 05/27/17 05/27/17 06:00 18:00 06:00 18:00 06:00 18:00 Intake Total 2848 ml 950 ml 60 ml 2800 ml Output Total 1120 ml 1410 ml 1235 ml 2815 ml Balance 1728 ml -460 ml -1175 ml -15 ml Intake Oral 30 ml 60 ml 0 ml IV Total 1018 ml 950 ml 2800 ml Other 1800 ml Output Urine Total 1050 ml 1400 ml 1225 ml 2800 ml Stool Total 0 ml Drainage Total 20 ml 10 ml 10 ml 15 ml Estimated Blood Loss 50 ml # Bowel Movements 0 Vital Signs Date Time Temp Pulse Resp B/P (MAP) Pulse Ox O2 Delivery O2 Flow Rate FiO2 05/27/17 11:47 16 05/27/17 10:00 93 05/27/17 08:01 98 21 05/27/17 08:00 98.2 90 16 191/84 (119) 99 05/27/17 08:00 90 05/27/17 06:00 14 05/27/17 04:00 81 05/27/17 04:00 97.7 81 13 177/76 (109) 98 05/27/17 02:00 80 05/27/17 00:00 84 05/27/17 00:00 98.4 84 17 185/80 (115) 98 05/26/17 23:00 166/74 (104) 05/26/17 22:00 86 05/26/17 21:30 177/79 (111) 05/26/17 21:00 191/81 (117) 05/26/17 20:46 98 21 05/26/17 20:00 92 05/26/17 20:00 98.6 92 24 200/81 (120) 98 05/26/17 18:00 90 05/26/17 16:00 98.7 91 15 165/93 (117) 96 05/26/17 16:00 90 05/26/17 14:00 90 05/26/17 12:00 92 05/26/17 12:00 98.7 91 15 165/93 (117) 96 05/26/17 10:00 90 05/26/17 08:00 92 05/26/17 08:00 98.7 91 15 165/93 (117) 96 05/26/17 06:00 90 05/26/17 04:00 98.7 91 15 178/74 (108) 96 05/26/17 04:00 93 05/26/17 02:00 91 05/26/17 00:00 92 05/26/17 00:00 98.8 92 16 163/70 (101) 94 05/25/17 22:00 93 05/25/17 21:06 97 21 05/25/17 20:00 99 05/25/17 20:00 98.7 99 22 178/76 (110) 96 05/25/17 18:00 110 05/25/17 16:00 110 05/25/17 16:00 98.0 112 17 166/72 (103) 95 05/25/17 14:00 113 05/25/17 12:00 115 05/25/17 12:00 98.8 114 16 174/74 (107) 94 05/25/17 10:00 117 05/25/17 08:00 98.0 108 14 179/77 (111) 95 Manual Cuff/Auscultation 05/25/17 08:00 109 05/25/17 07:42 96 21 05/25/17 07:00 Room Air 05/25/17 06:00 106 05/25/17 04:00 98.4 114 16 176/86 (116) 96 05/25/17 04:00 114 05/25/17 02:00 114 05/25/17 00:00 104 05/25/17 00:00 98.6 104 12 161/72 (101) 100 05/24/17 23:51 100 Nasal Cannula 3.00 05/24/17 23:30 98.7 102 16 147/66 (93) 100 05/24/17 23:15 99 14 160/70 (100) 100 05/24/17 23:00 95 20 139/63 (88) 99 05/24/17 22:45 100 19 144/67 (92) 100 05/24/17 22:30 97 12 152/67 (95) 98 05/24/17 22:15 95 12 152/65 (94) 98 05/24/17 22:00 95 12 153/67 (95) 98 05/24/17 21:45 93 12 144/64 (90) 100 05/24/17 21:30 96 10 142/56 (84) 100 05/24/17 21:15 95 10 131/62 (85) 100 05/24/17 21:00 95 11 133/59 (83) 99 05/24/17 20:45 95 11 138/62 (87) 97 05/24/17 20:41 99.6 96 11 138/62 (87) 97 05/24/17 18:14 96 21 (Jc Farris) Physical Examination GENERAL: Patient is awake and readily interacts. Her affect remains flat. NAD. SKIN: Warm, dry & intact except for lip abrasions & left anterior neck surgical incision w/intact dressing. HEENT: Normocephalic, lip abrasions healing w/o evident complication. NECK: Hoke J cervical collar in place, left anterior neck surgical incision w/ intact dressing NTTP, NELLI drain to bulb suction w/scant sanguinous drainage, midline cervical spine NTTP, no JVD, trachea midline. CARDIOVASCULAR: S1S2 w/RRR w/o M/G/R, radial & pedal pulses 2+ cap refill < 2 sec, no pedal edema. SBP noted to be 183 mm Hg when seen. Monitor is sinus rhythm w/o any evident ectopy. RESPIRATORY: CTAB w/o W/R/R, equal excursion, nonlaboured, on RA. GASTROINTESTINAL: Abdomen soft, nontender, bowel sounds not appreciate. MUSCULOSKELETAL: Move right extremities w/o difficulty, decreased movement of left, no evident deformity or clubbing. NEUROLOGICAL: Alert, oriented to person, place, time. Speech clear but slow. Follows simple command w/o difficulty. Sensation intact to light touch to all extremities. Strength 3+ to 4/5 RUE and 4/5 RLE except tibialis anterior 3/5; LUE & LLE 1 to 1+/5. (Jc Farris) Lab, Micro, Other Results Recent Impressions Cervical Spine MRI 05/25/17 0800 Signed Impressions: Service Date/Time: Thursday, May 25, 2017 19:46 - CONCLUSION: Interim discectomy and fusion procedure with anterior and interbody instrumentation at C3/C4. Prevertebral fluid collection extending from the skull base to the level of C5/C6, epicenter at C3/C4. Also an apparent fluid collection within the posterior C3/C4 intervertebral disc space and effacing the anterior margin of the thecal sac. The fluid collections could represent developing abscesses or subacute hematomas. Findings were discussed with Dr. Duval by phone. Jorge Carvalho MD Laboratory Tests Test 05/25/17 04:45 05/26/17 01:31 White Blood Count 6.9 TH/MM3 7.2 TH/MM3 Red Blood Count 3.17 MIL/MM3 3.09 MIL/MM3 Hemoglobin 10.2 GM/DL 9.7 GM/DL Hematocrit 29.7 % 28.9 % Mean Corpuscular Volume 93.7 FL 93.6 FL Mean Corpuscular Hemoglobin 32.2 PG 31.6 PG Mean Corpuscular Hemoglobin Concent 34.4 % 33.7 % Red Cell Distribution Width 12.8 % 13.3 % Platelet Count 238 TH/MM3 262 TH/MM3 Mean Platelet Volume 8.8 FL 7.7 FL Neutrophils (%) (Auto) 70.4 % 72.0 % Lymphocytes (%) (Auto) 17.1 % 15.6 % Monocytes (%) (Auto) 11.9 % 11.8 % Eosinophils (%) (Auto) 0.3 % 0.1 % Basophils (%) (Auto) 0.3 % 0.5 % Neutrophils # (Auto) 4.9 TH/MM3 5.2 TH/MM3 Lymphocytes # (Auto) 1.2 TH/MM3 1.1 TH/MM3 Monocytes # (Auto) 0.8 TH/MM3 0.9 TH/MM3 Eosinophils # (Auto) 0.0 TH/MM3 0.0 TH/MM3 Basophils # (Auto) 0.0 TH/MM3 0.0 TH/MM3 CBC Comment DIFF FINAL DIFF FINAL Differential Comment Blood Urea Nitrogen 10 MG/DL Creatinine 0.63 MG/DL Random Glucose 148 MG/DL Calcium Level 9.2 MG/DL Sodium Level 133 MEQ/L Potassium Level 3.3 MEQ/L Chloride Level 95 MEQ/L Carbon Dioxide Level 25.4 MEQ/L Anion Gap 13 MEQ/L Estimat Glomerular Filtration Rate 115 ML/MIN (Jc Farris) Medical Decision Making Impression and Plan Impression: 1. Cervical stenosis severe at C 3-4 level 2. Cervical myelopathy 3. Probable cervical spinal cord contusion 4. Hyponatremia 5. Hepatomegaly Postoperative Diagnosis: (1) Cervical disc disease with myelopathy (2) Contusion of cervical cord MRI cervical spine demonstrates discectomy with fusion & instrumentation at C3-4. There is a prevertebral fluid collection from the skull base to the C5-6 level with its epicentre at C3-4. There is also a fluid collection w/i the posterior C3-4 intervertebral disc space effacing the thecal sac. Patient continues to be fair, more awake, neurological exam essentially stable. Hypertensive. ST recommends pureed diet with honey thickened consistency liquids. POD #3 () s/p: C 3-4 Anterior cervical discectomy C3-4 Anterior interbody fusion, allograft bone C3-4 Anterior cervical instrumentation Plan: Critical care management per Finance Mgr. Primary management per Hospitalist. Frequent neuro checks. Maintain cervical collar at all times. Will advance diet per ST recommendations. Will resume PO metoprolol. Will d/c anterior cervical neck NELLI drain. (Jc Farris) Attending Statement I have personally seen and examined the patient on the date of this note. Pertinent documentation and study results have been reviewed by the undersigned. I have personally developed the treatment plan and performed medical decision making. Agree with findings, exam, and treatment plan as noted above. Mental status and extremity sensorimotor function continued to improve over the past couple of days. Discontinue drain Continue therapy (Ricci Duval MD) Jc Farris May 27, 2017 12:23 Ricci Duval MD Jun 06, 2017 08:46
[2017-05-27] MEDS: cefTRIAXone INJ 1,000 MG in SODIUM CHLORIDE 0.9% INJ 100 ML IV SCH (13:42)
--- NOTE | 2017-05-27 16:02 | HHI.PR ---
Subjective Remarks Written by Mimi Echols, acting as scribe for Dr. Lemos on 05/27/17 at 16:01. Follow up cervical discectomy, interbody fusion and UTI, hypertension. Patient seen and examined, lying in bed comfortably in no apparent distress. Cervical collar continued. Denies any new acute complaints. Pain well controlled. BP still elevated, orders to use PRN when available and per parameters. Denies any fever, chills, cough, shortness of breath, ab pain, n/v/d, dysuria. Objective Vitals Vital Signs Date Time Temp Pulse Resp B/P (MAP) Pulse Ox O2 Delivery O2 Flow Rate FiO2 05/27/17 14:00 90 05/27/17 12:00 85 05/27/17 12:00 98.4 85 16 183/81 (115) 98 05/27/17 11:47 16 05/27/17 10:00 93 05/27/17 08:01 98 21 05/27/17 08:00 98.2 90 16 191/84 (119) 99 05/27/17 08:00 90 05/27/17 06:00 14 05/27/17 04:00 81 05/27/17 04:00 97.7 81 13 177/76 (109) 98 05/27/17 02:00 80 05/27/17 00:00 84 05/27/17 00:00 98.4 84 17 185/80 (115) 98 05/26/17 23:00 166/74 (104) 05/26/17 22:00 86 05/26/17 21:30 177/79 (111) 05/26/17 21:00 191/81 (117) 05/26/17 20:46 98 21 05/26/17 20:00 92 05/26/17 20:00 98.6 92 24 200/81 (120) 98 05/26/17 18:00 90 I/O 05/26/17 05/26/17 05/26/17 05/27/17 05/27/17 05/27/17 07:00 15:00 23:00 07:00 15:00 23:00 Intake Total 60 ml 1800 ml 1000 ml Output Total 1235 ml 1010 ml 1805 ml Balance -1175 ml 790 ml -805 ml Intake Oral 60 ml 0 ml 0 ml IV Total 1800 ml 1000 ml Output Urine Total 1225 ml 1000 ml 1800 ml Drainage Total 10 ml 10 ml 5 ml # Bowel Movements 0 0 Result Diagram: 05/26/17 0131 05/25/17 0445 Imaging Last Impressions Cervical Spine MRI 05/25/17 0800 Signed Impressions: Service Date/Time: Thursday, May 25, 2017 19:46 - CONCLUSION: Interim discectomy and fusion procedure with anterior and interbody instrumentation at C3/C4. Prevertebral fluid collection extending from the skull base to the level of C5/C6, epicenter at C3/C4. Also an apparent fluid collection within the posterior C3/C4 intervertebral disc space and effacing the anterior margin of the thecal sac. The fluid collections could represent developing abscesses or subacute hematomas. Findings were discussed with Dr. Duval by phone. Jorge Carvalho MD Cervical Spine X-Ray 05/24/17 0000 Signed Impressions: Service Date/Time: Wednesday, May 24, 2017 17:42 - CONCLUSION: Fusion at C3/C4. No acute complication demonstrated. Jorge Carvalho MD Head CT 05/22/17 0600 Signed Impressions: Service Date/Time: Monday, May 22, 2017 08:25 - CONCLUSION: Stable noncontrast head CT. No acute intracranial abnormality is identified. Jorge Arellano MD Shoulder MRI 05/20/17 0000 Signed Impressions: Service Date/Time: Saturday, May 20, 2017 10:30 - CONCLUSION: Negative for rotator cuff tear. I don't see an etiology for weakness by MRI. Substantial cervical spinal stenosis is present. There is significant neuroforaminal encroachment as well. Chidi Peters MD FACR Head Magnetic Resonance Angiography 05/20/17 0000 Signed Impressions: Service Date/Time: Saturday, May 20, 2017 02:09 - CONCLUSION: 1. Unremarkable MRA examination of the brain. No evidence for large vessel occlusion or stenosis, as questioned. Nolan Krishna MD Cervical Spine CT 05/20/17 0000 Signed Impressions: Service Date/Time: Saturday, May 20, 2017 00:41 - CONCLUSION: 1. No acute fracture or dislocation. 2. Multilevel degenerative spondylosis of the cervical spine. Nolan Krishna MD Carotid Artery Ultrasound 05/20/17 0000 Signed Impressions: Service Date/Time: Saturday, May 20, 2017 08:19 - CONCLUSION: Borderline significant findings on the right. Confirmatory CT angiogram or MR angiogram would be of benefit. Board Certified Radiologist. This report was verified electronically. Brain MRI 05/20/17 0000 Signed Impressions: Service Date/Time: Saturday, May 20, 2017 02:09 - CONCLUSION: 1. Senescent changes with mild small vessel ischemic white matter demyelination. 2. No acute ischemia or acute intracranial abnormality. 3. Bilateral maxillary sinus fluid. Nolan Krishna MD Chest X-Ray 05/19/17 2353 Signed Impressions: Service Date/Time: Saturday, May 20, 2017 00:20 - CONCLUSION: 1. No acute cardiopulmonary disease. Nolan Krishna MD Objective Remarks GENERAL: This is a well-nourished, well-developed patient, in no apparent distress. SKIN: No rashes, warm and dry HEAD: Atraumatic. Normocephalic. EYES: Pupils equal round and reactive. Extraocular motions intact. No scleral icterus. ENT: Nose without bleeding, or drainage, Airway patent. NECK: in cervical collar CARDIOVASCULAR: Regular rate and rhythm without murmurs, gallops, or rubs. RESPIRATORY: Fair air entry bilaterally. No wheezes, rales, or rhonchi. GASTROINTESTINAL: Abdomen soft, non-tender, nondistended. Positive bowel sounds MUSCULOSKELETAL: Extremities without clubbing, cyanosis, or edema. Pedal pulses appreciated NEUROLOGICAL: Awake and alert. Able to move right upper and lower extremity. Normal speech.no focal neurological deficit A/P Problem List: (1) Atypical syncope ICD Code: R55 - Syncope and collapse (2) Urinary tract infection ICD Code: N39.0 - Urinary tract infection, site not specified Status: Acute (3) Diabetes mellitus type 2 Status: Chronic (4) Hyponatremia ICD Code: E87.1 - Hypo-osmolality and hyponatremia Assessment and Plan 66 y/o female with recurrent falls (4 over the past year; 3 resulting in ED visits and one prior admission) and suspected recurrent syncope: 05/27:. Recheck BMP and CBC in am. Follow. Spoke to Dr. Theodore regarding patient status who did not recommend Vanco at this time and BC growth most likely contamination. Last BC drawn 05/26/17 NGTD. Rocephin continued for UTI e. coli in urine. A/P: Severe C3 4 stenosis Recurrent syncopal episodes Status post cervical decompression on 05/[address] Duval - MRI findings suggestive of myelopathy was signal intensity changes, possible acute cord contusion. - Senescent changes with mild small vessel ischemic white matter demyelination; no acute ischemia or acute intracranial abnormality. Bilateral maxillary sinus fluid. - Cervical spine CT with no fracture or dislocation. - MRA unremarkable. - EEG reviewed showing slow alpha variant. -Orthostatic blood pressures checked, no significance. - Previous echocardiogram from November 2016 admission were unremarkable. - Carotid ultrasound reviewed showing borderline significant changes on the right, defer to neurology if follow up needed. - Neurology following patient, recommendations to continue hard collar, pain control and monitor clinically. - Cardiology has seen patient with recommendations for implantable loop recorder. Has cleared patient for surgery with no further need for lexiscan. +09/15 blood culture tube for a Staphylococcus weineri Follow repeat blood culture, consulted ID most likely contamination UTI - Culture growing gram - remedios, E coli present. - Continue Ceftriaxone 1 gram IV q12 h. for total 7 days -Now ID following Hyponatremia - Nephrology following patient, appreciate input. 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 Monitor for symptoms. -Monitor BMP Hypertension, uncontrolled: continue Hydralazine, Amlodipine and Lopressor. Orders to check q2h and use PRN hydralazine , labetalol , per parameters. Neuro ordered for Metoprolol 10 mg IV q6hr scheduled. Continue to monitor closely DVT prophylaxis: Lovenox Attending Statement This note was transcribed by tushar [[email or web address]]. I, Dr. Jannet Lemos personally performed the history, physical exam, and medical decision making; and confirmed the accuracy of the information in the transcribed note. Authenticated by Dr. Jannet Lemos on 05/27/17 at 16:04. Mimi Echols May 27, 2017 16:02 Jannet Lemos MD May 27, 2017 16:04
[2017-05-27] MEDS: METOPROLOL TARTRATE 100 MG TAB PO SCH (20:01)
[2017-05-28] VITALS (13 sets, daily range): BP systolic 156–185; BP diastolic 73–84; PULSE 74–90; RESP 14–25; TEMP 97.9–98.7; O2SAT 96–99
[2017-05-28] MEDS: LABETALOL HCL 100 MG/20 ML VIAL IV PUSH PRN (01:10)
[2017-05-28] MEDS: hydrALAZINE HCL 20 MG/ML VIAL IV PUSH PRN ×3 (04:52→16:05)
[2017-05-28] MEDS: hydrALAZINE HCL 25 MG TAB PO SCH ×3 (06:17→19:53)
[2017-05-28 07:37] LABS: BICARBONATE 25.2 MEQ/L (21.0-32.0); POTASSIUM 3.3 MEQ/L (3.5-5.1)
[2017-05-28] MEDS: METOPROLOL TARTRATE 100 MG TAB PO SCH ×2 (07:56→19:54)
[2017-05-28] MEDS: LISINOPRIL 20 MG TAB PO SCH (07:56)
[2017-05-28] MEDS: FOLIC ACID 1 MG TAB PO SCH (07:56)
[2017-05-28] MEDS: SODIUM CHLORIDE 0.9% FLUSH 5 ML FLUSH IVF SCH ×2 (09:00→19:54)
--- NOTE | 2017-05-28 10:10 | HHI.NSPN ---
(Jose Rader) History Chief Complaint: Left hemiparesis. (Jose Rader) Interval History 05/20: 66-year-old female gives a history of progressive gait difficulty for the past year. She states that she was in the hospital in November 2016 and fell at that time. Her medical records indicate an admission for syncope and cardiac evaluation revealed 65% ejection fraction. She indicates that she has been using a cane to ambulate for the past few months. She states that she has fallen a couple of times in the past 2 weeks, the last time on 05/18/2017. Since these falls, she has had significant increased weakness in the left arm and leg. She denies any significant sensory changes. No definite bowel or bladder dysfunction. She has mild to moderate neck pain which is a little worse since her most recent fall. She has no complaint of significant joint pain. She states that when she ambulates, she has poor balance and loss of control of her legs. Since the fall, she has had much more left extremity weakness. 05/21/2017: Persistent neck pain. Some discomfort left foot. No change in neurologic exam versus 05/20/1705/24: The patient is awake and alert when seen this afternoon. She states that she is doing good. She does have pain to the posterior neck and the weakness to the left side extremities. She has been cleared by Cardiology and Medicine for surgery later this afternoon. 05/25: The patient went for a discectomy with interbody fusion and instrumentation at the C3-4 level yesterday. Post-operatively she was transferred to [facility]. This morning the patient is awake but lethargic. When asked how she is doing she states she is doing good. She had no complaints during the review of systems. Nursing reported that the patient did have difficulty taking oral medication even when crushed and given in applesauce. The patient has also been hypertensive and Nursing reports that the family has previously told them the patient is allergic to Vasotec but it is not recorded as an allergy. Therefore it was not given. She did receive morphine prior to being seen for pain per Nursing. 05/26: The patient is awake this morning when seen. She is lethargic and does interact. She briefly verbalises and does follow commands. She is hypertensive when seen. Nursing reports that the patient did have difficulty taking her meds crushed in applesauce this morning and had to suction it back out of the patient 's mouth. Speech Therapy did do a swallow eval yesterday and recommended NPO. 05/27: The patient is more awake and interactive this morning. She states that her neck feels "Okay" when asked. She denies any sore throat or difficulty swallowing. 05/28: Patient awake and alert. She denies pain. No radiculopathy or paresthesias in the upper extremities. She has left-sided weakness (Jose Rader) Review of Systems General: Negative for: fever, chills, insomnia Respiratory: Negative for: shortness of breath, cough, sputum Cardiovascular: Negative for: chest pain Gastrointestinal: Negative for: nausea, vomitting, diarrhea, constipation ( Jose Rader) Exam Results Vital Signs Date Time Temp Pulse Resp B/P (MAP) Pulse Ox O2 Delivery O2 Flow Rate FiO2 05/28/17 09:41 21 05/28/17 08:00 90 05/28/17 08:00 98.7 18 179/84 (115) 98 05/25/17 07:00 Room Air 05/24/17 23:51 3.00 Intake and Output 05/28/17 05/28/17 05/29/17 08:00 16:00 00:00 Intake Total 326 ml Output Total 800 ml Balance -474 ml (Jose Rader) Physical Examination Respiratory: Clear to auscultation bilaterally Heart: Normal sinus rhythm Abdomen: Soft positive bowel sounds Skin: No cyanosis or erythema incision clean and dry Muscle left hemiparesis moves right side well. Neuro: Patient awake and alert follows commands. Pupils equal. Answers simple questions. (Jose Rader) Lab, Micro, Other Results Last Impressions Cervical Spine MRI 05/25/17 0800 Signed Impressions: Service Date/Time: Thursday, May 25, 2017 19:46 - CONCLUSION: Interim discectomy and fusion procedure with anterior and interbody instrumentation at C3/C4. Prevertebral fluid collection extending from the skull base to the level of C5/C6, epicenter at C3/C4. Also an apparent fluid collection within the posterior C3/C4 intervertebral disc space and effacing the anterior margin of the thecal sac. The fluid collections could represent developing abscesses or subacute hematomas. Findings were discussed with Dr. Duval by phone. Jorge Carvalho MD Cervical Spine X-Ray 05/24/17 0000 Signed Impressions: Service Date/Time: Wednesday, May 24, 2017 17:42 - CONCLUSION: Fusion at C3/C4. No acute complication demonstrated. Jorge Carvalho MD Head CT 05/22/17 0600 Signed Impressions: Service Date/Time: Monday, May 22, 2017 08:25 - CONCLUSION: Stable noncontrast head CT. No acute intracranial abnormality is identified. Jorge Arellano MD Shoulder MRI 05/20/17 0000 Signed Impressions: Service Date/Time: Saturday, May 20, 2017 10:30 - CONCLUSION: Negative for rotator cuff tear. I don't see an etiology for weakness by MRI. Substantial cervical spinal stenosis is present. There is significant neuroforaminal encroachment as well. Chidi Peters MD FACR Head Magnetic Resonance Angiography 05/20/17 Signed Impressions: Service Date/Time: Saturday, May 20, 2017 02:09 - CONCLUSION: 1. Unremarkable MRA examination of the brain. No evidence for large vessel occlusion or stenosis, as questioned. Nolan Krishna MD Cervical Spine CT 05/20/17 0000 Signed Impressions: Service Date/Time: Saturday, May 20, 2017 00:41 - CONCLUSION: 1. No acute fracture or dislocation. 2. Multilevel degenerative spondylosis of the cervical spine. Nolan Krishna MD Carotid Artery Ultrasound 05/20/17 0000 Signed Impressions: Service Date/Time: Saturday, May 20, 2017 08:19 - CONCLUSION: Borderline significant findings on the right. Confirmatory CT angiogram or MR angiogram would be of benefit. Board Certified Radiologist. This report was verified electronically. Brain MRI 05/20/17 0000 Signed Impressions: Service Date/Time: Saturday, May 20, 2017 02:09 - CONCLUSION: 1. Senescent changes with mild small vessel ischemic white matter demyelination. 2. No acute ischemia or acute intracranial abnormality. 3. Bilateral maxillary sinus fluid. Nolan Krishna MD Chest X-Ray 05/19/17 [id number] Signed Impressions: Service Date/Time: Saturday, May 20, 2017 00:20 - CONCLUSION: 1. No acute cardiopulmonary disease. Nolan Krishna MD Laboratory Tests Test 05/28/17 06:20 Blood Urea Nitrogen 5 MG/DL Creatinine 0.50 MG/DL Random Glucose 188 MG/DL Calcium Level 9.5 MG/DL Sodium Level 134 MEQ/L Potassium Level 3.3 MEQ/L Chloride Level 101 MEQ/L Carbon Dioxide Level 25.2 MEQ/L Anion Gap 8 MEQ/L Estimat Glomerular Filtration Rate 150 ML/MIN (Jose Rader) Medical Decision Making Impression and Plan A: Impression: 1. Cervical stenosis severe at C 3-4 level 2. Cervical myelopathy 3. Probable cervical spinal cord contusion 4. Hyponatremia 5. Hepatomegaly Postoperative Diagnosis: (1) Cervical disc disease with myelopathy (2) Contusion of cervical cord MRI cervical spine demonstrates discectomy with fusion & instrumentation at C3-4. There is a prevertebral fluid collection from the skull base to the C5-6 level with its epicentre at C3-4. There is also a fluid collection w/i the posterior C3-4 intervertebral disc space effacing the thecal sac. Plan: Continue with current care. Frequent neuro checks. Maintain cervical collar at all times. Will advance diet per ST recommendations. Continue to get up in chair and rehab efforts. (Jose Rader) Attending Statement The exam, history, and the medical decision-making described in the above note were completed with the assistance of the mid-level provider. I reviewed and agree with the findings presented. I attest that I had a [id number] encounter with the patient on the same day, and personally performed and documented my assessment and findings in the medical record. (Mingo Diaz MD) Jose Rader May 28, 2017 10:10 Mingo Diaz MD May 28, 2017 14:13
[2017-05-28] MEDS: ACETAMINOPHEN/HYDROcodone 325 MG/7.5 MG TAB PO PRN ×2 (10:41→18:05)
[2017-05-28 11:21] LABS: AUTOMATED NEUTROPHIL # 5.1 TH/MM3 (1.8-7.7); BASOPHIL # 0.1 TH/MM3 (0-0.2); BASOPHIL % 1.3 % (0.0-2.0); EOSINOPHIL # 0.1 TH/MM3 (0-0.4); HEMATOCRIT 28.9 % (35.0-46.0); HEMO FLAGS DIFF FINAL; LYMPH % 22.7 % (9.0-44.0); LYMPHOCYTE # 1.8 TH/MM3 (1.0-4.8); MEAN CELL VOLUME 93.3 FL (80.0-100.0); MEAN CORPUSCULAR HEMOGLOBIN 31.3 PG (27.0-34.0); MEAN CORPUSCULAR HGB CONC 33.6 % (32.0-36.0); MONO % 10.2 % (0.0-8.0); NEUT % 64.8 % (16.0-70.0); PLATELET COUNT 340 TH/MM3 (150-450); RED BLOOD COUNT 3.09 MIL/MM3 (4.00-5.30); WHITE BLOOD COUNT 7.8 TH/MM3 (4.0-11.0)
[2017-05-28] MEDS: cefTRIAXone INJ 1,000 MG in SODIUM CHLORIDE 0.9% INJ 100 ML IV SCH (12:57)
--- NOTE | 2017-05-28 15:10 | HHI.PR ---
Subjective Remarks in no acute distress. denies pain. no new complaints. Objective Vitals Vital Signs Date Time Temp Pulse Resp B/P (MAP) Pulse Ox O2 Delivery O2 Flow Rate FiO2 05/28/17 14:00 83 05/28/17 12:00 81 05/28/17 12:00 98.4 81 14 167/75 (105) 96 05/28/17 10:00 78 05/28/17 09:41 21 05/28/17 08:00 90 05/28/17 08:00 98.7 90 18 179/84 (115) 98 05/28/17 06:00 82 05/28/17 04:00 98.7 83 16 171/73 (105) 97 05/28/17 04:00 82 05/28/17 02:00 80 05/28/17 00:00 80 05/28/17 00:00 97.9 80 15 172/75 (107) 98 05/27/17 22:00 76 05/27/17 20:00 88 05/27/17 20:00 98.5 88 21 180/76 (110) 98 05/27/17 18:00 93 05/27/17 16:00 79 05/27/17 16:00 98.2 79 16 167/72 (103) 98 05/27/17 15:55 157/71 (99) I/O 05/27/17 05/27/17 05/27/17 05/28/17 05/28/17 05/28/17 07:00 15:00 23:00 07:00 15:00 23:00 Intake Total 1000 ml 955 ml 326 ml Output Total 1805 ml 1025 ml 800 ml Balance -805 ml -70 ml -474 ml Intake Oral 0 ml IV Total 1000 ml 955 ml 326 ml Output Urine Total 1800 ml 1025 ml 800 ml Drainage Total 5 ml # Bowel Movements 0 0 Result Diagram: 05/28/17 1101 05/28/17 0620 Imaging Last Impressions Cervical Spine MRI 05/25/17 0800 Signed Impressions: Service Date/Time: Thursday, May 25, 2017 19:46 - CONCLUSION: Interim discectomy and fusion procedure with anterior and interbody instrumentation at C3/C4. Prevertebral fluid collection extending from the skull base to the level of C5/C6, epicenter at C3/C4. Also an apparent fluid collection within the posterior C3/C4 intervertebral disc space and effacing the anterior margin of the thecal sac. The fluid collections could represent developing abscesses or subacute hematomas. Findings were discussed with Dr. Duval by phone. Jorge Carvalho MD Cervical Spine X-Ray 05/24/17 0000 Signed Impressions: Service Date/Time: Wednesday, May 24, 2017 17:42 - CONCLUSION: Fusion at C3/C4. No acute complication demonstrated. Jorge Carvalho MD Head CT 05/22/17 0600 Signed Impressions: Service Date/Time: Monday, May 22, 2017 08:25 - CONCLUSION: Stable noncontrast head CT. No acute intracranial abnormality is identified. Jorge Arellano MD Shoulder MRI 05/20/17 0000 Signed Impressions: Service Date/Time: Saturday, May 20, 2017 10:30 - CONCLUSION: Negative for rotator cuff tear. I don't see an etiology for weakness by MRI. Substantial cervical spinal stenosis is present. There is significant neuroforaminal encroachment as well. Chidi Peters MD FACR Head Magnetic Resonance Angiography 05/20/17 0000 Signed Impressions: Service Date/Time: Saturday, May 20, 2017 02:09 - CONCLUSION: 1. Unremarkable MRA examination of the brain. No evidence for large vessel occlusion or stenosis, as questioned. Nolan Krishna MD Cervical Spine CT 05/20/17 0000 Signed Impressions: Service Date/Time: Saturday, May 20, 2017 00:41 - CONCLUSION: 1. No acute fracture or dislocation. 2. Multilevel degenerative spondylosis of the cervical spine. Nolan Krishna MD Carotid Artery Ultrasound 05/20/17 0000 Signed Impressions: Service Date/Time: Saturday, May 20, 2017 08:19 - CONCLUSION: Borderline significant findings on the right. Confirmatory CT angiogram or MR angiogram would be of benefit. Board Certified Radiologist. This report was verified electronically. Brain MRI 05/20/17 0000 Signed Impressions: Service Date/Time: Saturday, May 20, 2017 02:09 - CONCLUSION: 1. Senescent changes with mild small vessel ischemic white matter demyelination. 2. No acute ischemia or acute intracranial abnormality. 3. Bilateral maxillary sinus fluid. Nolan Krishna MD Chest X-Ray 05/19/17 [id number] Signed Impressions: Service Date/Time: Saturday, May 20, 2017 00:20 - CONCLUSION: 1. No acute cardiopulmonary disease. Nolan Krishna MD Objective Remarks GENERAL: This is a well-nourished, well-developed patient, in no apparent distress. Neck; cervical collar in place CARDIOVASCULAR: Regular rate and regular rhythm without murmurs, gallops, or rubs. RESPIRATORY: Clear to auscultation. Breath sounds equal bilaterally. No wheezes , rales, or rhonchi. GASTROINTESTINAL: Abdomen soft, non-tender, nondistended. Normal, active bowel sounds MUSCULOSKELETAL: Extremities without clubbing, cyanosis, or edema. NEURO: Alert & Oriented x4 to person, place, time, situation. Moves all ext x4 Medications and IVs Current Medications IV Flush (NS Flush) 2 ml UNSCH PRN IV FLUSH FLUSH AFTER USING IV ACCESS; Start 05/20/17 at 00:00; Stop 05/20/17 at 01:36; Status DC Sodium Chloride 1,000 ml @ 1,000 mls/hr Q1H IV Last administered on 05/20/17 00:17; Start 05/19/17 at 23:53; Stop 05/20/17 at 00:52; Status DC Ceftriaxone Sodium 1000 mg/ Sodium Chloride 100 ml @ 200 mls/hr ONCE ONCE IV Last administered on 05/20/17 01:34; Start 05/20/17 at 01:00; Stop 05/20/17 at 01: 29; Status DC IV Flush (NS Flush) 2 ml BID IV FLUSH Last administered on 05/24/17 08:33; Start 05/20/17 at 09:00; Stop 05/24/17 at 21:43; Status DC IV Flush (NS Flush) 2 ml UNSCH PRN IV FLUSH FLUSH AFTER USING IV ACCESS; Start 05/20/17 at 01:45; Stop 05/24/17 at 21:43; Status DC Clonidine (Catapres) 0.1 mg ONCE ONCE PO Last administered on 05/20/17 03:41; Start 05/20/17 at 03:15; Stop 05/20/17 at 03:17; Status DC Ceftriaxone Sodium 1000 mg/ Sodium Chloride 100 ml @ 200 mls/hr Q12H IV Last administered on 05/26/17 13:00; Start 05/20/17 at 13:00; Stop 05/26/17 at 20:11 ; Status DC Enoxaparin Sodium (Lovenox Inj) 40 mg Q24H SQ Last administered on 05/20/17 09: 00; Start 05/20/17 at 09:00; Stop 05/20/17 at 14:21; Status DC Dextrose (D50w (Vial) Inj) 50 ml UNSCH PRN IV HYPOGLYCEMIA-SEE COMMENTS; Start 05/20/17 at 04:15 Glucagon (Glucagon Inj) 1 mg UNSCH PRN OTHER HYPOGLYCEMIA-SEE COMMENTS; Start 05/20/17 at 04:15 Amlodipine Besylate (Norvasc) 10 mg DAILY PO Last administered on 05/28/17 07: 56; Start 05/20/17 at 17:15 Atorvastatin Calcium (Lipitor) 40 mg HS PO ; Start 05/20/17 at 21:00; Stop at 21:00; Status DC Folic Acid (Folate) 1 mg DAILY PO Last administered on 05/28/17 07:56; Start 05/20/17 at 17:15 Hydralazine HCl (Apresoline) 25 mg BID PO Last administered on 05/22/17 08:06 ; Start 05/20/17 at 21:00; Stop 05/22/17 at 12:24; Status DC Metoprolol Tartrate (Lopressor) 100 mg Q12HR PO Last administered on 05/24/17 08:33; Start 05/20/17 at 21:00; Stop 05/25/17 at 18:32; Status DC Enalaprilat (Vasotec Inj) 1.25 mg Q6H PRN IV PUSH bp>160/90 Last administered on 05/24/17 12:55; Start 05/20/17 at 17:30; Stop 05/27/17 at 16:11; Status DC Hydralazine HCl (Apresoline) 25 mg NOW ONCE PO Last administered on 05/20/17 18:09; Start 05/20/17 at 18:00; Stop 05/20/17 at 18:01; Status DC Morphine Sulfate (Morphine Inj) 3 mg NOW ONCE IV Last administered on 11:09; Start 05/21/17 at 11:15; Stop 05/21/17 at 11:16; Status DC Lisinopril (Prinivil) 20 mg Q12HR PO Last administered on 05/22/17 08:06; Start 05/21/17 at 21:00; Stop 05/22/17 at 12:24; Status DC Acetaminophen/ Hydrocodone Bitart ([place] 7.5-325 Mg) 1 tab Q6H PRN PO FOR PAIN 5-8 Last administered on 05/28/17 10:41; Start 05/22/17 at 09:15 Morphine Sulfate (Morphine Inj) 3 mg Q6H PRN IV PAIN 8-10 Last administered on 05/22/17 09:16; Start 05/22/17 at 09:15; Stop 05/22/17 at 09:49; Status DC Morphine Sulfate (Morphine Inj) 3 mg Q12HR PRN IV PAIN 8-10 Last administered on 05/25/17 14:17; Start 05/22/17 at 10:00 Hydralazine HCl (Apresoline) 25 mg TID PO Last administered on 05/22/17 17:28 ; Start 05/22/17 at 13:00; Stop 05/22/17 at 20:50; Status DC Lisinopril (Prinivil) 40 mg DAILY PO Last administered on 05/28/17 07:56; Start 05/23/17 at 09:00 Lisinopril (Prinivil) 20 mg ONCE ONCE PO Last administered on 05/22/17 12:36 ; Start 05/22/17 at 12:30; Stop 05/22/17 at 12:31; Status DC Hydralazine HCl (Apresoline) 25 mg Q8H PO Last administered on 05/25/17 06:08 ; Start 05/22/17 at 22:00; Stop 05/25/17 at 07:58; Status DC Padimate O (Chapstick) 1 applic UNSCH PRN TOPICAL dry lips; Start 05/23/17 at 09:45 Lactated Ringer's 1,000 ml @ 30 mls/hr Q24H PRN IV SEE LABEL COMMENTS; Start at 03:45; Stop 05/27/17 at 03:44; Status DC Sodium Chloride 500 ml @ 30 mls/hr [id number] PRN IV SEE LABEL COMMENTS; Start 08/28 at 03:45; Stop 05/27/17 at 03:44; Status DC Povidone Iodine (Betadine 5% Antisepsis Kit) 1 applic CRM ARCHITECT PRN EACH NARE SEE LABEL COMMENTS; Start 05/24/17 at 03:45; Stop 05/27/17 at 03:44; Status DC Chlorhexidine Gluconate (Chlorhexidine 2% Cloth) 3 pack CRM ARCHITECT PRN TOPICAL SEE LABEL COMMENTS; Start 05/24/17 at 03:45; Stop 05/27/17 at 03:44; Status DC Insulin Human Regular (NovoLIN R INJ) See Protocol Table ... CRM ARCHITECT PRN SQ SEE PROTOCOL TABLE; Start 05/24/17 at 03:45; Stop 05/27/17 at 03:44; Status DC Lidocaine/ Epinephrine (Xylocaine-Epi 0.5%-1:200,000 Inj) 50 ml STK-MED ONCE .ROUTE ; Start 05/24/17 at 15:44; Stop 05/24/17 at 15:45; Status DC Thrombin (Thrombin Top Soln) 10,000 units STK-MED ONCE .ROUTE Last administered on 05/24/17 17:42; Start 05/24/17 at 15:44; Stop 05/24/17 at 15:45 ; Status DC Gelatin (Gelfoam 100 Top) 1 foam STK-MED ONCE .ROUTE Last administered on 17:42; Start 05/24/17 at 15:45; Stop 05/24/17 at 15:46; Status DC Gentamicin Sulfate (Gentamicin Inj) 240 mg STK-MED ONCE .ROUTE Last administered on 05/24/17 17:42; Start 05/24/17 at 15:45; Stop 05/24/17 at 15:46 ; Status DC Midazolam HCl (Versed Inj) 2 mg STK-MED ONCE .ROUTE ; Start 05/24/17 at 16:29; Stop 05/24/17 at 16:30; Status DC Famotidine (Pepcid Inj) 20 mg STK-MED ONCE .ROUTE ; Start 05/24/17 at 16:29; Stop 05/24/17 at 16:30; Status DC Lidocaine/ Epinephrine (Xylocaine-Epi Mpf 2%-1:200,000 Inj) 20 ml STK-MED ONCE .ROUTE Last administered on 05/24/17 17:42; Start 05/24/17 at 16:47; Stop 08/28 at 16:48; Status DC Acetaminophen 100 ml @ As Directed STK-MED ONCE IV ; Start 05/24/17 at 17:03; Stop 05/24/17 at 17:06; Status DC Propofol 150 ml @ As Directed STK-MED ONCE .ROUTE ; Start 05/24/17 at 17:03; Stop 05/24/17 at 17:06; Status DC Hydromorphone HCl (Dilaudid Pf Inj) 2 mg STK-MED ONCE .ROUTE ; Start 05/24/17 at 17:03; Stop 05/24/17 at 17:06; Status DC Cefazolin Sodium/ Dextrose 50 ml @ As Directed STK-MED ONCE .ROUTE Last administered on 05/24/17 17:32; Start 05/24/17 at 17:31; Stop 05/24/17 at 17:32 ; Status DC Chlorhexidine Gluconate (Peridex 0.12% Liq) 15 ml STK-MED ONCE .ROUTE Last administered on 05/24/17 20:23; Start 05/24/17 at 20:15; Stop 05/24/17 at 20:16 ; Status DC Miscellaneous Information ALL NURSING DEPARTME... UNSCH PRN .XX SEE LABEL COMMENTS; Start 05/24/17 at 20:40; Stop 05/25/17 at 20:39; Status DC IV Flush (NS Flush) 2 ml UNSCH PRN IVF FLUSH AFTER USING IV ACCESS; Start 05/24 at 21:30 IV Flush (NS Flush) 2 ml BID IVF Last administered on 05/28/17 09:00; Start at 09:00 Potassium Chloride/Sodium Chloride 1,000 ml @ 100 mls/hr Q10H IV Last administered on 05/27/17 17:59; Start 05/24/17 at 21:24 Hydralazine HCl (Apresoline) 25 mg Q6HR PO ; Start 05/25/17 at 12:00; Stop 05/25 at 18:33; Status DC Hydralazine HCl (Apresoline Inj) 20 mg Q4H PRN IV PUSH SYS BP GREATER THAN 160 MMHG Last administered on 05/28/17 11:19; Start 05/25/17 at 09:00 Pharmacy Profile Note 0 ml @ 0 mls/hr UNSCH OTHER ; Start 05/25/17 at 18:15; Stop 05/25/17 at 18:26; Status DC Vancomycin HCl 1500 mg/Sodium Chloride 515 ml @ 250 mls/hr Q12H IV ; Start at 20:00; Stop 05/25/17 at 20:00; Status DC Metoprolol Tartrate (Lopressor) 100 mg Q8HR PO Last administered on 05/26/17 05:05; Start 05/25/17 at 22:00; Stop 05/26/17 at 12:38; Status DC Hydralazine HCl (Apresoline) 50 mg Q8HR PO Last administered on 05/28/17 12:56 ; Start 05/25/17 at 22:00 Labetalol HCl (Trandate Inj) 10 mg Q4H PRN IV PUSH sbp >160 Last administered on 05/28/17 01:10; Start 05/25/17 at 19:00 Metoprolol Tartrate (Lopressor Inj) 10 mg Q6H IV PUSH Last administered on 05/27 13:42; Start 05/26/17 at 14:00; Stop 05/27/17 at 16:12; Status DC Ceftriaxone Sodium 1000 mg/ Sodium Chloride 100 ml @ 200 mls/hr Q24H IV Last administered on 05/28/17 12:57; Start 05/27/17 at 13:00 Metoprolol Tartrate (Lopressor) 100 mg Q12HR PO Last administered on 05/28/17 07:56; Start 05/27/17 at 21:00 A/P Assessment and Plan Status post cervical decompression on 05/[address] Duval - MRI findings suggestive of myelopathy was signal intensity changes, possible acute cord contusion. - Senescent changes with mild small vessel ischemic white matter demyelination; no acute ischemia or acute intracranial abnormality. Bilateral maxillary sinus fluid. - Cervical spine CT with no fracture or dislocation. - MRA unremarkable. - EEG reviewed showing slow alpha variant. -Orthostatic blood pressures checked, no significance. - Previous echocardiogram from November 2016 admission were unremarkable. - Carotid ultrasound reviewed showing borderline significant changes on the right, defer to neurology if follow up needed. - Neurology following patient, recommendations to continue hard collar, pain control and monitor clinically. - Cardiology has seen patient with recommendations for implantable loop recorder. Has cleared patient for surgery with no further need for lexiscan. +1/ blood culture tube for a Staphylococcus weineri Follow repeat blood culture negative so far. consulted ID most likely contamination UTI - Culture growing gram - remedios, E coli present. - Continue Ceftriaxone 1 gram IV q12 h. for total 7 days -Now ID following Hyponatremia - Nephrology following patient, appreciate input. Per nephrology, hyponatremia not believed to be a [employer] issue but rather her history of enlarged liver and fatty infiltration of normal liver functions may contribute to her hyponatremia, which will remain a chronic problem for patient with levels between 128-132 being normal for her. Monitor for symptoms. -Monitor BMP Hypertension: increase hydralazine- continue Amlodipine and Lopressor. Continue to monitor closely. hypokalemia; replace and monitor. DVT prophylaxis: SCD's Luz Marina Langford MD May 28, 2017 15:10
[2017-05-28] MEDS: 1/2 NS + KCL 20 MEQ INJ 1,000 ML IV SCH (15:24)
[2017-05-29] VITALS (13 sets, daily range): BP systolic 163–193; BP diastolic 56–86; PULSE 26–96; RESP 14–23; TEMP 97.7–98.7; O2SAT 97–100
[2017-05-29] MEDS: ACETAMINOPHEN/HYDROcodone 325 MG/7.5 MG TAB PO PRN ×4 (00:40→21:46)
[2017-05-29] MEDS: 1/2 NS + KCL 20 MEQ INJ 1,000 ML IV SCH ×3 (00:40→19:53)
[2017-05-29] MEDS: hydrALAZINE HCL 20 MG/ML VIAL IV PUSH PRN (03:12)
[2017-05-29] MEDS: hydrALAZINE HCL 25 MG TAB PO SCH ×2 (04:21→11:55)
[2017-05-29] MEDS: LABETALOL HCL 100 MG/20 ML VIAL IV PUSH PRN (04:27)
[2017-05-29] MEDS: MORPHINE SULFATE 4 MG/ML INJ IV PRN (06:00)
[2017-05-29] MEDS: METOPROLOL TARTRATE 100 MG TAB PO SCH ×2 (07:29→19:52)
[2017-05-29] MEDS: FOLIC ACID 1 MG TAB PO SCH (07:29)
[2017-05-29] MEDS: SODIUM CHLORIDE 0.9% FLUSH 5 ML FLUSH IVF SCH ×2 (07:29→19:52)
[2017-05-29] MEDS: LISINOPRIL 20 MG TAB PO SCH (07:29)
--- NOTE | 2017-05-29 07:44 | HHI.NSPN ---
(Jose Rader) History Chief Complaint: Left hemiparesis. (Jose Rader) Interval History 05/20: 66-year-old female gives a history of progressive gait difficulty for the past year. She states that she was in the hospital in November 2016 and fell at that time. Her medical records indicate an admission for syncope and cardiac evaluation revealed 65% ejection fraction. She indicates that she has been using a cane to ambulate for the past few months. She states that she has fallen a couple of times in the past 2 weeks, the last time on 05/18/2017. Since these falls, she has had significant increased weakness in the left arm and leg. She denies any significant sensory changes. No definite bowel or bladder dysfunction. She has mild to moderate neck pain which is a little worse since her most recent fall. She has no complaint of significant joint pain. She states that when she ambulates, she has poor balance and loss of control of her legs. Since the fall, she has had much more left extremity weakness. 05/21/2017: Persistent neck pain. Some discomfort left foot. No change in neurologic exam versus 05/20/1705/24: The patient is awake and alert when seen this afternoon. She states that she is doing good. She does have pain to the posterior neck and the weakness to the left side extremities. She has been cleared by Cardiology and Medicine for surgery later this afternoon. 05/25: The patient went for a discectomy with interbody fusion and instrumentation at the C3-4 level yesterday. Post-operatively she was transferred to [facility]. This morning the patient is awake but lethargic. When asked how she is doing she states she is doing good. She had no complaints during the review of systems. Nursing reported that the patient did have difficulty taking oral medication even when crushed and given in applesauce. The patient has also been hypertensive and Nursing reports that the family has previously told them the patient is allergic to Vasotec but it is not recorded as an allergy. Therefore it was not given. She did receive morphine prior to being seen for pain per Nursing. 05/26: The patient is awake this morning when seen. She is lethargic and does interact. She briefly verbalises and does follow commands. She is hypertensive when seen. Nursing reports that the patient did have difficulty taking her meds crushed in applesauce this morning and had to suction it back out of the patient 's mouth. Speech Therapy did do a swallow eval yesterday and recommended NPO. 05/27: The patient is more awake and interactive this morning. She states that her neck feels "Okay" when asked. She denies any sore throat or difficulty swallowing. 05/28: Patient awake and alert. She denies pain. No radiculopathy or paresthesias in the upper extremities. She has left-sided weakness. 05/29: Pt awake and alert. Denies pain. States pressure on right side of head resolved. No radiculopathy in UEs. left sided weakness. (Jose Rader) Review of Systems General: Negative for: fever, chills, insomnia Respiratory: Negative for: shortness of breath, cough, sputum Cardiovascular: Negative for: chest pain Gastrointestinal: Negative for: nausea, vomitting, diarrhea, constipation ( Jose Rader) Exam Results Vital Signs Date Time Temp Pulse Resp B/P (MAP) Pulse Ox O2 Delivery O2 Flow Rate FiO2 05/29/17 06:05 12 05/29/17 06:00 85 05/29/17 04:00 98.1 193/84 (120) 100 05/28/17 09:41 21 05/25/17 07:00 Room Air Intake and Output 05/29/17 05/29/17 05/30/17 08:00 16:00 00:00 Intake Total 1311 ml Output Total 2475 ml Balance -1164 ml (Jose Rader) Physical Examination Respiratory: Clear to auscultation bilaterally Heart: Normal sinus rhythm Abdomen: Soft positive bowel sounds Skin: No cyanosis or erythema incision clean and dry Muscle left hemiparesis moves right side well. Neuro: Patient awake and alert follows commands. Pupils equal. Answers simple questions. (Jose Rader) Lab, Micro, Other Results Last Impressions Cervical Spine MRI 05/25/17 0800 Signed Impressions: Service Date/Time: WedMay 25, 2017 19:46 - CONCLUSION: Interim discectomy and fusion procedure with anterior and interbody instrumentation at C3/C4. Prevertebral fluid collection extending from the skull base to the level of C5/C6, epicenter at C3/C4. Also an apparent fluid collection within the posterior C3/C4 intervertebral disc space and effacing the anterior margin of the thecal sac. The fluid collections could represent developing abscesses or subacute hematomas. Findings were discussed with Dr. Duval by phone. Jorge Carvalho MD Cervical Spine X-Ray 05/24/17 0000 Signed Impressions: Service Date/Time: Wednesday, May 24, 2017 17:42 - CONCLUSION: Fusion at C3/C4. No acute complication demonstrated. Jorge Carvalho MD Head CT 05/22/17 0600 Signed Impressions: Service Date/Time: Monday, May 22, 2017 08:25 - CONCLUSION: Stable noncontrast head CT. No acute intracranial abnormality is identified. Jorge Arellano MD Shoulder MRI 05/20/17 0000 Signed Impressions: Service Date/Time: Saturday, May 20, 2017 10:30 - CONCLUSION: Negative for rotator cuff tear. I don't see an etiology for weakness by MRI. Substantial cervical spinal stenosis is present. There is significant neuroforaminal encroachment as well. Chidi Peters MD FACR Head Magnetic Resonance Angiography 05/20/17 0000 Signed Impressions: Service Date/Time: Saturday, May 20, 2017 02:09 - CONCLUSION: 1. Unremarkable MRA examination of the brain. No evidence for large vessel occlusion or stenosis, as questioned. Nolan Krishna MD Cervical Spine CT 05/20/17 0000 Signed Impressions: Service Date/Time: Saturday, May 20, 2017 00:41 - CONCLUSION: 1. No acute fracture or dislocation. 2. Multilevel degenerative spondylosis of the cervical spine. Nolan Krishna MD Carotid Artery Ultrasound 05/20/17 0000 Signed Impressions: Service Date/Time: Saturday, May 20, 2017 08:19 - CONCLUSION: Borderline significant findings on the right. Confirmatory CT angiogram or MR angiogram would be of benefit. Board Certified Radiologist. This report was verified electronically. Brain MRI 05/20/17 0000 Signed Impressions: Service Date/Time: Saturday, May 20, 2017 02:09 - CONCLUSION: 1. Senescent changes with mild small vessel ischemic white matter demyelination. 2. No acute ischemia or acute intracranial abnormality. 3. Bilateral maxillary sinus fluid. Nolan Krishna MD Chest X-Ray 05/19/17 4554 Signed Impressions: Service Date/Time: Saturday, May 20, 2017 00:20 - CONCLUSION: 1. No acute cardiopulmonary disease. Nolan Krishna MD Laboratory Tests Test 05/28/17 11:01 White Blood Count 7.8 TH/MM3 Red Blood Count 3.09 MIL/MM3 Hemoglobin 9.7 GM/DL Hematocrit 28.9 % Mean Corpuscular Volume 93.3 FL Mean Corpuscular Hemoglobin 31.3 PG Mean Corpuscular Hemoglobin Concent 33.6 % Red Cell Distribution Width 13.0 % Platelet Count 340 TH/MM3 Mean Platelet Volume 7.7 FL Neutrophils (%) (Auto) 64.8 % Lymphocytes (%) (Auto) 22.7 % Monocytes (%) (Auto) 10.2 % Eosinophils (%) (Auto) 1.0 % Basophils (%) (Auto) 1.3 % Neutrophils # (Auto) 5.1 TH/MM3 Lymphocytes # (Auto) 1.8 TH/MM3 Monocytes # (Auto) 0.8 TH/MM3 Eosinophils # (Auto) 0.1 TH/MM3 Basophils # (Auto) 0.1 TH/MM3 CBC Comment DIFF FINAL Differential Comment (Jose Rader) Medical Decision Making Impression and Plan A: Impression: 1. Cervical stenosis severe at C 3-4 level 2. Cervical myelopathy 3. Probable cervical spinal cord contusion 4. Hyponatremia 5. Hepatomegaly Postoperative Diagnosis: (1) Cervical disc disease with myelopathy (2) Contusion of cervical cord MRI cervical spine demonstrates discectomy with fusion & instrumentation at C3-4. There is a prevertebral fluid collection from the skull base to the C5-6 level with its epicentre at C3-4. There is also a fluid collection w/i the posterior C3-4 intervertebral disc space effacing the thecal sac. Plan: Continue with current care. Frequent neuro checks. Maintain cervical collar at all times. Will advance diet per ST recommendations. Continue to get up in chair and rehab efforts. (Jose Rader) Attending Statement The exam, history, and the medical decision-making described in the above note were completed with the assistance of the mid-level provider. I reviewed and agree with the findings presented. I attest that I had a [id number] encounter with the patient on the same day, and personally performed and documented my assessment and findings in the medical record. (Mingo Diaz MD) Jose Rader May 29, 2017 07:44 Mingo Daiz MD May 29, 2017 10:21
[2017-05-29] MEDS: cefTRIAXone INJ 1,000 MG in SODIUM CHLORIDE 0.9% INJ 100 ML IV SCH (11:56)
--- NOTE | 2017-05-29 13:31 | HHI.PR ---
Subjective Remarks in no acute distress. pain is controlled. BP trend noted. d/w the RN at the bedside. Objective Vitals Vital Signs Date Time Temp Pulse Resp B/P (MAP) Pulse Ox O2 Delivery O2 Flow Rate FiO2 05/29/17 10:00 26 05/29/17 08:00 85 05/29/17 08:00 97.7 75 23 166/76 (106) 100 05/29/17 06:05 12 05/29/17 06:00 85 05/29/17 04:00 98.1 96 16 193/84 (120) 100 05/29/17 04:00 78 05/29/17 02:00 78 05/29/17 01:40 15 05/29/17 00:00 78 05/29/17 00:00 98.7 78 15 163/56 (91) 100 05/28/17 22:00 74 05/28/17 20:55 99 05/28/17 20:00 98.3 83 22 156/83 (107) 97 05/28/17 20:00 83 05/28/17 18:00 82 05/28/17 16:00 98.3 90 25 185/84 (117) 97 05/28/17 16:00 90 05/28/17 14:00 83 I/O 05/28/17 05/28/17 05/28/17 05/29/17 05/29/17 05/29/17 07:00 15:00 23:00 07:00 15:00 23:00 Intake Total 326 ml 100 ml 1250 ml 1311 ml Output Total 800 ml 1600 ml 2475 ml Balance -474 ml 100 ml -350 ml -1164 ml Intake Oral 250 ml IV Total 326 ml 100 ml 1000 ml 1311 ml Output Urine Total 800 ml 1600 ml 2475 ml # Bowel Movements 0 0 0 Result Diagram: 05/28/17 1101 05/28/17 0620 Imaging Last Impressions Cervical Spine MRI 05/25/17 08 Signed Impressions: Service Date/Time: Thursday, May 25, 2017 19:46 - CONCLUSION: Interim discectomy and fusion procedure with anterior and interbody instrumentation at C3/C4. Prevertebral fluid collection extending from the skull base to the level of C5/C6, epicenter at C3/C4. Also an apparent fluid collection within the posterior C3/C4 intervertebral disc space and effacing the anterior margin of the thecal sac. The fluid collections could represent developing abscesses or subacute hematomas. Findings were discussed with Dr. Duval by phone. Jorge Carvalho MD Cervical Spine X-Ray 05/24/17 0000 Signed Impressions: Service Date/Time: Wednesday, May 24, 2017 17:42 - CONCLUSION: Fusion at C3/C4. No acute complication demonstrated. Jorge Carvalho MD Head CT 05/22/17 0600 Signed Impressions: Service Date/Time: Monday, May 22, 2017 08:25 - CONCLUSION: Stable noncontrast head CT. No acute intracranial abnormality is identified. Jorge Arellano MD Shoulder MRI 05/20/17 0000 Signed Impressions: Service Date/Time: Saturday, May 20, 2017 10:30 - CONCLUSION: Negative for rotator cuff tear. I don't see an etiology for weakness by MRI. Substantial cervical spinal stenosis is present. There is significant neuroforaminal encroachment as well. Chidi Peters MD FACR Head Magnetic Resonance Angiography 05/20/17 0000 Signed Impressions: Service Date/Time: Saturday, May 20, 2017 02:09 - CONCLUSION: 1. Unremarkable MRA examination of the brain. No evidence for large vessel occlusion or stenosis, as questioned. Nolan Krishna MD Cervical Spine CT 05/20/17 0000 Signed Impressions: Service Date/Time: Saturday, May 20, 2017 00:41 - CONCLUSION: 1. No acute fracture or dislocation. 2. Multilevel degenerative spondylosis of the cervical spine. Nolan Krishna MD Carotid Artery Ultrasound 05/20/17 0000 Signed Impressions: Service Date/Time: Saturday, May 20, 2017 08:19 - CONCLUSION: Borderline significant findings on the right. Confirmatory CT angiogram or MR angiogram would be of benefit. Board Certified Radiologist. This report was verified electronically. Brain MRI 05/20/17 0000 Signed Impressions: Service Date/Time: Saturday, May 20, 2017 02:09 - CONCLUSION: 1. Senescent changes with mild small vessel ischemic white matter demyelination. 2. No acute ischemia or acute intracranial abnormality. 3. Bilateral maxillary sinus fluid. Nolan Krishna MD Chest X-Ray 05/19/17 4120 Signed Impressions: Service Date/Time: Saturday, May 20, 2017 00:20 - CONCLUSION: 1. No acute cardiopulmonary disease. Nolan Krishna MD Objective Remarks GENERAL: This is a well-nourished, well-developed patient, in no apparent distress. Neck; cervical collar in place CARDIOVASCULAR: Regular rate and regular rhythm without murmurs, gallops, or rubs. RESPIRATORY: Clear to auscultation. Breath sounds equal bilaterally. No wheezes , rales, or rhonchi. GASTROINTESTINAL: Abdomen soft, non-tender, nondistended. Normal, active bowel sounds MUSCULOSKELETAL: Extremities without clubbing, cyanosis, or edema. NEURO: Alert & Oriented x4 to person, place, time, situation. Moves all ext x4 Medications and IVs Current Medications IV Flush (NS Flush) 2 ml UNSCH PRN IV FLUSH FLUSH AFTER USING IV ACCESS; Start 05/20/17 at 00:00; Stop 05/20/17 at 01:36; Status DC Sodium Chloride 1,000 ml @ 1,000 mls/hr Q1H IV Last administered on 05/20/17 00:17; Start 05/19/17 at 23:53; Stop 05/20/17 at 00:52; Status DC Ceftriaxone Sodium 1000 mg/ Sodium Chloride 100 ml @ 200 mls/hr ONCE ONCE IV Last administered on 05/20/17 01:34; Start 05/20/17 at 01:00; Stop 05/20/17 at 01: 29; Status DC IV Flush (NS Flush) 2 ml BID IV FLUSH Last administered on 05/24/17 08:33; Start 05/20/17 at 09:00; Stop 05/24/17 at 21:43; Status DC IV Flush (NS Flush) 2 ml UNSCH PRN IV FLUSH FLUSH AFTER USING IV ACCESS; Start 05/20/17 at 01:45; Stop 05/24/17 at 21:43; Status DC Clonidine (Catapres) 0.1 mg ONCE ONCE PO Last administered on 05/20/17 03:41; Start 05/20/17 at 03:15; Stop 05/20/17 at 03:17; Status DC Ceftriaxone Sodium 1000 mg/ Sodium Chloride 100 ml @ 200 mls/hr Q12H IV Last administered on 05/26/17 13:00; Start 05/20/17 at 13:00; Stop 05/26/17 at 20:11 ; Status DC Enoxaparin Sodium (Lovenox Inj) 40 mg Q24H SQ Last administered on 05/20/17 09: 00; Start 05/20/17 at 09:00; Stop 05/20/17 at 14:21; Status DC Dextrose (D50w (Vial) Inj) 50 ml UNSCH PRN IV HYPOGLYCEMIA-SEE COMMENTS; Start 05/20/17 at 04:15 Glucagon (Glucagon Inj) 1 mg UNSCH PRN OTHER HYPOGLYCEMIA-SEE COMMENTS; Start 05/20/17 at 04:15 Amlodipine Besylate (Norvasc) 10 mg DAILY PO Last administered on 05/29/17 07: 29; Start 05/20/17 at 17:15 Atorvastatin Calcium (Lipitor) 40 mg HS PO ; Start 05/20/17 at 21:00; Stop at 21:00; Status DC Folic Acid (Folate) 1 mg DAILY PO Last administered on 05/29/17 07:29; Start 05/20/17 at 17:15 Hydralazine HCl (Apresoline) 25 mg BID PO Last administered on 05/22/17 08:06 ; Start 05/20/17 at 21:00; Stop 05/22/17 at 12:24; Status DC Metoprolol Tartrate (Lopressor) 100 mg Q12HR PO Last administered on 05/24/17 08:33; Start 05/20/17 at 21:00; Stop 05/25/17 at 18:32; Status DC Enalaprilat (Vasotec Inj) 1.25 mg Q6H PRN IV PUSH bp>160/90 Last administered on 05/24/17 12:55; Start 05/20/17 at 17:30; Stop 05/27/17 at 16:11; Status DC Hydralazine HCl (Apresoline) 25 mg NOW ONCE PO Last administered on 05/20/17 18:09; Start 05/20/17 at 18:00; Stop 05/20/17 at 18:01; Status DC Morphine Sulfate (Morphine Inj) 3 mg NOW ONCE IV Last administered on 11:09; Start 05/21/17 at 11:15; Stop 05/21/17 at 11:16; Status DC Lisinopril (Prinivil) 20 mg Q12HR PO Last administered on 05/22/17 08:06; Start 05/21/17 at 21:00; Stop 05/22/17 at 12:24; Status DC Acetaminophen/ Hydrocodone Bitart (Thurman 7.5-325 Mg) 1 tab Q6H PRN PO FOR PAIN 5-8 Last administered on 05/29/17 00:40; Start 05/22/17 at 09:15 Morphine Sulfate (Morphine Inj) 3 mg Q6H PRN IV PAIN 8-10 Last administered on 05/22/17 09:16; Start 05/22/17 at 09:15; Stop 05/22/17 at 09:49; Status DC Morphine Sulfate (Morphine Inj) 3 mg Q12HR PRN IV PAIN 8-10 Last administered on 05/29/17 06:00; Start 05/22/17 at 10:00 Hydralazine HCl (Apresoline) 25 mg TID PO Last administered on 05/22/17 17:28 ; Start 05/22/17 at 13:00; Stop 05/22/17 at 20:50; Status DC Lisinopril (Prinivil) 40 mg DAILY PO Last administered on 05/29/17 07:29; Start 05/23/17 at 09:00 Lisinopril (Prinivil) 20 mg ONCE ONCE PO Last administered on 05/22/17 12:36 ; Start 05/22/17 at 12:30; Stop 05/22/17 at 12:31; Status DC Hydralazine HCl (Apresoline) 25 mg Q8H PO Last administered on 05/25/17 06:08 ; Start 05/22/17 at 22:00; Stop 05/25/17 at 07:58; Status DC Padimate O (Chapstick) 1 applic UNSCH PRN TOPICAL dry lips; Start 05/23/17 at 09:45 Lactated Ringer's 1,000 ml @ 30 mls/hr Q24H PRN IV SEE LABEL COMMENTS; Start at 03:45; Stop 05/27/17 at 03:44; Status DC Sodium Chloride 500 ml @ 30 mls/hr [id number] PRN IV SEE LABEL COMMENTS; Start 08/28 at 03:45; Stop 05/27/17 at 03:44; Status DC Povidone Iodine (Betadine 5% Antisepsis Kit) 1 applic SILICA DRY PRESS HELPER PRN EACH NARE SEE LABEL COMMENTS; Start 05/24/17 at 03:45; Stop 05/27/17 at 03:44; Status DC Chlorhexidine Gluconate (Chlorhexidine 2% Cloth) 3 pack SILICA DRY PRESS HELPER PRN TOPICAL SEE LABEL COMMENTS; Start 05/24/17 at 03:45; Stop 05/27/17 at 03:44; Status DC Insulin Human Regular (NovoLIN R INJ) See Protocol Table ... SILICA DRY PRESS HELPER PRN SQ SEE PROTOCOL TABLE; Start 05/24/17 at 03:45; Stop 05/27/17 at 03:44; Status DC Lidocaine/ Epinephrine (Xylocaine-Epi 0.5%-1:200,000 Inj) 50 ml STK-MED ONCE .ROUTE ; Start 05/24/17 at 15:44; Stop 05/24/17 at 15:45; Status DC Thrombin (Thrombin Top Soln) 10,000 units STK-MED ONCE .ROUTE Last administered on 05/24/17 17:42; Start 05/24/17 at 15:44; Stop 05/24/17 at 15:45 ; Status DC Gelatin (Gelfoam 100 Top) 1 foam STK-MED ONCE .ROUTE Last administered on 17:42; Start 05/24/17 at 15:45; Stop 05/24/17 at 15:46; Status DC Gentamicin Sulfate (Gentamicin Inj) 240 mg STK-MED ONCE .ROUTE Last administered on 05/24/17 17:42; Start 05/24/17 at 15:45; Stop 05/24/17 at 15:46 ; Status DC Midazolam HCl (Versed Inj) 2 mg STK-MED ONCE .ROUTE ; Start 05/24/17 at 16:29; Stop 05/24/17 at 16:30; Status DC Famotidine (Pepcid Inj) 20 mg STK-MED ONCE .ROUTE ; Start 05/24/17 at 16:29; Stop 05/24/17 at 16:30; Status DC Lidocaine/ Epinephrine (Xylocaine-Epi Mpf 2%-1:200,000 Inj) 20 ml STK-MED ONCE .ROUTE Last administered on 05/24/17 17:42; Start 05/24/17 at 16:47; Stop 08/28 at 16:48; Status DC Acetaminophen 100 ml @ As Directed STK-MED ONCE IV ; Start 05/24/17 at 17:03; Stop 05/24/17 at 17:06; Status DC Propofol 150 ml @ As Directed STK-MED ONCE .ROUTE ; Start 05/24/17 at 17:03; Stop 05/24/17 at 17:06; Status DC Hydromorphone HCl (Dilaudid Pf Inj) 2 mg STK-MED ONCE .ROUTE ; Start 05/24/17 at 17:03; Stop 05/24/17 at 17:06; Status DC Cefazolin Sodium/ Dextrose 50 ml @ As Directed STK-MED ONCE .ROUTE Last administered on 05/24/17 17:32; Start 05/24/17 at 17:31; Stop 05/24/17 at 17:32 ; Status DC Chlorhexidine Gluconate (Peridex 0.12% Liq) 15 ml STK-MED ONCE .ROUTE Last administered on 05/24/17 20:23; Start 05/24/17 at 20:15; Stop 05/24/17 at 20:16 ; Status DC Miscellaneous Information ALL NURSING DEPARTME... UNSCH PRN .XX SEE LABEL COMMENTS; Start 05/24/17 at 20:40; Stop 05/25/17 at 20:39; Status DC IV Flush (NS Flush) 2 ml UNSCH PRN IVF FLUSH AFTER USING IV ACCESS; Start 05/24 at 21:30 IV Flush (NS Flush) 2 ml BID IVF Last administered on 05/29/17 07:29; Start at 09:00 Potassium Chloride/Sodium Chloride 1,000 ml @ 100 mls/hr Q10H IV Last administered on 05/29/17 00:40; Start 05/24/17 at 21:24 Hydralazine HCl (Apresoline) 25 mg Q6HR PO ; Start 05/25/17 at 12:00; Stop 05/25 at 18:33; Status DC Hydralazine HCl (Apresoline Inj) 20 mg Q4H PRN IV PUSH SYS BP GREATER THAN 160 MMHG Last administered on 05/29/17 03:12; Start 05/25/17 at 09:00 Pharmacy Profile Note 0 ml @ 0 mls/hr UNSCH OTHER ; Start 05/25/17 at 18:15; Stop 05/25/17 at 18:26; Status DC Vancomycin HCl 1500 mg/Sodium Chloride 515 ml @ 250 mls/hr Q12H IV ; Start at 20:00; Stop 05/25/17 at 20:00; Status DC Metoprolol Tartrate (Lopressor) 100 mg Q8HR PO Last administered on 05/26/17 05:05; Start 05/25/17 at 22:00; Stop 05/26/17 at 12:38; Status DC Hydralazine HCl (Apresoline) 50 mg Q8HR PO Last administered on 05/28/17 12:56 ; Start 05/25/17 at 22:00; Stop 05/28/17 at 15:12; Status DC Labetalol HCl (Trandate Inj) 10 mg Q4H PRN IV PUSH sbp >160 Last administered on 05/29/17 04:27; Start 05/25/17 at 19:00 Metoprolol Tartrate (Lopressor Inj) 10 mg Q6H IV PUSH Last administered on 05/27 13:42; Start 05/26/17 at 14:00; Stop 05/27/17 at 16:12; Status DC Ceftriaxone Sodium 1000 mg/ Sodium Chloride 100 ml @ 200 mls/hr Q24H IV Last administered on 05/29/17 11:56; Start 05/27/17 at 13:00 Metoprolol Tartrate (Lopressor) 100 mg Q12HR PO Last administered on 05/29/17 07:29; Start 05/27/17 at 21:00 Hydralazine HCl (Apresoline) 75 mg Q8H PO Last administered on 05/29/17 11:55 ; Start 05/28/17 at 21:00 A/P Assessment and Plan Status post cervical decompression on 05/[address] Duval - MRI findings suggestive of myelopathy was signal intensity changes, possible acute cord contusion. - Senescent changes with mild small vessel ischemic white matter demyelination; no acute ischemia or acute intracranial abnormality. Bilateral maxillary sinus fluid. - Cervical spine CT with no fracture or dislocation. - MRA unremarkable. - EEG reviewed showing slow alpha variant. -Orthostatic blood pressures checked, no significance. - Previous echocardiogram from November 2016 admission were unremarkable. - Carotid ultrasound reviewed showing borderline significant changes on the right, defer to neurology if follow up needed. - Neurology following patient, recommendations to continue hard collar, pain control and monitor clinically. - Cardiology has seen patient with recommendations for implantable loop recorder. Has cleared patient for surgery with no further need for lexiscan. +09/15 blood culture tube for a Staphylococcus weineri Follow repeat blood culture negative so far. consulted ID most likely contamination UTI - Culture growing gram - remedios, E coli present. - Continue Ceftriaxone 1 gram IV q12 h. for total 7 days -Now ID following Hyponatremia - Nephrology following patient, appreciate input. Per nephrology, hyponatremia not believed to be a STRESS ANALYST issue but rather her history of enlarged liver and fatty infiltration of normal liver functions may contribute to her hyponatremia, which will remain a chronic problem for patient with levels between 128-132 being normal for her. Monitor for symptoms. -Monitor BMP Hypertension: increase hydralazine- continue Amlodipine and Lopressor. will add clonidine prn- Continue to monitor closely. hypokalemia; replace and monitor. DVT prophylaxis: SCD's Luz Marina Langford MD May 29, 2017 13:31
[2017-05-29] MEDS: cloNIDine HCL 0.1 MG TAB PO PRN (14:31)
[2017-05-29] MEDS: hydrALAZINE HCL 100 MG TAB PO SCH (19:52)
[2017-05-29] MEDS ORDERED: MAGNESIUM HYDROXIDE SUSP 30 ML CUP PO PRN (22:30)
[2017-05-30] VITALS (7 sets, daily range): BP systolic 148–190; BP diastolic 61–82; PULSE 70–86; RESP 17–18; TEMP 97.2–98.2; O2SAT 96–99
[2017-05-30] MEDS: hydrALAZINE HCL 100 MG TAB PO SCH ×3 (05:52→20:00)
[2017-05-30] MEDS: 1/2 NS + KCL 20 MEQ INJ 1,000 ML IV SCH ×3 (05:53→22:38)
[2017-05-30] MEDS: SODIUM CHLORIDE 0.9% FLUSH 5 ML FLUSH IVF SCH ×2 (09:00→20:00)
[2017-05-30] MEDS: METOPROLOL TARTRATE 100 MG TAB PO SCH ×2 (09:27→20:00)
[2017-05-30] MEDS: DOCUSATE SODIUM 100 MG CAP PO SCH ×2 (09:28→20:00)
[2017-05-30] MEDS: FOLIC ACID 1 MG TAB PO SCH (09:28)
[2017-05-30] MEDS: LISINOPRIL 20 MG TAB PO SCH (09:31)
[2017-05-30] MEDS: ACETAMINOPHEN/HYDROcodone 325 MG/7.5 MG TAB PO PRN ×3 (09:34→21:37)
[2017-05-30] MEDS: cefTRIAXone INJ 1,000 MG in SODIUM CHLORIDE 0.9% INJ 100 ML IV SCH (11:59)
--- NOTE | 2017-05-30 12:14 | HHI.PR ---
Subjective Remarks in no acute distress. has some pain to the neck and back. BP trend noted. d/w the RN. Objective Vitals Vital Signs Date Time Temp Pulse Resp B/P (MAP) Pulse Ox O2 Delivery O2 Flow Rate FiO2 05/30/17 10:34 18 05/30/17 08:00 98.0 79 18 190/82 (118) 98 05/30/17 04:17 98.2 74 17 179/73 (108) 99 05/30/17 00:59 97.7 70 17 164/73 (103) 96 05/29/17 22:00 65 05/29/17 20:40 97 05/29/17 20:00 78 05/29/17 20:00 98.4 78 18 187/86 (119) 98 05/29/17 18:00 67 05/29/17 16:00 81 05/29/17 16:00 98.2 81 14 174/79 (110) 99 05/29/17 14:00 78 I/O 05/29/17 05/29/17 05/29/17 05/30/17 05/30/17 05/30/17 07:00 15:00 23:00 07:00 15:00 23:00 Intake Total 1311 ml 120 ml Output Total 2475 ml 1800 ml 2300 ml Balance -1164 ml -1800 ml -2180 ml Intake Oral 120 ml IV Total 1311 ml Output Urine Total 2475 ml 1800 ml 2300 ml # Bowel Movements 0 0 Result Diagram: 05/28/17 1101 05/28/17 0620 Imaging Last Impressions Cervical Spine MRI 05/25/17 0800 Signed Impressions: Service Date/Time: Thursday, May 25, 2017 19:46 - CONCLUSION: Interim discectomy and fusion procedure with anterior and interbody instrumentation at C3/C4. Prevertebral fluid collection extending from the skull base to the level of C5/C6, epicenter at C3/C4. Also an apparent fluid collection within the posterior C3/C4 intervertebral disc space and effacing the anterior margin of the thecal sac. The fluid collections could represent developing abscesses or subacute hematomas. Findings were discussed with Dr. Duval by phone. Jorge Carvalho MD Cervical Spine X-Ray 05/24/17 0000 Signed Impressions: Service Date/Time: Wednesday, May 24, 2017 17:42 - CONCLUSION: Fusion at C3/C4. No acute complication demonstrated. Jorge Carvalho MD Head CT 05/22/17 0600 Signed Impressions: Service Date/Time: Monday, May 22, 2017 08:25 - CONCLUSION: Stable noncontrast head CT. No acute intracranial abnormality is identified. Jorge Arellano MD Shoulder MRI 05/20/17 0000 Signed Impressions: Service Date/Time: Saturday, May 20, 2017 10:30 - CONCLUSION: Negative for rotator cuff tear. I don't see an etiology for weakness by MRI. Substantial cervical spinal stenosis is present. There is significant neuroforaminal encroachment as well. Chidi Peters MD FACR Head Magnetic Resonance Angiography 05/20/17 0000 Signed Impressions: Service Date/Time: Saturday, May 20, 2017 02:09 - CONCLUSION: 1. Unremarkable MRA examination of the brain. No evidence for large vessel occlusion or stenosis, as questioned. Nolan Krishna MD Cervical Spine CT 05/20/17 0000 Signed Impressions: Service Date/Time: Saturday, May 20, 2017 00:41 - CONCLUSION: 1. No acute fracture or dislocation. 2. Multilevel degenerative spondylosis of the cervical spine. Nolan Krishna MD Carotid Artery Ultrasound 05/20/17 0000 Signed Impressions: Service Date/Time: Saturday, May 20, 2017 08:19 - CONCLUSION: Borderline significant findings on the right. Confirmatory CT angiogram or MR angiogram would be of benefit. Board Certified Radiologist. This report was verified electronically. Brain MRI 05/20/17 0000 Signed Impressions: Service Date/Time: Saturday, May 20, 2017 02:09 - CONCLUSION: 1. Senescent changes with mild small vessel ischemic white matter demyelination. 2. No acute ischemia or acute intracranial abnormality. 3. Bilateral maxillary sinus fluid. Nolan Krishna MD Chest X-Ray 05/19/17 6778 Signed Impressions: Service Date/Time: Saturday, May 20, 2017 00:20 - CONCLUSION: 1. No acute cardiopulmonary disease. Nolan Krishna MD Objective Remarks GENERAL: This is a well-nourished, well-developed patient, in no apparent distress. Neck; cervical collar in place CARDIOVASCULAR: Regular rate and regular rhythm without murmurs, gallops, or rubs. RESPIRATORY: Clear to auscultation. Breath sounds equal bilaterally. No wheezes , rales, or rhonchi. GASTROINTESTINAL: Abdomen soft, non-tender, nondistended. Normal, active bowel sounds MUSCULOSKELETAL: Extremities without clubbing, cyanosis, or edema. NEURO: Alert & Oriented x4 to person, place, time, situation. Moves all ext x4 Medications and IVs Current Medications IV Flush (NS Flush) 2 ml UNSCH PRN IV FLUSH FLUSH AFTER USING IV ACCESS; Start 05/20/17 at 00:00; Stop 05/20/17 at 01:36; Status DC Sodium Chloride 1,000 ml @ 1,000 mls/hr Q1H IV Last administered on 05/20/17 00:17; Start 05/19/17 at 23:53; Stop 05/20/17 at 00:52; Status DC Ceftriaxone Sodium 1000 mg/ Sodium Chloride 100 ml @ 200 mls/hr ONCE ONCE IV Last administered on 05/20/17 01:34; Start 05/20/17 at 01:00; Stop 05/20/17 at 01: 29; Status DC IV Flush (NS Flush) 2 ml BID IV FLUSH Last administered on 05/24/17 08:33; Start 05/20/17 at 09:00; Stop 05/24/17 at 21:43; Status DC IV Flush (NS Flush) 2 ml UNSCH PRN IV FLUSH FLUSH AFTER USING IV ACCESS; Start 05/20/17 at 01:45; Stop 05/24/17 at 21:43; Status DC Clonidine (Catapres) 0.1 mg ONCE ONCE PO Last administered on 05/20/17 03:41; Start 05/20/17 at 03:15; Stop 05/20/17 at 03:17; Status DC Ceftriaxone Sodium 1000 mg/ Sodium Chloride 100 ml @ 200 mls/hr Q12H IV Last administered on 05/26/17 13:00; Start 05/20/17 at 13:00; Stop 05/26/17 at 20:11 ; Status DC Enoxaparin Sodium (Lovenox Inj) 40 mg Q24H SQ Last administered on 05/20/17 09: 00; Start 05/20/17 at 09:00; Stop 05/20/17 at 14:21; Status DC Dextrose (D50w (Vial) Inj) 50 ml UNSCH PRN IV HYPOGLYCEMIA-SEE COMMENTS; Start 05/20/17 at 04:15 Glucagon (Glucagon Inj) 1 mg UNSCH PRN OTHER HYPOGLYCEMIA-SEE COMMENTS; Start 05/20/17 at 04:15 Amlodipine Besylate (Norvasc) 10 mg DAILY PO Last administered on 05/30/17 09: 28; Start 05/20/17 at 17:15 Atorvastatin Calcium (Lipitor) 40 mg HS PO ; Start 05/20/17 at 21:00; Stop at 21:00; Status DC Folic Acid (Folate) 1 mg DAILY PO Last administered on 05/30/17 09:28; Start 05/20/17 at 17:15 Hydralazine HCl (Apresoline) 25 mg BID PO Last administered on 05/22/17 08:06 ; Start 05/20/17 at 21:00; Stop 05/22/17 at 12:24; Status DC Metoprolol Tartrate (Lopressor) 100 mg Q12HR PO Last administered on 05/24/17 08:33; Start 05/20/17 at 21:00; Stop 05/25/17 at 18:32; Status DC Enalaprilat (Vasotec Inj) 1.25 mg Q6H PRN IV PUSH bp>160/90 Last administered on 05/24/17 12:55; Start 05/20/17 at 17:30; Stop 05/27/17 at 16:11; Status DC Hydralazine HCl (Apresoline) 25 mg NOW ONCE PO Last administered on 05/20/17 18:09; Start 05/20/17 at 18:00; Stop 05/20/17 at 18:01; Status DC Morphine Sulfate (Morphine Inj) 3 mg NOW ONCE IV Last administered on 11:09; Start 05/21/17 at 11:15; Stop 05/21/17 at 11:16; Status DC Lisinopril (Prinivil) 20 mg Q12HR PO Last administered on 05/22/17 08:06; Start 05/21/17 at 21:00; Stop 05/22/17 at 12:24; Status DC Acetaminophen/ Hydrocodone Bitart ([place] 7.5-325 Mg) 1 tab Q6H PRN PO FOR PAIN 5-8 Last administered on 05/30/17 09:34; Start 05/22/17 at 09:15 Morphine Sulfate (Morphine Inj) 3 mg Q6H PRN IV PAIN 8-10 Last administered on 05/22/17 09:16; Start 05/22/17 at 09:15; Stop 05/22/17 at 09:49; Status DC Morphine Sulfate (Morphine Inj) 3 mg Q12HR PRN IV PAIN 8-10 Last administered on 05/29/17 06:00; Start 05/22/17 at 10:00 Hydralazine HCl (Apresoline) 25 mg TID PO Last administered on 05/22/17 17:28 ; Start 05/22/17 at 13:00; Stop 05/22/17 at 20:50; Status DC Lisinopril (Prinivil) 40 mg DAILY PO Last administered on 05/30/17 09:31; Start 05/23/17 at 09:00 Lisinopril (Prinivil) 20 mg ONCE ONCE PO Last administered on 05/22/17 12:36 ; Start 05/22/17 at 12:30; Stop 05/22/17 at 12:31; Status DC Hydralazine HCl (Apresoline) 25 mg Q8H PO Last administered on 05/25/17 06:08 ; Start 05/22/17 at 22:00; Stop 05/25/17 at 07:58; Status DC Padimate O ([place]) 1 applic UNSCH PRN TOPICAL dry lips; Start 05/23/17 at 09:45 Lactated Ringer's 1,000 ml @ 30 mls/hr Q24H PRN IV SEE LABEL COMMENTS; Start at 03:45; Stop 05/27/17 at 03:44; Status DC Sodium Chloride 500 ml @ 30 mls/hr [id number] PRN IV SEE LABEL COMMENTS; Start 08/28 at 03:45; Stop 05/27/17 at 03:44; Status DC Povidone Iodine (Betadine 5% Antisepsis Kit) 1 applic CONTRACT PARALEGAL PRN EACH NARE SEE LABEL COMMENTS; Start 05/24/17 at 03:45; Stop 05/27/17 at 03:44; Status DC Chlorhexidine Gluconate (Chlorhexidine 2% Cloth) 3 pack CONTRACT PARALEGAL PRN TOPICAL SEE LABEL COMMENTS; Start 05/24/17 at 03:45; Stop 05/27/17 at 03:44; Status DC Insulin Human Regular (NovoLIN R INJ) See Protocol Table ... CONTRACT PARALEGAL PRN SQ SEE PROTOCOL TABLE; Start 05/24/17 at 03:45; Stop 05/27/17 at 03:44; Status DC Lidocaine/ Epinephrine (Xylocaine-Epi 0.5%-1:200,000 Inj) 50 ml STK-MED ONCE .ROUTE ; Start 05/24/17 at 15:44; Stop 05/24/17 at 15:45; Status DC Thrombin (Thrombin Top Soln) 10,000 units STK-MED ONCE .ROUTE Last administered on 05/24/17 17:42; Start 05/24/17 at 15:44; Stop 05/24/17 at 15:45 ; Status DC Gelatin (Gelfoam 100 Top) 1 foam STK-MED ONCE .ROUTE Last administered on 17:42; Start 05/24/17 at 15:45; Stop 05/24/17 at 15:46; Status DC Gentamicin Sulfate (Gentamicin Inj) 240 mg STK-MED ONCE .ROUTE Last administered on 05/24/17 17:42; Start 05/24/17 at 15:45; Stop 05/24/17 at 15:46 ; Status DC Midazolam HCl (Versed Inj) 2 mg STK-MED ONCE .ROUTE ; Start 05/24/17 at 16:29; Stop 05/24/17 at 16:30; Status DC Famotidine (Pepcid Inj) 20 mg STK-MED ONCE .ROUTE ; Start 05/24/17 at 16:29; Stop 05/24/17 at 16:30; Status DC Lidocaine/ Epinephrine (Xylocaine-Epi Mpf 2%-1:200,000 Inj) 20 ml STK-MED ONCE .ROUTE Last administered on 05/24/17 17:42; Start 05/24/17 at 16:47; Stop 08/28 at 16:48; Status DC Acetaminophen 100 ml @ As Directed STK-MED ONCE IV ; Start 05/24/17 at 17:03; Stop 05/24/17 at 17:06; Status DC Propofol 150 ml @ As Directed STK-MED ONCE .ROUTE ; Start 05/24/17 at 17:03; Stop 05/24/17 at 17:06; Status DC Hydromorphone HCl (Dilaudid Pf Inj) 2 mg STK-MED ONCE .ROUTE ; Start 05/24/17 at 17:03; Stop 05/24/17 at 17:06; Status DC Cefazolin Sodium/ Dextrose 50 ml @ As Directed STK-MED ONCE .ROUTE Last administered on 05/24/17 17:32; Start 05/24/17 at 17:31; Stop 05/24/17 at 17:32 ; Status DC Chlorhexidine Gluconate (Peridex 0.12% Liq) 15 ml STK-MED ONCE .ROUTE Last administered on 05/24/17 20:23; Start 05/24/17 at 20:15; Stop 05/24/17 at 20:16 ; Status DC Miscellaneous Information ALL NURSING DEPARTME... UNSCH PRN .XX SEE LABEL COMMENTS; Start 05/24/17 at 20:40; Stop 05/25/17 at 20:39; Status DC IV Flush (NS Flush) 2 ml UNSCH PRN IVF FLUSH AFTER USING IV ACCESS; Start 05/24 at 21:30 IV Flush (NS Flush) 2 ml BID IVF Last administered on 05/29/17 07:29; Start at 09:00 Potassium Chloride/Sodium Chloride 1,000 ml @ 100 mls/hr Q10H IV Last administered on 05/30/17 05:53; Start 05/24/17 at 21:24 Hydralazine HCl (Apresoline) 25 mg Q6HR PO ; Start 05/25/17 at 12:00; Stop 05/25 at 18:33; Status DC Hydralazine HCl (Apresoline Inj) 20 mg Q4H PRN IV PUSH SYS BP GREATER THAN 160 MMHG Last administered on 05/29/17 03:12; Start 05/25/17 at 09:00 Pharmacy Profile Note 0 ml @ 0 mls/hr UNSCH OTHER ; Start 05/25/17 at 18:15; Stop 05/25/17 at 18:26; Status DC Vancomycin HCl 1500 mg/Sodium Chloride 515 ml @ 250 mls/hr Q12H IV ; Start at 20:00; Stop 05/25/17 at 20:00; Status DC Metoprolol Tartrate (Lopressor) 100 mg Q8HR PO Last administered on 05/26/17 05:05; Start 05/25/17 at 22:00; Stop 05/26/17 at 12:38; Status DC Hydralazine HCl (Apresoline) 50 mg Q8HR PO Last administered on 05/28/17 12:56 ; Start 05/25/17 at 22:00; Stop 05/28/17 at 15:12; Status DC Labetalol HCl (Trandate Inj) 10 mg Q4H PRN IV PUSH sbp >160 Last administered on 05/29/17 04:27; Start 05/25/17 at 19:00 Metoprolol Tartrate (Lopressor Inj) 10 mg Q6H IV PUSH Last administered on 05/27 13:42; Start 05/26/17 at 14:00; Stop 05/27/17 at 16:12; Status DC Ceftriaxone Sodium 1000 mg/ Sodium Chloride 100 ml @ 200 mls/hr Q24H IV Last administered on 05/29/17 11:56; Start 05/27/17 at 13:00 Metoprolol Tartrate (Lopressor) 100 mg Q12HR PO Last administered on 05/30/17 09:27; Start 05/27/17 at 21:00 Hydralazine HCl (Apresoline) 75 mg Q8H PO Last administered on 05/29/17 11:55 ; Start 05/28/17 at 21:00; Stop 05/29/17 at 13:33; Status DC Hydralazine HCl (Apresoline) 100 mg Q8H PO Last administered on 05/30/17 05:52 ; Start 05/29/17 at 21:00 Clonidine (Catapres) 0.1 mg Q8HR PRN PO SBP> OR = 180, DBP> OR = 100 Last administered on 05/29/17 14:31; Start 05/29/17 at 13:45 Docusate Sodium (Colace) 100 mg BID PO Last administered on 05/30/17 09:28; Start 05/30/17 at 09:00 Magnesium Hydroxide (Milk Of Magnesia Liq) 30 ml Q12H PRN PO MILD - MODERATE CONSTIPATION; Start 05/29/17 at 22:30 Lactulose (Lactulose Liq) 30 ml DAILY PRN PO SEVERE CONSITIPATION; Start at 22:30 A/P Assessment and Plan Status post cervical decompression on 05/[address] Duval - MRI findings suggestive of myelopathy was signal intensity changes, possible acute cord contusion. - Senescent changes with mild small vessel ischemic white matter demyelination; no acute ischemia or acute intracranial abnormality. Bilateral maxillary sinus fluid. - Cervical spine CT with no fracture or dislocation. - MRA unremarkable. - EEG reviewed showing slow alpha variant. -Orthostatic blood pressures checked, no significance. - Previous echocardiogram from November 2016 admission were unremarkable. - Carotid ultrasound reviewed showing borderline significant changes on the right, defer to neurology if follow up needed. - Neurology following patient, recommendations to continue hard collar, pain control and monitor clinically. - Cardiology has seen patient with recommendations for implantable loop recorder. Has cleared patient for surgery with no further need for lexiscan. +/ blood culture tube for a Staphylococcus weineri Follow repeat blood culture negative so far. consulted ID most likely contamination UTI - Culture growing gram - remedios, E coli present. - Continue Ceftriaxone 1 gram IV q12 h. for total 7 days -Now ID following Hyponatremia - Nephrology following patient, appreciate input. Per nephrology, hyponatremia not believed to be a STOCK DIGGER issue but rather her history of enlarged liver and fatty infiltration of normal liver functions may contribute to her hyponatremia, which will remain a chronic problem for patient with levels between 128-132 being normal for her. Monitor for symptoms. -Monitor BMP Hypertension: increase hydralazine- continue Amlodipine and Lopressor. one dose of procardia today clonidine prn- Continue to monitor closely. hypokalemia; replaced. DVT prophylaxis: SCD's Luz Marina Langford MD May 30, 2017 12:07
--- NOTE | 2017-05-30 12:41 | HHI.NSPN ---
(Jc FarrisJefe GILLETTEP) History Chief Complaint: Left-sided weakness. (Jc Farris) Interval History 05/20: 66-year-old female gives a history of progressive gait difficulty for the past year. She states that she was in the hospital in November 2016 and fell at that time. Her medical records indicate an admission for syncope and cardiac evaluation revealed 65% ejection fraction. She indicates that she has been using a cane to ambulate for the past few months. She states that she has fallen a couple of times in the past 2 weeks, the last time on 05/18/2017. Since these falls, she has had significant increased weakness in the left arm and leg. She denies any significant sensory changes. No definite bowel or bladder dysfunction. She has mild to moderate neck pain which is a little worse since her most recent fall. She has no complaint of significant joint pain. She states that when she ambulates, she has poor balance and loss of control of her legs. Since the fall, she has had much more left extremity weakness. 05/21/2017: Persistent neck pain. Some discomfort left foot. No change in neurologic exam versus 05/20/1705/24: The patient is awake and alert when seen this afternoon. She states that she is doing good. She does have pain to the posterior neck and the weakness to the left side extremities. She has been cleared by Cardiology and Medicine for surgery later this afternoon. 05/25: The patient went for a discectomy with interbody fusion and instrumentation at the C3-4 level yesterday. Post-operatively she was transferred to [facility]. This morning the patient is awake but lethargic. When asked how she is doing she states she is doing good. She had no complaints during the review of systems. Nursing reported that the patient did have difficulty taking oral medication even when crushed and given in applesauce. The patient has also been hypertensive and Nursing reports that the family has previously told them the patient is allergic to Vasotec but it is not recorded as an allergy. Therefore it was not given. She did receive morphine prior to being seen for pain per Nursing. 05/26: The patient is awake this morning when seen. She is lethargic and does interact. She briefly verbalises and does follow commands. She is hypertensive when seen. Nursing reports that the patient did have difficulty taking her meds crushed in applesauce this morning and had to suction it back out of the patient 's mouth. Speech Therapy did do a swallow eval yesterday and recommended NPO. 05/27: The patient is more awake and interactive this morning. She states that her neck feels "Okay" when asked. She denies any sore throat or difficulty swallowing. 05/28: Patient awake and alert. She denies pain. No radiculopathy or paresthesias in the upper extremities. She has left-sided weakness. 05/29: Pt awake and alert. Denies pain. States pressure on right side of head resolved. No radiculopathy in UEs. left sided weakness. 05/30: This afternoon the patient is awake and alert, watching TV. She says she is doing fine. She states she still has weakness to the left side and has some aching to the back of the neck. (Jc Farris) System Review Comments Constitutional: Patient denies any fever or chills. HEENT: Patient denies any sore throat, difficulty swallowing or any visual or hearing problems. Respiratory: Patient denies any shortness of breath or productive cough. Cardiovascular: Patient denies any chest pain, palpitations or irregular heartbeat. Gastrointestinal: Patient denies any abdominal pain, nausea, vomiting or incontinence of stool. Genitourinary: Patient has Yung catheter in place.. Musculoskeletal: Patient has some aching to the back of her neck. She denies any back or extremity pain. Neurologic: Patient still with left-sided weakness. She denies any headache, dizziness, numbness or tingling. (Jc Farris) Exam Results 05/28/17 05/28/17 05/29/17 05/29/17 05/30/17 05/30/17 06:00 18:00 06:00 18:00 06:00 18:00 Intake Total 326 ml 1350 ml 1311 ml 120 ml Output Total 800 ml 1600 ml 2475 ml 1800 ml 2300 ml Balance -474 ml -250 ml -1164 ml -1800 ml -2180 ml Intake Oral 250 ml 120 ml IV Total 326 ml 1100 ml 1311 ml Output Urine Total 800 ml 1600 ml 2475 ml 1800 ml 2300 ml # Bowel Movements 0 0 0 0 Vital Signs Date Time Temp Pulse Resp B/P (MAP) Pulse Ox O2 Delivery O2 Flow Rate FiO2 05/30/17 10:34 18 05/30/17 08:00 98.0 79 18 190/82 (118) 98 05/30/17 04:17 98.2 74 17 179/73 (108) 99 05/30/17 00:59 97.7 70 17 164/73 (103) 96 05/29/17 22:00 65 05/29/17 20:40 97 05/29/17 20:00 78 05/29/17 20:00 98.4 78 18 187/86 (119) 98 05/29/17 18:00 67 05/29/17 16:00 81 05/29/17 16:00 98.2 81 14 174/79 (110) 99 05/29/17 14:00 78 05/29/17 12:00 98.3 82 15 176/80 (112) 98 05/29/17 12:00 82 05/29/17 10:00 86 05/29/17 08:00 85 05/29/17 08:00 97.7 75 23 166/76 (106) 100 05/29/17 06:05 12 05/29/17 06:00 85 05/29/17 04:00 98.1 96 16 193/84 (120) 100 05/29/17 04:00 78 05/29/17 02:00 78 05/29/17 00:00 78 05/29/17 00:00 98.7 78 15 163/56 (91) 100 05/28/17 22:00 74 05/28/17 20:55 99 05/28/17 20:00 98.3 83 22 156/83 (107) 97 05/28/17 20:00 83 05/28/17 18:00 82 05/28/17 16:00 98.3 90 25 185/84 (117) 97 05/28/17 16:00 90 05/28/17 14:00 83 05/28/17 12:00 81 05/28/17 12:00 98.4 81 14 167/75 (105) 96 05/28/17 10:00 78 05/28/17 09:41 21 05/28/17 08:00 90 05/28/17 08:00 98.7 90 18 179/84 (115) 98 05/28/17 06:00 82 05/28/17 04:00 98.7 83 16 171/73 (105) 97 05/28/17 04:00 82 05/28/17 02:00 80 05/28/17 00:00 80 05/28/17 00:00 97.9 80 15 172/75 (107) 98 05/27/17 22:00 76 05/27/17 20:00 88 05/27/17 20:00 98.5 88 21 180/76 (110) 98 05/27/17 18:00 93 05/27/17 16:00 79 05/27/17 16:00 98.2 79 16 167/72 (103) 98 05/27/17 15:55 157/71 (99) 05/27/17 14:00 90 (Jc Farris) Physical Examination GENERAL: Patient is awake and readily interacts. Her affect remains flat. NAD. SKIN: Warm, dry & intact except for left anterior neck surgical incision well approximated w/steri-strips, no drainage, erythema or streaking, intact dressing. HEENT: Normocephalic, atraumatic. NECK: Geary J cervical collar in place, left anterior neck surgical incision w/ intact dressing NTTP, midline cervical spine minimally TTP, no JVD, trachea midline. CARDIOVASCULAR: S1S2 w/RRR w/o M/G/R, radial & pedal pulses 2+ cap refill < 2 sec, no pedal edema. RESPIRATORY: CTAB w/o W/R/R, equal excursion, nonlaboured, on RA. GASTROINTESTINAL: Abdomen soft, nontender, bowel sounds not appreciate. MUSCULOSKELETAL: Move right extremities w/o difficulty, decreased movement of left, no evident deformity or clubbing. NEUROLOGICAL: AAOx3. Speech clear but slow. Follows simple command w/o difficulty. Sensation intact to light touch to all extremities. Strength 4+/5 RUE and 4+/5 RLE; left hand donation specialist 3+ to 4/5, left deltoid 3/5, left hamstring 3+/5, gastrocnemius 3+ to 4/5, tibialis anterior 4 to 4++/5, remainder 1 to 1+/5. (Jc Farris) Lab, Micro, Other Results Laboratory Tests Test 05/28/17 06:20 05/28/17 11:01 Blood Urea Nitrogen 5 MG/DL Creatinine 0.50 MG/DL Random Glucose 188 MG/DL Calcium Level 9.5 MG/DL Sodium Level 134 MEQ/L Potassium Level 3.3 MEQ/L Chloride Level 101 MEQ/L Carbon Dioxide Level 25.2 MEQ/L Anion Gap 8 MEQ/L Estimat Glomerular Filtration Rate 150 ML/MIN White Blood Count 7.8 TH/MM3 Red Blood Count 3.09 MIL/MM3 Hemoglobin 9.7 GM/DL Hematocrit 28.9 % Mean Corpuscular Volume 93.3 FL Mean Corpuscular Hemoglobin 31.3 PG Mean Corpuscular Hemoglobin Concent 33.6 % Red Cell Distribution Width 13.0 % Platelet Count 340 TH/MM3 Mean Platelet Volume 7.7 FL Neutrophils (%) (Auto) 64.8 % Lymphocytes (%) (Auto) 22.7 % Monocytes (%) (Auto) 10.2 % Eosinophils (%) (Auto) 1.0 % Basophils (%) (Auto) 1.3 % Neutrophils # (Auto) 5.1 TH/MM3 Lymphocytes # (Auto) 1.8 TH/MM3 Monocytes # (Auto) 0.8 TH/MM3 Eosinophils # (Auto) 0.1 TH/MM3 Basophils # (Auto) 0.1 TH/MM3 CBC Comment DIFF FINAL Differential Comment (Jc Farris) Medical Decision Making Impression and Plan Impression: 1. Cervical stenosis severe at C 3-4 level 2. Cervical myelopathy 3. Probable cervical spinal cord contusion 4. Hyponatremia 5. Hepatomegaly Postoperative Diagnosis: (1) Cervical disc disease with myelopathy (2) Contusion of cervical cord MRI cervical spine demonstrates discectomy with fusion & instrumentation at C3-4. There is a prevertebral fluid collection from the skull base to the C5-6 level with its epicentre at C3-4. There is also a fluid collection w/i the posterior C3-4 intervertebral disc space effacing the thecal sac. Patient doing better, neurological exam with slight improvement to left side. Patient remains hypertensive. ST recommends mechanical soft with nectar thickened liquids. POD #6 () s/p: C 3-4 Anterior cervical discectomy C3-4 Anterior interbody fusion, allograft bone C3-4 Anterior cervical instrumentation Plan: Primary management per Hospitalist. Continue neuro checks. Maintain cervical collar at all times. Diet per ST recommendations. Will renew PT & OT eval & tx since transferred from [facility]. (Jc Farris) Attending Statement The exam, history, and the medical decision-making described in the above note were completed with the assistance of the mid-level provider. I reviewed and agree with the findings presented. I attest that I had a [id number] encounter with the patient on the same day, and personally performed and documented my assessment and findings in the medical record. Patient remains awake, mild slowing of speech and thought processes. Upper and lower extremity motor function slowly improving postoperative, now mostly 3-4/5 upper extremities with 2/5 left and 3/5 right lower extremity major flexion and extension groups. Incisions healing well. Continuing therapy Advancing to thicken liquids per speech therapy Stable for discharge to inpatient rehabilitation-correction from neurosurgery standpoint (Ricci Duval MD) Jc Farris May 30, 2017 12:41 Ricci Duval MD Jun 06, 2017 08:46
[2017-05-30] MEDS ORDERED: NIFEdipine 30 MG SUSTAINED RELEASE TAB PO ONE (13:15)
[2017-05-30] MEDS: LACTULOSE SYRUP 20 GM/30 ML CUP PO PRN (20:00)
[2017-05-31 00:12] VITALS: BP 161/70; PULSE 77; RESP 18; TEMP 97.5; O2SAT 96
[2017-05-31] MEDS: cloNIDine HCL 0.1 MG TAB PO PRN (03:26)
[2017-05-31 04:47] VITALS: BP 188/76; PULSE 79; RESP 18; TEMP 97.1; O2SAT 96
[2017-05-31] MEDS: hydrALAZINE HCL 100 MG TAB PO SCH ×3 (05:42→20:25)
[2017-05-31] MEDS: ACETAMINOPHEN/HYDROcodone 325 MG/7.5 MG TAB PO PRN ×3 (05:43→20:25)
[2017-05-31 08:10] VITALS: BP 136/54; PULSE 70; RESP 17; TEMP 98; O2SAT 95
[2017-05-31] MEDS: DOCUSATE SODIUM 100 MG CAP PO SCH ×2 (08:24→20:25)
[2017-05-31] MEDS: SODIUM CHLORIDE 0.9% FLUSH 5 ML FLUSH IVF SCH ×2 (08:24→21:00)
[2017-05-31] MEDS: METOPROLOL TARTRATE 100 MG TAB PO SCH ×2 (08:24→20:25)
[2017-05-31] MEDS: LISINOPRIL 20 MG TAB PO SCH (08:24)
[2017-05-31] MEDS: FOLIC ACID 1 MG TAB PO SCH (08:24)
[2017-05-31 12:00] VITALS: BP 180/67; PULSE 72; RESP 18; TEMP 97.7; O2SAT 98
[2017-05-31] MEDS: 1/2 NS + KCL 20 MEQ INJ 1,000 ML IV SCH ×2 (13:24→23:04)
--- NOTE | 2017-05-31 13:41 | HHI.PR ---
Subjective Remarks in no acute distress. has some back pain. BP trend noted. no new complaints. Objective Vitals Vital Signs Date Time Temp Pulse Resp B/P (MAP) Pulse Ox O2 Delivery O2 Flow Rate FiO2 05/31/17 12:00 97.7 72 18 180/67 (104) 98 05/31/17 08:10 98.0 70 17 136/54 (81) 95 05/31/17 04:47 97.1 79 18 188/76 (113) 96 05/31/17 00:12 97.5 77 18 161/70 (100) 96 05/30/17 20:57 98.0 86 18 184/78 (113) 98 05/30/17 20:43 97 21 05/30/17 16:57 18 05/30/17 16:00 97.2 76 18 148/61 (90) 98 I/O 05/30/17 05/30/17 05/30/17 05/31/17 05/31/17 05/31/17 07:00 15:00 23:00 07:00 15:00 23:00 Intake Total 120 ml 400 ml 120 ml 120 ml Output Total 2300 ml 1000 ml 1300 ml 1350 ml Balance -2180 ml -600 ml -1180 ml -1230 ml Intake Oral 120 ml 400 ml 120 ml 120 ml Output Urine Total 2300 ml 1000 ml 1300 ml 1350 ml # Bowel Movements 0 0 0 Result Diagram: 05/28/17 1101 05/28/17 0620 Imaging Last Impressions Cervical Spine MRI 05/25/17 0800 Signed Impressions: Service Date/Time: Thursday, May 25, 2017 19:46 - CONCLUSION: Interim discectomy and fusion procedure with anterior and interbody instrumentation at C3/C4. Prevertebral fluid collection extending from the skull base to the level of C5/C6, epicenter at C3/C4. Also an apparent fluid collection within the posterior C3/C4 intervertebral disc space and effacing the anterior margin of the thecal sac. The fluid collections could represent developing abscesses or subacute hematomas. Findings were discussed with Dr. Duval by phone. Jroge Carvalho MD Cervical Spine X-Ray 05/24/17 0000 Signed Impressions: Service Date/Time: Wednesday, May 24, 2017 17:42 - CONCLUSION: Fusion at C3/C4. No acute complication demonstrated. Jorge Carvalho MD Head CT 05/22/17 0600 Signed Impressions: Service Date/Time: Monday, May 22, 2017 08:25 - CONCLUSION: Stable noncontrast head CT. No acute intracranial abnormality is identified. Jorge Arellano MD Shoulder MRI 05/20/17 0000 Signed Impressions: Service Date/Time: Saturday, May 20, 2017 10:30 - CONCLUSION: Negative for rotator cuff tear. I don't see an etiology for weakness by MRI. Substantial cervical spinal stenosis is present. There is significant neuroforaminal encroachment as well. Chidi Peters MD FACR Head Magnetic Resonance Angiography 05/20/17 0000 Signed Impressions: Service Date/Time: Saturday, May 20, 2017 02:09 - CONCLUSION: 1. Unremarkable MRA examination of the brain. No evidence for large vessel occlusion or stenosis, as questioned. Nolan Krishna MD Cervical Spine CT 05/20/17 0000 Signed Impressions: Service Date/Time: Saturday, May 20, 2017 00:41 - CONCLUSION: 1. No acute fracture or dislocation. 2. Multilevel degenerative spondylosis of the cervical spine. Nolan Krishna MD Carotid Artery Ultrasound 05/20/17 0000 Signed Impressions: Service Date/Time: Saturday, May 20, 2017 08:19 - CONCLUSION: Borderline significant findings on the right. Confirmatory CT angiogram or MR angiogram would be of benefit. Board Certified Radiologist. This report was verified electronically. Brain MRI 05/20/17 0000 Signed Impressions: Service Date/Time: Saturday, May 20, 2017 02:09 - CONCLUSION: 1. Senescent changes with mild small vessel ischemic white matter demyelination. 2. No acute ischemia or acute intracranial abnormality. 3. Bilateral maxillary sinus fluid. Nolan Krishna MD Chest X-Ray 05/19/17 5134 Signed Impressions: Service Date/Time: Saturday, May 20, 2017 00:20 - CONCLUSION: 1. No acute cardiopulmonary disease. Nolan Krishna MD Objective Remarks GENERAL: This is a well-nourished, well-developed patient, in no apparent distress. Neck; cervical collar in place CARDIOVASCULAR: Regular rate and regular rhythm without murmurs, gallops, or rubs. RESPIRATORY: Clear to auscultation. Breath sounds equal bilaterally. No wheezes , rales, or rhonchi. GASTROINTESTINAL: Abdomen soft, non-tender, nondistended. Normal, active bowel sounds MUSCULOSKELETAL: Extremities without clubbing, cyanosis, or edema. NEURO: Alert & Oriented x4 to person, place, time, situation. Moves all ext x4 Medications and IVs Current Medications IV Flush (NS Flush) 2 ml UNSCH PRN IV FLUSH FLUSH AFTER USING IV ACCESS; Start 05/20/17 at 00:00; Stop 05/20/17 at 01:36; Status DC Sodium Chloride 1,000 ml @ 1,000 mls/hr Q1H IV Last administered on 05/20/17 00:17; Start 05/19/17 at 23:53; Stop 05/20/17 at 00:52; Status DC Ceftriaxone Sodium 1000 mg/ Sodium Chloride 100 ml @ 200 mls/hr ONCE ONCE IV Last administered on 05/20/17 01:34; Start 05/20/17 at 01:00; Stop 05/20/17 at 01: 29; Status DC IV Flush (NS Flush) 2 ml BID IV FLUSH Last administered on 05/24/17 08:33; Start 05/20/17 at 09:00; Stop 05/24/17 at 21:43; Status DC IV Flush (NS Flush) 2 ml UNSCH PRN IV FLUSH FLUSH AFTER USING IV ACCESS; Start 05/20/17 at 01:45; Stop 05/24/17 at 21:43; Status DC Clonidine (Catapres) 0.1 mg ONCE ONCE PO Last administered on 05/20/17 03:41; Start 05/20/17 at 03:15; Stop 05/20/17 at 03:17; Status DC Ceftriaxone Sodium 1000 mg/ Sodium Chloride 100 ml @ 200 mls/hr Q12H IV Last administered on 05/26/17 13:00; Start 05/20/17 at 13:00; Stop 05/26/17 at 20:11 ; Status DC Enoxaparin Sodium (Lovenox Inj) 40 mg Q24H SQ Last administered on 05/20/17 09: 00; Start 05/20/17 at 09:00; Stop 05/20/17 at 14:21; Status DC Dextrose (D50w (Vial) Inj) 50 ml UNSCH PRN IV HYPOGLYCEMIA-SEE COMMENTS; Start 05/20/17 at 04:15 Glucagon (Glucagon Inj) 1 mg UNSCH PRN OTHER HYPOGLYCEMIA-SEE COMMENTS; Start 05/20/17 at 04:15 Amlodipine Besylate (Norvasc) 10 mg DAILY PO Last administered on 05/31/17 08: 24; Start 05/20/17 at 17:15 Atorvastatin Calcium (Lipitor) 40 mg HS PO ; Start 05/20/17 at 21:00; Stop at 21:00; Status DC Folic Acid (Folate) 1 mg DAILY PO Last administered on 05/31/17 08:24; Start 05/20/17 at 17:15 Hydralazine HCl (Apresoline) 25 mg BID PO Last administered on 05/22/17 08:06 ; Start 05/20/17 at 21:00; Stop 05/22/17 at 12:24; Status DC Metoprolol Tartrate (Lopressor) 100 mg Q12HR PO Last administered on 05/24/17 08:33; Start 05/20/17 at 21:00; Stop 05/25/17 at 18:32; Status DC Enalaprilat (Vasotec Inj) 1.25 mg Q6H PRN IV PUSH bp>160/90 Last administered on 05/24/17 12:55; Start 05/20/17 at 17:30; Stop 05/27/17 at 16:11; Status DC Hydralazine HCl (Apresoline) 25 mg NOW ONCE PO Last administered on 05/20/17 18:09; Start 05/20/17 at 18:00; Stop 05/20/17 at 18:01; Status DC Morphine Sulfate (Morphine Inj) 3 mg NOW ONCE IV Last administered on 11:09; Start 05/21/17 at 11:15; Stop 05/21/17 at 11:16; Status DC Lisinopril (Prinivil) 20 mg Q12HR PO Last administered on 05/22/17 08:06; Start 05/21/17 at 21:00; Stop 05/22/17 at 12:24; Status DC Acetaminophen/ Hydrocodone Bitart ([place] 7.5-325 Mg) 1 tab Q6H PRN PO FOR PAIN 5-8 Last administered on 05/31/17 12:18; Start 05/22/17 at 09:15 Morphine Sulfate (Morphine Inj) 3 mg Q6H PRN IV PAIN 8-10 Last administered on 05/22/17 09:16; Start 05/22/17 at 09:15; Stop 05/22/17 at 09:49; Status DC Morphine Sulfate (Morphine Inj) 3 mg Q12HR PRN IV PAIN 8-10 Last administered on 05/29/17 06:00; Start 05/22/17 at 10:00 Hydralazine HCl (Apresoline) 25 mg TID PO Last administered on 05/22/17 17:28 ; Start 05/22/17 at 13:00; Stop 05/22/17 at 20:50; Status DC Lisinopril (Prinivil) 40 mg DAILY PO Last administered on 05/31/17 08:24; Start 05/23/17 at 09:00 Lisinopril (Prinivil) 20 mg ONCE ONCE PO Last administered on 05/22/17 12:36 ; Start 05/22/17 at 12:30; Stop 05/22/17 at 12:31; Status DC Hydralazine HCl (Apresoline) 25 mg Q8H PO Last administered on 05/25/17 06:08 ; Start 05/22/17 at 22:00; Stop 05/25/17 at 07:58; Status DC Padimate O (Chapstick) 1 applic UNSCH PRN TOPICAL dry lips Last administered on 05/31/17 12:11; Start 05/23/17 at 09:45 Lactated Ringer's 1,000 ml @ 30 mls/hr Q24H PRN IV SEE LABEL COMMENTS; Start at 03:45; Stop 05/27/17 at 03:44; Status DC Sodium Chloride 500 ml @ 30 mls/hr [id number] PRN IV SEE LABEL COMMENTS; Start 08/28 at 03:45; Stop 05/27/17 at 03:44; Status DC Povidone Iodine (Betadine 5% Antisepsis Kit) 1 applic CARB[employer]ER PRN EACH NARE SEE LABEL COMMENTS; Start 05/24/17 at 03:45; Stop 05/27/17 at 03:44; Status DC Chlorhexidine Gluconate (Chlorhexidine 2% Cloth) 3 pack [employer]ER PRN TOPICAL SEE LABEL COMMENTS; Start 05/24/17 at 03:45; Stop 05/27/17 at 03:44; Status DC Insulin Human Regular (NovoLIN R INJ) See Protocol Table ... CARB[employer] CLE[employer]ER PRN SQ SEE PROTOCOL TABLE; Start 05/24/17 at 03:45; Stop 05/27/17 at 03:44; Status DC Lidocaine/ Epinephrine (Xylocaine-Epi 0.5%-1:200,000 Inj) 50 ml STK-MED ONCE .ROUTE ; Start 05/24/17 at 15:44; Stop 05/24/17 at 15:45; Status DC Thrombin (Thrombin Top Soln) 10,000 units STK-MED ONCE .ROUTE Last administered on 05/24/17 17:42; Start 05/24/17 at 15:44; Stop 05/24/17 at 15:45 ; Status DC Gelatin (Gelfoam 100 Top) 1 foam STK-MED ONCE .ROUTE Last administered on 17:42; Start 05/24/17 at 15:45; Stop 05/24/17 at 15:46; Status DC Gentamicin Sulfate (Gentamicin Inj) 240 mg STK-MED ONCE .ROUTE Last administered on 05/24/17 17:42; Start 05/24/17 at 15:45; Stop 05/24/17 at 15:46 ; Status DC Midazolam HCl (Versed Inj) 2 mg STK-MED ONCE .ROUTE ; Start 05/24/17 at 16:29; Stop 05/24/17 at 16:30; Status DC Famotidine (Pepcid Inj) 20 mg STK-MED ONCE .ROUTE ; Start 05/24/17 at 16:29; Stop 05/24/17 at 16:30; Status DC Lidocaine/ Epinephrine (Xylocaine-Epi Mpf 2%-1:200,000 Inj) 20 ml STK-MED ONCE .ROUTE Last administered on 05/24/17 17:42; Start 05/24/17 at 16:47; Stop 08/28 at 16:48; Status DC Acetaminophen 100 ml @ As Directed STK-MED ONCE IV ; Start 05/24/17 at 17:03; Stop 05/24/17 at 17:06; Status DC Propofol 150 ml @ As Directed STK-MED ONCE .ROUTE ; Start 05/24/17 at 17:03; Stop 05/24/17 at 17:06; Status DC Hydromorphone HCl (Dilaudid Pf Inj) 2 mg STK-MED ONCE .ROUTE ; Start 05/24/17 at 17:03; Stop 05/24/17 at 17:06; Status DC Cefazolin Sodium/ Dextrose 50 ml @ As Directed STK-MED ONCE .ROUTE Last administered on 05/24/17 17:32; Start 05/24/17 at 17:31; Stop 05/24/17 at 17:32 ; Status DC Chlorhexidine Gluconate (Peridex 0.12% Liq) 15 ml STK-MED ONCE .ROUTE Last administered on 05/24/17 20:23; Start 05/24/17 at 20:15; Stop 05/24/17 at 20:16 ; Status DC Miscellaneous Information ALL NURSING DEPARTME... UNSCH PRN .XX SEE LABEL COMMENTS; Start 05/24/17 at 20:40; Stop 05/25/17 at 20:39; Status DC IV Flush (NS Flush) 2 ml UNSCH PRN IVF FLUSH AFTER USING IV ACCESS; Start 05/24 at 21:30 IV Flush (NS Flush) 2 ml BID IVF Last administered on 05/29/17 07:29; Start at 09:00 Potassium Chloride/Sodium Chloride 1,000 ml @ 100 mls/hr Q10H IV Last administered on 05/30/17 12:04; Start 05/24/17 at 21:24 Hydralazine HCl (Apresoline) 25 mg Q6HR PO ; Start 05/25/17 at 12:00; Stop 05/25 at 18:33; Status DC Hydralazine HCl (Apresoline Inj) 20 mg Q4H PRN IV PUSH SYS BP GREATER THAN 160 MMHG Last administered on 05/29/17 03:12; Start 05/25/17 at 09:00 Pharmacy Profile Note 0 ml @ 0 mls/hr UNSCH OTHER ; Start 05/25/17 at 18:15; Stop 05/25/17 at 18:26; Status DC Vancomycin HCl 1500 mg/Sodium Chloride 515 ml @ 250 mls/hr Q12H IV ; Start at 20:00; Stop 05/25/17 at 20:00; Status DC Metoprolol Tartrate (Lopressor) 100 mg Q8HR PO Last administered on 05/26/17 05:05; Start 05/25/17 at 22:00; Stop 05/26/17 at 12:38; Status DC Hydralazine HCl (Apresoline) 50 mg Q8HR PO Last administered on 05/28/17 12:56 ; Start 05/25/17 at 22:00; Stop 05/28/17 at 15:12; Status DC Labetalol HCl (Trandate Inj) 10 mg Q4H PRN IV PUSH sbp >160 Last administered on 05/29/17 04:27; Start 05/25/17 at 19:00; Stop 05/30/17 at 16:37; Status DC Metoprolol Tartrate (Lopressor Inj) 10 mg Q6H IV PUSH Last administered on 05/27 13:42; Start 05/26/17 at 14:00; Stop 05/27/17 at 16:12; Status DC Ceftriaxone Sodium 1000 mg/ Sodium Chloride 100 ml @ 200 mls/hr Q24H IV Last administered on 05/30/17 11:59; Start 05/27/17 at 13:00; Stop 05/30/17 at 13:10 ; Status DC Metoprolol Tartrate (Lopressor) 100 mg Q12HR PO Last administered on 05/31/17 08:24; Start 05/27/17 at 21:00 Hydralazine HCl (Apresoline) 75 mg Q8H PO Last administered on 05/29/17 11:55 ; Start 05/28/17 at 21:00; Stop 05/29/17 at 13:33; Status DC Hydralazine HCl (Apresoline) 100 mg Q8H PO Last administered on 05/31/17 12:09 ; Start 05/29/17 at 21:00 Clonidine (Catapres) 0.1 mg Q8HR PRN PO SBP> OR = 180, DBP> OR = 100 Last administered on 05/31/17 03:26; Start 05/29/17 at 13:45 Docusate Sodium (Colace) 100 mg BID PO Last administered on 05/31/17 08:24; Start 05/30/17 at 09:00 Magnesium Hydroxide (Milk Of Magnesia Liq) 30 ml Q12H PRN PO MILD - MODERATE CONSTIPATION Last administered on 05/30/17 20:00; Start 05/29/17 at 22:30 Lactulose (Lactulose Liq) 30 ml DAILY PRN PO SEVERE CONSITIPATION Last administered on 05/30/17 20:00; Start 05/29/17 at 22:30 Nifedipine (Procardia Xl) 30 mg ONCE ONCE PO Last administered on 05/30/17 15 :54; Start 05/30/17 at 13:15; Stop 05/30/17 at 13:16; Status DC A/P Assessment and Plan Status post cervical decompression on 05/[address] Duval - MRI findings suggestive of myelopathy was signal intensity changes, possible acute cord contusion. - Senescent changes with mild small vessel ischemic white matter demyelination; no acute ischemia or acute intracranial abnormality. Bilateral maxillary sinus fluid. - Cervical spine CT with no fracture or dislocation. - MRA unremarkable. - EEG reviewed showing slow alpha variant. -Orthostatic blood pressures checked, no significance. - Previous echocardiogram from November 2016 admission were unremarkable. - Carotid ultrasound reviewed showing borderline significant changes on the right, defer to neurology if follow up needed. - Neurology following patient, recommendations to continue hard collar, pain control and monitor clinically. - Cardiology has seen patient with recommendations for implantable loop recorder. Has cleared patient for surgery with no further need for lexiscan. +1/4 blood culture tube for a Staphylococcus weineri Follow repeat blood culture negative so far. consulted ID most likely contamination UTI - Culture growing gram - remedios, E coli present. - Continue Ceftriaxone 1 gram IV q12 h. for total 7 days -Now ID following Hyponatremia - Nephrology following patient, appreciate input. 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 Monitor for symptoms. -Monitor BMP Hypertension:continue hydralazine, Amlodipine and Lopressor. clonidine prn- Continue to monitor closely- will adjust the regimen based on the trend. hypokalemia; replaced. DVT prophylaxis: SCD's Luz Marina Langford MD May 31, 2017 13:41
--- NOTE | 2017-05-31 14:45 | HHI.PR ---
Review/Management Diagnosis/Plan: (1) Contusion of cervical cord ICD Codes: S14.109A - Unspecified injury at unspecified level of cervical spinal cord, initial encounter Status: Acute Plan: +left c4 level increased signal suggestive of contusion/infarct advanced cervical stenosis c3,4 05/24 s/p cervical decompression recs neuro stable pain controlled motor strength slowing improving REhab placement (2) HTN (hypertension) ICD Codes: I10 - Hypertension Status: Acute Plan: fluctuating needs better control- per medical (3) Hyperlipidemia ICD Codes: E78.5 - Hyperlipidemia Status: Acute (4) Diabetes ICD Codes: E11.9 - Diabetes mellitus Status: Chronic Subjective Subjective Comments No acute events reported pain is controlled No headache No chest pain No dyspnea Active Medications Current Medications Medications (Trade) Dose Ordered Sig/Tereza Route Start Time Stop Time Status Last Admin (D50w (Vial) Inj) 50 ml UNSCH PRN IV 05/20/17 04:15 (Glucagon Inj) 1 mg UNSCH PRN OTHER 05/20/17 04:15 (Norvasc) 10 mg DAILY PO 05/20/17 17:15 05/31/17 08:24 (Folate) 1 mg DAILY PO 05/20/17 17:15 05/31/17 08:24 ([place] 7.5-325 Mg) 1 tab Q6H PRN PO 05/22/17 09:15 05/31/17 12:18 (Morphine Inj) 3 mg Q12HR PRN IV 05/22/17 10:00 05/29/17 06:00 (Prinivil) 40 mg DAILY PO 05/23/17 09:00 05/31/17 08:24 (Chapstick) 1 applic UNSCH PRN TOPICAL 05/23/17 09:45 05/31/17 12:11 (NS Flush) 2 ml UNSCH PRN IVF 05/24/17 21:30 (NS Flush) 2 ml BID IVF 05/25/17 09:00 05/29/17 07:29 Potassium Chloride/Sodium Chloride 1,000 ml @ 100 mls/hr Q10H IV 05/24/17 21:24 05/30/17 12:04 (Apresoline Inj) 20 mg Q4H PRN IV PUSH 05/25/17 09:00 05/29/17 03:12 (Lopressor) 100 mg Q12HR PO 05/27/17 21:00 05/31/17 08:24 (Apresoline) 100 mg Q8H PO 05/29/17 21:00 05/31/17 12:09 (Catapres) 0.1 mg Q8HR PRN PO 05/29/17 13:45 05/31/17 03:26 (Colace) 100 mg BID PO 05/30/17 09:00 05/31/17 08:24 (Milk Of Magnesia Liq) 30 ml Q12H PRN PO 05/29/17 22:30 05/30/17 20:00 (Lactulose Liq) 30 ml DAILY PRN PO 05/29/17 22:30 05/30/17 20:00 Allergies Allergies Coded Allergies No Known Allergies (Verified Allergy, Unknown, 05/21/17) Review of Systems All other ROS: ROS reviewed as documented in chart Exam I&O / VS Vital Signs Date Time Temp Pulse Resp B/P (MAP) Pulse Ox O2 Delivery O2 Flow Rate FiO2 05/31/17 13:18 16 05/31/17 12:00 97.7 72 18 180/67 (104) 98 05/31/17 08:10 98.0 70 17 136/54 (81) 95 05/31/17 04:47 97.1 79 18 188/76 (113) 96 05/31/17 00:12 97.5 77 18 161/70 (100) 96 05/30/17 20:57 98.0 86 18 184/78 (113) 98 05/30/17 20:43 97 21 05/30/17 16:00 97.2 76 18 148/61 (90) 98 General: Alert and Oriented, No acute distress Cardiology: Normal rate (Tachycardic), Normal peripheral perfusion, Regular Rhythm Musculoskeletal: Swelling (None in distal lower extremities) Neurologic: Alert Psychiatric: Cooperative Exam Comments alert, ox 3, calm, pleasant, hard collar in place, eomi, vff, face sym, left hand lan analyst 3/5, able to slightly raise left ue to gravity, left le 1-2/5, msr sym , no clonus, planterflexor Objective Micro and Labs Date/Time Source Procedure Growth Status 05/26/17 01:31 Blood Peripheral Aerobic Blood Culture - Final NO GROWTH IN 5 DAYS Complete 05/26/17 01:31 Blood Peripheral Anaerobic Blood Culture - Final NO GROWTH IN 5 DAYS Complete 05/20/17 00:10 Urine Catheterized Urine Urine Culture - Final Escherichia Coli Complete Problem Qualifiers (1) Contusion of cervical cord: Qualified Codes: S14.109A - Unspecified injury at unspecified level of cervical spinal cord, initial encounter (2) HTN (hypertension): Qualified Codes: I10 - Essential (primary) hypertension (3) Hyperlipidemia: Qualified Codes: E78.5 - Hyperlipidemia, unspecified Jasen Gómez MD May 31, 2017 14:45
--- NOTE | 2017-05-31 15:05 | HHI.NSPN ---
(Jc Farris) History Chief Complaint: Left side still weak. (Jc Farris) Interval History 05/20: 66-year-old female gives a history of progressive gait difficulty for the past year. She states that she was in the hospital in November 2016 and fell at that time. Her medical records indicate an admission for syncope and cardiac evaluation revealed 65% ejection fraction. She indicates that she has been using a cane to ambulate for the past few months. She states that she has fallen a couple of times in the past 2 weeks, the last time on 05/18/2017. Since these falls, she has had significant increased weakness in the left arm and leg. She denies any significant sensory changes. No definite bowel or bladder dysfunction. She has mild to moderate neck pain which is a little worse since her most recent fall. She has no complaint of significant joint pain. She states that when she ambulates, she has poor balance and loss of control of her legs. Since the fall, she has had much more left extremity weakness. 05/21/2017: Persistent neck pain. Some discomfort left foot. No change in neurologic exam versus 05/20/1705/24: The patient is awake and alert when seen this afternoon. She states that she is doing good. She does have pain to the posterior neck and the weakness to the left side extremities. She has been cleared by Cardiology and Medicine for surgery later this afternoon. 05/25: The patient went for a discectomy with interbody fusion and instrumentation at the C3-4 level yesterday. Post-operatively she was transferred to [facility]. This morning the patient is awake but lethargic. When asked how she is doing she states she is doing good. She had no complaints during the review of systems. Nursing reported that the patient did have difficulty taking oral medication even when crushed and given in applesauce. The patient has also been hypertensive and Nursing reports that the family has previously told them the patient is allergic to Vasotec but it is not recorded as an allergy. Therefore it was not given. She did receive morphine prior to being seen for pain per Nursing. 05/26: The patient is awake this morning when seen. She is lethargic and does interact. She briefly verbalises and does follow commands. She is hypertensive when seen. Nursing reports that the patient did have difficulty taking her meds crushed in applesauce this morning and had to suction it back out of the patient 's mouth. Speech Therapy did do a swallow eval yesterday and recommended NPO. 05/27: The patient is more awake and interactive this morning. She states that her neck feels "Okay" when asked. She denies any sore throat or difficulty swallowing. 05/28: Patient awake and alert. She denies pain. No radiculopathy or paresthesias in the upper extremities. She has left-sided weakness. 05/29: Pt awake and alert. Denies pain. States pressure on right side of head resolved. No radiculopathy in UEs. left sided weakness. 05/30: This afternoon the patient is awake and alert, watching TV. She says she is doing fine. She states she still has weakness to the left side and has some aching to the back of the neck. 05/31: The patient when seen this afternoon states that she is doing good. She complains of itching to the front and back of the neck. She did report having some pain to the back of the neck last night but it is better today. The weakness to the left side still persists. (Jc Farris) System Review Comments Constitutional: Patient denies any fever or chills. HEENT: Patient denies any sore throat, difficulty swallowing or any visual or hearing problems. Respiratory: Patient denies any shortness of breath or productive cough. Cardiovascular: Patient denies any chest pain, palpitations or irregular heartbeat. Gastrointestinal: Patient denies any abdominal pain, nausea, vomiting or incontinence of stool. Genitourinary: Patient has Yung catheter in place.. Musculoskeletal: Patient has some aching to the back of her neck. She denies any back or extremity pain. Neurologic: Patient still with left-sided weakness. She denies any headache, dizziness, numbness or tingling. (Jc Farris) Exam Results 05/29/17 05/29/17 05/30/17 05/30/17 05/31/17 05/31/17 06:00 18:00 06:00 18:00 06:00 18:00 Intake Total 1311 ml 520 ml 120 ml 120 ml Output Total 2475 ml 1800 ml 3300 ml 1300 ml 1350 ml Balance -1164 ml -1800 ml -2780 ml -1180 ml -1230 ml Intake Oral 520 ml 120 ml 120 ml IV Total 1311 ml Output Urine Total 2475 ml 1800 ml 3300 ml 1300 ml 1350 ml # Bowel Movements 0 0 0 0 Vital Signs Date Time Temp Pulse Resp B/P (MAP) Pulse Ox O2 Delivery O2 Flow Rate FiO2 05/31/17 13:18 16 05/31/17 12:00 97.7 72 18 180/67 (104) 98 05/31/17 08:10 98.0 70 17 136/54 (81) 95 05/31/17 04:47 97.1 79 18 188/76 (113) 96 05/31/17 00:12 97.5 77 18 161/70 (100) 96 05/30/17 20:57 98.0 86 18 184/78 (113) 98 05/30/17 20:43 97 21 05/30/17 16:00 97.2 76 18 148/61 (90) 98 05/30/17 12:00 98.1 80 17 165/80 (108) 98 05/30/17 08:00 98.0 79 18 190/82 (118) 98 05/30/17 04:17 98.2 74 17 179/73 (108) 99 05/30/17 00:59 97.7 70 17 164/73 (103) 96 05/29/17 22:00 65 05/29/17 20:40 97 05/29/17 20:00 78 05/29/17 20:00 98.4 78 18 187/86 (119) 98 05/29/17 18:00 67 05/29/17 16:00 81 05/29/17 16:00 98.2 81 14 174/79 (110) 99 05/29/17 14:00 78 05/29/17 12:00 98.3 82 15 176/80 (112) 98 05/29/17 12:00 82 05/29/17 10:00 86 05/29/17 08:00 85 05/29/17 08:00 97.7 75 23 166/76 (106) 100 05/29/17 06:05 12 05/29/17 06:00 85 05/29/17 04:00 98.1 96 16 193/84 (120) 100 05/29/17 04:00 78 05/29/17 02:00 78 05/29/17 00:00 78 05/29/17 00:00 98.7 78 15 163/56 (91) 100 05/28/17 22:00 74 05/28/17 20:55 99 05/28/17 20:00 98.3 83 22 156/83 (107) 97 05/28/17 20:00 83 05/28/17 18:00 82 05/28/17 16:00 98.3 90 25 185/84 (117) 97 05/28/17 16:00 90 (Jc Farris) Physical Examination GENERAL: Patient is awake and readily interacts. Her affect remains is essentially normal. NAD. SKIN: Warm, dry & intact except for left anterior neck surgical incision well approximated w/steri-strips, no drainage, erythema or streaking, intact dressing. HEENT: Normocephalic, atraumatic. NECK: Wheeler J cervical collar in place, left anterior neck surgical incision w/ intact dressing NTTP, midline cervical spine minimally TTP, no JVD, trachea midline. CARDIOVASCULAR: S1S2 w/RRR w/o M/G/R, radial & pedal pulses 2+ cap refill < 2 sec, no pedal edema. RESPIRATORY: CTAB w/o W/R/R, equal excursion, nonlaboured, on RA. GASTROINTESTINAL: Abdomen soft, nontender, bowel sounds not appreciate. MUSCULOSKELETAL: Move right extremities w/o difficulty, decreased movement of left, no evident deformity or clubbing. NEUROLOGICAL: AAOx3. Speech clear and appropriate. Follows simple command w/o difficulty. Sensation intact to light touch to all extremities. 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 (Jc Farris) Medical Decision Making Impression and Plan Impression: 1. Cervical stenosis severe at C 3-4 level 2. Cervical myelopathy 3. Probable cervical spinal cord contusion 4. Hyponatremia 5. Hepatomegaly Postoperative Diagnosis: (1) Cervical disc disease with myelopathy (2) Contusion of cervical cord MRI cervical spine demonstrates discectomy with fusion & instrumentation at C3-4. There is a prevertebral fluid collection from the skull base to the C5-6 level with its epicentre at C3-4. There is also a fluid collection w/i the posterior C3-4 intervertebral disc space effacing the thecal sac. Patient doing better, neurological exam stable. Patient remains hypertensive. ST recommends mechanical soft with nectar thickened liquids. PT & OT recommend inpatient rehab. POD #7 () s/p: C 3-4 Anterior cervical discectomy C3-4 Anterior interbody fusion, allograft bone C3-4 Anterior cervical instrumentation Plan: Primary management per Hospitalist. Continue neuro checks. Maintain cervical collar at all times. Diet per ST recommendations. PT & OT eval & tx. (Jc Farris) Attending Statement The exam, history, and the medical decision-making described in the above note were completed with the assistance of the mid-level provider. I reviewed and agree with the findings presented. I attest that I had a [id number] encounter with the patient on the same day, and personally performed and documented my assessment and findings in the medical record. The patient's examination today on 05/31/17 reveals her to be relatively alert. Upper and lower extremity strength seemed to be gradually improving postoperative. Incision dry and intact. Continuing PT/OT. Stable for discharge to inpatient rehabilitation-long-term from neurosurgery standpoint. (Ricci Duval MD) Jc Farris May 31, 2017 15:05 Ricci Duval MD May 31, 2017 21:29
[2017-05-31 16:00] VITALS: BP 172/66; PULSE 92; RESP 18; TEMP 99.1; O2SAT 95
[2017-05-31 20:24] VITALS: BP 196/69; PULSE 92; RESP 18; TEMP 98.4; O2SAT 97
[2017-06-01 00:30] VITALS: BP 170/81; PULSE 66; RESP 18; TEMP 98.9; O2SAT 95
[2017-06-01 04:50] VITALS: BP 181/69; PULSE 77; RESP 18; TEMP 97.8; O2SAT 98
[2017-06-01] MEDS: hydrALAZINE HCL 100 MG TAB PO SCH ×3 (05:07→20:04)
[2017-06-01] MEDS: ACETAMINOPHEN/HYDROcodone 325 MG/7.5 MG TAB PO PRN ×3 (05:07→17:34)
[2017-06-01 08:00] VITALS: BP 165/72; PULSE 91; RESP 17; TEMP 97.9; O2SAT 97
[2017-06-01] MEDS: METOPROLOL TARTRATE 100 MG TAB PO SCH ×2 (08:05→20:04)
[2017-06-01] MEDS: FOLIC ACID 1 MG TAB PO SCH (08:05)
[2017-06-01] MEDS: LISINOPRIL 20 MG TAB PO SCH (08:05)
[2017-06-01] MEDS: DOCUSATE SODIUM 100 MG CAP PO SCH ×2 (08:05→20:04)
[2017-06-01] MEDS: LACTULOSE SYRUP 20 GM/30 ML CUP PO PRN (08:05)
[2017-06-01] MEDS: SODIUM CHLORIDE 0.9% FLUSH 5 ML FLUSH IVF SCH ×2 (08:11→20:04)
[2017-06-01] MEDS: 1/2 NS + KCL 20 MEQ INJ 1,000 ML IV SCH ×2 (08:11→20:05)
--- NOTE | 2017-06-01 10:21 | HHI.PR ---
Subjective Remarks in no acute distress. pain is controlled. d/w the RN and no acute issues over night. Objective Vitals Vital Signs Date Time Temp Pulse Resp B/P (MAP) Pulse Ox O2 Delivery O2 Flow Rate FiO2 06/01/17 08:00 97.9 91 17 165/72 (103) 97 06/01/17 04:50 97.8 77 18 181/69 (106) 98 06/01/17 00:30 98.9 66 18 170/81 (110) 95 05/31/17 20:24 98.4 92 18 196/69 (111) 97 05/31/17 16:00 99.1 92 18 172/66 (101) 95 05/31/17 13:18 16 05/31/17 12:00 97.7 72 18 180/67 (104) 98 I/O 05/31/17 05/31/17 05/31/17 06/01/17 06/01/17 06/01/17 06:59 14:59 22:59 06:59 14:59 22:59 Intake Total 120 ml 100 ml 240 ml 120 ml Output Total 1350 ml 600 ml 650 ml 400 ml Balance -1230 ml -500 ml -410 ml -280 ml Intake Oral 120 ml 100 ml 240 ml 120 ml Output Urine Total 1350 ml 600 ml 650 ml 400 ml # Bowel Movements 0 0 0 Result Diagram: 05/28/17 1101 05/28/17 0620 Imaging Last Impressions Cervical Spine MRI 05/25/17 0800 Signed Impressions: Service Date/Time: Thursday, May 25, 2017 19:46 - CONCLUSION: Interim discectomy and fusion procedure with anterior and interbody instrumentation at C3/C4. Prevertebral fluid collection extending from the skull base to the level of C5/C6, epicenter at C3/C4. Also an apparent fluid collection within the posterior C3/C4 intervertebral disc space and effacing the anterior margin of the thecal sac. The fluid collections could represent developing abscesses or subacute hematomas. Findings were discussed with Dr. Duval by phone. Jorge Carvalho MD Cervical Spine X-Ray 05/24/17 0000 Signed Impressions: Service Date/Time: Wednesday, May 24, 2017 17:42 - CONCLUSION: Fusion at C3/C4. No acute complication demonstrated. Jorge Carvalho MD Head CT 05/22/17 0600 Signed Impressions: Service Date/Time: Monday, May 22, 2017 08:25 - CONCLUSION: Stable noncontrast head CT. No acute intracranial abnormality is identified. Jorge Arellano MD Shoulder MRI 05/20/17 0000 Signed Impressions: Service Date/Time: Saturday, May 20, 2017 10:30 - CONCLUSION: Negative for rotator cuff tear. I don't see an etiology for weakness by MRI. Substantial cervical spinal stenosis is present. There is significant neuroforaminal encroachment as well. Chidi Peters MD FACR Head Magnetic Resonance Angiography 05/20/17 0000 Signed Impressions: Service Date/Time: Saturday, May 20, 2017 02:09 - CONCLUSION: 1. Unremarkable MRA examination of the brain. No evidence for large vessel occlusion or stenosis, as questioned. Nolan Krishna MD Cervical Spine CT 05/20/17 0000 Signed Impressions: Service Date/Time: Saturday, May 20, 2017 00:41 - CONCLUSION: 1. No acute fracture or dislocation. 2. Multilevel degenerative spondylosis of the cervical spine. Nolan Krishna MD Carotid Artery Ultrasound 05/20/17 0000 Signed Impressions: Service Date/Time: Saturday, May 20, 2017 08:19 - CONCLUSION: Borderline significant findings on the right. Confirmatory CT angiogram or MR angiogram would be of benefit. Board Certified Radiologist. This report was verified electronically. Brain MRI 05/20/17 0000 Signed Impressions: Service Date/Time: Saturday, May 20, 2017 02:09 - CONCLUSION: 1. Senescent changes with mild small vessel ischemic white matter demyelination. 2. No acute ischemia or acute intracranial abnormality. 3. Bilateral maxillary sinus fluid. Nolan Krishna MD Chest X-Ray 05/19/17 7553 Signed Impressions: Service Date/Time: Saturday, May 20, 2017 00:20 - CONCLUSION: 1. No acute cardiopulmonary disease. Nolan Krishna MD Objective Remarks GENERAL: This is a well-nourished, well-developed patient, in no apparent distress. Neck; cervical collar in place CARDIOVASCULAR: Regular rate and regular rhythm without murmurs, gallops, or rubs. RESPIRATORY: Clear to auscultation. Breath sounds equal bilaterally. No wheezes , rales, or rhonchi. GASTROINTESTINAL: Abdomen soft, non-tender, nondistended. Normal, active bowel sounds MUSCULOSKELETAL: Extremities without clubbing, cyanosis, or edema. NEURO: Alert & Oriented x4 to person, place, time, situation. Moves all ext x4 Medications and IVs Current Medications IV Flush (NS Flush) 2 ml UNSCH PRN IV FLUSH FLUSH AFTER USING IV ACCESS; Start 05/20/17 at 00:00; Stop 05/20/17 at 01:36; Status DC Sodium Chloride 1,000 ml @ 1,000 mls/hr Q1H IV Last administered on 05/20/17 00:17; Start 05/19/17 at 23:53; Stop 05/20/17 at 00:52; Status DC Ceftriaxone Sodium 1000 mg/ Sodium Chloride 100 ml @ 200 mls/hr ONCE ONCE IV Last administered on 05/20/17 01:34; Start 05/20/17 at 01:00; Stop 05/20/17 at 01: 29; Status DC IV Flush (NS Flush) 2 ml BID IV FLUSH Last administered on 05/24/17 08:33; Start 05/20/17 at 09:00; Stop 05/24/17 at 21:43; Status DC IV Flush (NS Flush) 2 ml UNSCH PRN IV FLUSH FLUSH AFTER USING IV ACCESS; Start 05/20/17 at 01:45; Stop 05/24/17 at 21:43; Status DC Clonidine (Catapres) 0.1 mg ONCE ONCE PO Last administered on 05/20/17 03:41; Start 05/20/17 at 03:15; Stop 05/20/17 at 03:17; Status DC Ceftriaxone Sodium 1000 mg/ Sodium Chloride 100 ml @ 200 mls/hr Q12H IV Last administered on 05/26/17 13:00; Start 05/20/17 at 13:00; Stop 05/26/17 at 20:11 ; Status DC Enoxaparin Sodium (Lovenox Inj) 40 mg Q24H SQ Last administered on 05/20/17 09: 00; Start 05/20/17 at 09:00; Stop 05/20/17 at 14:21; Status DC Dextrose (D50w (Vial) Inj) 50 ml UNSCH PRN IV HYPOGLYCEMIA-SEE COMMENTS; Start 05/20/17 at 04:15 Glucagon (Glucagon Inj) 1 mg UNSCH PRN OTHER HYPOGLYCEMIA-SEE COMMENTS; Start 05/20/17 at 04:15 Amlodipine Besylate (Norvasc) 10 mg DAILY PO Last administered on 06/01/17 08: 05; Start 05/20/17 at 17:15 Atorvastatin Calcium (Lipitor) 40 mg HS PO ; Start 05/20/17 at 21:00; Stop at 21:00; Status DC Folic Acid (Folate) 1 mg DAILY PO Last administered on 06/01/17 08:05; Start 05/20/17 at 17:15 Hydralazine HCl (Apresoline) 25 mg BID PO Last administered on 05/22/17 08:06 ; Start 05/20/17 at 21:00; Stop 05/22/17 at 12:24; Status DC Metoprolol Tartrate (Lopressor) 100 mg Q12HR PO Last administered on 05/24/17 08:33; Start 05/20/17 at 21:00; Stop 05/25/17 at 18:32; Status DC Enalaprilat (Vasotec Inj) 1.25 mg Q6H PRN IV PUSH bp>160/90 Last administered on 05/24/17 12:55; Start 05/20/17 at 17:30; Stop 05/27/17 at 16:11; Status DC Hydralazine HCl (Apresoline) 25 mg NOW ONCE PO Last administered on 05/20/17 18:09; Start 05/20/17 at 18:00; Stop 05/20/17 at 18:01; Status DC Morphine Sulfate (Morphine Inj) 3 mg NOW ONCE IV Last administered on 11:09; Start 05/21/17 at 11:15; Stop 05/21/17 at 11:16; Status DC Lisinopril (Prinivil) 20 mg Q12HR PO Last administered on 05/22/17 08:06; Start 05/21/17 at 21:00; Stop 05/22/17 at 12:24; Status DC Acetaminophen/ Hydrocodone Bitart ([place] 7.5-325 Mg) 1 tab Q6H PRN PO FOR PAIN 5-8 Last administered on 06/01/17 05:07; Start 05/22/17 at 09:15 Morphine Sulfate (Morphine Inj) 3 mg Q6H PRN IV PAIN 8-10 Last administered on 05/22/17 09:16; Start 05/22/17 at 09:15; Stop 05/22/17 at 09:49; Status DC Morphine Sulfate (Morphine Inj) 3 mg Q12HR PRN IV PAIN 8-10 Last administered on 05/29/17 06:00; Start 05/22/17 at 10:00 Hydralazine HCl (Apresoline) 25 mg TID PO Last administered on 05/22/17 17:28 ; Start 05/22/17 at 13:00; Stop 05/22/17 at 20:50; Status DC Lisinopril (Prinivil) 40 mg DAILY PO Last administered on 06/01/17 08:05; Start 05/23/17 at 09:00 Lisinopril (Prinivil) 20 mg ONCE ONCE PO Last administered on 05/22/17 12:36 ; Start 05/22/17 at 12:30; Stop 05/22/17 at 12:31; Status DC Hydralazine HCl (Apresoline) 25 mg Q8H PO Last administered on 05/25/17 06:08 ; Start 05/22/17 at 22:00; Stop 05/25/17 at 07:58; Status DC Padimate O ([place]) 1 applic UNSCH PRN TOPICAL dry lips Last administered on 05/31/17 12:11; Start 05/23/17 at 09:45 Lactated Ringer's 1,000 ml @ 30 mls/hr Q24H PRN IV SEE LABEL COMMENTS; Start at 03:45; Stop 05/27/17 at 03:44; Status DC Sodium Chloride 500 ml @ 30 mls/hr [id number] PRN IV SEE LABEL COMMENTS; Start 08/28 at 03:45; Stop 05/27/17 at 03:44; Status DC Povidone Iodine (Betadine 5% Antisepsis Kit) 1 applic MOLD CLOSER PRN EACH NARE SEE LABEL COMMENTS; Start 05/24/17 at 03:45; Stop 05/27/17 at 03:44; Status DC Chlorhexidine Gluconate (Chlorhexidine 2% Cloth) 3 pack MOLD CLOSER PRN TOPICAL SEE LABEL COMMENTS; Start 05/24/17 at 03:45; Stop 05/27/17 at 03:44; Status DC Insulin Human Regular (NovoLIN R INJ) See Protocol Table ... MOLD CLOSER PRN SQ SEE PROTOCOL TABLE; Start 05/24/17 at 03:45; Stop 05/27/17 at 03:44; Status DC Lidocaine/ Epinephrine (Xylocaine-Epi 0.5%-1:200,000 Inj) 50 ml STK-MED ONCE .ROUTE ; Start 05/24/17 at 15:44; Stop 05/24/17 at 15:45; Status DC Thrombin (Thrombin Top Soln) 10,000 units STK-MED ONCE .ROUTE Last administered on 05/24/17 17:42; Start 05/24/17 at 15:44; Stop 05/24/17 at 15:45 ; Status DC Gelatin (Gelfoam 100 Top) 1 foam STK-MED ONCE .ROUTE Last administered on 17:42; Start 05/24/17 at 15:45; Stop 05/24/17 at 15:46; Status DC Gentamicin Sulfate (Gentamicin Inj) 240 mg STK-MED ONCE .ROUTE Last administered on 05/24/17 17:42; Start 05/24/17 at 15:45; Stop 05/24/17 at 15:46 ; Status DC Midazolam HCl (Versed Inj) 2 mg STK-MED ONCE .ROUTE ; Start 05/24/17 at 16:29; Stop 05/24/17 at 16:30; Status DC Famotidine (Pepcid Inj) 20 mg STK-MED ONCE .ROUTE ; Start 05/24/17 at 16:29; Stop 05/24/17 at 16:30; Status DC Lidocaine/ Epinephrine (Xylocaine-Epi Mpf 2%-1:200,000 Inj) 20 ml STK-MED ONCE .ROUTE Last administered on 05/24/17 17:42; Start 05/24/17 at 16:47; Stop 08/28 at 16:48; Status DC Acetaminophen 100 ml @ As Directed STK-MED ONCE IV ; Start 05/24/17 at 17:03; Stop 05/24/17 at 17:06; Status DC Propofol 150 ml @ As Directed STK-MED ONCE .ROUTE ; Start 05/24/17 at 17:03; Stop 05/24/17 at 17:06; Status DC Hydromorphone HCl (Dilaudid Pf Inj) 2 mg STK-MED ONCE .ROUTE ; Start 05/24/17 at 17:03; Stop 05/24/17 at 17:06; Status DC Cefazolin Sodium/ Dextrose 50 ml @ As Directed STK-MED ONCE .ROUTE Last administered on 05/24/17 17:32; Start 05/24/17 at 17:31; Stop 05/24/17 at 17:32 ; Status DC Chlorhexidine Gluconate (Peridex 0.12% Liq) 15 ml STK-MED ONCE .ROUTE Last administered on 05/24/17 20:23; Start 05/24/17 at 20:15; Stop 05/24/17 at 20:16 ; Status DC Miscellaneous Information ALL NURSING DEPARTME... UNSCH PRN .XX SEE LABEL COMMENTS; Start 05/24/17 at 20:40; Stop 05/25/17 at 20:39; Status DC IV Flush (NS Flush) 2 ml UNSCH PRN IVF FLUSH AFTER USING IV ACCESS; Start 05/24 at 21:30 IV Flush (NS Flush) 2 ml BID IVF Last administered on 06/01/17 08:11; Start at 09:00 Potassium Chloride/Sodium Chloride 1,000 ml @ 100 mls/hr Q10H IV Last administered on 05/30/17 12:04; Start 05/24/17 at 21:24 Hydralazine HCl (Apresoline) 25 mg Q6HR PO ; Start 05/25/17 at 12:00; Stop 05/25 at 18:33; Status DC Hydralazine HCl (Apresoline Inj) 20 mg Q4H PRN IV PUSH SYS BP GREATER THAN 160 MMHG Last administered on 05/29/17 03:12; Start 05/25/17 at 09:00 Pharmacy Profile Note 0 ml @ 0 mls/hr UNSCH OTHER ; Start 05/25/17 at 18:15; Stop 05/25/17 at 18:26; Status DC Vancomycin HCl 1500 mg/Sodium Chloride 515 ml @ 250 mls/hr Q12H IV ; Start at 20:00; Stop 05/25/17 at 20:00; Status DC Metoprolol Tartrate (Lopressor) 100 mg Q8HR PO Last administered on 05/26/17 05:05; Start 05/25/17 at 22:00; Stop 05/26/17 at 12:38; Status DC Hydralazine HCl (Apresoline) 50 mg Q8HR PO Last administered on 05/28/17 12:56 ; Start 05/25/17 at 22:00; Stop 05/28/17 at 15:12; Status DC Labetalol HCl (Trandate Inj) 10 mg Q4H PRN IV PUSH sbp >160 Last administered on 05/29/17 04:27; Start 05/25/17 at 19:00; Stop 05/30/17 at 16:37; Status DC Metoprolol Tartrate (Lopressor Inj) 10 mg Q6H IV PUSH Last administered on 05/27 13:42; Start 05/26/17 at 14:00; Stop 05/27/17 at 16:12; Status DC Ceftriaxone Sodium 1000 mg/ Sodium Chloride 100 ml @ 200 mls/hr Q24H IV Last administered on 05/30/17 11:59; Start 05/27/17 at 13:00; Stop 05/30/17 at 13:10 ; Status DC Metoprolol Tartrate (Lopressor) 100 mg Q12HR PO Last administered on 06/01/17 08:05; Start 05/27/17 at 21:00 Hydralazine HCl (Apresoline) 75 mg Q8H PO Last administered on 05/29/17 11:55 ; Start 05/28/17 at 21:00; Stop 05/29/17 at 13:33; Status DC Hydralazine HCl (Apresoline) 100 mg Q8H PO Last administered on 06/01/17 05:07 ; Start 05/29/17 at 21:00 Clonidine (Catapres) 0.1 mg Q8HR PRN PO SBP> OR = 180, DBP> OR = 100 Last administered on 05/31/17 03:26; Start 05/29/17 at 13:45 Docusate Sodium (Colace) 100 mg BID PO Last administered on 06/01/17 08:05; Start 05/30/17 at 09:00 Magnesium Hydroxide (Milk Of Magnesia Liq) 30 ml Q12H PRN PO MILD - MODERATE CONSTIPATION Last administered on 05/30/17 20:00; Start 05/29/17 at 22:30 Lactulose (Lactulose Liq) 30 ml DAILY PRN PO SEVERE CONSITIPATION Last administered on 06/01/17 08:05; Start 05/29/17 at 22:30 Nifedipine (Procardia Xl) 30 mg ONCE ONCE PO Last administered on 05/30/17 15 :54; Start 05/30/17 at 13:15; Stop 05/30/17 at 13:16; Status DC A/P Assessment and Plan Status post cervical decompression on 05/[address] Duval - MRI findings suggestive of myelopathy was signal intensity changes, possible acute cord contusion. - Senescent changes with mild small vessel ischemic white matter demyelination; no acute ischemia or acute intracranial abnormality. Bilateral maxillary sinus fluid. - Cervical spine CT with no fracture or dislocation. - MRA unremarkable. - EEG reviewed showing slow alpha variant. -Orthostatic blood pressures checked, no significance. - Previous echocardiogram from November 2016 admission were unremarkable. - Carotid ultrasound reviewed showing borderline significant changes on the right, defer to neurology if follow up needed. - Neurology follow-up appreciated and signed off. - was evaluated by cardiology and no further cardiac work-up recommended. +/ blood culture tube for a Staphylococcus weineri Follow repeat blood culture negative so far. consulted ID most likely contamination UTI - Culture growing gram - remedios, E coli present. - treated. Hyponatremia - improved. Hypertension:continue hydralazine, Amlodipine and Lopressor. clonidine prn- DVT prophylaxis: SCD's Discharge Planning dc to [facility] when arrangements made. see med list. f/u; pcp, neurosurgery and neurology. d/w the patient and RN. d/w [facility]. time spent 35 min. Luz Marina Langford MD Jun 01, 2017 10:21
[2017-06-01] MEDS ORDERED: LISI-515 PO (10:27)
[2017-06-01] MEDS ORDERED: HYDR-3580 PO (10:27)
[2017-06-01] MEDS ORDERED: HYDR-3801 PO (10:27)
[2017-06-01] MEDS ORDERED: CLON.1 PO (10:27)
--- NOTE | 2017-06-01 10:29 | HHI.DS ---
Discharge Summary Admission Date May 20, 2017 at 01:32 Discharge Date: Jun 01, 2017 Admitting Diagnosis CVA, UTI (1) Atypical syncope ICD Code: R55 - Syncope and collapse Diagnosis: Principal (2) Urinary tract infection ICD Code: N39.0 - Urinary tract infection, site not specified Diagnosis: Secondary Status: Acute (3) Diabetes mellitus type 2 Diagnosis: Secondary Status: Chronic (4) Hyponatremia ICD Code: E87.1 - Hypo-osmolality and hyponatremia Diagnosis: Secondary Procedures C 3-4 Anterior cervical discectomy C3-4 Anterior interbody fusion, allograft bone C3-4 Anterior cervical instrumentation Brief History - From Admission Written by Mitzy Gallo, acting as scribe for Dr. Wynne on 05/20/17 at 03:28. The patient states that her knees gave out on her and she fell on her face on Tuesday morning - 05/18/17 She was able to get up and go to the bathroom following fall Second fall occurred Tuesday evening. Denies any associated chest pain, dizziness, shortness of breath, or syncope. She denies her legs giving out on her. The patient reports that no one had seen the patient in a couple of days and a wellness check was requested by neighbors and was carried out by the police. The patient was unable to get up following the fall because she could not move her right side due to pain. She also had severe back pain. EMS was able to get her up and walking with her walker. Takes a baby aspirin at home. Past week, denies chest pain, shortness of breath, dizziness, syncope, nausea, vomiting, diarrhea, black or red stool, hematuria, pain or burning with urination, or abdominal pain. Attended a family reunion in [place] in March EF 65% during November 2016 admission for syncope - no significant valve problems noted. Left ventricular hypertrophy was noted. Carotid ultrasound during same admission with mild to moderate plaque formation. . CBC/BMP: 05/28/17 1101 05/28/17 0620 Imaging Last Impressions Cervical Spine MRI 05/25/17 0800 Signed Impressions: Service Date/Time: Thursday, May 25, 2017 19:46 - CONCLUSION: Interim discectomy and fusion procedure with anterior and interbody instrumentation at C3/C4. Prevertebral fluid collection extending from the skull base to the level of C5/C6, epicenter at C3/C4. Also an apparent fluid collection within the posterior C3/C4 intervertebral disc space and effacing the anterior margin of the thecal sac. The fluid collections could represent developing abscesses or subacute hematomas. Findings were discussed with Dr. Duval by phone. Jorge Carvalho MD Cervical Spine X-Ray 05/24/17 0000 Signed Impressions: Service Date/Time: Wednesday, May 24, 2017 17:42 - CONCLUSION: Fusion at C3/C4. No acute complication demonstrated. Jorge Carvalho MD Head CT 05/22/17 0600 Signed Impressions: Service Date/Time: Monday, May 22, 2017 08:25 - CONCLUSION: Stable noncontrast head CT. No acute intracranial abnormality is identified. Jorge Arellano MD Shoulder MRI 05/20/17 0000 Signed Impressions: Service Date/Time: Saturday, May 20, 2017 10:30 - CONCLUSION: Negative for rotator cuff tear. I don't see an etiology for weakness by MRI. Substantial cervical spinal stenosis is present. There is significant neuroforaminal encroachment as well. Chidi Peters MD FACR Head Magnetic Resonance Angiography 05/20/17 0000 Signed Impressions: Service Date/Time: Saturday, May 20, 2017 02:09 - CONCLUSION: 1. Unremarkable MRA examination of the brain. No evidence for large vessel occlusion or stenosis, as questioned. Nolan Krishna MD Cervical Spine CT 05/20/17 0000 Signed Impressions: Service Date/Time: Saturday, May 20, 2017 00:41 - CONCLUSION: 1. No acute fracture or dislocation. 2. Multilevel degenerative spondylosis of the cervical spine. Nolan Krishna MD Carotid Artery Ultrasound 05/20/17 0000 Signed Impressions: Service Date/Time: Saturday, May 20, 2017 08:19 - CONCLUSION: Borderline significant findings on the right. Confirmatory CT angiogram or MR angiogram would be of benefit. Board Certified Radiologist. This report was verified electronically. Brain MRI 05/20/17 0000 Signed Impressions: Service Date/Time: Saturday, May 20, 2017 02:09 - CONCLUSION: 1. Senescent changes with mild small vessel ischemic white matter demyelination. 2. No acute ischemia or acute intracranial abnormality. 3. Bilateral maxillary sinus fluid. Nolan Krishna MD Chest X-Ray 05/19/17 7643 Signed Impressions: Service Date/Time: Saturday, May 20, 2017 00:20 - CONCLUSION: 1. No acute cardiopulmonary disease. Nolan Kirshna MD PE at Discharge GENERAL: This is a well-nourished, well-developed patient, in no apparent distress. Neck; cervical collar in place CARDIOVASCULAR: Regular rate and regular rhythm without murmurs, gallops, or rubs. RESPIRATORY: Clear to auscultation. Breath sounds equal bilaterally. No wheezes , rales, or rhonchi. GASTROINTESTINAL: Abdomen soft, non-tender, nondistended. Normal, active bowel sounds MUSCULOSKELETAL: Extremities without clubbing, cyanosis, or edema. NEURO: Alert & Oriented x4 to person, place, time, situation. Moves all ext x4 Hospital Course Status post cervical decompression on 05/[address] Duval - MRI findings suggestive of myelopathy was signal intensity changes, possible acute cord contusion. - Senescent changes with mild small vessel ischemic white matter demyelination; no acute ischemia or acute intracranial abnormality. Bilateral maxillary sinus fluid. - Cervical spine CT with no fracture or dislocation. - MRA unremarkable. - EEG reviewed showing slow alpha variant. -Orthostatic blood pressures checked, no significance. - Previous echocardiogram from November 2016 admission were unremarkable. - Carotid ultrasound reviewed showing borderline significant changes on the right, defer to neurology if follow up needed. - Neurology follow-up appreciated and signed off. - was evaluated by cardiology and no further cardiac work-up recommended. +09/15 blood culture tube for a Staphylococcus weineri Follow repeat blood culture negative so far. consulted ID most likely contamination UTI - Culture growing gram - remedios, E coli present. - treated. Hyponatremia - improved. Hypertension:continue hydralazine, Amlodipine and Lopressor. clonidine prn- DVT prophylaxis: SCD's Pt Condition on Discharge: Fair Discharge Disposition: Rehab Inpatient Discharge Time: > 30 minutes Discharge Instructions DIET: Follow Instructions for: Heart Healthy Diet, Diabetic Diet Speech Therapy-Diet Recommends: Honey Thickened Liquids, Pureed Activities you can perform: Regular-No Restrictions Follow up Referrals: Neurology Neurosurgery PCP Follow-up New Medications: Clonidine (Catapres) 0.1 Mg Tab 0.1 MG PO Q8HR PRN for SBP> OR = 180, DBP> OR = 100 for 10 Days, TAB 0 Refills Hydralazine (Hydralazine) 100 Mg Tab 100 MG PO Q8H for hypertension for 30 Days, #90 TAB 0 Refills Take with meals Hydrocodone-Acetaminophen (Hydrocodone-Acetaminophen) 7.5-325 mg Tab 1 TAB PO Q6H PRN for pain 6-10, #15 TAB 0 Refills Lisinopril (Lisinopril) 20 Mg Tab 40 MG PO DAILY for hypertension for 30 Days, #60 TAB 0 Refills Continued Medications: Amlodipine (Amlodipine) 10 Mg Tab 10 MG PO DAILY for Blood Pressure Management, #30 TAB 0 Refills Atorvastatin (Atorvastatin) 40 Mg Tab 40 MG PO HS for Cholesterol Management, #30 TAB 0 Refills Folic Acid (Folic Acid) 0.4 Mg Tab 1 MG PO DAILY for Nutritional Supplement, TAB 0 Refills Metformin (Metformin) 500 Mg Tab 100 MG PO DAILY for Blood Sugar Management, #60 TAB 0 Refills With meals Metoprolol Tartrate (Lopressor) 100 Mg Tab 100 MG PO Q12HR for Blood Pressure Management, #60 TAB Discontinued Medications: Hydralazine (Hydralazine) 100 Mg Tab 25 MG PO BID for Blood Pressure Management, TAB 0 Refills Take with meals Luz Marina Langford MD Jun 01, 2017 10:29
[2017-06-01] MEDS ORDERED: BISACODYL 10 MG SUPP RECTAL ONE (10:30)
[2017-06-01 11:54] VITALS: BP 138/65; PULSE 70; RESP 16; TEMP 97; O2SAT 97
--- NOTE | 2017-06-01 15:05 | HHI.PR ---
Subjective Subjective Comments Patient awake and alert. Cervical collar in place. Patient reporting pain and has been medicated per nursing. Allergies: Coded Allergies: No Known Allergies (Verified Allergy, Unknown, 05/21/17) Review of Systems All other ROS: ROS reviewed as documented in chart Exam I&O / VS 06/01/17 06/01/17 06/02/17 15:00 23:00 07:00 Intake Total 200 ml Balance 200 ml Intake Oral 200 ml # Voids 0 # Bowel Movements 0 Vital Signs Date Time Temp Pulse Resp B/P (MAP) Pulse Ox O2 Delivery O2 Flow Rate FiO2 06/01/17 11:54 97.0 70 16 138/65 (89) 97 06/01/17 08:00 97.9 91 17 165/72 (103) 97 06/01/17 04:50 97.8 77 18 181/69 (106) 98 06/01/17 00:30 98.9 66 18 170/81 (110) 95 05/31/17 20:24 98.4 92 18 196/69 (111) 97 05/31/17 16:00 99.1 92 18 172/66 (101) 95 General: No acute distress, Other (Cervical collar in place) Cardiovascular: Normal rate Musculoskeletal: Swelling (None in distal lower extremities) Psychiatric: Cooperative, Appropriate mood & affect Orientation: oriented to Self, oriented to Situation Neurologic: Speech (Intelligible) Motor: Right Upper Extremity (4+/5), Left Upper Extremity (2/5), Right Lower Extremity (4+/5), Left Lower Extremity (23/5) Objective Micro and Labs Date/Time Source Procedure Growth Status 05/26/17 01:31 Blood Peripheral Aerobic Blood Culture - Final NO GROWTH IN 5 DAYS Complete 05/26/17 01:31 Blood Peripheral Anaerobic Blood Culture - Final NO GROWTH IN 5 DAYS Complete 05/20/17 00:10 Urine Catheterized Urine Urine Culture - Final Escherichia Coli Complete Assessment and Plan Diagnosis: (1) Contusion of cervical cord ICD Codes: S14.109A - Unspecified injury at unspecified level of cervical spinal cord, initial encounter Status: Acute Qualifiers: Encounter type: subsequent encounter Qualified Codes: S14.109D - Unspecified injury at unspecified level of cervical spinal cord, subsequent encounter Assessment 1. Fall/syncope with C3-C4 spinal cord contusion status post C3-C4 ACDF 05/24/17 2. Incomplete quadriparesis left upper and lower extremity greater than right 3. Hypertension 4. Hyperlipidemia 5. Diabetes mellitus type 2 6. Gout 7. Osteoarthritis 8. Urinary tract infection Plan 1. PT mobilizing and now maximal assistance for transfers and unable to progress to gait 2. Occupational therapy following for ADLs and currently mod assist for upper extremity dressing and grooming 3. Speech therapy swallow evaluation has been completed and patient has moderate oral pharyngeal dysphagia and requires mechanical soft diet with nectar thick liquids 4. Reposition every 2 hours and monitor skin carefully for pressure areas 5. SCDs in place for DVT prophylaxis 6. Anticipate patient will need ongoing inpatient rehabilitation at discharge. Case management has begun referral process 7. Will continue to follow while hospitalized and at discharge Qing Gastelum MD Jun 01, 2017 15:05
[2017-06-01 16:22] VITALS: BP 162/72; PULSE 77; RESP 16; TEMP 97.4; O2SAT 99
--- NOTE | 2017-06-01 16:48 | HHI.NSPN ---
(Jc Farris) History Chief Complaint: Weak on left. (Jc Farris) Interval History 05/20: 66-year-old female gives a history of progressive gait difficulty for the past year. She states that she was in the hospital in November 2016 and fell at that time. Her medical records indicate an admission for syncope and cardiac evaluation revealed 65% ejection fraction. She indicates that she has been using a cane to ambulate for the past few months. She states that she has fallen a couple of times in the past 2 weeks, the last time on 05/18/2017. Since these falls, she has had significant increased weakness in the left arm and leg. She denies any significant sensory changes. No definite bowel or bladder dysfunction. She has mild to moderate neck pain which is a little worse since her most recent fall. She has no complaint of significant joint pain. She states that when she ambulates, she has poor balance and loss of control of her legs. Since the fall, she has had much more left extremity weakness. 05/21/2017: Persistent neck pain. Some discomfort left foot. No change in neurologic exam versus 05/20/1705/24: The patient is awake and alert when seen this afternoon. She states that she is doing good. She does have pain to the posterior neck and the weakness to the left side extremities. She has been cleared by Cardiology and Medicine for surgery later this afternoon. 05/25: The patient went for a discectomy with interbody fusion and instrumentation at the C3-4 level yesterday. Post-operatively she was transferred to [facility]. This morning the patient is awake but lethargic. When asked how she is doing she states she is doing good. She had no complaints during the review of systems. Nursing reported that the patient did have difficulty taking oral medication even when crushed and given in applesauce. The patient has also been hypertensive and Nursing reports that the family has previously told them the patient is allergic to Vasotec but it is not recorded as an allergy. Therefore it was not given. She did receive morphine prior to being seen for pain per Nursing. 05/26: The patient is awake this morning when seen. She is lethargic and does interact. She briefly verbalises and does follow commands. She is hypertensive when seen. Nursing reports that the patient did have difficulty taking her meds crushed in applesauce this morning and had to suction it back out of the patient 's mouth. Speech Therapy did do a swallow eval yesterday and recommended NPO. 05/27: The patient is more awake and interactive this morning. She states that her neck feels "Okay" when asked. She denies any sore throat or difficulty swallowing. 05/28: Patient awake and alert. She denies pain. No radiculopathy or paresthesias in the upper extremities. She has left-sided weakness. 05/29: Pt awake and alert. Denies pain. States pressure on right side of head resolved. No radiculopathy in UEs. left sided weakness. 05/30: This afternoon the patient is awake and alert, watching TV. She says she is doing fine. She states she still has weakness to the left side and has some aching to the back of the neck. 05/31: The patient when seen this afternoon states that she is doing good. She complains of itching to the front and back of the neck. She did report having some pain to the back of the neck last night but it is better today. The weakness to the left side still persists. 06/01: The patient is initially seen with Dr Duval this morning and was doing well. When seen this afternoon she was doing good and denied any pain. She stated that the surgical incision was itching but not painful. The Yung catheter was removed this morning and she has not voided since. She also said she hasn't had a bowel movement. (Jc Farris) System Review Comments Constitutional: Patient denies any fever or chills. HEENT: Patient denies any sore throat, difficulty swallowing or any visual or hearing problems. Respiratory: Patient denies any shortness of breath or productive cough. Cardiovascular: Patient denies any chest pain, palpitations or irregular heartbeat. Gastrointestinal: Patient states she hasn't had a bowel movement yet. She denies any abdominal pain, nausea, vomiting or incontinence of stool. Genitourinary: Patient has not voided since the catheter came out this morning. Musculoskeletal: Patient states she has itching to the area of the surgical incision on her neck. She denies any neck, back or extremity pain. Neurologic: Patient still weak on the left side. She denies any headache, dizziness, numbness or tingling. (Jc Farris) Exam Results 05/30/17 05/30/17 05/31/17 05/31/17 06/01/17 06/01/17 06:00 18:00 06:00 18:00 06:00 18:00 Intake Total 520 ml 120 ml 220 ml 240 ml 320 ml Output Total 1800 ml 3300 ml 1300 ml 1950 ml 650 ml 400 ml Balance -1800 ml -2780 ml -1180 ml -1730 ml -410 ml -80 ml Intake Oral 520 ml 120 ml 220 ml 240 ml 320 ml Output Urine Total 1800 ml 3300 ml 1300 ml 1950 ml 650 ml 400 ml # Voids 0 # Bowel Movements 0 0 0 0 0 Vital Signs Date Time Temp Pulse Resp B/P (MAP) Pulse Ox O2 Delivery O2 Flow Rate FiO2 06/01/17 16:22 97.4 77 16 162/72 (102) 99 06/01/17 11:54 97.0 70 16 138/65 (89) 97 06/01/17 08:00 97.9 91 17 165/72 (103) 97 06/01/17 04:50 97.8 77 18 181/69 (106) 98 06/01/17 00:30 98.9 66 18 170/81 (110) 95 05/31/17 20:24 98.4 92 18 196/69 (111) 97 05/31/17 16:00 99.1 92 18 172/66 (101) 95 05/31/17 13:18 16 05/31/17 12:00 97.7 72 18 180/67 (104) 98 05/31/17 08:10 98.0 70 17 136/54 (81) 95 05/31/17 04:47 97.1 79 18 188/76 (113) 96 05/31/17 00:12 97.5 77 18 161/70 (100) 96 05/30/17 20:57 98.0 86 18 184/78 (113) 98 05/30/17 20:43 97 21 05/30/17 16:00 97.2 76 18 148/61 (90) 98 05/30/17 12:00 98.1 80 17 165/80 (108) 98 05/30/17 08:00 98.0 79 18 190/82 (118) 98 05/30/17 04:17 98.2 74 17 179/73 (108) 99 05/30/17 00:59 97.7 70 17 164/73 (103) 96 05/29/17 22:00 65 05/29/17 20:40 97 05/29/17 20:00 78 05/29/17 20:00 98.4 78 18 187/86 (119) 98 05/29/17 18:00 67 (Jc Farris) Physical Examination GENERAL: Patient is awake and readily interacts. Her affect is normal. NAD. SKIN: Warm, dry & intact except for left anterior neck surgical incision well approximated w/steri-strips, no drainage, erythema or streaking, intact dressing. HEENT: Normocephalic, atraumatic. NECK: [place] J cervical collar in place, left anterior neck surgical incision w/ intact dressing NTTP, midline cervical spine NTTP, no JVD, trachea midline. CARDIOVASCULAR: S1S2 w/RRR w/o M/G/R, radial & pedal pulses 2+ cap refill < 2 sec, no pedal edema. RESPIRATORY: CTAB w/o W/R/R, equal excursion, nonlaboured, on RA. GASTROINTESTINAL: Abdomen soft, nontender, bowel sounds not appreciate. MUSCULOSKELETAL: Move right extremities w/o difficulty, decreased movement of left, no evident deformity or clubbing. NEUROLOGICAL: AAOx3. Speech clear and appropriate. Follows simple command w/o difficulty. Sensation intact to light touch to all extremities. 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 (Jc Farris) Medical Decision Making Impression and Plan Impression: 1. Cervical stenosis severe at C 3-4 level 2. Cervical myelopathy 3. Probable cervical spinal cord contusion 4. Hyponatremia 5. Hepatomegaly Postoperative Diagnosis: (1) Cervical disc disease with myelopathy (2) Contusion of cervical cord MRI cervical spine demonstrates discectomy with fusion & instrumentation at C3-4. There is a prevertebral fluid collection from the skull base to the C5-6 level with its epicentre at C3-4. There is also a fluid collection w/i the posterior C3-4 intervertebral disc space effacing the thecal sac. Patient continues to do well with some improvement to LUE o/w neurologically stable. Patient remains hypertensive. ST recommends mechanical soft with nectar thickened liquids. PT & OT recommend inpatient rehab. POD #8 () s/p: C 3-4 Anterior cervical discectomy C3-4 Anterior interbody fusion, allograft bone C3-4 Anterior cervical instrumentation Plan: Primary management per Hospitalist. Continue neuro checks. Maintain cervical collar at all times. Diet per ST recommendations. PT & OT eval & tx. (Jc Farris) Attending Statement The exam, history, and the medical decision-making described in the above note were completed with the assistance of the mid-level provider. I reviewed and agree with the findings presented. I attest that I had a [id number] encounter with the patient on the same day, and personally performed and documented my assessment and findings in the medical record. Patient remains awake, mild slowing of speech and thought processes. Upper and lower extremity motor function slowly improving postoperative, now mostly 3-4/5 upper extremities with 2/5 left and 3/5 right lower extremity major flexion and extension groups. Incisions healing well. Continuing therapy Stable for discharge to inpatient rehabilitation from neurosurgery standpoint (Ricci Duval MD) Jc Farris Jun 01, 2017 16:48 Ricci Duval MD Jun 06, 2017 08:47
[2017-06-01] MEDS ORDERED: SOD PHOSPHATE/SOD BIPHOSPHATE (ADULT) ENEMA 133ML RECTAL ONE (17:00)
[2017-06-01 20:40] VITALS: BP 178/83; PULSE 77; RESP 17; TEMP 97.6; O2SAT 100
[2017-06-02 01:19] VITALS: BP 190/86; PULSE 65; RESP 17; TEMP 97.5; O2SAT 98
[2017-06-02] MEDS: ACETAMINOPHEN/HYDROcodone 325 MG/7.5 MG TAB PO PRN ×3 (02:09→13:15)
[2017-06-02] MEDS: cloNIDine HCL 0.1 MG TAB PO PRN (02:09)
[2017-06-02 04:30] VITALS: BP 158/69; PULSE 63; RESP 17; TEMP 97.8; O2SAT 99
[2017-06-02] MEDS: 1/2 NS + KCL 20 MEQ INJ 1,000 ML IV SCH ×2 (05:24→08:55)
[2017-06-02] MEDS: hydrALAZINE HCL 100 MG TAB PO SCH ×2 (05:49→11:23)
[2017-06-02] MEDS: DOCUSATE SODIUM 100 MG CAP PO SCH (07:07)
[2017-06-02] MEDS: LISINOPRIL 20 MG TAB PO SCH (07:56)
[2017-06-02] MEDS: FOLIC ACID 1 MG TAB PO SCH (07:56)
[2017-06-02] MEDS: METOPROLOL TARTRATE 100 MG TAB PO SCH (07:56)
[2017-06-02 08:00] VITALS: BP 156/65; PULSE 67; RESP 18; TEMP 96.7; O2SAT 98
[2017-06-02] MEDS: SODIUM CHLORIDE 0.9% FLUSH 5 ML FLUSH IVF SCH (08:00)
--- NOTE | 2017-06-02 09:09 | HHI.PR ---
Review/Management Diagnosis/Plan: (1) Contusion of cervical cord ICD Codes: S14.109A - Unspecified injury at unspecified level of cervical spinal cord, initial encounter Status: Acute Plan: +left c4 level increased signal suggestive of contusion/infarct advanced cervical stenosis c3,4 05/24 s/p cervical decompression recs strength continue to improve pain controlled REhab placement neurology sign off f/u with me in 3-4 weeks outpatient (2) HTN (hypertension) ICD Codes: I10 - Hypertension Status: Acute Plan: fluctuating needs better control- per medical (3) Hyperlipidemia ICD Codes: E78.5 - Hyperlipidemia Status: Acute (4) Diabetes ICD Codes: E11.9 - Diabetes mellitus Status: Chronic Subjective Subjective Comments No acute events reported pain controlled No headache No chest pain No dyspnea Active Medications Current Medications Medications (Trade) Dose Ordered Sig/Tereza Route Start Time Stop Time Status Last Admin (D50w (Vial) Inj) 50 ml UNSCH PRN IV 05/20/17 04:15 (Glucagon Inj) 1 mg UNSCH PRN OTHER 05/20/17 04:15 (Norvasc) 10 mg DAILY PO 05/20/17 17:15 06/02/17 07:56 (Folate) 1 mg DAILY PO 05/20/17 17:15 06/02/17 07:56 ([place] 7.5-325 Mg) 1 tab Q6H PRN PO 05/22/17 09:15 06/02/17 07:57 (Morphine Inj) 3 mg Q12HR PRN IV 05/22/17 10:00 05/29/17 06:00 (Prinivil) 40 mg DAILY PO 05/23/17 09:00 06/02/17 07:56 ([place]) 1 applic UNSCH PRN TOPICAL 05/23/17 09:45 05/31/17 12:11 (NS Flush) 2 ml UNSCH PRN IVF 05/24/17 21:30 (NS Flush) 2 ml BID IVF 05/25/17 09:00 06/02/17 08:00 Potassium Chloride/Sodium Chloride 1,000 ml @ 100 mls/hr Q10H IV 05/24/17 21:24 06/01/17 20:05 (Apresoline Inj) 20 mg Q4H PRN IV PUSH 05/25/17 09:00 05/29/17 03:12 (Lopressor) 100 mg Q12HR PO 05/27/17 21:00 06/02/17 07:56 (Apresoline) 100 mg Q8H PO 05/29/17 21:00 06/02/17 05:49 (Catapres) 0.1 mg Q8HR PRN PO 05/29/17 13:45 06/02/17 02:09 (Colace) 100 mg BID PO 05/30/17 09:00 06/01/17 08:05 (Milk Of Magnesia Liq) 30 ml Q12H PRN PO 05/29/17 22:30 05/30/17 20:00 (Lactulose Liq) 30 ml DAILY PRN PO 05/29/17 22:30 06/01/17 08:05 Allergies Allergies Coded Allergies No Known Allergies (Verified Allergy, Unknown, 05/21/17) Review of Systems All other ROS: ROS reviewed as documented in chart Exam I&O / VS Vital Signs Date Time Temp Pulse Resp B/P (MAP) Pulse Ox O2 Delivery O2 Flow Rate FiO2 06/02/17 04:30 97.8 63 17 158/69 (98) 99 06/02/17 01:19 97.5 65 17 190/86 (120) 98 06/01/17 20:40 97.6 77 17 178/83 (114) 100 06/01/17 16:22 97.4 77 16 162/72 (102) 99 06/01/17 11:54 97.0 70 16 138/65 (89) 97 General: Alert and Oriented, No acute distress Cardiology: Normal rate Musculoskeletal: Swelling (None in distal lower extremities) Neurologic: Alert Psychiatric: Cooperative Exam Comments alert, ox 3, calm, pleasant, hard collar in place, eomi, vff, face sym, left hand foreign car mechanic 3+/5, able to raise left ue to gravity but abduction past 20-30 degrees limited, left le 2-3/5, msr sym, no clonus, planterflexor Objective Micro and Labs Date/Time Source Procedure Growth Status 05/26/17 01:31 Blood Peripheral Aerobic Blood Culture - Final NO GROWTH IN 5 DAYS Complete 05/26/17 01:31 Blood Peripheral Anaerobic Blood Culture - Final NO GROWTH IN 5 DAYS Complete 05/20/17 00:10 Urine Catheterized Urine Urine Culture - Final Escherichia Coli Complete Problem Qualifiers (1) Contusion of cervical cord: Qualified Codes: S14.109D - Unspecified injury at unspecified level of cervical spinal cord, subsequent encounter (2) HTN (hypertension): Qualified Codes: I10 - Essential (primary) hypertension (3) Hyperlipidemia: Qualified Codes: E78.5 - Hyperlipidemia, unspecified Jasen Gómez MD Jun 02, 2017 09:09
[2017-06-02 11:28] VITALS: BP 160/67; PULSE 62; RESP 16; TEMP 97.8; O2SAT 98
--- NOTE | 2017-06-02 12:02 | HHI.PR ---
Subjective Remarks in no acute distress. pain is controlled. no new complaints. d/w the RN and no acute issues over night. Objective Vitals Vital Signs Date Time Temp Pulse Resp B/P (MAP) Pulse Ox O2 Delivery O2 Flow Rate FiO2 06/02/17 11:28 97.8 62 16 160/67 (98) 98 06/02/17 08:00 96.7 67 18 156/65 (95) 98 06/02/17 04:30 97.8 63 17 158/69 (98) 99 06/02/17 01:19 97.5 65 17 190/86 (120) 98 06/01/17 20:40 97.6 77 17 178/83 (114) 100 06/01/17 16:22 97.4 77 16 162/72 (102) 99 I/O 06/01/17 06/01/17 06/01/17 06/02/17 06/02/17 06/02/17 07:00 15:00 23:00 07:00 15:00 23:00 Intake Total 120 ml 200 ml 920 ml 570 ml Output Total 400 ml Balance -280 ml 200 ml 920 ml 570 ml Intake Oral 120 ml 200 ml 120 ml 120 ml IV Total 800 ml 450 ml Output Urine Total 400 ml # Voids 0 1 3 # Bowel Movements 0 0 2 2 Imaging Last Impressions Cervical Spine MRI 05/25/17 0800 Signed Impressions: Service Date/Time: Thursday, May 25, 2017 19:46 - CONCLUSION: Interim discectomy and fusion procedure with anterior and interbody instrumentation at C3/C4. Prevertebral fluid collection extending from the skull base to the level of C5/C6, epicenter at C3/C4. Also an apparent fluid collection within the posterior C3/C4 intervertebral disc space and effacing the anterior margin of the thecal sac. The fluid collections could represent developing abscesses or subacute hematomas. Findings were discussed with Dr. Duval by phone. Jorge Carvalho MD Cervical Spine X-Ray 05/24/17 0000 Signed Impressions: Service Date/Time: Wednesday, May 24, 2017 17:42 - CONCLUSION: Fusion at C3/C4. No acute complication demonstrated. Jorge Carvalho MD Head CT 05/22/17 0600 Signed Impressions: Service Date/Time: Monday, May 22, 2017 08:25 - CONCLUSION: Stable noncontrast head CT. No acute intracranial abnormality is identified. Jorge Arellano MD Shoulder MRI 05/20/17 Signed Impressions: Service Date/Time: Saturday, May 20, 2017 10:30 - CONCLUSION: Negative for rotator cuff tear. I don't see an etiology for weakness by MRI. Substantial cervical spinal stenosis is present. There is significant neuroforaminal encroachment as well. Chidi Peters MD FACR Head Magnetic Resonance Angiography 05/20/17 Signed Impressions: Service Date/Time: Saturday, May 20, 2017 02:09 - CONCLUSION: 1. Unremarkable MRA examination of the brain. No evidence for large vessel occlusion or stenosis, as questioned. Nolan Krishna MD Cervical Spine CT 05/20/17 Signed Impressions: Service Date/Time: Saturday, May 20, 2017 00:41 - CONCLUSION: 1. No acute fracture or dislocation. 2. Multilevel degenerative spondylosis of the cervical spine. Nolan Krishna MD Carotid Artery Ultrasound 05/20/17 Signed Impressions: Service Date/Time: Saturday, May 20, 2017 08:19 - CONCLUSION: Borderline significant findings on the right. Confirmatory CT angiogram or MR angiogram would be of benefit. Board Certified Radiologist. This report was verified electronically. Brain MRI 05/20/17 Signed Impressions: Service Date/Time: Saturday, May 20, 2017 02:09 - CONCLUSION: 1. Senescent changes with mild small vessel ischemic white matter demyelination. 2. No acute ischemia or acute intracranial abnormality. 3. Bilateral maxillary sinus fluid. Nolan Krishna MD Chest X-Ray 05/19/17 2857 Signed Impressions: Service Date/Time: Saturday, May 20, 2017 00:20 - CONCLUSION: 1. No acute cardiopulmonary disease. Nolan Krishna MD Objective Remarks GENERAL: This is a well-nourished, well-developed patient, in no apparent distress. Neck; cervical collar in place CARDIOVASCULAR: Regular rate and regular rhythm without murmurs, gallops, or rubs. RESPIRATORY: Clear to auscultation. Breath sounds equal bilaterally. No wheezes , rales, or rhonchi. GASTROINTESTINAL: Abdomen soft, non-tender, nondistended. Normal, active bowel sounds MUSCULOSKELETAL: Extremities without clubbing, cyanosis, or edema. NEURO: Alert & Oriented x4 to person, place, time, situation. Moves all ext x4 Medications and IVs Current Medications IV Flush (NS Flush) 2 ml UNSCH PRN IV FLUSH FLUSH AFTER USING IV ACCESS; Start 05/20/17 at 00:00; Stop 05/20/17 at 01:36; Status DC Sodium Chloride 1,000 ml @ 1,000 mls/hr Q1H IV Last administered on 05/20/17 00:17; Start 05/19/17 at 23:53; Stop 05/20/17 at 00:52; Status DC Ceftriaxone Sodium 1000 mg/ Sodium Chloride 100 ml @ 200 mls/hr ONCE ONCE IV Last administered on 05/20/17 01:34; Start 05/20/17 at 01:00; Stop 05/20/17 at 01: 29; Status DC IV Flush (NS Flush) 2 ml BID IV FLUSH Last administered on 05/24/17 08:33; Start 05/20/17 at 09:00; Stop 05/24/17 at 21:43; Status DC IV Flush (NS Flush) 2 ml UNSCH PRN IV FLUSH FLUSH AFTER USING IV ACCESS; Start 05/20/17 at 01:45; Stop 05/24/17 at 21:43; Status DC Clonidine (Catapres) 0.1 mg ONCE ONCE PO Last administered on 05/20/17 03:41; Start 05/20/17 at 03:15; Stop 05/20/17 at 03:17; Status DC Ceftriaxone Sodium 1000 mg/ Sodium Chloride 100 ml @ 200 mls/hr Q12H IV Last administered on 05/26/17 13:00; Start 05/20/17 at 13:00; Stop 05/26/17 at 20:11 ; Status DC Enoxaparin Sodium (Lovenox Inj) 40 mg Q24H SQ Last administered on 05/20/17 09: 00; Start 05/20/17 at 09:00; Stop 05/20/17 at 14:21; Status DC Dextrose (D50w (Vial) Inj) 50 ml UNSCH PRN IV HYPOGLYCEMIA-SEE COMMENTS; Start 05/20/17 at 04:15 Glucagon (Glucagon Inj) 1 mg UNSCH PRN OTHER HYPOGLYCEMIA-SEE COMMENTS; Start 05/20/17 at 04:15 Amlodipine Besylate (Norvasc) 10 mg DAILY PO Last administered on 06/02/17 07: 56; Start 05/20/17 at 17:15 Atorvastatin Calcium (Lipitor) 40 mg HS PO ; Start 05/20/17 at 21:00; Stop at 21:00; Status DC Folic Acid (Folate) 1 mg DAILY PO Last administered on 06/02/17 07:56; Start 05/20/17 at 17:15 Hydralazine HCl (Apresoline) 25 mg BID PO Last administered on 05/22/17 08:06 ; Start 05/20/17 at 21:00; Stop 05/22/17 at 12:24; Status DC Metoprolol Tartrate (Lopressor) 100 mg Q12HR PO Last administered on 05/24/17 08:33; Start 05/20/17 at 21:00; Stop 05/25/17 at 18:32; Status DC Enalaprilat (Vasotec Inj) 1.25 mg Q6H PRN IV PUSH bp>160/90 Last administered on 05/24/17 12:55; Start 05/20/17 at 17:30; Stop 05/27/17 at 16:11; Status DC Hydralazine HCl (Apresoline) 25 mg NOW ONCE PO Last administered on 05/20/17 18:09; Start 05/20/17 at 18:00; Stop 05/20/17 at 18:01; Status DC Morphine Sulfate (Morphine Inj) 3 mg NOW ONCE IV Last administered on 11:09; Start 05/21/17 at 11:15; Stop 05/21/17 at 11:16; Status DC Lisinopril (Prinivil) 20 mg Q12HR PO Last administered on 05/22/17 08:06; Start 05/21/17 at 21:00; Stop 05/22/17 at 12:24; Status DC Acetaminophen/ Hydrocodone Bitart ([place] 7.5-325 Mg) 1 tab Q6H PRN PO FOR PAIN 5-8 Last administered on 06/02/17 07:57; Start 05/22/17 at 09:15 Morphine Sulfate (Morphine Inj) 3 mg Q6H PRN IV PAIN 8-10 Last administered on 05/22/17 09:16; Start 05/22/17 at 09:15; Stop 05/22/17 at 09:49; Status DC Morphine Sulfate (Morphine Inj) 3 mg Q12HR PRN IV PAIN 8-10 Last administered on 05/29/17 06:00; Start 05/22/17 at 10:00 Hydralazine HCl (Apresoline) 25 mg TID PO Last administered on 05/22/17 17:28 ; Start 05/22/17 at 13:00; Stop 05/22/17 at 20:50; Status DC Lisinopril (Prinivil) 40 mg DAILY PO Last administered on 06/02/17 07:56; Start 05/23/17 at 09:00 Lisinopril (Prinivil) 20 mg ONCE ONCE PO Last administered on 05/22/17 12:36 ; Start 05/22/17 at 12:30; Stop 05/22/17 at 12:31; Status DC Hydralazine HCl (Apresoline) 25 mg Q8H PO Last administered on 05/25/17 06:08 ; Start 05/22/17 at 22:00; Stop 05/25/17 at 07:58; Status DC Padimate O ([place]) 1 applic UNSCH PRN TOPICAL dry lips Last administered on 05/31/17 12:11; Start 05/23/17 at 09:45 Lactated Ringer's 1,000 ml @ 30 mls/hr Q24H PRN IV SEE LABEL COMMENTS; Start at 03:45; Stop 05/27/17 at 03:44; Status DC Sodium Chloride 500 ml @ 30 mls/hr [id number] PRN IV SEE LABEL COMMENTS; Start 08/28 at 03:45; Stop 05/27/17 at 03:44; Status DC Povidone Iodine (Betadine 5% Antisepsis Kit) 1 applic MILIEU MANAGER PRN EACH NARE SEE LABEL COMMENTS; Start 05/24/17 at 03:45; Stop 05/27/17 at 03:44; Status DC Chlorhexidine Gluconate (Chlorhexidine 2% Cloth) 3 pack MILIEU MANAGER PRN TOPICAL SEE LABEL COMMENTS; Start 05/24/17 at 03:45; Stop 05/27/17 at 03:44; Status DC Insulin Human Regular (NovoLIN R INJ) See Protocol Table ... MILIEU MANAGER PRN SQ SEE PROTOCOL TABLE; Start 05/24/17 at 03:45; Stop 05/27/17 at 03:44; Status DC Lidocaine/ Epinephrine (Xylocaine-Epi 0.5%-1:200,000 Inj) 50 ml STK-MED ONCE .ROUTE ; Start 05/24/17 at 15:44; Stop 05/24/17 at 15:45; Status DC Thrombin (Thrombin Top Soln) 10,000 units STK-MED ONCE .ROUTE Last administered on 05/24/17 17:42; Start 05/24/17 at 15:44; Stop 05/24/17 at 15:45 ; Status DC Gelatin (Gelfoam 100 Top) 1 foam STK-MED ONCE .ROUTE Last administered on 17:42; Start 05/24/17 at 15:45; Stop 05/24/17 at 15:46; Status DC Gentamicin Sulfate (Gentamicin Inj) 240 mg STK-MED ONCE .ROUTE Last administered on 05/24/17 17:42; Start 05/24/17 at 15:45; Stop 05/24/17 at 15:46 ; Status DC Midazolam HCl (Versed Inj) 2 mg STK-MED ONCE .ROUTE ; Start 05/24/17 at 16:29; Stop 05/24/17 at 16:30; Status DC Famotidine (Pepcid Inj) 20 mg STK-MED ONCE .ROUTE ; Start 05/24/17 at 16:29; Stop 05/24/17 at 16:30; Status DC Lidocaine/ Epinephrine (Xylocaine-Epi Mpf 2%-1:200,000 Inj) 20 ml STK-MED ONCE .ROUTE Last administered on 05/24/17 17:42; Start 05/24/17 at 16:47; Stop 08/28 at 16:48; Status DC Acetaminophen 100 ml @ As Directed STK-MED ONCE IV ; Start 05/24/17 at 17:03; Stop 05/24/17 at 17:06; Status DC Propofol 150 ml @ As Directed STK-MED ONCE .ROUTE ; Start 05/24/17 at 17:03; Stop 05/24/17 at 17:06; Status DC Hydromorphone HCl (Dilaudid Pf Inj) 2 mg STK-MED ONCE .ROUTE ; Start 05/24/17 at 17:03; Stop 05/24/17 at 17:06; Status DC Cefazolin Sodium/ Dextrose 50 ml @ As Directed STK-MED ONCE .ROUTE Last administered on 05/24/17 17:32; Start 05/24/17 at 17:31; Stop 05/24/17 at 17:32 ; Status DC Chlorhexidine Gluconate (Peridex 0.12% Liq) 15 ml STK-MED ONCE .ROUTE Last administered on 05/24/17 20:23; Start 05/24/17 at 20:15; Stop 05/24/17 at 20:16 ; Status DC Miscellaneous Information ALL NURSING DEPARTME... UNSCH PRN .XX SEE LABEL COMMENTS; Start 05/24/17 at 20:40; Stop 05/25/17 at 20:39; Status DC IV Flush (NS Flush) 2 ml UNSCH PRN IVF FLUSH AFTER USING IV ACCESS; Start 05/24 at 21:30 IV Flush (NS Flush) 2 ml BID IVF Last administered on 06/02/17 08:00; Start at 09:00 Potassium Chloride/Sodium Chloride 1,000 ml @ 100 mls/hr Q10H IV Last administered on 06/01/17 20:05; Start 05/24/17 at 21:24 Hydralazine HCl (Apresoline) 25 mg Q6HR PO ; Start 05/25/17 at 12:00; Stop 05/25 at 18:33; Status DC Hydralazine HCl (Apresoline Inj) 20 mg Q4H PRN IV PUSH SYS BP GREATER THAN 160 MMHG Last administered on 05/29/17 03:12; Start 05/25/17 at 09:00 Pharmacy Profile Note 0 ml @ 0 mls/hr UNSCH OTHER ; Start 05/25/17 at 18:15; Stop 05/25/17 at 18:26; Status DC Vancomycin HCl 1500 mg/Sodium Chloride 515 ml @ 250 mls/hr Q12H IV ; Start at 20:00; Stop 05/25/17 at 20:00; Status DC Metoprolol Tartrate (Lopressor) 100 mg Q8HR PO Last administered on 05/26/17 05:05; Start 05/25/17 at 22:00; Stop 05/26/17 at 12:38; Status DC Hydralazine HCl (Apresoline) 50 mg Q8HR PO Last administered on 05/28/17 12:56 ; Start 05/25/17 at 22:00; Stop 05/28/17 at 15:12; Status DC Labetalol HCl (Trandate Inj) 10 mg Q4H PRN IV PUSH sbp >160 Last administered on 05/29/17 04:27; Start 05/25/17 at 19:00; Stop 05/30/17 at 16:37; Status DC Metoprolol Tartrate (Lopressor Inj) 10 mg Q6H IV PUSH Last administered on 05/27 13:42; Start 05/26/17 at 14:00; Stop 05/27/17 at 16:12; Status DC Ceftriaxone Sodium 1000 mg/ Sodium Chloride 100 ml @ 200 mls/hr Q24H IV Last administered on 05/30/17 11:59; Start 05/27/17 at 13:00; Stop 05/30/17 at 13:10 ; Status DC Metoprolol Tartrate (Lopressor) 100 mg Q12HR PO Last administered on 06/02/17 07:56; Start 05/27/17 at 21:00 Hydralazine HCl (Apresoline) 75 mg Q8H PO Last administered on 05/29/17 11:55 ; Start 05/28/17 at 21:00; Stop 05/29/17 at 13:33; Status DC Hydralazine HCl (Apresoline) 100 mg Q8H PO Last administered on 06/02/17 11:23 ; Start 05/29/17 at 21:00 Clonidine (Catapres) 0.1 mg Q8HR PRN PO SBP> OR = 180, DBP> OR = 100 Last administered on 06/02/17 02:09; Start 05/29/17 at 13:45 Docusate Sodium (Colace) 100 mg BID PO Last administered on 06/01/17 08:05; Start 05/30/17 at 09:00 Magnesium Hydroxide (Milk Of Magnesia Liq) 30 ml Q12H PRN PO MILD - MODERATE CONSTIPATION Last administered on 05/30/17 20:00; Start 05/29/17 at 22:30 Lactulose (Lactulose Liq) 30 ml DAILY PRN PO SEVERE CONSITIPATION Last administered on 06/01/17 08:05; Start 05/29/17 at 22:30 Nifedipine (Procardia Xl) 30 mg ONCE ONCE PO Last administered on 05/30/17 15 :54; Start 05/30/17 at 13:15; Stop 05/30/17 at 13:16; Status DC Bisacodyl (Dulcolax Supp) 10 mg ONCE ONCE RECTAL Last administered on 11:59; Start 06/01/17 at 10:30; Stop 06/01/17 at 10:56; Status DC Sodium Biphosphate/ Sodium Phosphate (Fleets Enema (Adult)) 133 ml ONCE ONCE RECTAL ; Start 06/01/17 at 17:00; Stop 06/01/17 at 17:13; Status DC A/P Assessment and Plan Status post cervical decompression on 05/[address] Duval - MRI findings suggestive of myelopathy was signal intensity changes, possible acute cord contusion. - Senescent changes with mild small vessel ischemic white matter demyelination; no acute ischemia or acute intracranial abnormality. Bilateral maxillary sinus fluid. - Cervical spine CT with no fracture or dislocation. - MRA unremarkable. - EEG reviewed showing slow alpha variant. -Orthostatic blood pressures checked, no significance. - Previous echocardiogram from November 2016 admission were unremarkable. - Carotid ultrasound reviewed showing borderline significant changes on the right, defer to neurology if follow up needed. - Neurology follow-up appreciated and signed off. - was evaluated by cardiology and no further cardiac work-up recommended. +/ blood culture tube for a Staphylococcus weineri Follow repeat blood culture negative so far. consulted ID most likely contamination UTI - Culture growing gram - remedios, E coli present. - treated. Hyponatremia - improved. Hypertension:continue hydralazine, Amlodipine and Lopressor. clonidine prn- DVT prophylaxis: SCD's Discharge Planning dc to [facility] when arrangements made; awaiting authorization. see med list. f/u; pcp, neurosurgery and neurology. d/w the patient and RN. d/w [facility]. time spent 35 min. Luz Marina Langford MD Jun 02, 2017 12:02
--- NOTE | 2017-06-02 15:16 | HHI.NSPN ---
(Franklin Farrisfarrukh LOPEZ) History Chief Complaint: Neck is sore. (Jc FarrisJefe LOPEZ) Interval History 05/20: 66-year-old female gives a history of progressive gait difficulty for the past year. She states that she was in the hospital in November 2016 and fell at that time. Her medical records indicate an admission for syncope and cardiac evaluation revealed 65% ejection fraction. She indicates that she has been using a cane to ambulate for the past few months. She states that she has fallen a couple of times in the past 2 weeks, the last time on 05/18/2017. Since these falls, she has had significant increased weakness in the left arm and leg. She denies any significant sensory changes. No definite bowel or bladder dysfunction. She has mild to moderate neck pain which is a little worse since her most recent fall. She has no complaint of significant joint pain. She states that when she ambulates, she has poor balance and loss of control of her legs. Since the fall, she has had much more left extremity weakness. 05/21/2017: Persistent neck pain. Some discomfort left foot. No change in neurologic exam versus 05/20/1705/24: The patient is awake and alert when seen this afternoon. She states that she is doing good. She does have pain to the posterior neck and the weakness to the left side extremities. She has been cleared by Cardiology and Medicine for surgery later this afternoon. 05/25: The patient went for a discectomy with interbody fusion and instrumentation at the C3-4 level yesterday. Post-operatively she was transferred to [facility]. This morning the patient is awake but lethargic. When asked how she is doing she states she is doing good. She had no complaints during the review of systems. Nursing reported that the patient did have difficulty taking oral medication even when crushed and given in applesauce. The patient has also been hypertensive and Nursing reports that the family has previously told them the patient is allergic to Vasotec but it is not recorded as an allergy. Therefore it was not given. She did receive morphine prior to being seen for pain per Nursing. 05/26: The patient is awake this morning when seen. She is lethargic and does interact. She briefly verbalises and does follow commands. She is hypertensive when seen. Nursing reports that the patient did have difficulty taking her meds crushed in applesauce this morning and had to suction it back out of the patient 's mouth. Speech Therapy did do a swallow eval yesterday and recommended NPO. 05/27: The patient is more awake and interactive this morning. She states that her neck feels "Okay" when asked. She denies any sore throat or difficulty swallowing. 05/28: Patient awake and alert. She denies pain. No radiculopathy or paresthesias in the upper extremities. She has left-sided weakness. 05/29: Pt awake and alert. Denies pain. States pressure on right side of head resolved. No radiculopathy in UEs. left sided weakness. 05/30: This afternoon the patient is awake and alert, watching TV. She says she is doing fine. She states she still has weakness to the left side and has some aching to the back of the neck. 05/31: The patient when seen this afternoon states that she is doing good. She complains of itching to the front and back of the neck. She did report having some pain to the back of the neck last night but it is better today. The weakness to the left side still persists. 06/01: The patient is initially seen with Dr Duval this morning and was doing well. When seen this afternoon she was doing good and denied any pain. She stated that the surgical incision was itching but not painful. The Yung catheter was removed this morning and she has not voided since. She also said she hasn't had a bowel movement. 06/02: This afternoon the patient is asleep but awakens to verbal stimulation. She readily interacts. She does state she has a slight headache at present and that the back of the neck hurts but the surgical incision aches. She has been discharged by Medicine but her insurance has not authorised her to go to [facility] for further therapy yet. (Jc Farris) System Review Comments Constitutional: Patient denies any fever or chills. HEENT: Patient denies any sore throat, difficulty swallowing or any visual or hearing problems. Respiratory: Patient denies any shortness of breath or productive cough. Cardiovascular: Patient denies any chest pain, palpitations or irregular heartbeat. Gastrointestinal: Patient denies any abdominal pain, nausea, vomiting or incontinence of stool. Genitourinary: Patient denies any incontinence of urine. Musculoskeletal: Patient states the posterior neck hurts and the surgical incision aches. She denies any neck, back or extremity pain. Neurologic: Patient still weak on the left side. She had a slight headache at present. She denies any dizziness, numbness or tingling. (Jc Farris) Exam Results 05/31/17 05/31/17 06/01/17 06/01/17 06/02/17 06/02/17 06:00 18:00 06:00 18:00 06:00 18:00 Intake Total 120 ml 220 ml 240 ml 320 ml 1370 ml 120 ml Output Total 1300 ml 1950 ml 650 ml 400 ml Balance -1180 ml -1730 ml -410 ml -80 ml 1370 ml 120 ml Intake Oral 120 ml 220 ml 240 ml 320 ml 120 ml 120 ml IV Total 1250 ml Output Urine Total 1300 ml 1950 ml 650 ml 400 ml # Voids 1 0 3 # Bowel Movements 0 0 0 1 1 2 Vital Signs Date Time Temp Pulse Resp B/P (MAP) Pulse Ox O2 Delivery O2 Flow Rate FiO2 06/02/17 11:28 97.8 62 16 160/67 (98) 98 06/02/17 08:00 96.7 67 18 156/65 (95) 98 06/02/17 04:30 97.8 63 17 158/69 (98) 99 06/02/17 01:19 97.5 65 17 190/86 (120) 98 06/01/17 20:40 97.6 77 17 178/83 (114) 100 06/01/17 16:22 97.4 77 16 162/72 (102) 99 06/01/17 11:54 97.0 70 16 138/65 (89) 97 06/01/17 08:00 97.9 91 17 165/72 (103) 97 06/01/17 04:50 97.8 77 18 181/69 (106) 98 06/01/17 00:30 98.9 66 18 170/81 (110) 95 05/31/17 20:24 98.4 92 18 196/69 (111) 97 05/31/17 16:00 99.1 92 18 172/66 (101) 95 05/31/17 13:18 16 05/31/17 12:00 97.7 72 18 180/67 (104) 98 05/31/17 08:10 98.0 70 17 136/54 (81) 95 05/31/17 04:47 97.1 79 18 188/76 (113) 96 05/31/17 00:12 97.5 77 18 161/70 (100) 96 05/30/17 20:57 98.0 86 18 184/78 (113) 98 05/30/17 20:43 97 21 05/30/17 16:00 97.2 76 18 148/61 (90) 98 (Jc Farris) Physical Examination GENERAL: Patient asleep but awakens to voice and is alert after that. She readily interacts. Her affect is flat. NAD. SKIN: Warm, dry & intact except for left anterior neck surgical incision well approximated w/steri-strips, no drainage, erythema or streaking, intact dressing. HEENT: Normocephalic, atraumatic. NECK: [place] cervical collar in place, left anterior neck surgical incision w/ intact dressing minimally TTP, midline cervical spine mildly TTP, no JVD, trachea midline. CARDIOVASCULAR: S1S2 w/RRR w/o M/G/R, radial & pedal pulses 2+ cap refill < 2 sec, no pedal edema. RESPIRATORY: CTAB w/o W/R/R, equal excursion, nonlaboured, on RA. GASTROINTESTINAL: Abdomen soft, nontender, bowel sounds not appreciate. MUSCULOSKELETAL: Move right extremities w/o difficulty, decreased movement of left, no evident deformity or clubbing. NEUROLOGICAL: AAOx3. Speech clear and appropriate. Follows simple command w/o difficulty. Sensation intact to light touch to all extremities. Strength 4+/5 RUE and 4+/5 RLE; left hand automobile damage appraiser 3 to 3+/5, left deltoid 3 to 3+/5 , left biceps 3+/5, left triceps 3/5, left hamstring 2+ to 3/5, gastrocnemius 3 + to 4/5, tibialis anterior 4 to 4+/5, remainder 1 to 1+/5. Patient is disinterested as being evaluated which is felt to reflect in some decrease in her motor strength on the left. (Jc Farris) Medical Decision Making Impression and Plan Impression: 1. Cervical stenosis severe at C 3-4 level 2. Cervical myelopathy 3. Probable cervical spinal cord contusion 4. Hyponatremia 5. Hepatomegaly Postoperative Diagnosis: (1) Cervical disc disease with myelopathy (2) Contusion of cervical cord MRI cervical spine demonstrates discectomy with fusion & instrumentation at C3-4. There is a prevertebral fluid collection from the skull base to the C5-6 level with its epicentre at C3-4. There is also a fluid collection w/i the posterior C3-4 intervertebral disc space effacing the thecal sac. Patient doing well, neurologically stable. Patient remains hypertensive. ST recommends mechanical soft with nectar thickened liquids. PT & OT recommend inpatient rehab. POD #9 () s/p: C 3-4 Anterior cervical discectomy C3-4 Anterior interbody fusion, allograft bone C3-4 Anterior cervical instrumentation Plan: Primary management per Hospitalist. Continue neuro checks. Maintain cervical collar at all times. Diet per ST recommendations. PT & OT eval & tx. Patient is okay to be discharged to [facility] once insurance is approved from NSGY's perspective. (Jc Farris) Attending Statement The exam, history, and the medical decision-making described in the above note were completed with the assistance of the mid-level provider. I reviewed and agree with the findings presented. I attest that I had a [id number] encounter with the patient on the same day, and personally performed and documented my assessment and findings in the medical record. Patient remains awake, mild slowing of speech and thought processes. Upper and lower extremity motor function slowly improving postoperative, now mostly 3-4/5 upper extremities with 2/5 left and 3/5 right lower extremity major flexion and extension groups. Incisions healing well. Continuing therapy Stable for discharge to [facility] from neurosurgery standpoint (Ricci Duval MD) Jc Farris Jun 02, 2017 15:15 Ricci Duval MD Jun 06, 2017 08:48
[2017-06-23] MEDS ORDERED: NOVOLOGSS SQ (08:30)
[2017-06-23] MEDS ORDERED: Simethicone Chew CHEW (08:30)
[2017-06-23] MEDS ORDERED: HYDR-3800 PO (08:30)
[2017-06-23] MEDS ORDERED: CLAR10TA7 PO (08:30)
[2017-06-23] MEDS ORDERED: LISI-515 PO (08:30)
[2017-06-23] MEDS ORDERED: FOLI1TAB6 PO (08:30)
[2017-06-23] MEDS ORDERED: PARO20TA2 PO (08:30)
[2017-06-23] MEDS ORDERED: METO-338 PO (08:30)
[2017-06-23] MEDS ORDERED: HYDR-3580 PO (08:30)
[2017-06-23] MEDS ORDERED: AMLO10TA2 PO (08:30)
[2017-06-23] MEDS ORDERED: THERM PO (08:30)
[2017-06-23] MEDS ORDERED: MAGN400T3 PO (08:30)
[2017-06-23] MEDS ORDERED: ATOR40TA16 PO (08:30)
== END 2017-06-02 17:12 | DRG 471 ==
LOC: NEPE 23:40 → NEDA 05-20 01:32 → N05A 05-20 02:48 → N03B 05-24 22:38 → N03A 05-24 23:49 → N06A 05-29 22:42
PROVIDERS: ADMIT Internal Medicine; ATTEND Internal Medicine
PROC: 0RG10A0 Fusion of Cervical Vertebral Joint with Interbody Fusion Device, Anterior Approach, Anterior Column, Open Approach (ICD-10-PCS; 2017-05-24)
PROC: 0RT30ZZ Resection of Cervical Vertebral Disc, Open Approach (ICD-10-PCS; principal; 2017-05-24 16:34)
DX: M50.01 Cervical disc disorder with myelopathy, high cervical region (principal); S14.103A Unspecified injury at C3 level of cervical spinal cord, initial encounter; S14.104A Unspecified injury at C4 level of cervical spinal cord, initial encounter; G81.94 Hemiplegia, unspecified affecting left nondominant side; E87.1 Hypo-osmolality and hyponatremia; R13.13 Dysphagia, pharyngeal phase; N39.0 Urinary tract infection, site not specified; M47.12 Other spondylosis with myelopathy, cervical region; S00.03XA Contusion of scalp, initial encounter; R16.0 Hepatomegaly, not elsewhere classified; M48.02 Spinal stenosis, cervical region; K76.0 Fatty (change of) liver, not elsewhere classified; I10 Essential (primary) hypertension; E11.9 Type 2 diabetes mellitus without complications; E78.5 Hyperlipidemia, unspecified; M10.9 Gout, unspecified; M19.90 Unspecified osteoarthritis, unspecified site; R29.6 Repeated falls; M43.12 Spondylolisthesis, cervical region; E87.6 Hypokalemia; B96.20 Unspecified Escherichia coli [E. coli] as the cause of diseases classified elsewhere; F10.10 Alcohol abuse, uncomplicated; W18.30XA Fall on same level, unspecified, initial encounter; Y92.009 Unspecified place in unspecified non-institutional (private) residence as the place of occurrence of the external cause; Z79.84 Long term (current) use of oral hypoglycemic drugs; Z87.891 Personal history of nicotine dependence
CPT/HCPCS: 36600; 51702; 70450; 70544; 70551; 71010; 72040; 72125; 72141; 73221; 76000; 80048; 80053; 80061; 80307; 81001; 82140; 82550; 82607; 82805; 82948; 83036; 83605; 83930; 83935; 84300; 84443; 84484; 84550; 84560; 85025; 85027; 85610; 85652; 86140; 87040; 87077; 87086; 87186; 87205; 93005; 93306; 93880; 95819; 96360; C1713; J0131; J0330; J0360; J0690; J0696; J1170; J1580; J1650; J2250; J2270; J3010; J7030; L0150; L0172